=== PATIENT | female | born 1940 | race Caucasian/White ===

== ENCOUNTER 2017-06-26 19:25 | Emergency (ER) | payer OTHER ==
[~2017-06-26] VITALS: Ht 152.4 cm; Wt 44.6 kg
[2017-06-26] MEDS ORDERED: SODIUM CHLORIDE 0.9% 1000ML 1,000 ML IV STA (19:38)
[2017-06-26 20:05] VITALS: O2SAT 97
[2017-06-26 20:16] LABS: BASO % 0.6 %; BASO ABS # 0.04 K/uL (0-0.2); EOS % 1.1 %; EOS ABS # 0.07 K/uL (0-0.5); HEMATOCRIT 34.3 % (37-47); HEMOGLOBIN 11.5 g/dL (12.0-16.0); IG# 0.01 K/uL (0.00-0.02); LYMPH % 25.2 %; LYMPH ABS # 1.65 K/uL (1.2-3.4); MEAN CELL VOLUME 91.7 fL (80-100); MEAN CORPUSCULAR HEMOGLOBIN 30.7 pg (25-34); MEAN CORPUSCULAR HGB CONC 33.5 g/dl (32-36); MEAN PLATELET VOLUME 8.9 fL (7.4-10.4); MONO % 9.1 %; NEUT % 63.8 %; NEUT ABS # 4.19 K/uL (1.4-6.5); PLATELET COUNT 326 K/uL (130-400); RED CELL DISTRIBUTION WIDTH CV 13.4 % (11.5-14.5); WHITE BLOOD COUNT 6.56 K/uL (4.8-10.8)
[2017-06-26 20:26] LABS: PTT PATIENT 25.5 SECONDS (21.0-31.0)
[2017-06-26 20:34] LABS: ALBUMIN 3.2 gm/dl (3.4-5.0); ALT/SGPT 21 U/L (12-78); BLOOD UREA NITROGEN 19 mg/dl (7-18); CALCIUM 8.5 mg/dl (8.5-10.1); CARBON DIOXIDE 30 mmol/L (21-32); CREATININE 0.84 mg/dl (0.60-1.20); GLUCOSE 69 mg/dl (70-99); LIPASE 238 U/L (73-393); POTASSIUM 3.8 mmol/L (3.5-5.1); SODIUM 138 mmol/L (136-145)
[2017-06-26 20:43] LABS: ALKALINE PHOSPHATASE 61 U/L (45-117); AST/SGOT 30 U/L (15-37); CKMB 1.8 ng/ml (0.5-3.6); TOTAL PROTEIN 6.8 gm/dl (6.4-8.2)
--- NOTE | 2017-06-26 20:47 | DIAGNOSTIC IMAGING REPORT ---
CT HEAD WITHOUT CONTRAST (CT) CLINICAL HISTORY: Weakness FREQUENT FALLS, FORGETFULNESS. COMPARISON STUDY: No previous studies for comparison. TECHNIQUE: Axial CT of the brain is performed from the vertex to the skull base. IV contrast was not administered for this examination. A dose lowering technique was utilized adhering to the principles of ALARA. CT DOSE: 614.27 mGy.cm FINDINGS: No intra or extra-axial mass lesions are visualized. There is no CT evidence of acute cortical infarction. There is no evidence of midline shift. There is no acute hemorrhage. No calvarial fractures are visualized. There are patchy white matter hypodensities likely on a small vessel basis. There is mild ventricular prominence, likely secondary to volume loss. There are bilateral maxillary sinus air-fluid levels. IMPRESSION: 1. Bilateral maxillary sinus air-fluid levels 2. Otherwise no acute intracranial findings Electronically signed by: Chicho Avalos M.D. 06/26/2017 8:46 PM Dictated Date/Time: 06/26/2017 8:42 PM
--- NOTE | 2017-06-26 21:18 | EMERGENCY ROOM VISIT NOTE ---
History Report prepared by Marcy: Kb Vincent Under the Supervision of: Dr. Checo Nance M.D. First contact with patient: 19:38 Chief Complaint: URINARY SYMPTOMS Stated Complaint: FALLING,INCONTINENCE, UTI? FORGETFULL History of Present Illness The patient is a 77 year old female who presents to the Emergency Room with complaints of intermittent falls that began this week. The patient states that she has been losing balance recently, which caused her to fall 5 times in the last week. She reports she has bruises on her right ribs and she has been experiencing right posterolateral rib pain. The patient is accompanied by her son who states the patient has a history of dementia and has been more confused recently. He states that the patient has also been experiencing urinary symptoms , including urinary frequency and burning. The patient denies this. The patient reports a history of a urinary infection that occurred this summer. She denies any head trauma. Pt denies LOC, headache, fevers, chills, diaphoresis, visual changes, neck pain, chest pain, breathing difficulties, nausea, vomiting , abdominal pain, back pain, melena, hematochezia, numbness, weakness, lymphadenopathy, rash, or other complaints. Source of History: patient Onset: a week ago Position: other (global) Quality: other (global) Timing: intermittent Associated Symptoms: + chest pain, + urinary symptoms Review of Systems See HPI for pertinent positives and negatives. A total of ten systems were reviewed and were otherwise negative. Social History Smoking Status: Never Smoker Current/Historical Medications Scheduled Cholecalciferol (Vitamin D3), 50,000 INTER.UNIT PO WK Fluoxetine (Prozac), 10 MG PO DAILY Montelukast Sodium (Montelukast Sodium), 10 MG PO QPM Prednisone (Prednisone), 2.5 MG PO DAILY Raloxifene Hcl (Evista), 60 MG PO DAILY Allergies Coded Allergies: Erythromycin (Verified Allergy, Unknown, Unknown, 06/26/17) Physical Exam Vital Signs Date Time Temp Pulse Resp B/P (MAP) Pulse Ox O2 Delivery O2 Flow Rate FiO2 06/26/17 22:08 60 20 179/93 96 Room Air 06/26/17 22:00 36.6 54 20 165/86 96 Room Air 06/26/17 21:15 54 06/26/17 21:00 58 20 191/79 96 Room Air 06/26/17 20:21 36.6 75 20 165/86 96 Room Air 06/26/17 20:12 64 20 162/73 96 64 166/77 75 165/86 06/26/17 20:05 97 Room Air 06/26/17 19:31 36.6 68 18 161/80 96 Room Air Physical Exam GENERAL: Awake, alert, well-appearing, in no distress HENT: Normocephalic, atraumatic. Oropharynx unremarkable. EYES: Normal conjunctiva. Sclera non-icteric. NECK: Supple. No nuchal rigidity. FROM. No masses. RESPIRATORY: Clear to auscultation. No wheezes. CARDIAC: Normal rate. Normal rhythm. No murmurs. No rubs. Extremities warm and well perfused. Pulses equal. No JVD. GI: Soft, non-distended. No tenderness to palpation. No rebound or guarding. No masses. RECTAL: Deferred. MUSCULOSKELETAL: Atraumatic. Chest examination reveals right lateral rib tenderness. The back is symmetrical on inspection without obvious abnormality. There is no CVA tenderness to palpation. No joint edema. LOWER EXTREMITIES: Calves are equal size bilaterally and non-tender. No edema. No discoloration. NEURO: Normal sensorium. No sensory or motor deficits noted. SKIN: No rash or jaundice noted. Skin tear on right tricep. Medical Decision & Procedures ER Provider Diagnostic Interpretation: Radiology results as stated below per my review and radiologist interpretation: CT HEAD WITHOUT CONTRAST (CT) CLINICAL HISTORY: Weakness FREQUENT FALLS, FORGETFULNESS. COMPARISON STUDY: No previous studies for comparison. TECHNIQUE: Axial CT of the brain is performed from the vertex to the skull base. IV contrast was not administered for this examination. A dose lowering technique was utilized adhering to the principles of ALARA. CT DOSE: 614.27 mGy.cm FINDINGS: No intra or extra-axial mass lesions are visualized. There is no CT evidence of acute cortical infarction. There is no evidence of midline shift. There is no acute hemorrhage. No calvarial fractures are visualized. There are patchy white matter hypodensities likely on a small vessel basis. There is mild ventricular prominence, likely secondary to volume loss. There are bilateral maxillary sinus air-fluid levels. IMPRESSION: 1. Bilateral maxillary sinus air-fluid levels 2. Otherwise no acute intracranial findings Electronically signed by: Chicho Avalos M.D. 06/26/2017 8:46 PM Dictated Date/Time: 06/26/2017 8:42 PM R RIBS UNILATERAL WITH PA CHEST CLINICAL HISTORY: Right rib pain status post trauma COMPARISON STUDY: No previous studies for comparison. FINDINGS: Erect chest reveals no pneumothorax. There are acute fractures of the right sixth and seventh ribs. IMPRESSION: 1. Acute fractures of the right sixth and seventh ribs 2. No evidence of pneumothorax Electronically signed by: Chicho Avalos M.D. 06/26/2017 9:22 PM Dictated Date/Time: 06/26/2017 9:21 PM Laboratory Results 06/26/17 20:00 Red Blood Count 3.74, Mean Corpuscular Volume 91.7, Mean Corpuscular Hemoglobin 30.7, Mean Corpuscular Hemoglobin Concent 33.5, Mean Platelet Volume 8.9, Neutrophils (%) (Auto) 63.8, Lymphocytes (%) (Auto) 25.2, Monocytes (%) (Auto) 9.1, Eosinophils (%) (Auto) 1.1, Basophils (%) (Auto) 0.6, Neutrophils # (Auto) 4.19, Lymphocytes # (Auto) 1.65, Monocytes # (Auto) 0.60, Eosinophils # (Auto) 0.07, Basophils # (Auto) 0.04 06/26/17 20:00 Test 06/26/17 20:00 06/26/17 20:05 White Blood Count 6.56 K/uL (4.8-10.8) Red Blood Count 3.74 M/uL (4.2-5.4) Hemoglobin 11.5 g/dL (12.0-16.0) Hematocrit 34.3 % (37-47) Mean Corpuscular Volume 91.7 fL (80-100) Mean Corpuscular Hemoglobin 30.7 pg (25-34) Mean Corpuscular Hemoglobin Concent 33.5 g/dl (32-36) Platelet Count 326 K/uL (130-400) Mean Platelet Volume 8.9 fL (7.4-10.4) Neutrophils (%) (Auto) 63.8 % Lymphocytes (%) (Auto) 25.2 % Monocytes (%) (Auto) 9.1 % Eosinophils (%) (Auto) 1.1 % Basophils (%) (Auto) 0.6 % Neutrophils # (Auto) 4.19 K/uL (1.4-6.5) Lymphocytes # (Auto) 1.65 K/uL (1.2-3.4) Monocytes # (Auto) 0.60 K/uL (0.11-0.59) Eosinophils # (Auto) 0.07 K/uL (0-0.5) Basophils # (Auto) 0.04 K/uL (0-0.2) RDW Standard Deviation 45.0 fL (36.4-46.3) RDW Coefficient of Variation 13.4 % (11.5-14.5) Immature Granulocyte % (Auto) 0.2 % Immature Granulocyte # (Auto) 0.01 K/uL (0.00-0.02) Prothrombin Time 10.7 SECONDS (9.0-12.0) Prothromb Time International Ratio 1.0 (0.9-1.1) Activated Partial Thromboplast Time 25.5 SECONDS (21.0-31.0) Partial Thromboplastin Ratio 1.0 Anion Gap 6.0 mmol/L (3-11) Estimated GFR () 77.7 Estimated GFR (Non- 67.0 BUN/Creatinine Ratio 21.9 (10-20) Calcium Level 8.5 mg/dl (8.5-10.1) Magnesium Level 2.0 mg/dl (1.8-2.4) Total Bilirubin 0.3 mg/dl (0.2-1) Direct Bilirubin 0.1 mg/dl (0-0.2) Aspartate Amino Transf (AST/SGOT) 30 U/L (15-37) Alanine Aminotransferase (ALT/SGPT) 21 U/L (12-78) Alkaline Phosphatase 61 U/L (45-117) Total Creatine Kinase 303 U/L (26-192) Creatine Kinase MB 1.8 ng/ml (0.5-3.6) Creatine Kinase MB Ratio 0.6 (0-3.0) Troponin I < 0.015 ng/ml (0-0.045) Total Protein 6.8 gm/dl (6.4-8.2) Albumin 3.2 gm/dl (3.4-5.0) Lipase 238 U/L (73-393) Thyroid Stimulating Hormone (TSH) 0.807 uIu/ml (0.300-4.500) Urine Color DK YELLOW Urine Appearance CLEAR (CLEAR) Urine pH 5.0 (4.5-7.5) Urine Specific [place] 1.026 (1.000-1.030) Urine Protein NEG (NEG) Urine Glucose (UA) NEG (NEG) Urine Ketones 1+ (NEG) Urine Occult Blood NEG (NEG) Urine Nitrite NEG (NEG) Urine Bilirubin NEG (NEG) Urine Urobilinogen NEG (NEG) Urine Leukocyte Esterase NEG (NEG) Laboratory results reviewed by me Medications Administered Medications (Trade) Dose Ordered Sig/[place] Route Start Time Stop Time Status Last Admin Dose Admin Sodium Chloride 1,000 ml @ 125 mls/hr Q8H STAT IV 06/26/17 19:38 06/27/17 03:37 06/26/17 19:38 125 MLS/HR Acetaminophen (Tylenol Tab) 650 mg NOW STAT PO 06/26/17 21:40 06/26/17 21:41 DC 06/26/17 21:54 650 MG ECG Per My Interpretation Indication: weakness Rate (beats per minute): 61 Rhythm: normal sinus Findings: no acute ischemic change, no ectopy ED Course 1937: Ordered Sodium Chloride 1000 ml @ 125 mls/hr IV. 1941: The patient was evaluated in room A02. A complete history and physical exam was performed. 2139: Ordered Tylenol Tab 650 mg PO. 2144: I reevaluated the patient and she will do an ambulatory trial and nursing will check her blood sugar. If the family is comfortable, she will follow up with neurology. 2210: The patients blood sugar was normal. The patient successfully completed the ambulatory trial. The patient will be discharged. 6: I reevaluated the patient. Discussed results and discharge instructions: She verbalized understanding and agreement. The patient is ready for discharge. Medical Decision Triage Nursing notes reviewed. The patient's presentation and history were concerning for falling, possible urinary symptoms, and a history of dementia. Etiologies such as UTI, fracture, contusion, intracranial injury, metabolic, infection, hypo/hyperglycemia, electrolyte abnormalities, cardiac sources, intracerebral event, toxicologic, neurologic, as well as others were entertained. The patient was evaluated. She was smiling without any significant complaints. She did note some soreness in her right ribs. She was tender to palpation. Rest of her examination was rather benign. Blood work was obtained and was unremarkable. Urinalysis did not reveal any sign of infection. Head CT was unremarkable as well. The patient had a chest x-ray and rib series performed. She does have rib fractures on the right side. No pneumothorax or other intrathoracic issues noted. She is doing relatively well with this. I did discuss use of Tylenol and close follow-up with her primary physician. Family notes a progressive decline over the last year. This would fit with progressing dementia. Family did request a referral to neurology and they were given information for [facility] neurology. The patient was instructed not to drive until cleared in follow-up. She was instructed to use her cane when ambulating. She had no difficulty ambulating in the emergency department. She was given a incentive spirometer. She was also given Tylenol in the Emergency Room. I gave my usual and customary discussion regarding this issue. By the evaluation outlined above other emergent etiologies such as those listed in the differential, as well as others, were deemed relatively unlikely. The patient was educated about the findings as listed above. All questions were answered and the patient was pleased with the treatment. Return instructions were outlined and the patient was discharged in stable condition. The patient was referred to her PCP for follow-up for a recheck of the current condition. Medication Reconcilliation Current Medication List: was personally reviewed by me Blood Pressure Screening Patient's blood pressure: Elevated blood pressure Blood pressure disposition: Referred to PCP Impression Primary Impression: Multiple fractures of ribs, right side, initial encounter for closed fracture Additional Impression: Frequent falls Scribe Attestation The scribe's documentation has been prepared under my direction and personally reviewed by me in its entirety. I confirm that the note above accurately reflects all work, treatment, procedures, and medical decision making performed by me. Departure Information Dispostion Home / Self-Care Referrals Domo Huertas M.D., E. Pierre, M.D. Forms HOME CARE DOCUMENTATION FORM, IMPORTANT VISIT INFORMATION Patient Instructions [facility] Additional Instructions Tylenol 650 mg every 6 hours as needed for pain. Every two to 3 hours take slow deep breaths to exercise your lungs. Do this for about 10 minutes each time. Bruised or cracked ribs can lead to pneumonia and exercising your lungs may help prevent this. Use your cane. No driving until cleared by your primary physician. Follow-up with your primary care physician in 2 to 3 days for a recheck of your current condition. Follow-up with neurology as discussed. The office can be contacted on Wednesday. The number is listed below under Dr. Malhotra. Problem Qualifiers
--- NOTE | 2017-06-26 21:24 | DIAGNOSTIC IMAGING REPORT ---
R RIBS UNILATERAL WITH PA CHEST CLINICAL HISTORY: Right rib pain status post trauma COMPARISON STUDY: No previous studies for comparison. FINDINGS: Erect chest reveals no pneumothorax. There are acute fractures of the right sixth and seventh ribs. IMPRESSION: 1. Acute fractures of the right sixth and seventh ribs 2. No evidence of pneumothorax Electronically signed by: Chicho Avalos M.D. 06/26/2017 9:22 PM Dictated Date/Time: 06/26/2017 9:21 PM
[2017-06-26] MEDS ORDERED: ACETAMINOPHEN 500 MG TAB PO STA (21:37)
[2017-06-26] MEDS ORDERED: ACETAMINOPHEN 325 MG TAB PO STA (21:40)
[2017-06-26 22:00] VITALS: TEMP 36.6; Ht 152.4 cm; Wt 44.6 kg
[2017-06-26 22:08] VITALS: BP 179/93; PULSE 60; O2SAT 96
[2017-06-26] MEDS ORDERED: CHOL1CAP95 PO (22:20)
[2017-06-26] MEDS ORDERED: MONT1TAB5 PO (22:20)
[2017-06-26] MEDS ORDERED: RALO60TA30 PO (22:20)
[2017-06-26] MEDS ORDERED: FLUO10CA48 PO (22:20)
[2017-06-26] MEDS ORDERED: PRD/25 PO (22:20)
== END 2017-06-26 22:30 | disposition home or self-care (01) ==
LOC: C.EDB 19:27 → C.EDA 22:30
DX: S22.41XA Multiple fractures of ribs, right side, initial encounter for closed fracture (principal); R29.6 Repeated falls; W19.XXXA Unspecified fall, initial encounter; Z88.8 Allergy status to other drugs, medicaments and biological substances

== ENCOUNTER 2017-08-25 16:45 | Inpatient (IN) | payer OTHER ==
[~2017-08-25] VITALS: Ht 152.4 cm; Wt 46.3 kg
[2017-08-25] MEDS ORDERED: SODIUM CHLORIDE 0.9% 1000ML 1,000 ML IV SCH (17:15)
[2017-08-25 18:00] LABS: BASO % 0.2 %; BASO ABS # 0.03 K/uL (0-0.2); EOS % 0.1 %; EOS ABS # 0.01 K/uL (0-0.5); HEMATOCRIT 36.2 % (37-47); HEMOGLOBIN 12.2 g/dL (12.0-16.0); IG# 0.03 K/uL (0.00-0.02); LYMPH % 8.6 %; LYMPH ABS # 1.36 K/uL (1.2-3.4); MEAN CELL VOLUME 91.6 fL (80-100); MEAN CORPUSCULAR HEMOGLOBIN 30.9 pg (25-34); MEAN CORPUSCULAR HGB CONC 33.7 g/dl (32-36); MONO % 5.2 %; MONO ABS # 0.82 K/uL (0.11-0.59); NEUT % 85.7 %; NEUT ABS # 13.49 K/uL (1.4-6.5); PLATELET COUNT 301 K/uL (130-400); RED CELL DISTRIBUTION WIDTH CV 14.5 % (11.5-14.5); WHITE BLOOD COUNT 15.74 K/uL (4.8-10.8)
[2017-08-25 18:13] LABS: PTT PATIENT 27.7 SECONDS (21.0-31.0)
[2017-08-25 18:17] LABS: BLOOD UREA NITROGEN 13 mg/dl (7-18); CALCIUM 9.3 mg/dl (8.5-10.1); CARBON DIOXIDE 28 mmol/L (21-32); CREATININE 0.98 mg/dl (0.60-1.20); GLUCOSE 111 mg/dl (70-99); POTASSIUM 3.7 mmol/L (3.5-5.1); SODIUM 132 mmol/L (136-145)
[2017-08-25 18:37] LABS: CKMB 0.8 ng/ml (0.5-3.6)
--- NOTE | 2017-08-25 19:11 | DIAGNOSTIC IMAGING REPORT ---
CHEST ONE VIEW PORTABLE CLINICAL HISTORY: Weakness. COMPARISON STUDY: Chest radiograph June 26, 2017. FINDINGS: There is no pneumothorax. There is slight blunting of the left costophrenic angle. Minimal left basilar opacity favors atelectasis. There is no evidence for pulmonary edema. Cardiomediastinal silhouette is normal. Healing right-sided rib fractures are noted. IMPRESSION: 1. Mild left basilar opacity which favors atelectasis. Follow-up PA and lateral chest radiographs in one month are recommended. Possible trace left pleural effusion. 2. No evidence for pulmonary edema. Electronically signed by: Alejandro Coyle M.D. 08/25/2017 7:09 PM Dictated Date/Time: 08/25/2017 7:07 PM
--- NOTE | 2017-08-25 19:16 | EMERGENCY ROOM VISIT NOTE ---
History Report prepared by Marcy: Adalgisa Zhu Under the Supervision of: Dr. Checo Nance M.D. First contact with patient: 17:06 Chief Complaint: WEAKNESS Stated Complaint: DIFFICULTY WALKING, SLIGHT SPEECH ISSUES History of Present Illness The patient is a 77 year old female who presents to the Emergency Room with complaints of persistent general weakness since last night. She vomited last night. She denies any new vomiting today. Per friend, the patient has stayed in bed all day and was incontinent during the night. She was so weak she could not dress herself. Per friend, the patient has balance issues, which is unusual for her. The patient attends physical therapy and was just there yesterday and was doing well at that time. The patient reports coughing, though states it is chronic. The patient reports loss of sleep. Pt denies LOC, headache, fevers, chills, diaphoresis, visual changes, hearing issues, neck pain, chest pain, breathing difficulties, abdominal pain, back pain, melena, hematochezia, numbness, tingling, lymphadenopathy, rash, or other complaints. Source of History: patient, friend Onset: since last night Position: other (general) Quality: other (weakness) Timing: other (persistent) Associated Symptoms: + cough, + vomiting Note: Notes balance issues, loss of sleep, and incontinence. Review of Systems See HPI for pertinent positives and negatives. A total of ten systems were reviewed and were otherwise negative. Past Medical & Surgical Medical Problems: (1) Asthma (2) Bronchitis Family History Cancer Diabetes mellitus Lung disease Social History Smoking Status: Never Smoker Smokeless Tobacco Use: No Alcohol Use: none Marital Status: Housing Status: lives with family Occupation Status: unemployed Current/Historical Medications Scheduled Cholecalciferol (Vitamin D3), 50,000 INTER.UNIT PO WK Fluoxetine (Prozac), 10 MG PO QAM Fluticasone Furoate-Vilanterol (Breo Ellipta), 1 PUFF INH DAILY Montelukast Sodium (Montelukast Sodium), 10 MG PO QAM Prednisone (Prednisone), 2.5 MG PO QAM Raloxifene Hcl (Evista), 60 MG PO QAM Allergies Coded Allergies: Erythromycin (Verified Allergy, Unknown, Unknown, 06/26/17) Physical Exam Vital Signs Date Time Temp Pulse Resp B/P (MAP) Pulse Ox O2 Delivery O2 Flow Rate FiO2 08/25/17 20:01 75 134/61 08/25/17 19:09 78 128/71 94 Nasal Cannula 2.0 08/25/17 19:06 93 Nasal Cannula 2.0 08/25/17 19:05 73 136/64 74 128/71 08/25/17 18:33 73 18 147/73 90 Room Air 08/25/17 18:32 90 Room Air 08/25/17 17:37 74 08/25/17 17:07 78 16 133/66 92 Room Air 08/25/17 16:51 36.6 83 18 138/79 93 Room Air Physical Exam GENERAL: Awake, alert, tired-appearing, in no distress HENT: Normocephalic, atraumatic. Oropharynx unremarkable. EYES: Normal conjunctiva. Sclera non-icteric. NECK: Supple. No nuchal rigidity. FROM. No masses. RESPIRATORY: Clear to auscultation. No wheezes. No rales. Normal respiratory effort. CARDIAC: Normal rate. Normal rhythm. No murmurs. No rubs. Extremities warm and well perfused. Pulses equal. No JVD. GI: Soft, non-distended. No tenderness to palpation. No rebound or guarding. No masses. RECTAL: Deferred. MUSCULOSKELETAL: Atraumatic. Chest examination reveals no tenderness. The back is symmetrical on inspection without obvious abnormality. There is no CVA tenderness to palpation. No joint edema. LOWER EXTREMITIES: Calves are equal size bilaterally and non-tender. No edema. No discoloration. NEURO: Normal sensorium. No sensory or motor deficits noted. Cranial nerves intact, no drip. Speech is slowed, but not slurred, no dysarthria. SKIN: No rash or jaundice noted. Medical Decision & Procedures ER Provider Diagnostic Interpretation: Radiology results as stated below per my review and radiologist interpretation: CHEST ONE VIEW PORTABLE CLINICAL HISTORY: Weakness. COMPARISON STUDY: Chest radiograph June 26, 2017. FINDINGS: There is no pneumothorax. There is slight blunting of the left costophrenic angle. Minimal left basilar opacity favors atelectasis. There is no evidence for pulmonary edema. Cardiomediastinal silhouette is normal. Healing right-sided rib fractures are noted. IMPRESSION: 1. Mild left basilar opacity which favors atelectasis. Follow-up PA and lateral chest radiographs in one month are recommended. Possible trace left pleural effusion. 2. No evidence for pulmonary edema. Electronically signed by: Alejandro Coyle M.D. 08/25/2017 7:09 PM Dictated Date/Time: 08/25/2017 7:[address] OF THE HEAD WITHOUT CONTRAST CLINICAL HISTORY: Stroke. Difficulty walking. Slight speech issues. COMPARISON STUDY: Head CT June 26, 2017. CT DOSE: 638.56 mGycm TECHNIQUE: Helical axial images of the head were obtained without IV contrast. Automated exposure control was utilized for the study. A dose lowering technique was utilized adhering to the principles of ALARA. FINDINGS: No acute intracranial hemorrhage, midline shift or mass effect is present. Ventricular system is normal for age. Basilar cisterns are patent. There are no extra-axial collections. White matter hypodensities are unchanged and suggest small vessel disease. There are no findings to suggest acute dural sinus thrombosis or acute territorial infarct. There are no significant calvarial abnormalities. Visualized portions of the sinuses and mastoid air cells are clear. IMPRESSION: No acute intracranial findings. Electronically signed by: Alejandro Coyle M.D. 08/25/2017 7:14 PM Dictated Date/Time: 08/25/2017 7:11 PM Laboratory Results 08/25/17 17:42 Red Blood Count 3.95, Mean Corpuscular Volume 91.6, Mean Corpuscular Hemoglobin 30.9, Mean Corpuscular Hemoglobin Concent 33.7, Mean Platelet Volume 9.0, Neutrophils (%) (Auto) 85.7, Lymphocytes (%) (Auto) 8.6, Monocytes (%) (Auto) 5.2, Eosinophils (%) (Auto) 0.1, Basophils (%) (Auto) 0.2, Neutrophils # (Auto) 13.49, Lymphocytes # (Auto) 1.36, Monocytes # (Auto) 0.82, Eosinophils # (Auto) 0.01, Basophils # (Auto) 0.03 08/25/17 17:42 Test 08/25/17 17:42 08/25/17 18:30 White Blood Count 15.74 K/uL (4.8-10.8) Red Blood Count 3.95 M/uL (4.2-5.4) Hemoglobin 12.2 g/dL (12.0-16.0) Hematocrit 36.2 % (37-47) Mean Corpuscular Volume 91.6 fL (80-100) Mean Corpuscular Hemoglobin 30.9 pg (25-34) Mean Corpuscular Hemoglobin Concent 33.7 g/dl (32-36) Platelet Count 301 K/uL (130-400) Mean Platelet Volume 9.0 fL (7.4-10.4) Neutrophils (%) (Auto) 85.7 % Lymphocytes (%) (Auto) 8.6 % Monocytes (%) (Auto) 5.2 % Eosinophils (%) (Auto) 0.1 % Basophils (%) (Auto) 0.2 % Neutrophils # (Auto) 13.49 K/uL (1.4-6.5) Lymphocytes # (Auto) 1.36 K/uL (1.2-3.4) Monocytes # (Auto) 0.82 K/uL (0.11-0.59) Eosinophils # (Auto) 0.01 K/uL (0-0.5) Basophils # (Auto) 0.03 K/uL (0-0.2) RDW Standard Deviation 49.0 fL (36.4-46.3) RDW Coefficient of Variation 14.5 % (11.5-14.5) Immature Granulocyte % (Auto) 0.2 % Immature Granulocyte # (Auto) 0.03 K/uL (0.00-0.02) Prothrombin Time 10.7 SECONDS (9.0-12.0) Prothromb Time International Ratio 1.0 (0.9-1.1) Activated Partial Thromboplast Time 27.7 SECONDS (21.0-31.0) Partial Thromboplastin Ratio 1.1 Anion Gap 3.0 mmol/L (3-11) Est Creatinine Clear Calc Drug Dose 34.5 ml/min Estimated GFR () 64.5 Estimated GFR (Non- 55.6 BUN/Creatinine Ratio 13.8 (10-20) Calcium Level 9.3 mg/dl (8.5-10.1) Magnesium Level 2.1 mg/dl (1.8-2.4) Total Creatine Kinase 105 U/L (26-192) Creatine Kinase MB 0.8 ng/ml (0.5-3.6) Creatine Kinase MB Ratio 0.8 (0-3.0) Troponin I < 0.015 ng/ml (0-0.045) Urine Color YELLOW Urine Appearance CLEAR (CLEAR) Urine pH 7.0 (4.5-7.5) Urine Specific [place] 1.013 (1.000-1.030) Urine Protein TRACE (NEG) Urine Glucose (UA) NEG (NEG) Urine Ketones NEG (NEG) Urine Occult Blood TRACE (NEG) Urine Nitrite NEG (NEG) Urine Bilirubin NEG (NEG) Urine Urobilinogen NEG (NEG) Urine Leukocyte Esterase NEG (NEG) Urine WBC (Auto) 1-5 /hpf (0-5) Urine RBC (Auto) 0-4 /hpf (0-4) Urine Hyaline Casts (Auto) 1-5 /lpf (0-5) Urine Epithelial Cells (Auto) >30 /lpf (0-5) Urine Bacteria (Auto) NEG (NEG) Laboratory results reviewed by me Medications Administered Medications (Trade) Dose Ordered Sig/[place] Route Start Time Stop Time Status Last Admin Dose Admin Sodium Chloride 1,000 ml @ 50 mls/hr Q20H IV 08/25/17 17:15 09/24/17 17:14 08/25/17 19:02 50 MLS/HR Levofloxacin (Levaquin / D5W) 750 mg NOW STAT IV 08/25/17 19:45 08/25/17 19:46 DC 08/25/17 19:54 750 MG ECG Per My Interpretation Indication: weakness Rate (beats per minute): 73 Rhythm: normal sinus Findings: no acute ischemic change, no ectopy ED Course 1712: The patient was evaluated in room B4B. A complete history and physical exam was performed. 1714: Ordered Sodium Chloride 1,000 ml @ 50 mls/hr IV 1944: Ordered Levaquin 750 mg IV 1947: I reassessed the patient at this time. I discussed the results and treatment plan with the patient. I answered all pertaining questions that she had. She expressed understanding and verbalized agreement. The patient will be further evaluated. 1956: I spoke with Dr. Dunn, [facility]. We discussed the patient' s case. The patient will be evaluated by the [facility] for further management. Medical Decision Prior records/ancillary studies reviewed and summarized above. Nursing notes reviewed and agree them. Additional history obtained from family. The patient's history was concerning for weakness. Differential diagnosis: Etiologies such as metabolic, infection, hypo/hyperglycemia, electrolyte abnormalities, cardiac sources, intracerebral event, toxicologic, neurologic, as well as others were entertained. Physical examination: As above. ER treatment provided: IV Lock Normal saline hydration On reassessment the patient felt better. IV Levaquin Diagnostics interpretation by me: ECG: Normal The labs revealed a moderate leukocytosis on CBC. Chemistry panel unremarkable. Urinalysis no clear signs of infection. Imaging studies: CT scan and chest x-ray as above. This is concerning for a pneumonia as she has a white count, cough and abnormal lung sounds in the area of congestion. Consultation: A consultation was placed with the hospitalist. The case was discussed and diagnostics were reviewed. The patient was evaluated in the ER for further treatment. Medication Reconcilliation Current Medication List: was personally reviewed by me Blood Pressure Screening Patient's blood pressure: Elevated blood pressure monitored by hospitalist Consults Time Called: 1949 Consulting Physician: Dr. Dunn [facility] Returned Call: [address] Dunn [facility]. We discussed the patient's case. The patient will be evaluated by the [facility] for further management. Impression Primary Impression: Weakness Additional Impression: PNA (pneumonia) Scribe Attestation The scribe's documentation has been prepared under my direction and personally reviewed by me in its entirety. I confirm that the note above accurately reflects all work, treatment, procedures, and medical decision making performed by me. Departure Information Dispostion Being Evaluated By Hospitalist Referrals Domo Huertas M.D. (PCP) Patient Instructions My [facility] Problem Qualifiers
[2017-08-25] MEDS ORDERED: LEVAQUIN 750MG / 150ML D5W IV STA (19:45)
[2017-08-25] MEDS ORDERED: ACETAMINOPHEN 325 MG TAB PO PRN (21:00)
[2017-08-25] MEDS ORDERED: FLUT1INH INH (21:06)
[2017-08-25 21:38] VITALS: Ht 152.4 cm; Wt 46.3 kg
--- NOTE | 2017-08-25 21:47 | History and Physical ---
History & Physical Date & Time of Service: Aug 25, 2017 at 21:07 Chief Complaint: Difficulty Walking, Slight Speech Issues Primary Care Physician: Doom Huertas M.D. History of Present Illness Source: patient, family, hospital records 77 year old female with PMH of Asthma, bronchitis, ambulatory dysfunction follow with PCP Dr. Huertas present to the ER with complaints of persistent general weakness. History obtained from patient and family members at bedside. As per family pt had physical therapy and was doing fine yesterday. Family said that this morning pt had a dry hives/ nauseated, she did not have any vomit. family said that pt felt very weak today and spent the whole day in bed. Pt was so weak, her nursing aid had to hold her to prevent her from falling. Pt has a history of chronic cough, but she noted that her cough got worst and associated with productive greenish phlegm. daughter said that pt also was incontinence today, she said that has has not been incontinence for a while. denies any dysuria or strong odor urine. Family also notified memory declines and some confusion. Pt also has decrease appetite. No recent fall but she fell in the past. Denies any chest pain, palpitation, headache, fevers, chills, diaphoresis , visual changes, abdominal pain, numbness and diarrhea. Currently pt is eating [place]. She said that she feels much better. Past Medical/Surgical History Medical Problems: (1) Asthma (2) Bronchitis (3) Frequent falls (4) Multiple fractures of ribs, right side, initial encounter forclosed fracture Family History Cancer Diabetes mellitus Lung disease Social History Smoking Status: Never Smoker Smokeless Tobacco Use: No Marital Status: Occupational Status: unemployed Allergies Coded Allergies: Erythromycin (Verified Allergy, Unknown, Unknown, 06/26/17) Home Medications Scheduled Cholecalciferol (Vitamin D3), 50,000 INTER.UNIT PO WK Fluoxetine (Prozac), 10 MG PO QAM Fluticasone Furoate-Vilanterol (Breo Ellipta), 1 PUFF INH DAILY Montelukast Sodium (Montelukast Sodium), 10 MG PO HS Prednisone (Prednisone), 2.5 MG PO QAM Raloxifene Hcl (Evista), 60 MG PO QAM Review of Systems Constitutional: + weakness, + fatigue, No fever, No chills Eyes: No worsening of vision, No discharge ENT: No nasal symptoms, No sore throat, No trouble swallowing Respiratory: + cough, + sputum, No shortness of breath, No dyspnea on exertion Cardiovascular: No chest pain, No claudication, No palpitations Abdomen: + nausea, + problem reported (dry hives), No pain, No diarrhea Musculoskeletal: No calf pain Genitourinary - Female: + urinary incontinence, No dysuria Neurologic: + memory loss, + weakness, + balance problems Psychiatric: No substance abuse Endocrine: No excessive thirst Hematologic / Lymphatic: No abnormal bleeding/bruising, No night sweats Integumentary: No rash, No itch Physical Exam Vital Signs Date Time Temp Pulse Resp B/P (MAP) Pulse Ox O2 Delivery O2 Flow Rate FiO2 08/25/17 20:01 75 134/61 08/25/17 19:09 78 128/71 94 Room Air 08/25/17 19:06 93 Nasal Cannula 2.0 08/25/17 19:05 73 136/64 74 128/71 08/25/17 18:33 73 18 147/73 90 Room Air 08/25/17 18:32 90 Room Air 08/25/17 17:37 74 08/25/17 17:07 78 16 133/66 92 Room Air 08/25/17 16:51 36.6 83 18 138/79 93 Room Air General Appearance: WD/WN, no apparent distress Head: normocephalic, atraumatic Eyes: PERRL, EOMI, sclerae normal ENT: normal ENT inspection, hearing grossly normal Neck: supple, no JVD, trachea midline Respiratory/Chest: chest non-tender, no respiratory distress, no accessory muscle use, + pertinent finding (decrease BS in L side) Cardiovascular: no edema, no JVD, + systolic murmur Abdomen/GI: normal bowel sounds, non tender, soft Back: normal inspection Extremities/Musculoskelatal: no calf tenderness, no pedal edema 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: 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, no motor/sensory deficits, alert, normal mood/affect Skin: warm/dry, no rash Diagnostics Laboratory Results Results Past 24 Hours Test 08/25/17 17:42 08/25/17 18:30 Range/Units White Blood Count 15.74 4.8-10.8 K/uL Red Blood Count 3.95 4.2-5.4 M/uL Hemoglobin 12.2 12.0-16.0 g/dL Hematocrit 36.2 37-47 % Mean Corpuscular Volume 91.6 80-100 fL Mean Corpuscular Hemoglobin 30.9 25-34 pg Mean Corpuscular Hemoglobin Concent 33.7 32-36 g/dl Platelet Count 301 130-400 K/uL Mean Platelet Volume 9.0 7.4-10.4 fL Neutrophils (%) (Auto) 85.7 % Lymphocytes (%) (Auto) 8.6 % Monocytes (%) (Auto) 5.2 % Eosinophils (%) (Auto) 0.1 % Basophils (%) (Auto) 0.2 % Neutrophils # (Auto) 13.49 1.4-6.5 K/uL Lymphocytes # (Auto) 1.36 1.2-3.4 K/uL Monocytes # (Auto) 0.82 0.11-0.59 K/uL Eosinophils # (Auto) 0.01 0-0.5 K/uL Basophils # (Auto) 0.03 0-0.2 K/uL RDW Standard Deviation 49.0 36.4-46.3 fL RDW Coefficient of Variation 14.5 11.5-14.5 % Immature Granulocyte % (Auto) 0.2 % Immature Granulocyte # (Auto) 0.03 0.00-0.02 K/uL Prothrombin Time 10.7 9.0-12.0 SECONDS Prothromb Time International Ratio 1.0 0.9-1.1 Activated Partial Thromboplast Time 27.7 21.0-31.0 SECONDS Partial Thromboplastin Ratio 1.1 Sodium Level 132 136-145 mmol/L Potassium Level 3.7 3.5-5.1 mmol/L Chloride Level 101 98-107 mmol/L Carbon Dioxide Level 28 21-32 mmol/L Anion Gap 3.0 3-11 mmol/L Blood Urea Nitrogen 13 7-18 mg/dl Creatinine 0.98 0.60-1.20 mg/dl Est Creatinine Clear Calc Drug Dose 34.5 ml/min Estimated GFR () 64.5 Estimated GFR (Non- 55.6 BUN/Creatinine Ratio 13.8 10-20 Random Glucose 111 70-99 mg/dl Calcium Level 9.3 8.5-10.1 mg/dl Magnesium Level 2.1 1.8-2.4 mg/dl Total Creatine Kinase 105 26-192 U/L Creatine Kinase MB 0.8 0.5-3.6 ng/ml Creatine Kinase MB Ratio 0.8 0-3.0 Troponin I < 0.015 0-0.045 ng/ml Urine Color YELLOW Urine Appearance CLEAR CLEAR Urine pH 7.0 4.5-7.5 Urine Specific [place] 1.013 1.000-1.030 Urine Protein TRACE NEG Urine Glucose (UA) NEG NEG Urine Ketones NEG NEG Urine Occult Blood TRACE NEG Urine Nitrite NEG NEG Urine Bilirubin NEG NEG Urine Urobilinogen NEG NEG Urine Leukocyte Esterase NEG NEG Urine WBC (Auto) 1-5 0-5 /hpf Urine RBC (Auto) 0-4 0-4 /hpf Urine Hyaline Casts (Auto) 1-5 0-5 /lpf Urine Epithelial Cells (Auto) >30 0-5 /lpf Urine Bacteria (Auto) NEG NEG Microbiology Results 08/25/17 Blood Culture, Received Pending 08/25/17 Blood Culture, Received Pending Diagnostic Radiology CT OF THE HEAD WITHOUT CONTRAST CLINICAL HISTORY: Stroke. Difficulty walking. Slight speech issues. COMPARISON STUDY: Head CT June 26, 2017. CT DOSE: 638.56 mGycm TECHNIQUE: Helical axial images of the head were obtained without IV contrast. Automated exposure control was utilized for the study. A dose lowering technique was utilized adhering to the principles of ALARA. FINDINGS: No acute intracranial hemorrhage, midline shift or mass effect is present. Ventricular system is normal for age. Basilar cisterns are patent. There are no extra-axial collections. White matter hypodensities are unchanged and suggest small vessel disease. There are no findings to suggest acute dural sinus thrombosis or acute territorial infarct. There are no significant calvarial abnormalities. Visualized portions of the sinuses and mastoid air cells are clear. IMPRESSION: No acute intracranial findings. Electronically signed by: Alejandro Coyle M.D. CHEST ONE VIEW PORTABLE CLINICAL HISTORY: Weakness. COMPARISON STUDY: Chest radiograph June 26, 2017. FINDINGS: There is no pneumothorax. There is slight blunting of the left costophrenic angle. Minimal left basilar opacity favors atelectasis. There is no evidence for pulmonary edema. Cardiomediastinal silhouette is normal. Healing right-sided rib fractures are noted. IMPRESSION: 1. Mild left basilar opacity which favors atelectasis. Follow-up PA and lateral chest radiographs in one month are recommended. Possible trace left pleural effusion. 2. No evidence for pulmonary edema. Electronically signed by: Alejandro Coyle M.D. 08/25/2017 7:09 PM Dictated Date/Time: 08/25/2017 7:07 PM Impression Assessment and Plan Pneumonia Present with cough associated with productive greenish phlegm Mostly CAP WBC elevated on admission CXR showed mild left basilar opacity Received Levaquin on admission Continue levaquin IV Check blood cx, sputum cx Neb treatment Generalized Weakness Possible related to PNA Fall precaution PT/OT Asthma No wheezing on exam If develops any wheezing consider to start on low dose prednisone Continue Breo Memory loss/Confusion CT head was negative for any intracranial abnormality Family requested Neuro consult Check B12/Folate and TSH Will consult neuro Decrease appetite Continue prednisone 2.5 mg Encourage pt to increase protein intake Nutrition consult Hyponatremia Possible related to poor appetite Received IVF Monitor BMP Urinary incontinence Seems to be chronic UA negative Vit D def On Vit D supplement weekly DVT px heparin BID CODE STATUS DNR as per my discussion with daughter and patient. Resuscitation Status VTE Prophylaxis Will order VTE Prophylaxis: Yes
[2017-08-25] MEDS ORDERED: ONDANSETRON INJ 2 MG/ML 2 ML VIAL IV PRN (22:00)
[2017-08-25] MEDS ORDERED: MONT1TAB5 PO (22:20)
[2017-08-25] MEDS ORDERED: PRD/25 PO (22:20)
[2017-08-25] MEDS ORDERED: CHOL1CAP95 PO (22:20)
[2017-08-25] MEDS ORDERED: FLUO10CA48 PO (22:20)
[2017-08-25] MEDS ORDERED: RALO60TA30 PO (22:20)
[2017-08-25 22:30] VITALS: BP 122/55; PULSE 84; TEMP 37; O2SAT 96
[2017-08-25] MEDS ORDERED: ALBUT/IPRATROP 3MG/0.5MG NEB 3 ML VIAL INH PRN (22:45)
[2017-08-26] VITALS (8 sets, daily range): BP systolic 118–125; BP diastolic 62–70; PULSE 75–87; TEMP 36.6–37.7; O2SAT 90–94
[2017-08-26] MEDS: ALBUT/IPRATROP 3MG/0.5MG NEB 3 ML VIAL INH SCH ×4 (07:07→19:01)
[2017-08-26 08:43] LABS: HEMOGLOBIN 10.7 g/dL (12.0-16.0); MEAN CELL VOLUME 91.7 fL (80-100); MEAN CORPUSCULAR HEMOGLOBIN 30.7 pg (25-34); MEAN CORPUSCULAR HGB CONC 33.4 g/dl (32-36); MEAN PLATELET VOLUME 8.6 fL (7.4-10.4); PLATELET COUNT 239 K/uL (130-400); RED CELL DISTRIBUTION WIDTH CV 14.5 % (11.5-14.5); RED CELL DISTRIBUTION WIDTH SD 49.4 fL (36.4-46.3); WHITE BLOOD COUNT 12.86 K/uL (4.8-10.8)
[2017-08-26] MEDS: FLUOXETINE HCL 10 MG CAP PO SCH (08:56)
[2017-08-26] MEDS: HEPARIN SOD 5000 UNIT/0.5 ML CARP SQ SCH ×2 (09:00→21:00)
[2017-08-26 09:07] LABS: CALCIUM 8.1 mg/dl (8.5-10.1); CREATININE 0.9 mg/dl (0.60-1.20); POTASSIUM 3.6 mmol/L (3.5-5.1)
--- NOTE | 2017-08-26 09:19 | Clinical Documentation Query ---
BRIGID Myers : CLINICAL DOCUMENTATION QUERIES QUERY 1 OF 2 Patient is a 77 year old female admitted for evaluation and treatment of pneumonia. H&P documentation included: Decrease appetite Continue prednisone 2.5 mg Encourage pt to increase protein intake Nutrition consult. As appropriate, consider capture of patients BMI with explicit documentation thereof and/or documentation of a related/associated physical descriptor of appearance suggestive of being underweight. Thank you. In your clinical opinion is this patient being managed for: ( x ) Underweight/thin, BMI 19.9 kg/m*m ( ) Not Agree ( ) Other explanation of clinical findings (Please Explain. If no explanation given, this would be considered a no response.) ( ) Unable to determine ( ) Need to Discuss (Please call CDS via extension or qliq. If no interaction occurs this is considered a no response.) The medical record reflects the following clinical findings, treatment, and risk factors. Clinical Indicators: As above Treatment: Prednisone, encourage PO intake, nutrition consult Risk Factors: Age, infection, home/social environment, decline in mental status. QUERY 2 OF 2 Reported memory loss and confusion in the setting of pneumonia. With IVF and antibiotics, patient presented to floor oriented on all axes of assessment. As appropriate, consider documentation/capture of the alteration in mental status as a manifestation of the sequelae of an infectious process in an elderly woman. Thank you. In your clinical opinion is this patient being managed for: ( x ) (Possible) Encephalopathy secondary to pneumonia ( ) Other explanation of clinical findings (Please Explain. If no explanation given, this would be considered a no response.) ( ) Unable to determine ( ) Need to Discuss (Please call CDS via extension or qliq. If no interaction occurs this is considered a no response.) The medical record reflects the following clinical findings, treatment, and risk factors. Clinical Indicators: AMS in the setting of infection Treatment: IVF, antibiotics, cultures Risk Factors: Age, infection Please clarify and document your clinical opinion in the progress notes and discharge summary. Terms such as "probable", "suspected", "likely", "questionable", "possible", or "still to be ruled out" are acceptable. IF IN AGREEMENT, YOU MUST DOCUMENT ABOVE DIAGNOSTIC STATEMENT IN DAILY PROGRESS NOTES AND DISCHARGE SUMMARY. This document is not part of the patient's record. Thank You, Mahendra Araya, CRISPIN [id number]
--- NOTE | 2017-08-26 14:19 | Neurology Consultation ---
Neurology Consultation Date of Consultation: Aug 26, 2017. Attending Physician: Checo Hernandez M.D. Primary Care Physician: Domo Huertas M.D. Reason for Consultation: memory loss History of Present Illness Source: patient, family Fatmata is a 77 year old who has a PMH of Asthma, bronchitis, ambulatory dysfunction. She was brought in for persistent general weakness. She had physical therapy and was doing fine yesterday. She felt very weak today and spent the whole day in bed. She needed support when walking so she didn't fall which was a new finding. She has a chronic cough, but she noted that her cough got worst and associated with productive greenish phlegm and an episode of incontinence. She had been incontinent in the past but recently has done well. denies any dysuria or strong odor urine. Her granddaughter is in the room and her daughter is on speaker phone and states she has been having alot of memory issues also. She has been falling in the past but PT had helped that issue until this recent weakness and veering to one side with walking. Denies one sided weakness, numbness tingling, facial droop, slurred speech, N, V, sick contacts, headache, vision changes. Past Medical/Surgical History Medical Problems: (1) Frequent falls Status: Acute (2) Multiple fractures of ribs, right side, initial encounter forclosed fracture Status: Acute (3) PNA (pneumonia) Status: Acute (4) Weakness Status: Acute Social History Smokeless Tobacco Use: No Marital Status: Housing Status: lives with family Occupation Status: unemployed Allergies Coded Allergies: Erythromycin (Verified Allergy, Unknown, Unknown, 06/26/17) Current Inpatient Medications Current Inpatient Medications Medications (Trade) Dose Ordered Sig/[place] Route Start Time Stop Time Status Last Admin Dose Admin Acetaminophen (Tylenol Tab) 650 mg Q4H PRN PO 08/25/17 21:00 09/24/17 20:59 Fluoxetine HCl (Prozac Cap) 10 mg QAM PO 08/26/17 09:00 09/25/17 08:59 08/26/17 08:56 10 MG Prednisone (PredniSONE TAB) 2.5 mg QAM PO 08/26/17 09:00 09/25/17 08:59 08/26/17 08:56 2.5 MG Miscellaneous Information (Order Awaiting Action) 1 ea QS N/A 08/26/17 00:00 09/25/17 00:00 Levofloxacin 750 mg/Prmx 150 ml @ 100 mls/hr Q48H IV 08/27/17 20:00 09/03/17 19:59 Albuterol/ Ipratropium (Duoneb) 3 ml QIDR INH 08/26/17 08:00 09/25/17 07:59 08/26/17 11:08 3 ML Ondansetron HCl (Zofran Inj) 4 mg Q8H PRN IV 08/25/17 22:00 09/24/17 21:59 Heparin Sodium (Porcine) (Heparin Sq 5000 Unit/0.5ml) 5,000 unit Q12 SQ 08/26/17 09:00 09/25/17 08:59 08/26/17 09:00 5,000 UNIT Albuterol/ Ipratropium (Duoneb) 3 ml Q2H PRN INH 08/25/17 22:45 09/24/17 22:44 Montelukast Sodium (Singulair Tab) 10 mg HS PO 08/26/17 21:00 09/25/17 20:59 Raloxifene HCl (Evista Tab) 60 mg QAM PO 08/27/17 09:00 09/26/17 08:59 Physical Exam Vital Signs (Past 24 Hrs): Date Time Temp Pulse Resp B/P (MAP) Pulse Ox O2 Delivery O2 Flow Rate FiO2 08/26/17 13:36 82 93 08/26/17 11:09 84 18 91 Room Air 08/26/17 07:20 36.9 81 20 118/67 (84) 93 Nasal Cannula 2.0 08/26/17 07:20 Nasal Cannula 2.0 08/26/17 07:08 87 18 94 Nasal Cannula 2.0 08/26/17 00:20 Nasal Cannula 2.0 08/25/17 22:30 37.0 84 16 122/55 (77) 96 Nasal Cannula 2.0 08/25/17 22:19 75 112/55 96 08/25/17 21:38 Nasal Cannula 08/25/17 21:30 74 129/65 96 Nasal Cannula 2.0 08/25/17 20:01 75 134/61 08/25/17 19:09 78 128/71 94 Nasal Cannula 2.0 08/25/17 19:06 93 Nasal Cannula 2.0 08/25/17 19:05 73 136/64 74 128/71 08/25/17 18:33 73 18 147/73 90 Room Air 08/25/17 18:32 90 Room Air 08/25/17 17:37 74 08/25/17 17:07 78 16 133/66 92 Room Air 08/25/17 16:51 36.6 83 18 138/79 93 Room Air Physical Exam: Constitutional: appearance nourished, healthy and thin pale Ears, Nose, Mouth and Throat: mucous membranes moist, no injection and skin normal, eyes normal Cardiovascular: normal S-1 and S-2 and regular rate and rhythm Respiratory: clear to auscultation (CTA) and no rales, rhonchi or wheeze Musculoskeletal: no peripheral edema and good distal pulses Skin: no stigmata of neurocutaneous disease noted and normal and intact Eyes: extraocular muscles intact (EOMI) and pupils equal, round and reactive to light (PERRL) NEUROLOGIC EXAMINATION: Mental status: Alert and interactive Oriented to [facility], 2018, [facility] president, August Oriented to person Speech fluent with no evidence of aphasia Cranial Nerves smile eye brow raise symmetric Reflexes: Deep tendon reflexes were symmetrical and graded 2/5. Plantar responses were flexor. Sensory: light cool touch, vibration Coordination: finger to nose with no bi pass Gait/Stance: Posture stands with some assistance, not steady on feet, needs help for return to chair Motor: Negative for pronator drift of out stretched arms with eyes closed. Strength: biceps triceps hand provider relations specialist 5/5 bilaterally, hip flex plantar patellar flex ext 5/ 5 bilaterally Laboratory Results Past 24 Hours: 08/26/17 08:24 08/26/17 08:24 Test 08/25/17 17:42 08/25/17 18:30 08/26/17 08:24 Immature Granulocyte % (Auto) 0.2 % White Blood Count 15.74 K/uL (4.8-10.8) Red Blood Count 3.95 M/uL (4.2-5.4) 3.49 M/uL (4.2-5.4) Hemoglobin 12.2 g/dL (12.0-16.0) Hematocrit 36.2 % (37-47) Mean Corpuscular Volume 91.6 fL (80-100) 91.7 fL (80-100) Mean Corpuscular Hemoglobin 30.9 pg (25-34) 30.7 pg (25-34) Mean Corpuscular Hemoglobin Concent 33.7 g/dl (32-36) 33.4 g/dl (32-36) Platelet Count 301 K/uL (130-400) Mean Platelet Volume 9.0 fL (7.4-10.4) 8.6 fL (7.4-10.4) Neutrophils (%) (Auto) 85.7 % Lymphocytes (%) (Auto) 8.6 % Monocytes (%) (Auto) 5.2 % Eosinophils (%) (Auto) 0.1 % Basophils (%) (Auto) 0.2 % Neutrophils # (Auto) 13.49 K/uL (1.4-6.5) Lymphocytes # (Auto) 1.36 K/uL (1.2-3.4) Monocytes # (Auto) 0.82 K/uL (0.11-0.59) Eosinophils # (Auto) 0.01 K/uL (0-0.5) Basophils # (Auto) 0.03 K/uL (0-0.2) Immature Granulocyte # (Auto) 0.03 K/uL (0.00-0.02) Prothrombin Time 10.7 SECONDS (9.0-12.0) Prothromb Time International Ratio 1.0 (0.9-1.1) Activated Partial Thromboplast Time 27.7 SECONDS (21.0-31.0) Partial Thromboplastin Ratio 1.1 Total Creatine Kinase 105 U/L (26-192) Creatine Kinase MB 0.8 ng/ml (0.5-3.6) Creatine Kinase MB Ratio 0.8 (0-3.0) Troponin I < 0.015 ng/ml (0-0.045) Urine Color YELLOW Urine Appearance CLEAR (CLEAR) Urine pH 7.0 (4.5-7.5) Urine Specific [place] 1.013 (1.000-1.030) Urine Protein TRACE (NEG) Urine Glucose (UA) NEG (NEG) Urine Ketones NEG (NEG) Urine Occult Blood TRACE (NEG) Urine Nitrite NEG (NEG) Urine Bilirubin NEG (NEG) Urine Urobilinogen NEG (NEG) Urine Leukocyte Esterase NEG (NEG) Urine WBC (Auto) 1-5 /hpf (0-5) Urine RBC (Auto) 0-4 /hpf (0-4) Urine Hyaline Casts (Auto) 1-5 /lpf (0-5) Urine Epithelial Cells (Auto) >30 /lpf (0-5) Urine Bacteria (Auto) NEG (NEG) RDW Standard Deviation 49.4 fL (36.4-46.3) RDW Coefficient of Variation 14.5 % (11.5-14.5) Anion Gap 6.0 mmol/L (3-11) Est Creatinine Clear Calc Drug Dose 37.6 ml/min Estimated GFR () 71.5 Estimated GFR (Non- 61.7 BUN/Creatinine Ratio 13.1 (10-20) Calcium Level 8.1 mg/dl (8.5-10.1) Magnesium Level 1.9 mg/dl (1.8-2.4) Vitamin B12 Level 371 pg/mL (211-911) Folate 15.90 ng/mL (>5.38) Thyroid Stimulating Hormone (TSH) 1.680 uIu/ml (0.300-4.500) Imaging CT head- No acute intracranial findings. CXR- Mild left basilar opacity which favors atelectasis. Follow-up PA and lateral chest radiographs in one month are recommended. Possible trace left pleural effusion. No evidence for pulmonary edema. Impression 77 year old female generalized weakness, confusion at home Plan 1. B12, folate, TSH -normal 2. EEG done and pending read 3. MRI brain with and without contrast to r/o stroke 4. PT/OT/speech for discharge needs 5. further work up as outpatient for possible dementia will be helpful 6. fall precautions 7. TTE, carotid doppler for any vascular issues 8. orthostatic in process further recommendations to follow I have seen and discussed above patient with Dr Checo Garcia, neurology I have sen this patient examined her and interviewed her caregivers the sotory is that of a progresive decline in overall strength and cognition for likely at least a year with some imbalance and suspect this may be a dementia of vascular type but we need an extensive workup most of which should be done on utpatient basis after the initial barrage of imaging and lab studies and suspect some of the recent decline may reflect an infectious process with the elevated wbc Will await results of studies and Dr Eduar lewis reveiw and arrange outpatient follow up Checo Garcia MD
[2017-08-26] MEDS ORDERED: GADAVIST IV PRN (17:00)
--- NOTE | 2017-08-26 17:08 | DIAGNOSTIC IMAGING REPORT ---
BRAIN COMBO CLINICAL HISTORY: r/o stroke for weakness, ambulatory issues, memory issues stroke COMPARISON STUDY: No previous studies for comparison. TECHNIQUE: Utilizing a 1.5 [place] magnet and dedicated coil, multiplanar, multiecho imaging of the brain was performed pre and postcontrast administration. IV administration of 4.5 mL of Gadavist contrast was uneventful. FINDINGS: Diffusion-weighted images are negative for an acute ischemic event. There are findings of generalized cerebellar as well as cerebral atrophy. Mild chronic small vessel change of aging is present. Postcontrast images are considered negative for an enhancing lesion. There is trace amount of fluid within the maxillary sinuses bilaterally. Orbits are symmetric and there is no deviation of midline structures. IMPRESSION: 1. No evidence for an acute ischemic insult. 2. Atrophy. 3. Mild chronic small vessel change of aging. 4. No abnormal postcontrast enhancement. The above report was generated using voice recognition software. It may contain grammatical, syntax or spelling errors. Electronically signed by: Artemio Su M.D. 08/26/2017 5:07 PM Dictated Date/Time: 08/26/2017 5:04 PM
[2017-08-26] MEDS: CEFTRIAXONE SOD INJ 1 GM in DEXTROSE 5% ADD-VANTAGE 50ML 50 ML IV SCH (20:33)
[2017-08-26] MEDS: MONTELUKAST SOD 10 MG TAB PO SCH (20:33)
--- NOTE | 2017-08-26 20:57 | Progress Note ---
Medicine Progress Note Date & Time of Visit: Aug 26, 2017 at ~ 19:30 . Subjective CC: Follow-up visit for pneumonia and confusion. HPI: Admitted yesterday with productive cough, suspected pneumonia, confusion. Feels better today. No fever. Cough still productive of green sputum. No chest pain or dyspnea. No nausea, vomiting, diarrhea. Family visiting. ROS: General- as noted above in HPI Resp- as noted above in HPI Cardiac- no chest pain, no edema GI- as noted above in HPI - no dysuria, no difficulty voiding . Objective Last 8 Hrs Date Time Temp Pulse Resp B/P (MAP) Pulse Ox O2 Delivery O2 Flow Rate FiO2 08/26/17 19:01 77 18 94 Room Air 08/26/17 16:15 Room Air 08/26/17 15:14 36.6 77 16 125/70 (88) 90 Room Air 08/26/17 14:59 75 18 94 Room Air 08/26/17 13:36 82 93 Physical Exam: General- sitting in chair, no distress Lungs- few scattered rhonchi; no respiratory distress Cardiovascular- RRR; no murmur or gallop appreciated; no JVD; no pretibial edema Abdomen- + bowel sounds, soft, nontender Extremities- no cyanosis; no calf tenderness Neuro- alert, oriented to person, place, month (but not exact date), year; able to name present; mini-Cog performed (OK with immediate recall, clock abnormal, missed 1/3 with delayed recall) Skin- warm & dry . Laboratory Results: Last 24 Hours Test 08/26/17 08:24 08/26/17 20:43 White Blood Count 12.86 K/uL Red Blood Count 3.49 M/uL Hemoglobin 10.7 g/dL Hematocrit 32.0 % Mean Corpuscular Volume 91.7 fL Mean Corpuscular Hemoglobin 30.7 pg Mean Corpuscular Hemoglobin Concent 33.4 g/dl RDW Standard Deviation 49.4 fL RDW Coefficient of Variation 14.5 % Platelet Count 239 K/uL Mean Platelet Volume 8.6 fL Sodium Level 138 mmol/L Potassium Level 3.6 mmol/L Chloride Level 106 mmol/L Carbon Dioxide Level 26 mmol/L Anion Gap 6.0 mmol/L Blood Urea Nitrogen 12 mg/dl Creatinine 0.90 mg/dl Est Creatinine Clear Calc Drug Dose 37.6 ml/min Estimated GFR () 71.5 Estimated GFR (Non- 61.7 BUN/Creatinine Ratio 13.1 Random Glucose 113 mg/dl Calcium Level 8.1 mg/dl Magnesium Level 1.9 mg/dl Vitamin B12 Level 371 pg/mL Folate 15.90 ng/mL Thyroid Stimulating Hormone (TSH) 1.680 uIu/ml Date/Time Source Procedure Growth Status 08/26/17 18:12 Sputum Expectorated Sputum Gram Stain Pending Received 08/26/17 18:12 Sputum Expectorated Sputum Sputum Culture Pending Received Assessment & Plan PNEUMONIA Patient presented with productive cough, malaise, worsening confusion. Chest x-ray showed possible left lower lobe infiltrate. Blood and sputum cultures pending. Initially treated with levofloxacin. We will discontinue levofloxacin because of cognitive concerns and history of diarrhea on levofloxacin in the past. Allergy to erythromycin. Change therapy to doxycycline and ceftriaxone. Check nasopharyngeal swab for influenza AV PCR. ASTHMA Continue nebulizer treatments. CONFUSION Patient and her family have noticed some cognitive decline over the past year or so, worse with current illness. Neuroimaging by CT and MRI demonstrate atrophy, small vessel ischemic changes. TSH, B12 normal. Today, patient is essentially oriented except for exact date, but did not do well on mini-Cog. Suspect early dementia, probably Alzheimer's or vascular, with superimposed delirium/encephalopathy secondary to pneumonia. Follow cognitive status. LOW BODY WEIGHT Weight is 46 kg with BMI of 19.9. TSH normal. Consult nutrition. VTE PROPHYLAXIS SQ heparin. Ambulate. RESUSCITATION STATUS DNR per patient's wishes. DISPOSITION Expected discharge to home. Internal Medicine follow-up with Dr. Huertas. . Current Inpatient Medications: Current Inpatient Medications Medications (Trade) Dose Ordered Sig/Syd[place] Route Start Time Stop Time Status Last Admin Dose Admin Acetaminophen (Tylenol Tab) 650 mg Q4H PRN PO 08/25/17 21:00 09/24/17 20:59 Fluoxetine HCl (Prozac Cap) 10 mg QAM PO 08/26/17 09:00 09/25/17 08:59 08/26/17 08:56 10 MG Prednisone (PredniSONE TAB) 2.5 mg QAM PO 08/26/17 09:00 09/25/17 08:59 08/26/17 08:56 2.5 MG Miscellaneous Information (Order Awaiting Action) 1 ea QS N/A 08/26/17 00:00 09/25/17 00:00 Albuterol/ Ipratropium (Duoneb) 3 ml QIDR INH 08/26/17 08:00 09/25/17 07:59 08/26/17 19:01 3 ML Ondansetron HCl (Zofran Inj) 4 mg Q8H PRN IV 08/25/17 22:00 09/24/17 21:59 Heparin Sodium (Porcine) (Heparin Sq 5000 Unit/0.5ml) 5,000 unit Q12 SQ 08/26/17 09:00 09/25/17 08:59 08/26/17 09:00 5,000 UNIT Albuterol/ Ipratropium (Duoneb) 3 ml Q2H PRN INH 08/25/17 22:45 09/24/17 22:44 Montelukast Sodium (Singulair Tab) 10 mg HS PO 08/26/17 21:00 09/25/17 20:59 Raloxifene HCl (Evista Tab) 60 mg QAM PO 08/27/17 09:00 09/26/17 08:59 Gadobutrol (Gadavist) 4.5 mmol UD PRN IV 08/26/17 17:00 08/30/17 16:59 Doxycycline Hyclate (Vibramycin Cap) 100 mg BID PO 08/26/17 21:00 09/02/17 20:59 Ceftriaxone Sodium 1 gm/ Dextrose 50 ml @ 100 mls/hr Q24H IV 08/26/17 21:00 09/02/17 20:59
[2017-08-26] MEDS: DOXYCYCLINE HYCLATE 100 MG CAP PO SCH (21:01)
--- NOTE | 2017-08-26 21:20 | DIAGNOSTIC IMAGING REPORT ---
CAROTID DOPPLER NECK ART HISTORY: Mental status change dizziness, ambulatory issues COMPARISON: None. TECHNIQUE: Real-time, grayscale, and color Doppler sonography of the carotid arteries was performed. Imaging reviewed in the transverse and longitudinal planes. All measurements were calculated based on NASCET criteria. FINDINGS: Antegrade flow is seen in the bilateral vertebral arteries. The brachial pressures are hemodynamically similar. Mild plaque formation bilaterally The peak systolic velocity within the right ICA is 69. The right systolic ratio is 0.9. The peak systolic velocity within the left ICA is 91. The left systolic ratio is 1.1. IMPRESSION: No hemodynamically significant stenosis seen within the carotid arteries. Mild plaque formation bilaterally The above report was generated using voice recognition software. It may contain grammatical, syntax or spelling errors. Electronically signed by: Artemio Su M.D. 08/26/2017 9:19 PM Dictated Date/Time: 08/26/2017 9:17 PM
[2017-08-26 21:23] LABS: INFLUENZA A PCR Neg for Influ A (NEG); INFLUENZA B PCR Neg for Influ B (NEG)
[2017-08-27] VITALS (7 sets, daily range): BP systolic 130–146; BP diastolic 71–82; PULSE 68–76; TEMP 36.8–36.9; O2SAT 90–97
[2017-08-27] MEDS: ALBUT/IPRATROP 3MG/0.5MG NEB 3 ML VIAL INH SCH ×4 (07:02→18:43)
[2017-08-27 07:43] LABS: HEMATOCRIT 33.1 % (37-47); HEMOGLOBIN 11.2 g/dL (12.0-16.0); MEAN CELL VOLUME 91.7 fL (80-100); MEAN CORPUSCULAR HGB CONC 33.8 g/dl (32-36); MEAN PLATELET VOLUME 9.2 fL (7.4-10.4); PLATELET COUNT 279 K/uL (130-400); RED CELL DISTRIBUTION WIDTH CV 14.2 % (11.5-14.5); RED CELL DISTRIBUTION WIDTH SD 48.3 fL (36.4-46.3); WHITE BLOOD COUNT 10.65 K/uL (4.8-10.8)
[2017-08-27 08:20] LABS: CALCIUM 8.5 mg/dl (8.5-10.1); CREATININE 0.93 mg/dl (0.60-1.20)
--- NOTE | 2017-08-27 08:23 | ELECTROENCEPHALOGRAPH REPORT ---
CLINICAL DIAGNOSIS: Confusion and memory loss. ELECTROENCEPHALOGRAM DIAGNOSIS: Essentially normal during wakefulness. DESCRIPTION OF TRACING: This EEG was done as a bedside recording with simultaneous video analysis of patient movement and behavior. Photic stimulation was performed. Hyperventilation was not. Drowsiness and light sleep were not recorded. Under these conditions, there is evidence for abnormal-appearing background rhythm in the alpha range of about 9-10 Hz of maximum frequency and 30 microvolts of maximum amplitude. This is maximum in posterior head regions bilaterally symmetrical. Polymorphic mid frequency theta activity of modest voltage is seen over all head regions maximum in the central regions in a symmetrical fashion. Anterior head region maximum bilaterally symmetrical low voltage fast activity in the beta range is present. Photic stimulation provoked some modest driving response without a photomyogenic or photoparoxysmal component. At no time during the waking tracing is there evidence for potentially epileptogenic activity in the form of polyspike or spike wave bursts, focal sharp waves or focal spikes. INTERPRETATION: This EEG is essentially normal during wakefulness without evidence for focal or generalized abnormalities and without evidence for potentially epileptogenic activity.
[2017-08-27] MEDS: DOXYCYCLINE HYCLATE 100 MG CAP PO SCH ×2 (08:34→20:30)
[2017-08-27] MEDS: FLUOXETINE HCL 10 MG CAP PO SCH (08:34)
[2017-08-27] MEDS: RALOXIFENE 60 MG TAB PO SCH (08:35)
[2017-08-27] MEDS: HEPARIN SOD 5000 UNIT/0.5 ML CARP SQ SCH ×2 (08:39→20:36)
--- NOTE | 2017-08-27 12:25 | Neurology Progress Notes ---
Neurology Progress Note Date of Service Aug 27, 2017. Jamila Avilez is a 77 year old who has a PMH of Asthma, bronchitis, ambulatory dysfunction. She was brought in for persistent general weakness. She had physical therapy and was doing fine yesterday. She felt very weak today and spent the whole day in bed. She needed support when walking so she didn't fall which was a new finding. She has a chronic cough, but she noted that her cough got worst and associated with productive greenish phlegm and an episode of incontinence. She had been incontinent in the past but recently has done well. denies any dysuria or strong odor urine. Her granddaughter is in the room and her daughter is on speaker phone and states she has been having alot of memory issues also. She has been falling in the past but PT had helped that issue until this recent weakness and veering to one side with walking. She is sitting up this am and states she is feeling well. Her caregiver is bedside and states she is at her baseline. Denies one sided weakness, numbness tingling, facial droop, slurred speech, N, V, sick contacts, headache, vision changes. She had not further incontinence overnight. Objective Date Time Temp Pulse Resp B/P (MAP) Pulse Ox O2 Delivery O2 Flow Rate FiO2 08/27/17 11:07 74 15 90 Room Air 08/27/17 07:49 36.9 74 18 130/82 (98) 91 Room Air 08/27/17 07:15 Room Air 08/27/17 07:05 76 16 91 Room Air 08/27/17 00:05 Room Air 08/26/17 23:10 37.7 76 16 119/62 (81) 93 Room Air 08/26/17 19:01 77 18 94 Room Air 08/26/17 16:15 Room Air 08/26/17 15:14 36.6 77 16 125/70 (88) 90 Room Air 08/26/17 14:59 75 18 94 Room Air 08/26/17 13:36 82 93 Last 24 Hours Test 08/26/17 20:43 08/27/17 07:10 Influenza Type A (RT-PCR) Neg for Influ A Influenza Type B (RT-PCR) Neg for Influ B White Blood Count 10.65 K/uL Red Blood Count 3.61 M/uL Hemoglobin 11.2 g/dL Hematocrit 33.1 % Mean Corpuscular Volume 91.7 fL Mean Corpuscular Hemoglobin 31.0 pg Mean Corpuscular Hemoglobin Concent 33.8 g/dl RDW Standard Deviation 48.3 fL RDW Coefficient of Variation 14.2 % Platelet Count 279 K/uL Mean Platelet Volume 9.2 fL Sodium Level 136 mmol/L Potassium Level 4.0 mmol/L Chloride Level 103 mmol/L Carbon Dioxide Level 28 mmol/L Anion Gap 5.0 mmol/L Blood Urea Nitrogen 11 mg/dl Creatinine 0.93 mg/dl Est Creatinine Clear Calc Drug Dose 36.4 ml/min Estimated GFR () 68.7 Estimated GFR (Non- 59.3 BUN/Creatinine Ratio 11.3 Random Glucose 91 mg/dl Calcium Level 8.5 mg/dl Imaging: carotid doppler- No hemodynamically significant stenosis seen within the carotid arteries. Mild plaque formation bilaterally MRI with and without contrast- No evidence for an acute ischemic insult. Atrophy. Mild chronic small vessel change of aging. No abnormal postcontrast enhancement. EEG- This EEG is essentially normal during wakefulness without evidence for focal or generalized abnormalities and without evidence for potentially epileptogenic activity. Exam: Gen: alert NAD knows [facility], August lungs CTA CV RRR hand set o type operator biceps triceps bilaterally 5/5, hip flex plantar flex ext 5/5 bilaterally Current Inpatient Medications Medications (Trade) Dose Ordered Sig/[place] Route Start Time Stop Time Status Last Admin Dose Admin Acetaminophen (Tylenol Tab) 650 mg Q4H PRN PO 08/25/17 21:00 09/24/17 20:59 Fluoxetine HCl (Prozac Cap) 10 mg QAM PO 08/26/17 09:00 09/25/17 08:59 08/27/17 08:34 10 MG Prednisone (PredniSONE TAB) 2.5 mg QAM PO 08/26/17 09:00 09/25/17 08:59 08/27/17 08:35 2.5 MG Miscellaneous Information (Order Awaiting Action) 1 ea QS N/A 08/26/17 00:00 09/25/17 00:00 Albuterol/ Ipratropium (Duoneb) 3 ml QIDR INH 08/26/17 08:00 09/25/17 07:59 08/27/17 11:06 3 ML Ondansetron HCl (Zofran Inj) 4 mg Q8H PRN IV 08/25/17 22:00 09/24/17 21:59 Heparin Sodium (Porcine) (Heparin Sq 5000 Unit/0.5ml) 5,000 unit Q12 SQ 08/26/17 09:00 09/25/17 08:59 08/27/17 08:39 5,000 UNIT Albuterol/ Ipratropium (Duoneb) 3 ml Q2H PRN INH 08/25/17 22:45 09/24/17 22:44 Montelukast Sodium (Singulair Tab) 10 mg HS PO 08/26/17 21:00 09/25/17 20:59 08/26/17 20:33 10 MG Raloxifene HCl (Evista Tab) 60 mg QAM PO 08/27/17 09:00 09/26/17 08:59 08/27/17 08:35 60 MG Gadobutrol (Gadavist) 4.5 mmol UD PRN IV 08/26/17 17:00 08/30/17 16:59 Doxycycline Hyclate (Vibramycin Cap) 100 mg BID PO 08/26/17 21:00 09/02/17 20:59 08/27/17 08:34 100 MG Ceftriaxone Sodium 1 gm/ Dextrose 50 ml @ 100 mls/hr Q24H IV 08/26/17 21:00 09/02/17 20:59 08/26/17 20:33 100 MLS/HR Impression 77 year old female generalized weakness, confusion at home Plan 1. B12, folate, TSH -normal RPR pending 2. EEG no seizure focus 3. MRI brain with and without contrast to r/o stroke 4. PT/OT/speech for discharge needs 5. further work up as outpatient for possible dementia will be helpful 6. fall precautions 7. TTE pending read 8. carotid no significant stenosis 9. orthostatic in process- not documented to date 10. ok to discharge when medically stable neurology follow up after discharge or from rehab if needed 2-[address] Checo Garcia, or Zulma LOZANO I have seen and discussed above patient with Dr Zulma Witt, neurology Pt seen and examined. She is feeling stronger with tx for URI. Exam notable for brisk reflexes, although no clonus or upgoing toes. If pt continues to improve would assume the weakness is related to infection. If she does not improve would rec MRI c spine noncontrast given brisk reflexes. Agree with checking orthostatics. LEONARDO Witt MD
--- NOTE | 2017-08-27 17:05 | ECHOCARDIOGRAM REPORT ---
*NOTICE TO RECEIVING CONSTITUTION PARTY AGENCY This information is strictly Confidential and protected under [place] law. [place] law prohibits you from making any further disclosure of this information unless further disclosure is expressly permitted by the written consent of the person to whom it pertains or is authorized by law. A general authorization for the release of medical or other information is not sufficient for this purpose. Hospital accepts no responsibility if the information is made available to any other person, INCLUDING THE PATIENT. Interpretation Summary * Name: GAVIN SHAH Study Date: 08/27/2017 08:41 AM BP: 130/82 mmHg * Patient Location: [facility]\S\W355\S\2 HR: 74 * : 1940 (M/d/yyy) Gender: Female Height: 60 in * Age: 77 yrs Ethnicity: [place] Weight: 102 lb * Ordering Physician: Zulma Soni * Referring Physician: Self, Referred * Performed By: Elli Vasquez RDCS * * Reason For Study: Shortness of Breath, Dizziness, Ambulatory Dysfunction * BSA: 1.4 m2 * The study was technically adequate. * There is no comparison study available. * -- Conclusions -- * Ejection Fraction = 65-70%. * Aortic valve sclerosis mild, without significant aortic valvular stenosis. * There is trace tricuspid regurgitation. * Doppler findings do not suggest pulmonary hypertension. * Pulse wave TDI of the anterior and posterior mitral annulas demonstrates normal LV relaxation Procedure Details * A complete two-dimensional transthoracic echocardiogram was performed (2D, M-mode, Doppler and color flow Doppler). Left Ventricle * The left ventricle is normal in size. * There is borderline concentric left ventricular hypertrophy. * Ejection Fraction = 65-70%. * Left ventricular systolic function is normal. * The left ventricular wall motion is normal. Right Ventricle * The right ventricle is normal size. * The right ventricular systolic function is normal as assessed by tricuspid annular plane systolic excursion (TAPSE) (normal >1.5 cm). Atria * The left atrial size is normal. * Right atrial size is normal. * There is no evidence of atrial septal defect, but resolution does not allow assessment for a patent foramen ovale. Mitral Valve * The mitral valve is normal. * There is no mitral valve stenosis. * Significant mitral regurgitation is absent. Tricuspid Valve * The tricuspid valve is normal. * There is no tricuspid stenosis. * There is trace tricuspid regurgitation. * Doppler findings do not suggest pulmonary hypertension. Aortic Valve * The aortic valve is trileaflet. * Aortic valve sclerosis mild, without significant aortic valvular stenosis. * Aortic stenosis is absent. * There is no significant aortic regurgitation. Pulmonic Valve * The pulmonary valve is inadequately visualized, but the Doppler data is adequate for interpretation. * There is no pulmonic valvular stenosis. * Trace pulmonic valvular regurgitation. Great Vessels * The aortic root is normal size. Pericardium/Pleural * There is no pericardial effusion. Great Vessels * The IVC was not well visualized. Left Ventricular Diastolic Function * Pulse wave TDI of the anterior and posterior mitral annulas demonstrates normal LV relaxation MMode 2D Measurements and Calculations IVSd 1.2 cm IVSs 0.99 cm LVIDd 3.8 cm LVIDs 2.2 cm LVPWd 1.2 cm LVPWs 1.2 cm IVS/LVPW 0.97 FS 43.4 % EDV(Teich) 62.8 ml ESV(Teich) 15.5 ml EF(Teich) 75.3 % EDV(cubed) 55.8 ml ESV(cubed) 10.1 ml EF(cubed) 81.9 % % IVS thick -14.36 % % LVPW thick -2.78 % LV mass(C)d 150.0 grams LV mass(C)dI 107.0 grams/m\S\2 LV mass(C)s 59.0 grams LV mass(C)sI 42.1 grams/m\S\2 SV(Teich) 47.3 ml SI(Teich) 33.7 ml/m\S\2 SV(cubed) 45.7 ml SI(cubed) 32.6 ml/m\S\2 Ao root diam 2.5 cm Ao root area 4.9 cm\S\2 ACS 1.4 cm LA dimension 2.6 cm LA/Ao 1.0 LVAd ap4 18.0 cm\S\2 LVLd ap4 7.1 cm EDV(MOD-sp4) 40.3 ml EDV(sp4-el) 39.0 ml LVAs ap4 10.3 cm\S\2 LVLs ap4 5.8 cm ESV(MOD-sp4) 17.1 ml ESV(sp4-el) 15.5 ml EF(MOD-sp4) 57.6 % EF(sp4-el) 60.3 % LVAd ap2 13.5 cm\S\2 LVLd ap2 6.2 cm EDV(MOD-sp2) 25.4 ml EDV(sp2-el) 25.1 ml LVAs ap2 7.1 cm\S\2 LVLs ap2 4.9 cm ESV(MOD-sp2) 9.7 ml ESV(sp2-el) 8.8 ml EF(MOD-sp2) 62.0 % EF(sp2-el) 65.0 % LVLd %diff -13.75 % EDV(MOD-bp) 34.1 ml LVLs %diff -19.33 % ESV(MOD-bp) 14.1 ml EF(MOD-bp) 58.8 % SV(MOD-sp4) 23.2 ml SI(MOD-sp4) 16.6 ml/m\S\2 SV(MOD-sp2) 15.8 ml SI(MOD-sp2) 11.2 ml/m\S\2 SV(MOD-bp) 20.1 ml SI(MOD-bp) 14.3 ml/m\S\2 SV(sp4-el) 23.5 ml SI(sp4-el) 16.8 ml/m\S\2 SV(sp2-el) 16.3 ml SI(sp2-el) 11.6 ml/m\S\2 Doppler Measurements and Calculations MV E max jil 86.8 cm/sec MV A max jil 85.2 cm/sec MV E/A 1.0 MV dec time 0.24 sec Ao V2 max 212.9 cm/sec Ao max PG 18.1 mmHg Ao max PG (full) 12.1 mmHg LV V1 max PG 6.0 mmHg LV V1 max 122.4 cm/sec PA V2 max 98.4 cm/sec PA max PG 3.9 mmHg TR max jil 244.9 cm/sec
[2017-08-27] MEDS ORDERED: LEVOFLOXACIN / D5W 750 MG in PREMIXED IN D5W 150 ML IV SCH (20:00)
[2017-08-27] MEDS: MONTELUKAST SOD 10 MG TAB PO SCH (20:30)
[2017-08-27] MEDS: CEFTRIAXONE SOD INJ 1 GM in DEXTROSE 5% ADD-VANTAGE 50ML 50 ML IV SCH (20:30)
--- NOTE | 2017-08-27 21:21 | Progress Note ---
Medicine Progress Note Date & Time of Visit: Aug 27, 2017 at 14:00 . Subjective CC: Follow-up visit for pneumonia and confusion. HPI: Persistent cough. O2 sats running around 90% on RA at rest. No fever. Confusion improved. Caregiver visiting. ROS: General- as noted above in HPI Resp- as noted above in HPI Cardiac- no chest pain, no edema GI- no nausea, vomiting, diarrhea. - no dysuria . Objective Last 8 Hrs Date Time Temp Pulse Resp B/P (MAP) Pulse Ox O2 Delivery O2 Flow Rate FiO2 08/27/17 18:43 75 15 97 Room Air 08/27/17 15:48 36.8 75 18 134/75 (94) 97 Room Air 08/27/17 15:00 Room Air 08/27/17 14:57 76 15 95 Room Air Physical Exam: General- lying in bed, no acute distress Lungs- few scattered rhonchi; no respiratory distress Cardiovascular- RRR; no murmur or gallop appreciated; no JVD; no pretibial edema Abdomen- + bowel sounds, soft, nontender Extremities- no cyanosis; no calf tenderness Neuro- alert, oriented to person, place, month (but not exact date), year; able to name present Skin- warm & dry . Laboratory Results: Last 24 Hours Test 08/27/17 07:10 White Blood Count 10.65 K/uL Red Blood Count 3.61 M/uL Hemoglobin 11.2 g/dL Hematocrit 33.1 % Mean Corpuscular Volume 91.7 fL Mean Corpuscular Hemoglobin 31.0 pg Mean Corpuscular Hemoglobin Concent 33.8 g/dl RDW Standard Deviation 48.3 fL RDW Coefficient of Variation 14.2 % Platelet Count 279 K/uL Mean Platelet Volume 9.2 fL Sodium Level 136 mmol/L Potassium Level 4.0 mmol/L Chloride Level 103 mmol/L Carbon Dioxide Level 28 mmol/L Anion Gap 5.0 mmol/L Blood Urea Nitrogen 11 mg/dl Creatinine 0.93 mg/dl Est Creatinine Clear Calc Drug Dose 36.4 ml/min Estimated GFR () 68.7 Estimated GFR (Non- 59.3 BUN/Creatinine Ratio 11.3 Random Glucose 91 mg/dl Calcium Level 8.5 mg/dl Assessment & Plan PNEUMONIA Patient presented with productive cough, malaise, worsening confusion. Chest x-ray showed probable left lower lobe infiltrate. Blood and sputum cultures pending. Nasopharyngeal swab for negative influenza AB per PCR. Initially treated with levofloxacin. Discontinued levofloxacin because of cognitive concerns and history of diarrhea on levofloxacin in the past. Allergy to erythromycin. Changed therapy to doxycycline and ceftriaxone. ASTHMA Continue nebulizer treatments. CONFUSION Patient and her family have noticed some cognitive decline over the past year or so, worse with current illness. Neuroimaging by CT and MRI demonstrate atrophy, small vessel ischemic changes. TSH, B12 normal. Mini-Cog performed 08/26-abnormal clock, recalled 2 out of 3 items. Suspect early dementia, probably Alzheimer's or vascular, with superimposed delirium/encephalopathy secondary to pneumonia. Follow cognitive status. LOW BODY WEIGHT Weight is 46 kg with BMI of 19.9. TSH normal. Nutritional supplements. Follow. VTE PROPHYLAXIS SQ heparin. Ambulate. RESUSCITATION STATUS DNR per patient's wishes. DISPOSITION Expected discharge to home. Internal Medicine follow-up with Dr. Huertas. Daughter given update by phone. . Current Inpatient Medications: Current Inpatient Medications Medications (Trade) Dose Ordered Sig/Sydney Route Start Time Stop Time Status Last Admin Dose Admin Acetaminophen (Tylenol Tab) 650 mg Q4H PRN PO 08/25/17 21:00 09/24/17 20:59 Fluoxetine HCl (Prozac Cap) 10 mg QAM PO 08/26/17 09:00 09/25/17 08:59 08/27/17 08:34 10 MG Prednisone (PredniSONE TAB) 2.5 mg QAM PO 08/26/17 09:00 09/25/17 08:59 08/27/17 08:35 2.5 MG Miscellaneous Information (Order Awaiting Action) 1 ea QS N/A 08/26/17 00:00 09/25/17 00:00 Albuterol/ Ipratropium (Duoneb) 3 ml QIDR INH 08/26/17 08:00 09/25/17 07:59 08/27/17 18:43 3 ML Ondansetron HCl (Zofran Inj) 4 mg Q8H PRN IV 08/25/17 22:00 09/24/17 21:59 Heparin Sodium (Porcine) (Heparin Sq 5000 Unit/0.5ml) 5,000 unit Q12 SQ 08/26/17 09:00 09/25/17 08:59 08/27/17 20:36 5,000 UNIT Albuterol/ Ipratropium (Duoneb) 3 ml Q2H PRN INH 08/25/17 22:45 09/24/17 22:44 Montelukast Sodium (Singulair Tab) 10 mg HS PO 08/26/17 21:00 09/25/17 20:59 08/27/17 20:30 10 MG Raloxifene HCl (Evista Tab) 60 mg QAM PO 08/27/17 09:00 09/26/17 08:59 08/27/17 08:35 60 MG Gadobutrol (Gadavist) 4.5 mmol UD PRN IV 08/26/17 17:00 08/30/17 16:59 Doxycycline Hyclate (Vibramycin Cap) 100 mg BID PO 08/26/17 21:00 09/02/17 20:59 08/27/17 20:30 100 MG Ceftriaxone Sodium 1 gm/ Dextrose 50 ml @ 100 mls/hr Q24H IV 08/26/17 21:00 09/02/17 20:59 08/27/17 20:30 100 MLS/HR
[2017-08-28] MEDS: ALBUT/IPRATROP 3MG/0.5MG NEB 3 ML VIAL INH SCH ×3 (06:56→15:07)
[2017-08-28 06:57] VITALS: PULSE 70; O2SAT 92
[2017-08-28 07:57] VITALS: BP 146/69; PULSE 74; TEMP 36.7; O2SAT 92
[2017-08-28] MEDS: HEPARIN SOD 5000 UNIT/0.5 ML CARP SQ SCH (09:09)
[2017-08-28] MEDS: DOXYCYCLINE HYCLATE 100 MG CAP PO SCH (09:09)
[2017-08-28] MEDS: RALOXIFENE 60 MG TAB PO SCH (09:09)
[2017-08-28] MEDS: FLUOXETINE HCL 10 MG CAP PO SCH (09:09)
[2017-08-28 11:13] VITALS: PULSE 78; O2SAT 90
--- NOTE | 2017-08-28 11:24 | PROGRESS NOTE ---
DATE: 08/28/2017 SUBJECTIVE: I am seeing Mrs. Harmon in followup of an episode of generalized weakness. No clear neurologic etiology was found, although the patient was thought to have an upper respiratory tract infection. Her white count has returned to normal and gradually her strength has improved. She has been up and walking on the [place] with nursing. PHYSICAL EXAMINATION: GENERAL: She is awake and alert, cooperative. VITAL SIGNS: 36.7, 74, 18, 146/69, 92%. NEUROLOGIC: There is no facial asymmetry, no dysarthria. There is symmetric strength. Reflexes are brisk in the uppers and lowers, although there is no clonus and toes are downgoing. IMPRESSION: Generalized weakness related to infection. If the patient were not to return to baseline, we would recommend MRI of the cervical spine as she has brisk reflexes to rule out a compressive cervical myelopathy. The patient's daughter may want to bring the patient to our office either to see Zulma Soni or myself in followup to further address cognitive issues. EDUARDO
[2017-08-28] MEDS ORDERED: NEBMAC (12:07)
[2017-08-28] MEDS ORDERED: OXGN (12:07)
--- NOTE | 2017-08-28 14:51 | Progress Note ---
Medicine Progress Note Date & Time of Visit: Aug 28, 2017 at 14:51 . Subjective CC: Follow-up visit for pneumonia and confusion. HPI: Cough improved. No fever. No SOB. O2 sats running around 90% on RA at rest. O2 sat fell to 85% while ambulating on RA. Confusion improved. Would like to go home. ROS: General- as noted above in HPI Resp- as noted above in HPI Cardiac- no chest pain, no edema GI- no nausea, vomiting, diarrhea. - no dysuria . Objective Last 8 Hrs Date Time Temp Pulse Resp B/P (MAP) Pulse Ox O2 Delivery O2 Flow Rate FiO2 08/28/17 11:13 78 14 90 Room Air 08/28/17 07:57 36.7 74 18 146/69 (94) 92 Room Air 08/28/17 07:30 Room Air 08/28/17 06:57 70 14 92 Room Air Physical Exam: General- lying in bed, no acute distress Lungs- few scattered rhonchi; no respiratory distress Cardiovascular- RRR; no murmur or gallop appreciated; no JVD; no pretibial edema Abdomen- + bowel sounds, soft, nontender Extremities- no cyanosis; no calf tenderness Neuro- alert, oriented to person, place, month (but not exact date), year; able to name present Skin- warm & dry . Assessment & Plan PNEUMONIA Patient presented with productive cough, malaise, worsening confusion. Chest x-ray showed probable left lower lobe infiltrate. No apparent aspiration. Blood cultures negative. Sputum culture grew normal gene. Nasopharyngeal swab for negative influenza AB per PCR. Initially treated with levofloxacin. Discontinued levofloxacin because of cognitive concerns and history of diarrhea on levofloxacin in the past. Allergy to erythromycin. Changed therapy to doxycycline and ceftriaxone with improvement. Discharged on doxycycline to complete 7 day course of therapy. Check f/u chest x-ray in about 1 month to assure resolution of LLL infiltrate. ASTHMA Continue nebulizer treatments. CONFUSION Patient and her family have noticed some cognitive decline over the past year or so, worse with current illness. Neuroimaging by CT and MRI demonstrate atrophy, small vessel ischemic changes. TSH, B12 normal. Mini-Cog performed 08/26-abnormal clock, recalled 2 out of 3 items. Suspect early dementia, probably Alzheimer's or vascular, with superimposed delirium/encephalopathy secondary to pneumonia. Follow cognitive status. Further management per PCP. LOW BODY WEIGHT Weight is 46 kg with BMI of 19.9. TSH normal. Nutritional supplements. Follow. VTE PROPHYLAXIS SQ heparin. Ambulate. RESUSCITATION STATUS DNR per patient's wishes. DISPOSITION Discharge to home. Internal Medicine follow-up with Dr. Huertas. . Current Inpatient Medications: Current Inpatient Medications Medications (Trade) Dose Ordered Sig/Sydney Route Start Time Stop Time Status Last Admin Dose Admin Acetaminophen (Tylenol Tab) 650 mg Q4H PRN PO 08/25/17 21:00 09/24/17 20:59 Fluoxetine HCl (Prozac Cap) 10 mg QAM PO 08/26/17 09:00 09/25/17 08:59 08/28/17 09:09 10 MG Prednisone (PredniSONE TAB) 2.5 mg QAM PO 08/26/17 09:00 09/25/17 08:59 08/28/17 09:09 2.5 MG Miscellaneous Information (Order Awaiting Action) 1 ea QS N/A 08/26/17 00:00 09/25/17 00:00 Albuterol/ Ipratropium (Duoneb) 3 ml QIDR INH 08/26/17 08:00 09/25/17 07:59 08/28/17 11:10 3 ML Ondansetron HCl (Zofran Inj) 4 mg Q8H PRN IV 08/25/17 22:00 09/24/17 21:59 Heparin Sodium (Porcine) (Heparin Sq 5000 Unit/0.5ml) 5,000 unit Q12 SQ 08/26/17 09:00 09/25/17 08:59 08/28/17 09:09 5,000 UNIT Albuterol/ Ipratropium (Duoneb) 3 ml Q2H PRN INH 08/25/17 22:45 09/24/17 22:44 Montelukast Sodium (Singulair Tab) 10 mg HS PO 08/26/17 21:00 09/25/17 20:59 08/27/17 20:30 10 MG Raloxifene HCl (Evista Tab) 60 mg QAM PO 08/27/17 09:00 09/26/17 08:59 08/28/17 09:09 60 MG Gadobutrol (Gadavist) 4.5 mmol UD PRN IV 08/26/17 17:00 08/30/17 16:59 Doxycycline Hyclate (Vibramycin Cap) 100 mg BID PO 08/26/17 21:00 09/02/17 20:59 08/28/17 09:09 100 MG Ceftriaxone Sodium 1 gm/ Dextrose 50 ml @ 100 mls/hr Q24H IV 08/26/17 21:00 09/02/17 20:59 08/27/17 20:30 100 MLS/HR
[2017-08-28] MEDS ORDERED: ALBINS/ INH (14:57)
[2017-08-28] MEDS ORDERED: DXY100 PO (14:57)
[2017-08-28] MEDS ORDERED: RBTUDL5 PO (14:57)
--- NOTE | 2017-08-28 14:59 | Discharge Instructions ---
Discharge Instructions Date of Service Aug 28, 2017. Admission Reason for Admission: cough, weakness . Discharge Discharge Diagnosis / Problem: pneumonia Discharge Goals Goal(s): Decrease discomfort, Improve disease control Activity Recommendations Activity Limitations: as noted below Exercise/Sports Limitations: gradually increase as tolerated . Instructions / Follow-Up Instructions / Follow-Up APPOINTMENTS: INTERNAL MEDICINE Dr. Huertas Her office will contact you with next appointment. OTHER INSTRUCTIONS: Take doxycycline 100 mg twice a day for 5 days. Use albuterol (Ventolin) 1 vial by nebulizer every 6 hours as needed for wheezing. Use oxygen 2 liters / minute when walking. May use plain Robitussin 2 tsp every 6 hours as needed for cough or chest congestion. Seek medical attention if you have: * temperature above 101 * chest pain or trouble breathing * abdominal pain, nausea, vomiting * diarrhea, dark stools or bloody stools * any unanswered questions or concerns Call 911 if symptoms are severe. Call if you have any questions or problems. My cell # is [phone]. You can also reach a [facility] hospitalist on duty at [facility] 24 hours a day by calling [phone]. Please take good care of yourself. Checo Hernandez . Current Hospital Diet Patient's current hospital diet: Low Sodium Diet (2gm Na) Discharge Diet Recommended Diet: Regular Diet Pending Studies Studies pending at discharge: no Medical Emergencies . Who to Call and When: Medical Emergencies: If at any time you feel your situation is an emergency, please call 911 immediately. . Non-Emergent Contact Non-Emergency issues call your: Primary Care Provider, Hospital Doctor . . "Provider Documentation" section prepared by Checo Hernandez. .
[2017-08-28 15:07] VITALS: PULSE 92; O2SAT 94
[2017-08-28 15:13] VITALS: BP 146/69; PULSE 92; TEMP 36.7; O2SAT 94
--- NOTE | 2017-08-30 02:04 | Discharge Summary ---
Discharge Summary Date of Service Aug 30, 2017. Discharge Summary Admission Date: Aug 25, 2017 at 21:04 Discharge Date: Aug 28, 2017 Discharge Disposition: Home with services Principal Diagnosis: pneumonia, community acquired OTHER ACUTE / SECONDARY DIAGNOSES: hyponatremia delirium / encephalopathy probable dementia . Secondary Diagnoses/Problems: Chronic Medical Problems: (1) Asthma Status: Chronic . Procedures: CT head MRI brain carotid duplex echo IV meds . Consultations: Neurology . Medication Reconciliation New Medications: Albuterol Sulf (Proventil 0.083% 2.5MG/3ML) 2.5 Mg/3 Ml Nebu 2.5 MG INH QID, #25 VIAL 5 Refills 1 vial by nebulizer every 6 hours as needed for wheezing / trouble breathing Guaifenesin (Robitussin) 100 Mg/5 Ml Lexi 2 TSP PO Q6 PRN for cough, chest congestion, #1 BTL No prescription necessary. Use only plain Robitussin (not DM, CF, or other additives). Home O2 Therapy (Oxygen) Gas 2 LITERS NA UD, #1 UNIT Dx: asthma, hypoxia O2 sat 85% RA 08/28/17 2 LPM via NC will need concentrator and portable Nebulizer Machine (Home Use) (Nebulizer Machine (Home Use) ) Mis EA N/A UD, #1 Dx: asthma Doxycycline Hyclate (Doxycycline Hyclate) 100 Mg Cap 100 MG PO BID, #10 CAP Continued Medications: Cholecalciferol (Vitamin D3) 50,000 Unit Cap 28769 INTER.UNIT PO WK TAKE THIS MEDICATION EVERY WEDNESDAY Fluoxetine (Prozac) 10 Mg Cap 10 MG PO QAM, CAP Fluticasone Furoate-Vilanterol (Breo Ellipta) 1 Inh Inh 1 PUFF INH DAILY Montelukast Sodium (Montelukast Sodium) 10 Mg Tab 10 MG PO HS, TAB Prednisone (Prednisone) 2.5 Mg Tab 2.5 MG PO QAM, TAB Raloxifene Hcl (Evista) 60 Mg Tab 60 MG PO QAM, TAB Admission Information HPI (per Admitting provider): 77 year old female with PMH of Asthma, bronchitis, ambulatory dysfunction follow with PCP Dr. Huertas present to the ER with complaints of persistent general weakness. History obtained from patient and family members at bedside. As per family pt had physical therapy and was doing fine yesterday. Family said that this morning pt had a dry hives/ nauseated, she did not have any vomit. family said that pt felt very weak today and spent the whole day in bed. Pt was so weak, her nursing aid had to hold her to prevent her from falling. Pt has a history of chronic cough, but she noted that her cough got worst and associated with productive greenish phlegm. daughter said that pt also was incontinence today, she said that has has not been incontinence for a while. denies any dysuria or strong odor urine. Family also notified memory declines and some confusion. Pt also has decrease appetite. No recent fall but she fell in the past. Denies any chest pain, palpitation, headache, fevers, chills, diaphoresis , visual changes, abdominal pain, numbness and diarrhea. Currently pt is eating [place]. She said that she feels much better. . 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 Chest x-ray showed probable left lower lobe infiltrate. No apparent aspiration. Blood cultures negative. Sputum culture grew normal gene. Nasopharyngeal swab for negative influenza AB per PCR. Initially treated with levofloxacin. Discontinued levofloxacin because of cognitive concerns and history of diarrhea on levofloxacin in the past. Allergy to erythromycin. Changed therapy to doxycycline and ceftriaxone with improvement. Discharged on doxycycline to complete 7 day course of therapy. Check f/u chest x-ray in about 1 month to assure resolution of LLL infiltrate. ASTHMA Continue nebulizer treatments. CONFUSION Patient and her family have noticed some cognitive decline over the past year or so, worse with current illness. Neuroimaging by CT and MRI demonstrate atrophy, small vessel ischemic changes. TSH, B12 normal. Mini-Cog performed 08/26-abnormal clock, recalled 2 out of 3 items. Suspect early dementia, probably Alzheimer's or vascular, with superimposed delirium/encephalopathy secondary to pneumonia. Follow cognitive status. Further management per PCP. WEAKNESS / HISTORY FALLS Seen in consultation by Neurology. Neuroimaging of brain by CT and MRI demonstrated small vessel ischemic changes and atrophy, no acute events. Consideration of MRI C-spine recommended if ongoing concerns regarding lower extremity weakness / falls. LOW BODY WEIGHT Weight is 46 kg with BMI of 19.9. TSH normal. Nutritional supplements. Follow. VTE PROPHYLAXIS SQ heparin. Ambulate. RESUSCITATION STATUS DNR per patient's wishes. DISPOSITION Discharge to home. Internal Medicine follow-up with Dr. Huertas. . Total time spent on discharge = 40 min. This includes examination of the patient, discharge planning, medication reconciliation, and communication with other providers. . Discharge Instructions Date of Service Aug 28, 2017. Admission Reason for Admission: cough, weakness . Discharge Discharge Diagnosis / Problem: pneumonia Discharge Goals Goal(s): Decrease discomfort, Improve disease control Activity Recommendations Activity Limitations: as noted below Exercise/Sports Limitations: gradually increase as tolerated . Instructions / Follow-Up Instructions / Follow-Up APPOINTMENTS: INTERNAL MEDICINE Dr. Huertas Her office will contact you with next appointment. OTHER INSTRUCTIONS: Take doxycycline 100 mg twice a day for 5 days. Use albuterol (Ventolin) 1 vial by nebulizer every 6 hours as needed for wheezing. Use oxygen 2 liters / minute when walking. May use plain Robitussin 2 tsp every 6 hours as needed for cough or chest congestion. Seek medical attention if you have: * temperature above 101 * chest pain or trouble breathing * abdominal pain, nausea, vomiting * diarrhea, dark stools or bloody stools * any unanswered questions or concerns Call 911 if symptoms are severe. Call if you have any questions or problems. My cell # is [phone]. You can also reach a [facility] hospitalist on duty at [facility] 24 hours a day by calling [phone]. Please take good care of yourself. Checo Hernandez . Current Hospital Diet Patient's current hospital diet: Low Sodium Diet (2gm Na) Discharge Diet Recommended Diet: Regular Diet Pending Studies Studies pending at discharge: no Medical Emergencies . Who to Call and When: Medical Emergencies: If at any time you feel your situation is an emergency, please call 911 immediately. . Non-Emergent Contact Non-Emergency issues call your: Primary Care Provider, Hospital Doctor . . "Provider Documentation" section prepared by Checo Hernandez. . Additional Copies To Domo Huertas M.D.
== END 2017-08-28 15:31 | disposition home or self-care (01) | DRG 193 ==
LOC: C.EDB 16:46 → C.MSW 21:04 → ENRESERV 21:24
PROVIDERS: ADMIT Internal Medicine; ATTEND Hospitalist
DX: J18.9 Pneumonia, unspecified organism (principal); G93.40 Encephalopathy, unspecified; E87.1 Hypo-osmolality and hyponatremia; F02.81 Dementia in other diseases classified elsewhere, unspecified severity, with behavioral disturbance; F01.51 Vascular dementia, unspecified severity, with behavioral disturbance; Z68.1 Body mass index [BMI] 19.9 or less, adult; G30.9 Alzheimer's disease, unspecified; R53.1 Weakness; R26.89 Other abnormalities of gait and mobility; R63.6 Underweight; R63.0 Anorexia; R32 Unspecified urinary incontinence; J45.909 Unspecified asthma, uncomplicated; E55.9 Vitamin D deficiency, unspecified; Z66 Do not resuscitate; Z91.81 History of falling; Z79.51 Long term (current) use of inhaled steroids; Z79.52 Long term (current) use of systemic steroids; Z79.810 Long term (current) use of selective estrogen receptor modulators (SERMs); Z79.899 Other long term (current) drug therapy; Z88.1 Allergy status to other antibiotic agents; Z83.3 Family history of diabetes mellitus; Z83.6 Family history of other diseases of the respiratory system

== ENCOUNTER 2018-07-13 14:23 | Inpatient (IN) ==
[2018-07-13 15:24] LABS: Basophils # (auto) 0.02 K/uL (0-0.2); Basophils % (auto) 0.2 %; Eosinophils # (auto) 0.01 K/uL (0-0.5); Eosinophils % (auto) 0.1 %; Hematocrit (blood only) 38.3 % (37-47); Hemoglobin 13.3 g/dL (12.0-16.0); Immature Granulocytes # (auto) 0.04 K/uL (0.00-0.02); Immature Granulocytes % (auto) 0.3 %; Lymphocytes # (auto) 1.19 K/uL (1.2-3.4); Lymphocytes % (auto) 9.4 %; Mean Corpuscular Hgb Conc 34.7 g/dL (32-36); Mean Corpuscular Volume 93.6 fL (80-100); Mean Platelet Volume 9.6 fL (7.4-10.4); Monocytes # (auto) 1.34 K/uL (0.11-0.59); Monocytes % (auto) 10.6 %; Neutrophils # (auto) 10.02 K/uL (1.4-6.5); Neutrophils % (auto) 79.4 %; Platelet Count 379 K/uL (130-400); RDW Coefficient of Variation 13.1 % (11.5-14.5); RDW Standard Deviation 45.1 fL (36.4-46.3); Red Blood Count 4.09 M/uL (4.2-5.4); White Blood Count 12.62 K/uL (4.8-10.8)
[2018-07-13 15:32] LABS: BUN Creatinine Ratio 12.9 (10-20); Calcium 9.2 mg/dl (8.5-10.1); Creatinine Clr Calc Pharmacy 42.6 ml/min; Est GFR (Non-African American) 64.7; Potassium 4.1 mmol/L (3.5-5.1)
[2018-07-13 15:35] LABS: Albumin Globulin Ratio 0.6 (0.9-2); Bilirubin,Total 0.6 mg/dl (0.2-1); Globulin 4.7 gm/dl (2.5-4.0); Total Protein 7.7 gm/dl (6.4-8.2)
[2018-07-13] MEDS ORDERED: SODIUM CHLORIDE 0.9% 1000ML 250 ML IV ONE (15:54)
[2018-07-13] MEDS ORDERED: SODIUM CHLORIDE 0.9% 1000ML 1,000 ML IV SCH (16:00)
[2018-07-13 16:34] LABS: Appearance Urine Clear (Clear); Bilirubin Urine Negative (Negative); Blood Urine Negative (Negative); Color Urine Yellow; Glucose Urine UA Negative (Negative); Ketones Urine Negative (Negative); Leukocyte Esterase Urine Negative (Negative); Nitrite Urine Negative (Negative); Protein Urine Negative (Negative); Specific Gravity Urine 1.016 (1.000-1.030); Urobilinogen Urine Negative (Negative); pH Urine 5.5 (4.5-7.5)
--- NOTE | 2018-07-13 17:00 | CT Scan Report ---
HEAD CT NONCONTRAST CT DOSE: HISTORY: Altered mental status.] Injury. TECHNIQUE: Multiaxial CT images of the head were performed without the use of intravenous contrast. A utomated exposure control was utilized for this study. A dose lowering technique was utilized adheri ng to the principles of ALARA. Comparison: Head CT 07/11/2018. Findings: Fluid levels within the maxillary sinuses consistent with acute sinusitis. The mastoid air cells are clear. The calvarium and skull base are intact. There is no mass, hematoma, midline shift, acute infarct. White matter hypodensity is nonspecific but suggestive of microvascular ischemic davila e. The ventricles and sulci demonstrate mild age-related involutional changes. Impression: No acute intracranial abnormality. Atrophy and microvascular ischemic changes. Acute maxillary sinusi tis. Electronically signed by: Vish Olivares M.D. 07/13/2018 4:58 PM
--- NOTE | 2018-07-13 17:04 | CT Scan Report ---
CERVICAL SPINE CT CT DOSE: 879.22 mGy.cm HISTORY: recent fall, tenderness to neck TECHNIQUE: Multiaxial CT images of the cervical spine were performed and reformatted in the sagittal and coronal plane without the use of contrast. A dose lowering technique was utilized adhering to th e principles of ALARA. COMPARISON: None. FINDINGS: No fractures. No subluxation. Prevertebral soft tissues and the C1-C2 interval are intact. No pneumothorax. Mild to moderate disc space narrowing at C4-C6. Mild to moderate facet degenerative changes throughout the cervical spine. Straightening of the cervical spine. IMPRESSION: No fractures within the cervical spine. Electronically signed by: Vish Olivares M.D. 07/13/2018 5:03 PM
--- NOTE | 2018-07-13 17:20 | Ultrasound Report ---
ABDOMINAL ULTRASOUND, RIGHT UPPER QUADRANT HISTORY: elevated liver enzymes. COMPARISON: None. FINDINGS: Pancreas: The pancreatic tail is obscured by overlying bowel gas. The remaining portions of the pancr eas are within normal limits. Liver: Unremarkable. Gallbladder: No gallbladder wall thickening. No gallstones. CBD: 4 mm. Right kidney: No hydronephrosis. IMPRESSION: No significant abnormality identified within the right upper quadrant. Electronically signed by: Vish Olivares M.D. 07/13/2018 5:19 PM
[2018-07-13] MEDS ORDERED: AMPICILLIN/SULBACTAM SOD 3,000 MG in 0.9 % SODIUM CHLORIDE 100 ML IV STA (17:58)
--- NOTE | 2018-07-13 18:46 | XRay Report ---
XR chest 1V portable CLINICAL HISTORY: 78 years-old Female presenting with hypoxia, AMS. TECHNIQUE: Portable upright AP view of the chest was obtained. COMPARISON: 07/11/2018. FINDINGS: Atherosclerosis of the aortic arch. Cardiac silhouette normal in size. Mildly low lung volumes. Inter dayne development of hazy opacity at the right lung base. Mild pulmonary vascular prominence. No large effusion though a trace pleural effusions are suggested bilaterally. No large pneumothorax. Degenerat lucy changes of the thoracic spine. Upper abdomen normal. IMPRESSION: 1. Right lower lung pneumonia. 2. Mild volume overload with trace pleural effusion suspected. 3. Mildly low lung volumes. Electronically signed by: Derek Garcia M.D. 07/13/2018 6:44 PM
[2018-07-13] MEDS ORDERED: IOVERSOL 100ml IV PRN (19:35)
--- NOTE | 2018-07-13 19:53 | CT Scan Report ---
CT abd pelvis IV con only CLINICAL HISTORY: 78 years-old Female presenting with elevated liver enzymes, AMS. TECHNIQUE: Multidetector CT of the abdomen and pelvis was performed after the administration of intra venous contrast. IV contrast: 90 mL of Optiray 320. One or more dose lowering techniques were used co nsistent with the principles of ALARA (as low as reasonably achievable), including automatic exposure control, mA or kV adjustment to individual patient size, and/or use of iterative reconstruction. COMPARISON: None. CT DOSE (mGy.cm): The estimated cumulative dose is 350.65 mGy.cm. 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 Lung bases: Normal heart size. Coronary artery and aortic valve calcification. No pericardial or pleu ral effusion. Extensive dependent consolidation in the lower lobes, right greater than left. Extensiv e endobronchial debris in these regions. Liver: Normal morphology. No liver lesion. Patent hepatic vasculature. Biliary: Mild prominence of the intrahepatic or extrahepatic biliary ducts. Normal gallbladder. Pancreas: Mild parenchymal atrophy. Mild prominence of the pancreatic duct at the level of the pancre atic head. Spleen: Normal. Adrenal glands: Normal. Kidneys and ureters: Normal. No hydronephrosis. Bladder: Circumferential bladder wall thickening allowing for underdistention. Pelvic organs: Calcified degenerative fibroid noted. Otherwise normal appearance of the uterus and ov scott. Bowel: Mild stool burden throughout normal caliber colon. The appendix is normal. No bowel obstructio n. Peritoneal cavity: No free fluid or intraperitoneal gas. Lymph nodes: No enlarged lymph nodes in the abdomen or pelvis. Vasculature: Atherosclerosis of the normal caliber abdominal aorta. IVC patent. Abdominal wall: Mild diffuse body wall edema. Musculoskeletal: Osteopenia suggested. Degenerative changes of the hips and spine. Vertebral body hei ght loss of T11 and T12. IMPRESSION: 1. Circumferential bladder wall thickening may be present allowing for underdistention of the urinar y bladder. Correlate with urinalysis to exclude cystitis. 2. No CT abnormality of the liver apart from mild biliary and pancreatic ductal prominence, which is nonspecific. Ultrasound may better characterize the degree of ductal dilatation. 3. Vertebral body height loss of T11 and T12 suggest age-indeterminate compression deformities. Jaspreet elate with point tenderness. Electronically signed by: Derek Garcia M.D. 07/13/2018 7:52 PM
[2018-07-13 20:27] LABS: HCO3 ABG 23 mmol/L (19-24); Oxygen Saturation ABG 88.9 % (90-95); PCO2 ABG 35 mmHg (35-46); PO2 ABG 55 mm/Hg (80-95); pH ABG 7.44 (7.35-7.45)
--- NOTE | 2018-07-13 20:32 | History & Physical Report ---
Date of Service July 13, 2018 Assessment & Plan (1) Encephalopathy: History dementia ? Possible sepsis from possible aspiration pneumonia Possible concussion injury following head trauma from 2 days ago Hypoxemic respiratory failure secondary to possible aspiration pneumonia Mild rhabdomyolysis secondary to recurrent falls Abnormal LFTs secondary to rhabdomyolysis Ambulatory dysfunction Medical telemetry Neurochecks Neurology consult RE concussion; patient son additionally inquiring about long- term management recommendations for patient's dementia. Consider MRI of the brain in a.m. if patient mentation unimproved. Baseline ABG Supplemental O2 Cultures, IV Unasyn Swallow evaluation, aspiration precautions IVF for rhabdomyolysis, follow CPK, LFTs Fall precautions PT OT eval Social service RE discharge planning DVT prophylaxis. Lovenox subcu DNR as per patient son/POA, Mr. Adelso Harmon ([place] resident), contact #[phone]. (Secondary contact is patient's other son, Mr. Mike Harmon, contact #[phone].) History of Present Illness Chief Complaint: Lethargy as per records Primary Care Provider: Domo Huertas History obtained from patient, family, and records. Limited history from patient secondary to dementia. Medical history significant for dementia, asthma as per records. Recent confinement August 2017 for committee acquired pneumonia, hyponatremia. Patient seen at the ER 2 days ago for head trauma following a mechanical fall/dizziness. Patient subsequently discharged home. Patient noted to be increasingly lethargic the last few days. Increasingly weak and confused as per patient son. Patient brought to the emergency room. Given Unasyn for possible sinusitis. Allergies Allergy/AdvReac Type Severity Reaction Status Date / Time erythromycin base Allergy Unknown Unknown Verified 07/11/18 13:04 Home Medications Home Medications Medication Instructions Recorded Confirmed Type Unobtainable 07/13/18 07/13/18 History Past Med/Surg History Medical History Dementia UTI (urinary tract infection) (Resolved) Asthma (Chronic) Bronchitis Social History Communication Ability: Impaired Current Living Situation: Alone Current Living Situation Comment: Has nursing care 7am-9pm, is alone at night. Feels Safe at Home: Yes Smoking Status: Unknown if ever smoked Review of Systems Could not be reliably obtained Physical Exam Vital Signs (Past 24 Hours): Last Vital Signs Temp 36.7 C 07/13/18 14:37 Pulse 96 H 07/13/18 18:30 Resp 33 H 07/13/18 18:30 BP 141/66 H 07/13/18 18:30 Pulse Ox 92 07/13/18 18:30 Physical Exam: GENERAL: Obtunded, follows some commands sparingly, inaudible mumbling, no respiratory distress SKIN: Normal color, warm HEENT: [place] palpebral conjunctivae, no ptosis, dry buccal mucosa NECK : Supple, no tenderness CHEST : Decreased breath sounds, no tenderness HEART : RRR, no obvious murmurs ABDOMEN: Some distention, nontender EXTREMITIES : No LE swelling/tenderness, no other conspicuous deformities noted NEUROLOGIC : Obtunded, no facial asymmetry, gait and stance not assessed Results & Data Laboratory Results Laboratory Results WBC 12.62 K/uL (4.8-10.8) H 07/13/18 14:30 RBC 4.09 M/uL (4.2-5.4) L 07/13/18 14:30 Hgb 13.3 g/dL (12.0-16.0) 07/13/18 14:30 Hct 38.3 % (37-47) 07/13/18 14:30 MCV 93.6 fL (80-100) 07/13/18 14:30 MCH 32.5 pg (25-34) 07/13/18 14:30 MCHC 34.7 g/dL (32-36) 07/13/18 14:30 RDW Std Deviation 45.1 fL (36.4-46.3) 07/13/18 14:30 RDW Coeff of Frida 13.1 % (11.5-14.5) 07/13/18 14:30 Plt Count 379 K/uL (130-400) 07/13/18 14:30 MPV 9.6 fL (7.4-10.4) 07/13/18 14:30 Immature Gran % (Auto) 0.3 % 07/13/18 14:30 Neut % (Auto) 79.4 % 07/13/18 14:30 Lymph % (Auto) 9.4 % 07/13/18 14:30 [place] % (Auto) 10.6 % 07/13/18 14:30 Eos % (Auto) 0.1 % 07/13/18 14:30 Baso % (Auto) 0.2 % 07/13/18 14:30 Immature Gran # (Auto) 0.04 K/uL (0.00-0.02) H 07/13/18 14:30 Neut # (Auto) 10.02 K/uL (1.4-6.5) H 07/13/18 14:30 Lymph # (Auto) 1.19 K/uL (1.2-3.4) L 07/13/18 14:30 [place] # (Auto) 1.34 K/uL (0.11-0.59) H 07/13/18 14:30 Eos # (Auto) 0.01 K/uL (0-0.5) 07/13/18 14:30 Baso # (Auto) 0.02 K/uL (0-0.2) 07/13/18 14:30 Sodium 134 mmol/L (136-145) L 07/13/18 14:30 Potassium 4.1 mmol/L (3.5-5.1) 07/13/18 14:30 Chloride 98 mmol/L (98-107) 07/13/18 14:30 Carbon Dioxide 29 mmol/L (21-32) 07/13/18 14:30 Anion Gap 8.0 (3-11) 07/13/18 14:30 BUN 11 mg/dl (7-18) 07/13/18 14:30 Creatinine 0.86 mg/dl (0.6-1.2) 07/13/18 14:30 Est Cr Clr Drug Dosing 42.6 ml/min 07/13/18 14:30 Est GFR ( Amer) 75.0 07/13/18 14:30 Est GFR (Non-Af Amer) 64.7 07/13/18 14:30 BUN/Creatinine Ratio 12.9 (10-20) 07/13/18 14:30 Glucose 98 mg/dl (70-99) 07/13/18 14:30 Calcium 9.2 mg/dl (8.5-10.1) 07/13/18 14:30 Total Bilirubin 0.6 mg/dl (0.2-1) 07/13/18 14:30 AST 194 U/L (15-37) H 07/13/18 14:30 ALT 186 U/L (12-78) H 07/13/18 14:30 Alkaline Phosphatase 195 U/L (45-117) H 07/13/18 14:30 Ammonia < 10.0 umol/L (11-32) L 07/13/18 20:01 Total Protein 7.7 gm/dl (6.4-8.2) 07/13/18 14:30 Albumin 3.0 gm/dl (3.4-5.0) L 07/13/18 14:30 Globulin 4.7 gm/dl (2.5-4.0) H 07/13/18 14:30 Albumin/Globulin Ratio 0.6 (0.9-2) L 07/13/18 14:30 Urine Color Yellow 07/13/18 16:15 Urine Appearance Clear (Clear) 07/13/18 16:15 Urine pH 5.5 (4.5-7.5) 07/13/18 16:15 Ur Specific [place] 1.016 (1.000-1.030) 07/13/18 16:15 Urine Protein Negative (Negative) 07/13/18 16:15 Urine Glucose (UA) Negative (Negative) 07/13/18 16:15 Urine Ketones Negative (Negative) 07/13/18 16:15 Urine Blood Negative (Negative) 07/13/18 16:15 Urine Nitrite Negative (Negative) 07/13/18 16:15 Urine Bilirubin Negative (Negative) 07/13/18 16:15 Urine Urobilinogen Negative (Negative) 07/13/18 16:15 Ur Leukocyte Esterase Negative (Negative) 07/13/18 16:[address] head: No acute intracranial abnormality. Atrophy and microvascular ischemic changes. Acute maxillary sinusitis. CT cervical spine: No acute fracture CT abdomen pelvis: 1. Circumferential bladder wall thickening may be present allowing for underdistention of the urinary bladder. Correlate with urinalysis to exclude cystitis. 2. No CT abnormality of the liver apart from mild biliary and pancreatic ductal prominence, which is nonspecific. Ultrasound may better characterize the degree of ductal dilatation. 3. Vertebral body height loss of T11 and T12 suggest age-indeterminate compression deformities. Correlate with point tenderness. Ultrasound gallbladder: No significant RUQ abnormality Chest x-ray: Right lower lobe pneumonia EKG as per my interpretation rate 100, NSR, LAD, LAFB, T wave flattening inferior leads
[2018-07-13] MEDS ORDERED: ACETAMINOPHEN 325 MG TAB PO PRN (20:34)
[2018-07-13] MEDS ORDERED: NITROGLYCERIN SL 0.4 MG/TAB TAB SL PRN (20:34)
[2018-07-13 20:51] LABS: Allen Test Pos (Pos)
[2018-07-13 20:58] LABS: Creatine Kinase 442 U/L (26-192); NT Pro B Type Natriuretic Pept 401 pg/ml (0-1800)
[2018-07-13 21:16] LABS: Lyme Ab IgG w/WB Rflx Negative (Negative); Lyme Ab IgM w/WB Rflx Negative (Negative)
--- NOTE | 2018-07-13 21:16 | Emergency Department Note ---
Entered by Janiya Aiken acting as a scribe for Jessica Mukherjee MD History of Present Illness General Chief complaint: Illness Source: patient and EMS Mode of arrival: EMS Limitations: altered mental status History of Present Illness Provider complaint: weakness Onset (ago): unknown Location: head (generalized) Pain Consistency: + other (persistent) Quality: + other (weakness) Associated symptoms: + confusion, + loss of appetite and + other (tired); no nausea/vomiting and no shortness of breath The patient is a 78 year old female who presents to the Emergency Room via EMS for an evaluation of weakness. EMS notes show that the patient has been weak, lethargic and confused and that she was evaluated 2 days ago for a fall. The patient confirms this fall and notes she did hit her head. She reports that she has been tired and has had a loss of appetite, but denies any shortness of breath, chest pain, nausea, or vomiting. She states that she is on nasal cannula oxygen at baseline. Home Medications Home Medications Medication Instructions Recorded Confirmed Type Unobtainable 07/13/18 07/13/18 History Allergies Allergy/AdvReac Type Severity Reaction Status Date / Time alendronate sodium Allergy Unknown Verified 07/14/18 17:23 Cephalosporins Allergy Unknown Verified 07/14/18 17:23 erythromycin base Allergy Unknown Unknown Verified 07/11/18 13:04 ibandronate sodium Allergy Unknown Verified 07/14/18 17:23 [From [facility]] Past Med/Surg History Medical History Dementia UTI (urinary tract infection) (Resolved) Asthma (Chronic) Bronchitis Social History Communication Ability: Impaired Current Living Situation: Alone Current Living Situation Comment: Has nursing care 7am-9pm, is alone at night. Feels Safe at Home: Yes Smoking Status: Unknown if ever smoked Review of Systems Other (HPI and ROS are both limited secondary to altered mental status. ) Physical Exam Vital Signs Vital Signs - 24 hr 07/14/18 12:00 07/14/18 15:23 07/14/18 15:50 Temperature 36.5 C 37 C Temperature Source Oral Oral Pulse Rate Pulse Rate [Finger] 81 75 Respiratory Rate 16 18 Respiratory Effort / Characteristics Non-Labored Spontaneous Respiratory Depth Normal Respiratory Pattern Regular Blood Pressure [Right Arm] 146/75 H 152/73 H Blood Pressure Mean [Right Arm] 98 99 Blood Pressure Position [Right Arm] Lying Pulse Oximetry 93 90 Oxygen Delivery Method Room Air Room Air Room Air 07/14/18 19:42 07/14/18 23:13 07/14/18 23:24 Temperature 37.5 C 37.6 C H Temperature Source Oral Oral Pulse Rate Pulse Rate [Finger] 85 75 Respiratory Rate 18 16 Respiratory Effort / Characteristics Non-Labored Spontaneous Respiratory Depth Normal Respiratory Pattern Regular Blood Pressure [Right Arm] 149/78 H 154/69 H Blood Pressure Mean [Right Arm] 101 97 Blood Pressure Position [Right Arm] Lying Lying Pulse Oximetry 91 92 Oxygen Delivery Method Room Air Room Air Room Air 07/15/18 00:43 07/15/18 04:00 07/15/18 07:45 Temperature 37.2 C 36.8 C Temperature Source Oral Oral Pulse Rate 74 71 Pulse Rate [Finger] 77 69 Respiratory Rate 18 16 Respiratory Effort / Characteristics Respiratory Depth Respiratory Pattern Blood Pressure [Right Arm] 162/78 H 148/70 H Blood Pressure Mean [Right Arm] 106 96 Blood Pressure Position [Right Arm] Lying Lying Pulse Oximetry 91 91 Oxygen Delivery Method Room Air Vital signs reviewed. General: Chronically ill-appearing, elderly, in no significant distress. HEENT: No scleral icterus, PERRLA, neck supple. Atraumatic. Tender to palpation to the cervical spine. Cardiovascular: Regular rate and rhythm, no extra sounds. Pulmonary: Clear to auscultation bilaterally, normal work of breathing. Abdomen: Soft, nontender, nondistended, positive bowel sounds. Musculoskeletal: Atraumatic, no peripheral edema. Neurologic: Answers some questions appropriately, confused, full strength in all 4 extremities. Cranial nerves 2 through 12 grossly intact. Skin: Warm, dry, no rash Course 1549: Past medical records reviewed. The patient was evaluated in room C2A, and a complete history and physical examination were performed. 1836: I had a long discussion with the patient's son over the phone. He states that the patient had a sudden decline and is unable to ambulate on her own. He believes the patient needs a higher level of care. 1907: I reviewed the patient's case with Tamra Antoine PA-C - [facility]. She will evaluate the patient for further management. Administered Medications Enoxaparin Sodium (Lovenox) 30 mg SQ QAM EAMON Stop: 08/13/18 08:59 Last Admin: 07/15/18 08:02 Dose: 30 mg Documented by: [id number] Admin: 07/14/18 08:31 Dose: 30 mg Documented by: [id number] Ampicillin Sodium/Sulbactam Sodium 3,000 mg/ Sodium Chloride 108 mls @ 216 mls/hr IV Q6H EAMON Stop: 07/21/18 00:00 Last Infusion: 07/15/18 05:57 Dose: 0 mls/hr Documented by: [id number] Admin: 07/15/18 05:15 Dose: 216 mls/hr Documented by: [id number] Infusion: 07/15/18 00:19 Dose: 0 mls/hr Documented by: [id number] Admin: 07/14/18 23:21 Dose: 216 mls/hr Documented by: [id number] Infusion: 07/14/18 19:00 Dose: 0 mls/hr Documented by: [id number] Admin: 07/14/18 18:30 Dose: 216 mls/hr Documented by: [id number] Infusion: 07/14/18 11:42 Dose: 0 mls/hr Documented by: [id number] Admin: 07/14/18 11:09 Dose: 216 mls/hr Documented by: [id number] Infusion: 07/14/18 06:34 Dose: 0 mls/hr Documented by: [id number] Admin: 07/14/18 05:49 Dose: 216 mls/hr Documented by: [id number] Infusion: 07/14/18 01:41 Dose: 0 mls/hr Documented by: [id number] Admin: 07/14/18 00:19 Dose: 216 mls/hr Documented by: [id number] Potassium Chloride/Sodium Chloride (Normal Saline W/20 Meq Kcl) 20 meq in 1,000 mls @ 60 mls/hr IV .[id number] ONE Stop: 07/15/18 14:54 Last Admin: 07/14/18 22:39 Dose: 60 mls/hr Documented by: [id number] Discontinued Medications Sodium Chloride (Nss 1000ml) 1,000 mls @ 125 mls/hr IV .Q8H EAMON Stop: 08/12/18 15:59 Last Infusion: 07/13/18 21:43 Dose: 0 mls/hr Documented by: [id number] Admin: 07/13/18 16:20 Dose: 125 mls/hr Documented by: [id number] Sodium Chloride (Nss 1000ml) 250 mls @ 999 mls/hr IV .Q16M ONE Stop: 07/13/18 16:09 Last Infusion: 07/13/18 16:20 Dose: 0 mls/hr Documented by: [id number] Admin: 07/13/18 16:03 Dose: 999 mls/hr Documented by: [id number] Ampicillin Sodium/Sulbactam Sodium 3,000 mg/ Sodium Chloride 108 mls @ 200 mls/hr IV NOW STA Stop: 07/13/18 18:30 Last Infusion: 07/13/18 19:06 Dose: 0 mls/hr Documented by: [id number] Admin: 07/13/18 18:33 Dose: 200 mls/hr Documented by: [id number] Sodium Chloride (Nss 1000ml) 1,000 mls @ 100 mls/hr IV .Q10H ONE Stop: 07/14/18 07:59 Last Infusion: 07/14/18 08:45 Dose: 0 mls/hr Documented by: [id number] Admin: 07/13/18 22:45 Dose: 100 mls/hr Documented by: [id number] Ioversol (Optiray 320 100ml) 90 ml IV ONCE PRN PRN Reason: Interaction Checking Stop: 07/17/18 19:34 Last Admin: 07/13/18 19:35 Dose: 90 ml Documented by: [id number] Medical Decision Making Differential Diagnosis Differential Diagnosis includes but is not limited to dehydration, stroke, anemia, hypoglycemia, hyponatremia, hypernatremia, urinary tract infection, pneumonia, bronchitis, sepsis, gastroenteritis, additional abdominal pathology, metabolic abnormalities and infections. Medical Records Attestation: I reviewed the patient's medical records. Home Medications Current Medication List: was personally reviewed by me Laboratory Data Attestation: I reviewed the patient's lab results. Result diagrams: 07/14/18 07:03 07/14/18 07:03 Lab Results 07/13/18 07/13/18 07/13/18 Range/Units 14:30 14:30 14:30 WBC 12.62 H (4.8-10.8) K/uL RBC 4.09 L (4.2-5.4) M/uL Hgb 13.3 (12.0-16.0) g/dL Hct 38.3 (37-47) % MCV 93.6 (80-100) fL MCH 32.5 (25-34) pg MCHC 34.7 (32-36) g/dL RDW Std Deviation 45.1 (36.4-46.3) fL RDW Coeff of Frida 13.1 (11.5-14.5) % Plt Count 379 (130-400) K/uL MPV 9.6 (7.4-10.4) fL Immature Gran % (Auto) 0.3 % Neut % (Auto) 79.4 % Lymph % (Auto) 9.4 % Price % (Auto) 10.6 % Eos % (Auto) 0.1 % Baso % (Auto) 0.2 % Immature Gran # (Auto) 0.04 H (0.00-0.02) K/uL Neut # (Auto) 10.02 H (1.4-6.5) K/uL Lymph # (Auto) 1.19 L (1.2-3.4) K/uL Price # (Auto) 1.34 H (0.11-0.59) K/uL Eos # (Auto) 0.01 (0-0.5) K/uL Baso # (Auto) 0.02 (0-0.2) K/uL ABG pH (7.35-7.45) ABG pCO2 (35-46) mmHg ABG pO2 (80-95) mm/Hg ABG HCO3 (19-24) mmol/L ABG O2 Saturation (90-95) % ABG Base Excess (-9-1.8) mEq/L Arnav Test (Pos) Barometric Pressure mm/Hg Oxygen Given Sodium 134 L (136-145) mmol/L Potassium 4.1 (3.5-5.1) mmol/L Chloride 98 (98-107) mmol/L Carbon Dioxide 29 (21-32) mmol/L Anion Gap 8.0 (3-11) BUN 11 (7-18) mg/dl Creatinine 0.86 (0.6-1.2) mg/dl Est Cr Clr Drug Dosing 42.6 ml/min Est GFR ( Amer) 75.0 Est GFR (Non-Af Amer) 64.7 BUN/Creatinine Ratio 12.9 (10-20) Glucose 98 (70-99) mg/dl Lactate (0.4-2.0) mmol/L Calcium 9.2 (8.5-10.1) mg/dl Magnesium (1.8-2.4) mg/dl Total Bilirubin 0.6 (0.2-1) mg/dl AST 194 H (15-37) U/L ALT 186 H (12-78) U/L Alkaline Phosphatase 195 H (45-117) U/L Ammonia (11-32) umol/L Total Creatine Kinase (26-192) U/L Troponin I (0-0.045) ng/ml NT-Pro-B Natriuret Pep (0-1800) pg/ml Total Protein 7.7 (6.4-8.2) gm/dl Albumin 3.0 L (3.4-5.0) gm/dl Globulin 4.7 H (2.5-4.0) gm/dl Albumin/Globulin Ratio 0.6 L (0.9-2) Urine Color Urine Appearance (Clear) Urine pH (4.5-7.5) Ur Specific [place] (1.000-1.030) Urine Protein (Negative) Urine Glucose (UA) (Negative) Urine Ketones (Negative) Urine Blood (Negative) Urine Nitrite (Negative) Urine Bilirubin (Negative) Urine Urobilinogen (Negative) Ur Leukocyte Esterase (Negative) Urine Opiates Screen (Neg) Ur Methadone, Qual (Neg) Urine Barbiturates (Neg) Ur Phencyclidine (PCP) (Neg) U Amphetamin/Meth Scrn (Neg) MDMA (Ecstasy) Screen (Neg) U Benzodiazepines Scrn (Neg) Ur Cocaine Metabolite (Neg) U Marijuana (THC) Screen (Neg) Ethyl Alcohol mg/dL (0-3) mg/dl Lyme Disease IgG Ab Negative (Negative) Lyme Disease IgM Ab Negative (Negative) 07/13/18 07/13/18 07/13/18 Range/Units 16:15 16:15 20:01 WBC (4.8-10.8) K/uL RBC (4.2-5.4) M/uL Hgb (12.0-16.0) g/dL Hct (37-47) % MCV (80-100) fL MCH (25-34) pg MCHC (32-36) g/dL RDW Std Deviation (36.4-46.3) fL RDW Coeff of Frida (11.5-14.5) % Plt Count (130-400) K/uL MPV (7.4-10.4) fL Immature Gran % (Auto) % Neut % (Auto) % Lymph % (Auto) % Price % (Auto) % Eos % (Auto) % Baso % (Auto) % Immature Gran # (Auto) (0.00-0.02) K/uL Neut # (Auto) (1.4-6.5) K/uL Lymph # (Auto) (1.2-3.4) K/uL Price # (Auto) (0.11-0.59) K/uL Eos # (Auto) (0-0.5) K/uL Baso # (Auto) (0-0.2) K/uL ABG pH (7.35-7.45) ABG pCO2 (35-46) mmHg ABG pO2 (80-95) mm/Hg ABG HCO3 (19-24) mmol/L ABG O2 Saturation (90-95) % ABG Base Excess (-9-1.8) mEq/L Arnav Test (Pos) Barometric Pressure mm/Hg Oxygen Given Sodium (136-145) mmol/L Potassium (3.5-5.1) mmol/L Chloride (98-107) mmol/L Carbon Dioxide (21-32) mmol/L Anion Gap (3-11) BUN (7-18) mg/dl Creatinine (0.6-1.2) mg/dl Est Cr Clr Drug Dosing ml/min Est GFR ( Amer) Est GFR (Non-Af Amer) BUN/Creatinine Ratio (10-20) Glucose (70-99) mg/dl Lactate 1.0 (0.4-2.0) mmol/L Calcium (8.5-10.1) mg/dl Magnesium (1.8-2.4) mg/dl Total Bilirubin (0.2-1) mg/dl AST (15-37) U/L ALT (12-78) U/L Alkaline Phosphatase (45-117) U/L Ammonia (11-32) umol/L Total Creatine Kinase (26-192) U/L Troponin I (0-0.045) ng/ml NT-Pro-B Natriuret Pep (0-1800) pg/ml Total Protein (6.4-8.2) gm/dl Albumin (3.4-5.0) gm/dl Globulin (2.5-4.0) gm/dl Albumin/Globulin Ratio (0.9-2) Urine Color Yellow Urine Appearance Clear (Clear) Urine pH 5.5 (4.5-7.5) Ur Specific [place] 1.016 (1.000-1.030) Urine Protein Negative (Negative) Urine Glucose (UA) Negative (Negative) Urine Ketones Negative (Negative) Urine Blood Negative (Negative) Urine Nitrite Negative (Negative) Urine Bilirubin Negative (Negative) Urine Urobilinogen Negative (Negative) Ur Leukocyte Esterase Negative (Negative) Urine Opiates Screen Neg (Neg) Ur Methadone, Qual Neg (Neg) Urine Barbiturates Neg (Neg) Ur Phencyclidine (PCP) Neg (Neg) U Amphetamin/Meth Scrn Neg (Neg) MDMA (Ecstasy) Screen Neg (Neg) U Benzodiazepines Scrn Neg (Neg) Ur Cocaine Metabolite Neg (Neg) U Marijuana (THC) Screen Neg (Neg) Ethyl Alcohol mg/dL (0-3) mg/dl Lyme Disease IgG Ab (Negative) Lyme Disease IgM Ab (Negative) 07/13/18 07/13/18 07/13/18 Range/Units 20:01 20:01 20:01 WBC (4.8-10.8) K/uL RBC (4.2-5.4) M/uL Hgb (12.0-16.0) g/dL Hct (37-47) % MCV (80-100) fL MCH (25-34) pg MCHC (32-36) g/dL RDW Std Deviation (36.4-46.3) fL RDW Coeff of Frida (11.5-14.5) % Plt Count (130-400) K/uL MPV (7.4-10.4) fL Immature Gran % (Auto) % Neut % (Auto) % Lymph % (Auto) % Price % (Auto) % Eos % (Auto) % Baso % (Auto) % Immature Gran # (Auto) (0.00-0.02) K/uL Neut # (Auto) (1.4-6.5) K/uL Lymph # (Auto) (1.2-3.4) K/uL Price # (Auto) (0.11-0.59) K/uL Eos # (Auto) (0-0.5) K/uL Baso # (Auto) (0-0.2) K/uL ABG pH 7.44 (7.35-7.45) ABG pCO2 35 (35-46) mmHg ABG pO2 55 L (80-95) mm/Hg ABG HCO3 23 (19-24) mmol/L ABG O2 Saturation 88.9 L (90-95) % ABG Base Excess -0.6 (-9-1.8) mEq/L Arnav Test Pos (Pos) Barometric Pressure 735.7 mm/Hg Oxygen Given ROOM AIR Sodium (136-145) mmol/L Potassium (3.5-5.1) mmol/L Chloride (98-107) mmol/L Carbon Dioxide (21-32) mmol/L Anion Gap (3-11) BUN (7-18) mg/dl Creatinine (0.6-1.2) mg/dl Est Cr Clr Drug Dosing ml/min Est GFR ( Amer) Est GFR (Non-Af Amer) BUN/Creatinine Ratio (10-20) Glucose (70-99) mg/dl Lactate (0.4-2.0) mmol/L Calcium (8.5-10.1) mg/dl Magnesium 1.8 (1.8-2.4) mg/dl Total Bilirubin (0.2-1) mg/dl AST (15-37) U/L ALT (12-78) U/L Alkaline Phosphatase (45-117) U/L Ammonia < 10.0 L (11-32) umol/L Total Creatine Kinase (26-192) U/L Troponin I (0-0.045) ng/ml NT-Pro-B Natriuret Pep (0-1800) pg/ml Total Protein (6.4-8.2) gm/dl Albumin (3.4-5.0) gm/dl Globulin (2.5-4.0) gm/dl Albumin/Globulin Ratio (0.9-2) Urine Color Urine Appearance (Clear) Urine pH (4.5-7.5) Ur Specific [place] (1.000-1.030) Urine Protein (Negative) Urine Glucose (UA) (Negative) Urine Ketones (Negative) Urine Blood (Negative) Urine Nitrite (Negative) Urine Bilirubin (Negative) Urine Urobilinogen (Negative) Ur Leukocyte Esterase (Negative) Urine Opiates Screen (Neg) Ur Methadone, Qual (Neg) Urine Barbiturates (Neg) Ur Phencyclidine (PCP) (Neg) U Amphetamin/Meth Scrn (Neg) MDMA (Ecstasy) Screen (Neg) U Benzodiazepines Scrn (Neg) Ur Cocaine Metabolite (Neg) U Marijuana (THC) Screen (Neg) Ethyl Alcohol mg/dL (0-3) mg/dl Lyme Disease IgG Ab (Negative) Lyme Disease IgM Ab (Negative) 07/13/18 07/13/18 07/13/18 Range/Units 20:01 20:01 22:20 WBC (4.8-10.8) K/uL RBC (4.2-5.4) M/uL Hgb (12.0-16.0) g/dL Hct (37-47) % MCV (80-100) fL MCH (25-34) pg MCHC (32-36) g/dL RDW Std Deviation (36.4-46.3) fL RDW Coeff of Frida (11.5-14.5) % Plt Count (130-400) K/uL MPV (7.4-10.4) fL Immature Gran % (Auto) % Neut % (Auto) % Lymph % (Auto) % Price % (Auto) % Eos % (Auto) % Baso % (Auto) % Immature Gran # (Auto) (0.00-0.02) K/uL Neut # (Auto) (1.4-6.5) K/uL Lymph # (Auto) (1.2-3.4) K/uL Price # (Auto) (0.11-0.59) K/uL Eos # (Auto) (0-0.5) K/uL Baso # (Auto) (0-0.2) K/uL ABG pH (7.35-7.45) ABG pCO2 (35-46) mmHg ABG pO2 (80-95) mm/Hg ABG HCO3 (19-24) mmol/L ABG O2 Saturation (90-95) % ABG Base Excess (-9-1.8) mEq/L Arnav Test (Pos) Barometric Pressure mm/Hg Oxygen Given Sodium (136-145) mmol/L Potassium (3.5-5.1) mmol/L Chloride (98-107) mmol/L Carbon Dioxide (21-32) mmol/L Anion Gap (3-11) BUN (7-18) mg/dl Creatinine (0.6-1.2) mg/dl Est Cr Clr Drug Dosing ml/min Est GFR ( Amer) Est GFR (Non-Af Amer) BUN/Creatinine Ratio (10-20) Glucose (70-99) mg/dl Lactate (0.4-2.0) mmol/L Calcium (8.5-10.1) mg/dl Magnesium (1.8-2.4) mg/dl Total Bilirubin (0.2-1) mg/dl AST (15-37) U/L ALT (12-78) U/L Alkaline Phosphatase (45-117) U/L Ammonia (11-32) umol/L Total Creatine Kinase 442 H (26-192) U/L Troponin I < 0.015 (0-0.045) ng/ml NT-Pro-B Natriuret Pep 401 (0-1800) pg/ml Total Protein (6.4-8.2) gm/dl Albumin (3.4-5.0) gm/dl Globulin (2.5-4.0) gm/dl Albumin/Globulin Ratio (0.9-2) Urine Color Urine Appearance (Clear) Urine pH (4.5-7.5) Ur Specific [place] (1.000-1.030) Urine Protein (Negative) Urine Glucose (UA) (Negative) Urine Ketones (Negative) Urine Blood (Negative) Urine Nitrite (Negative) Urine Bilirubin (Negative) Urine Urobilinogen (Negative) Ur Leukocyte Esterase (Negative) Urine Opiates Screen (Neg) Ur Methadone, Qual (Neg) Urine Barbiturates (Neg) Ur Phencyclidine (PCP) (Neg) U Amphetamin/Meth Scrn (Neg) MDMA (Ecstasy) Screen (Neg) U Benzodiazepines Scrn (Neg) Ur Cocaine Metabolite (Neg) U Marijuana (THC) Screen (Neg) Ethyl Alcohol mg/dL < 3.0 (0-3) mg/dl Lyme Disease IgG Ab (Negative) Lyme Disease IgM Ab (Negative) 07/14/18 07/14/18 Range/Units 07:03 07:03 WBC 10.45 (4.8-10.8) K/uL RBC 3.26 L (4.2-5.4) M/uL Hgb 10.3 L D (12.0-16.0) g/dL Hct 30.4 L (37-47) % MCV 93.3 (80-100) fL MCH 31.6 (25-34) pg MCHC 33.9 (32-36) g/dL RDW Std Deviation 45.4 (36.4-46.3) fL RDW Coeff of Frida 13.3 (11.5-14.5) % Plt Count 288 (130-400) K/uL MPV 9.0 (7.4-10.4) fL Immature Gran % (Auto) 0.2 % Neut % (Auto) 78.9 % Lymph % (Auto) 12.0 % Price % (Auto) 8.4 % Eos % (Auto) 0.3 % Baso % (Auto) 0.2 % Immature Gran # (Auto) 0.02 (0.00-0.02) K/uL Neut # (Auto) 8.25 H (1.4-6.5) K/uL Lymph # (Auto) 1.25 (1.2-3.4) K/uL Price # (Auto) 0.88 H (0.11-0.59) K/uL Eos # (Auto) 0.03 (0-0.5) K/uL Baso # (Auto) 0.02 (0-0.2) K/uL ABG pH (7.35-7.45) ABG pCO2 (35-46) mmHg ABG pO2 (80-95) mm/Hg ABG HCO3 (19-24) mmol/L ABG O2 Saturation (90-95) % ABG Base Excess (-9-1.8) mEq/L Arnav Test (Pos) Barometric Pressure mm/Hg Oxygen Given Sodium 139 (136-145) mmol/L Potassium 3.9 (3.5-5.1) mmol/L Chloride 104 (98-107) mmol/L Carbon Dioxide 28 (21-32) mmol/L Anion Gap 7.0 (3-11) BUN 10 (7-18) mg/dl Creatinine 0.72 (0.6-1.2) mg/dl Est Cr Clr Drug Dosing 49.7 ml/min Est GFR ( Amer) 93.0 Est GFR (Non-Af Amer) 80.2 BUN/Creatinine Ratio 13.6 (10-20) Glucose 98 (70-99) mg/dl Lactate (0.4-2.0) mmol/L Calcium 7.8 L D (8.5-10.1) mg/dl Magnesium (1.8-2.4) mg/dl Total Bilirubin 0.6 (0.2-1) mg/dl AST 64 H (15-37) U/L ALT 98 H (12-78) U/L Alkaline Phosphatase 135 H (45-117) U/L Ammonia (11-32) umol/L Total Creatine Kinase 286 H (26-192) U/L Troponin I (0-0.045) ng/ml NT-Pro-B Natriuret Pep (0-1800) pg/ml Total Protein 5.7 L D (6.4-8.2) gm/dl Albumin 2.0 L (3.4-5.0) gm/dl Globulin 3.7 (2.5-4.0) gm/dl Albumin/Globulin Ratio 0.5 L (0.9-2) Urine Color Urine Appearance (Clear) Urine pH (4.5-7.5) Ur Specific [place] (1.000-1.030) Urine Protein (Negative) Urine Glucose (UA) (Negative) Urine Ketones (Negative) Urine Blood (Negative) Urine Nitrite (Negative) Urine Bilirubin (Negative) Urine Urobilinogen (Negative) Ur Leukocyte Esterase (Negative) Urine Opiates Screen (Neg) Ur Methadone, Qual (Neg) Urine Barbiturates (Neg) Ur Phencyclidine (PCP) (Neg) U Amphetamin/Meth Scrn (Neg) MDMA (Ecstasy) Screen (Neg) U Benzodiazepines Scrn (Neg) Ur Cocaine Metabolite (Neg) U Marijuana (THC) Screen (Neg) Ethyl Alcohol mg/dL (0-3) mg/dl Lyme Disease IgG Ab (Negative) Lyme Disease IgM Ab (Negative) Imaging Data Radiologist's Impression: Radiology results as stated below per my review and the radiologist's interpretation: HEAD CT NONCONTRAST CT DOSE: HISTORY: Altered mental status.] Injury. TECHNIQUE: Multiaxial CT images of the head were performed without the use of intravenous contrast. Automated exposure control was utilized for this study. A dose lowering technique was utilized adhering to the principles of ALARA. Comparison: Head CT 07/11/2018. Findings: Fluid levels within the maxillary sinuses consistent with acute sinusitis. The mastoid air cells are clear. The calvarium and skull base are intact. There is no mass, hematoma, midline shift, acute infarct. White matter hypodensity is nonspecific but suggestive of microvascular ischemic change. The ventricles and sulci demonstrate mild age-related involutional changes. Impression: No acute intracranial abnormality. Atrophy and microvascular ischemic changes. Acute maxillary sinusitis. Electronically signed by: Vish Olivares M.D. 07/13/2018 4:[address] DOSE: 879.22 mGy.cm HISTORY: recent fall, tenderness to neck TECHNIQUE: Multiaxial CT images of the cervical spine were performed and reformatted in the sagittal and coronal plane without the use of contrast. A dose lowering technique was utilized adhering to the principles of ALARA. COMPARISON: None. FINDINGS: No fractures. No subluxation. Prevertebral soft tissues and the C1-C2 interval are intact. No pneumothorax. Mild to moderate disc space narrowing at C4-C6. Mild to moderate facet degenerative changes throughout the cervical spine. Straightening of the cervical spine. IMPRESSION: No fractures within the cervical spine. Electronically signed by: Vish Olivares M.D. 07/13/2018 5:03 PM ABDOMINAL ULTRASOUND, RIGHT UPPER QUADRANT HISTORY: elevated liver enzymes. COMPARISON: None. FINDINGS: Pancreas: The pancreatic tail is obscured by overlying bowel gas. The remaining portions of the pancreas are within normal limits. Liver: Unremarkable. Gallbladder: No gallbladder wall thickening. No gallstones. CBD: 4 mm. Right kidney: No hydronephrosis. IMPRESSION: No significant abnormality identified within the right upper quadrant. Electronically signed by: Vish Olivares M.D. 07/13/2018 5:19 PM XR chest 1V portable CLINICAL HISTORY: 78 years-old Female presenting with hypoxia, AMS. TECHNIQUE: Portable upright AP view of the chest was obtained. COMPARISON: 07/11/2018. FINDINGS: Atherosclerosis of the aortic arch. Cardiac silhouette normal in size. Mildly low lung volumes. Interval development of hazy opacity at the right lung base. Mild pulmonary vascular prominence. No large effusion though a trace pleural effusions are suggested bilaterally. No large pneumothorax. Degenerative changes of the thoracic spine. Upper abdomen normal. IMPRESSION: 1. Right lower lung pneumonia. 2. Mild volume overload with trace pleural effusion suspected. 3. Mildly low lung volumes. Electronically signed by: Derek Garcia M.D. 07/13/2018 6:44 PM ECG Data Attestation: I personally reviewed and interpreted this ECG as follows: Indication: weakness Rate (beats per minute): 97 Rhythm: normal sinus Findings: + other (poor quality baseline, possible previous anterior septal infarct) and + left axis deviation; no acute ischemic change and no ectopy Blood Pressure Blood Pressure Findings: Elevated blood pressure Blood Pressure Disposition: further management by hospitalist MDM Narrative This patient was evaluated and appeared to be in no significant distress. IV access was obtained and laboratory work was drawn. The patient was placed on the monitor technician revealed normal sinus rhythm. EKG confirms this finding. The patient does seem to be somewhat confused. She is not able to answer questions appropriately. Patient had CT confirms no acute intracranial abnormality however an acute sinusitis is seen. IV Unasyn 3 g was administered. Patient's records were reviewed previously. Chest x-ray was found to be clear however she did have some difficulty with hypoxia. Laboratory work reveals elevated liver enzymes. Ultrasound the right upper quadrant is negative for acute cholecystitis. Chest x-ray reveals a right lower lobe pneumonia. CT scan of the abdomen pelvis is read as above without acute abnormality. I did speak with her son by phone and relayed the results of today's visit. Patient's son is in [place], he states she does have daytime and evening caregivers however he feels she will likely require higher level of care. He is interested in transitioning the patient to [facility] after discharge. Patient will be evaluated by the hospitalist service for further management. Impression & Plan Altered mental status, Acute maxillary sinusitis, Elevated liver enzymes, Pneumonia Discharge Plan Visit Data *Final* Discharge Date/Time: 07/13/18 21:07 Chief Complaint: Illness ED Provider: Jessica Mukherjee Discharge Problem: Altered mental status, Acute maxillary sinusitis, Elevated liver enzymes, Pneumonia Patient Disposition: Admitted As Inpatient Discharge Instructions Interventions: ED Discharge Assessment Last Done: 07/13/18 21:07 Discharge Problem: Altered mental status Qualifiers: Altered mental status type: unspecified Qualified Code(s): R41.82 - Altered mental status, unspecified Acute maxillary sinusitis Qualifiers: Recurrence: non-recurrent Qualified Code(s): J01.00 - Acute maxillary s inusitis, unspecified Pneumonia Qualifiers: Pneumonia type: due to unspecified organism Laterality: right Lung location: lower lobe of lung Qualified Code(s): J18.1 - Lobar pneumonia, unspecified organism The scribe's documentation has been prepared under my direction and personally reviewed by me in its entirety. I confirm that the note above accurately reflects all work, treatment, procedures, and medical decision making performed by me.
[2018-07-13] MEDS ORDERED: SODIUM CHLORIDE 0.9% 1000ML 1,000 ML IV ONE (22:00)
[2018-07-13 22:02] LABS: Amphetamines+Metham, Urine Neg (Neg); Barbiturates, Urine Neg (Neg); Benzodiazepine, Urine Neg (Neg); Cocaine, Urine Neg (Neg); MDMA (Ecstacy), Urine Neg (Neg); Methadone, Urine Neg (Neg); Opiate, Urine Neg (Neg); Phencyclidine, Urine Neg (Neg)
[2018-07-13] MEDS ORDERED: AMPICILLIN/SULBACTAM CONSULT ACTIVE PRN (22:07)
[2018-07-14] MEDS: AMPICILLIN/SULBACTAM SOD 3,000 MG in 0.9 % SODIUM CHLORIDE 100 ML IV SCH ×5 (00:19→23:21)
[2018-07-14 08:07] LABS: Albumin Globulin Ratio 0.5 (0.9-2); BUN Creatinine Ratio 13.6 (10-20); Bilirubin,Total 0.6 mg/dl (0.2-1); Calcium 7.8 mg/dl (8.5-10.1); Creatinine Clr Calc Pharmacy 49.7 ml/min; Est GFR (Non-African American) 80.2; Globulin 3.7 gm/dl (2.5-4.0); Potassium 3.9 mmol/L (3.5-5.1); Total Protein 5.7 gm/dl (6.4-8.2)
[2018-07-14] MEDS: ENOXAPARIN INJ 30 MG/0.3 ML SYR SQ SCH (08:31)
[2018-07-14] MEDS ORDERED: CONSULT PHARMACY SCH (09:00)
[2018-07-14 09:01] LABS: Basophils # (auto) 0.02 K/uL (0-0.2); Basophils % (auto) 0.2 %; Eosinophils # (auto) 0.03 K/uL (0-0.5); Eosinophils % (auto) 0.3 %; Hematocrit (blood only) 30.4 % (37-47); Hemoglobin 10.3 g/dL (12.0-16.0); Immature Granulocytes # (auto) 0.02 K/uL (0.00-0.02); Immature Granulocytes % (auto) 0.2 %; Lymphocytes # (auto) 1.25 K/uL (1.2-3.4); Mean Corpuscular Hgb Conc 33.9 g/dL (32-36); Mean Corpuscular Volume 93.3 fL (80-100); Monocytes # (auto) 0.88 K/uL (0.11-0.59); Monocytes % (auto) 8.4 %; Neutrophils # (auto) 8.25 K/uL (1.4-6.5); Neutrophils % (auto) 78.9 %; Platelet Count 288 K/uL (130-400); RDW Coefficient of Variation 13.3 % (11.5-14.5); RDW Standard Deviation 45.4 fL (36.4-46.3); Red Blood Count 3.26 M/uL (4.2-5.4); White Blood Count 10.45 K/uL (4.8-10.8)
--- NOTE | 2018-07-14 12:07 | Hospitalist Progress Note ---
Date of Service July 14, 2018 Assessment & Plan (1) Pneumonia: Continue Unasyn pending cultures and clinical improvement. Of note patient is not in respiratory distress, she is not septic, she is not requiring oxygen. (2) Encephalopathy: Metabolic encephalopathy likely secondary to underlying pneumonia versus other. She does have a history of dementia but is not exhibiting delirium. She does have some short-term memory loss possibly exacerbated from the underlying infection. Urine is clear, she does not appear septic. Continue Unasyn pending blood cultures and improvement clinically. It is noted that she had a fall with reported head trauma 2 days ago. Neurology to evaluate. History dementia (3) Dementia: Uncertain of baseline. Patient is alert and oriented to person and place. She does not remember what brought her in here and does not remember her fall with ER visit 3 days ago. Will discuss further with her son what her baseline is. We will continue to monitor for improvement on antibiotic therapy. (4) Elevated liver enzymes: Uncertain cause but CK is elevated in the setting of recent falls at home. It appears she lives with 24-hour caregivers currently and may need some more assistance. Home environment is not clear at this time. Will discuss further with the son and with case management. Transaminases are trending down today as his CK. She is not complaining of any muscle pain or weakness. Continue to trend in a.m. (5) Asthma: Controlled, uncertain of inhaler use as medications from home cannot be verified at this time. She is stable without wheezing and not requiring oxygen as above. (6) DVT prophylaxis: Lovenox Full code Dispo-continue hospitalization pending blood culture return and improvement clinically. son was updated by me via phone. Lyssa Haro DO [facility] Hospitalist Subjective 78-year-old female presented to the emergency room overnight with confusion loss of appetite and weakness. She was brought in by EMS noted to be weak, lethargic and confused. She is on oxygen via nasal cannula at baseline. She was recently seen in the ER for a fall 2 days prior to this with a report of feeling some weakness. Chest x-ray at that time revealed a subtle 7 mm opacity at the right lung base but no overt pulmonary consolidation consistent with pneumonia. Workup on arrival this admission revealed evidence of a right lower lobe pneumonia and she was given Unasyn empirically. Other workup including urinalysis, urine tox screen, Lyme screen, electrolytes, kidney function are all within normal limits. She did have an elevation in LFTs which have decreased by half this morning. She is notably more anemic since yesterday. On examination today she is unable to tell me the events that led to her hospitalization. She does not remember the fall prompting ER visit 3 days ago. She denies any kind of headache, cough, fevers, chills, belly pain. She is oriented to place and person. She is speaking very softly and not with any confidence. She is also answering questions inappropriately to some extent. For instance, when I asked her if she was eating today she answered "[employer]" she does not appear in any acute distress. Physical Exam Vital Signs (Past 24 Hours): Last Vital Signs Temp 36.5 C 07/14/18 12:00 Pulse 81 07/14/18 12:00 Resp 16 07/14/18 12:00 BP 146/75 H 07/14/18 12:00 Pulse Ox 93 07/14/18 12:00 CONSTITUTIONAL: WNWD, vitals as above, generally well-appearing, soft spoken, barely can hear her EYES: EOMI bilaterally, PERRL, normal conjuctivae, no scleral icterus ENT: MMM RESPIRATORY: clear to auscultation bilaterally, no crackles, rales or wheezes, normal respiratory effort CARDIOVASCULAR: regular rate and rhythm, S1 and 2 heard without murmurs, gallops or rubs, no JVD, no peripheral edema, no carotid bruits GASTROINTESTINAL: normal bowel sounds, soft, nontender, nondistended MUSCULOSKELETAL: strength 5/5 throughout, head is normocephalic and atraumatic, neck supple, normal palpation of chest wall without tenderness SKIN: warm and dry, no rashes NEUROLOGIC: patellar [id number] 2+ bilat. PERRL, EOMI, no facial palsy, no dysarthria. Touch, pain and proprioception normal. CN 2-12 grossly intact, no sensory deficit, normal cognition, normal speech, no tremor PSYCHIATRIC: alert cooperative and oriented to person, place and time. Euthymic mood, makes good eye contact, language grossly intact, recent and remote memory grossly intact. LYMPHATIC: no LAD Results & Data Laboratory Results Short CBC 07/13/18 07/14/18 Range/Units 14:30 07:03 WBC 12.62 H 10.45 (4.8-10.8) K/uL Hgb 13.3 10.3 L D (12.0-16.0) g/dL Hct 38.3 30.4 L (37-47) % Plt Count 379 288 (130-400) K/uL BMP 07/13/18 07/14/18 14:30 07:03 Sodium 134 L 139 Potassium 4.1 3.9 Chloride 98 104 Carbon Dioxide 29 28 BUN 11 10 Creatinine 0.86 0.72 Glucose 98 98 Calcium 9.2 7.8 L D Cardiac Enzymes 07/13/18 07/13/18 07/14/18 Range/Units 20:01 20:01 07:03 Total Creatine Kinase 442 H 286 H (26-192) U/L Troponin I < 0.015 (0-0.045) ng/ml Liver Function 07/13/18 07/14/18 Range/Units 14:30 07:03 Total Bilirubin 0.6 0.6 (0.2-1) mg/dl AST 194 H 64 H (15-37) U/L ALT 186 H 98 H (12-78) U/L Alkaline Phosphatase 195 H 135 H (45-117) U/L Albumin 3.0 L 2.0 L (3.4-5.0) gm/dl Urine 07/13/18 Range/Units 16:15 Urine Color Yellow Urine Appearance Clear (Clear) Urine pH 5.5 (4.5-7.5) Ur Specific Luck 1.016 (1.000-1.030) Urine Protein Negative (Negative) Urine Glucose (UA) Negative (Negative) Medications Administered Current Inpatient Medications Acetaminophen (Tylenol) 325 mg PO Q6H PRN PRN Reason: Pain or Fever Stop: 08/12/18 20:33 Enoxaparin Sodium (Lovenox) 30 mg SQ QAM EAMON Stop: 08/13/18 08:59 Last Admin: 07/14/18 08:31 Dose: 30 mg Documented by: Ampicillin Sodium/Sulbactam Sodium 3,000 mg/ Sodium Chloride 108 mls @ 216 mls/hr IV Q6H EAMON Stop: 07/21/18 00:00 Last Infusion: 07/14/18 11:42 Dose: Infused Documented by: Miscellaneous Information (Ampicillin/Sulbactam Consult) 1 ea N/A UD PRN PRN Reason: Consult Stop: 08/12/18 22:06 Nitroglycerin (Nitrostat) 0.4 mg SL UD PRN PRN Reason: Chest Pain Stop: 08/12/18 20:33
--- NOTE | 2018-07-14 13:52 | Neurology Consultation ---
Date of Consultation July 14, 2018 Assessment & Plan (1) Encephalopathy: 1. CT head- microvascular disease no acute findings 2. dementia is likely exasperated by the current infection 3. treat pneumonia to culture 4. TSH, folate, B12, MRI brain if able to tolerate for dementia work up lyme a lready done 5. further dementia work up as outpatient once infection has been treated follow up in neurology 4-6 weeks after discharge Zulma Soni PAC, schedule Supervising Physician Co-Signing Physician Notes I have seen and discussed above patient with Dr Checo Garcia, neurology I have seen Mrs. Harmon today reviewed her laboratory studies imaging studies and prior records from hospitalizations are very similar situation i.e. a delirium related to an underlying infection and occurring very likely on the substrate of a cognitively impaired woman. Unfortunately do not have a good baseline though how severe the cognitive impairment might be when the patient is free of infectious or toxic influences. Currently she is pleasantly confused is disoriented to person place time and cannot give any reasonable history yet has no cranial nerve deficits, no abnormal involuntary movements, no drift or pronation sign or indeed any focal neurologic abnormalities other than the global confusional state At this point neurology's recommendations are identical to those during the last hospitalization i.e. treat the underlying infection, did not offer any specific agents to counteract dementia and have her return to our office after the infection has cleared for an assessment and then perhaps initiation of anti cholinesterase agents is or even Namenda. To initiate these drugs now in the setting of an acute illness runs a risk of producing side effects, drug interactions and a host of other iatrogenic problems the need to be avoided Currently neurology does not need to follow the patient in the hospital but does need to see her 4-6 weeks after discharge acting on the assumption that her pneumonia will have then had adequate treatment and she will have adequate time to have recovered from its effects. Checo Garcia MD History of Present Illness Reason for Consultation: concussion, dementia Requesting Physician: Lyssa Haro DO Attending Physician: Lyssa Haro DO History of Present Illness Fatmata is a 78 year old female presented to the ED with confusion loss of appetite and weakness. 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 She is on oxygen via nasal cannula at baseline. She was recently seen in the ER for a fall 2 days prior to this with a report of feeling some weakness. Chest x-ray at that time revealed a subtle 7 mm opacity at the right lung base but no overt pulmonary consolidation consistent with pneumonia. Work up revealed evidence of a right lower lobe pneumonia and she was given Unasyn empirically. Her son requested recommendation for dementia. Previous admission labs were obtained for dementia work up and were negative for reversible causes. Recommendation at that time was a neurology office visit for further evaluation of dementia. denies CP, SOB, abdominal pain, N, V. decreased appetite. Allergies Allergy/AdvReac Type Severity Reaction Status Date / Time erythromycin base Allergy Unknown Unknown Verified 07/11/18 13:04 Home Medications Home Medications Medication Instructions Recorded Confirmed Type Unobtainable 07/13/18 07/13/18 History Patient History Medical History Dementia UTI (urinary tract infection) (Resolved) Asthma (Chronic) Bronchitis Social History Communication Ability: Impaired Current Living Situation: Alone Current Living Situation Comment: Has nursing care 7am-9pm, is alone at night. 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 addiction medicine physician biceps triceps 5/5 bilaterally, hip flex plantar flex ext 5/5 no pronator drift knows she is at the hospital, 2019, knows aids name and why she is here finger to nose with no bi pass Results & Data Laboratory Results Abnormal lab results 07/13/18 07/13/18 07/13/18 Range/Units 14:30 14:30 20:01 WBC 12.62 H (4.8-10.8) K/uL RBC 4.09 L (4.2-5.4) M/uL Hgb (12.0-16.0) g/dL Hct (37-47) % Immature Gran # (Auto) 0.04 H (0.00-0.02) K/uL Neut # (Auto) 10.02 H (1.4-6.5) K/uL Lymph # (Auto) 1.19 L (1.2-3.4) K/uL [place] # (Auto) 1.34 H (0.11-0.59) K/uL ABG pO2 (80-95) mm/Hg ABG O2 Saturation (90-95) % Sodium 134 L (136-145) mmol/L Calcium (8.5-10.1) mg/dl AST 194 H (15-37) U/L ALT 186 H (12-78) U/L Alkaline Phosphatase 195 H (45-117) U/L Ammonia < 10.0 L (11-32) umol/L Total Creatine Kinase (26-192) U/L Total Protein (6.4-8.2) gm/dl Albumin 3.0 L (3.4-5.0) gm/dl Globulin 4.7 H (2.5-4.0) gm/dl Albumin/Globulin Ratio 0.6 L (0.9-2) 07/13/18 07/13/18 07/14/18 Range/Units 20:01 20:01 07:03 WBC (4.8-10.8) K/uL RBC 3.26 L (4.2-5.4) M/uL Hgb 10.3 L D (12.0-16.0) g/dL Hct 30.4 L (37-47) % Immature Gran # (Auto) (0.00-0.02) K/uL Neut # (Auto) 8.25 H (1.4-6.5) K/uL Lymph # (Auto) (1.2-3.4) K/uL [place] # (Auto) 0.88 H (0.11-0.59) K/uL ABG pO2 55 L (80-95) mm/Hg ABG O2 Saturation 88.9 L (90-95) % Sodium (136-145) mmol/L Calcium (8.5-10.1) mg/dl AST (15-37) U/L ALT (12-78) U/L Alkaline Phosphatase (45-117) U/L Ammonia (11-32) umol/L Total Creatine Kinase 442 H (26-192) U/L Total Protein (6.4-8.2) gm/dl Albumin (3.4-5.0) gm/dl Globulin (2.5-4.0) gm/dl Albumin/Globulin Ratio (0.9-2) 07/14/18 Range/Units 07:03 WBC (4.8-10.8) K/uL RBC (4.2-5.4) M/uL Hgb (12.0-16.0) g/dL Hct (37-47) % Immature Gran # (Auto) (0.00-0.02) K/uL Neut # (Auto) (1.4-6.5) K/uL Lymph # (Auto) (1.2-3.4) K/uL [place] # (Auto) (0.11-0.59) K/uL ABG pO2 (80-95) mm/Hg ABG O2 Saturation (90-95) % Sodium (136-145) mmol/L Calcium 7.8 L D (8.5-10.1) mg/dl AST 64 H (15-37) U/L ALT 98 H (12-78) U/L Alkaline Phosphatase 135 H (45-117) U/L Ammonia (11-32) umol/L Total Creatine Kinase 286 H (26-192) U/L Total Protein 5.7 L D (6.4-8.2) gm/dl Albumin 2.0 L (3.4-5.0) gm/dl Globulin (2.5-4.0) gm/dl Albumin/Globulin Ratio 0.5 L (0.9-2) Diagnostic Findings CT head-No acute intracranial abnormality. Atrophy and microvascular ischemic changes. Acute maxillary sinusitis. CT c spine- No fractures within the cervical spine. US GB-No significant abnormality identified within the right upper quadrant. CT abd/pelvis- Circumferential bladder wall thickening may be present allowing for under distention of the urinary bladder. Correlate with urinalysis to exclude cystitis. No CT abnormality of the liver apart from mild biliary and pancreatic ductal prominence, which is nonspecific. Ultrasound may better characterize the degree of ductal dilatation. Vertebral body height loss of T11 and T12 suggest age-indeterminate compression deformities. Correlate with point tenderness. CXR- Right lower lung pneumonia. Mild volume overload with trace pleural effusion suspected. Mildly low lung volumes.
[2018-07-14] MEDS ORDERED: NSS + 20MEQ KCL 20 MEQ/1,000 ML BAG IV ONE (22:15)
[2018-07-15] MEDS: AMPICILLIN/SULBACTAM SOD 3,000 MG in 0.9 % SODIUM CHLORIDE 100 ML IV SCH ×4 (05:15→23:52)
[2018-07-15] MEDS: ENOXAPARIN INJ 30 MG/0.3 ML SYR SQ SCH (08:02)
[2018-07-15 08:41] LABS: Hematocrit (blood only) 30.1 % (37-47); Hemoglobin 10.4 g/dL (12.0-16.0); Mean Corpuscular Hgb Conc 34.6 g/dL (32-36); Mean Corpuscular Volume 91.5 fL (80-100); Mean Platelet Volume 8.8 fL (7.4-10.4); Platelet Count 321 K/uL (130-400); RDW Coefficient of Variation 13.1 % (11.5-14.5); RDW Standard Deviation 44.2 fL (36.4-46.3); Red Blood Count 3.29 M/uL (4.2-5.4); White Blood Count 8.83 K/uL (4.8-10.8)
[2018-07-15 09:18] LABS: Albumin Level 2.1 gm/dl (3.4-5.0); BUN Creatinine Ratio 19.3 (10-20); Calcium 8.3 mg/dl (8.5-10.1); Creatinine Clr Calc Pharmacy 55.2 ml/min; Est GFR (African American) 99.1; Est GFR (Non-African American) 85.5; Potassium 3.9 mmol/L (3.5-5.1)
[2018-07-15 09:21] LABS: Bilirubin Direct 0.2 mg/dl (0-0.2); Bilirubin,Total 0.5 mg/dl (0.2-1)
--- NOTE | 2018-07-15 14:33 | Hospitalist Progress Note ---
Date of Service July 15, 2018 Assessment & Plan (1) Pneumonia: Continue Unasyn pending cultures and clinical improvement. Of note patient is not in respiratory distress, she is not septic, she is not requiring oxygen. (2) Encephalopathy: Metabolic encephalopathy likely secondary to underlying pneumonia versus other. She does have a history of dementia but is not exhibiting delirium. She does have some short-term memory loss possibly exacerbated from the underlying infection. Urine is clear, she does not appear septic. Continue Unasyn pending blood cultures and improvement clinically. It is noted that she had a fall with reported head trauma 2 days ago. Neurology to evaluate. History dementia (3) Dementia: Uncertain of baseline. Patient is alert and oriented to person and place. She does not remember what brought her in here and does not remember her fall with ER visit 3 days ago. Will discuss further with her son what her baseline is. We will continue to monitor for improvement on antibiotic therapy. (4) Elevated liver enzymes: Uncertain cause but CK is elevated in the setting of recent falls at home. It appears she lives with 24-hour caregivers currently and may need some more assistance. Home environment is not clear at this time. Will discuss further with the son and with case management. Transaminases are trending down today as his CK. She is not complaining of any muscle pain or weakness. Continue to trend in a.m. (5) Asthma: Controlled, uncertain of inhaler use as medications from home cannot be verified at this time. She is stable without wheezing and not requiring oxygen as above. (6) DVT prophylaxis: Lovenox Full code Dispo-continue hospitalization pending blood culture return and improvement clinically. son was updated by me via phone. Lyssa Haro DO [facility] Hospitalist Subjective reports no symptoms, denies cough. History is unreliable in the setting of worsened dementia. Family at bedside and discussed the case with patients' daughter who is a nurse. Physical Exam Vital Signs (Past 24 Hours): Last Vital Signs Temp 36.7 C 07/15/18 12:09 Pulse 80 07/15/18 12:09 Resp 16 07/15/18 12:09 BP 144/77 H 07/15/18 12:09 Pulse Ox 96 07/15/18 12:09 CONSTITUTIONAL: WNWD, vitals as above, generally well-appearing, soft spoken, barely can hear her EYES: normal conjuctivae, no scleral icterus ENT: MMM RESPIRATORY: clear to auscultation bilaterally, no crackles, rales or wheezes, normal respiratory effort . Difficulty to hear lung sounds CARDIOVASCULAR: regular rate and rhythm, S1 and 2 heard without murmurs, gallops or rubs, no JVD, no peripheral edema, no carotid bruits GASTROINTESTINAL: normal bowel sounds, soft, nontender, nondistended MUSCULOSKELETAL: strength 5/5 throughout, head is normocephalic and atraumatic, neck supple, normal palpation of chest wall without tenderness SKIN: warm and dry, no rashes NEUROLOGIC: No facial palsy, no dysarthria. CN 2-12 grossly intact, demented- states it is 2001, Sen Cuadra is the president and that she is in [place] instead of the [facility] Results & Data Laboratory Results Short CBC 07/15/18 Range/Units 08:12 WBC 8.83 (4.8-10.8) K/uL Hgb 10.4 L (12.0-16.0) g/dL Hct 30.1 L (37-47) % Plt Count 321 (130-400) K/uL BMP 07/15/18 08:12 Sodium 137 Potassium 3.9 Chloride 103 Carbon Dioxide 25 BUN 12 Creatinine 0.64 Glucose 119 H Calcium 8.3 L Cardiac Enzymes 07/15/18 Range/Units 08:12 Total Creatine Kinase 173 (26-192) U/L Liver Function 07/15/18 Range/Units 08:12 Total Bilirubin 0.5 (0.2-1) mg/dl Direct Bilirubin 0.2 (0-0.2) mg/dl AST 35 (15-37) U/L ALT 66 (12-78) U/L Alkaline Phosphatase 130 H (45-117) U/L Albumin 2.1 L (3.4-5.0) gm/dl Medications Administered Current Inpatient Medications Acetaminophen (Tylenol) 325 mg PO Q6H PRN PRN Reason: Pain or Fever Stop: 08/12/18 20:33 Enoxaparin Sodium (Lovenox) 30 mg SQ QAM EAMON Stop: 08/13/18 08:59 Last Admin: 07/15/18 08:02 Dose: 30 mg Documented by: Ampicillin Sodium/Sulbactam Sodium 3,000 mg/ Sodium Chloride 108 mls @ 216 mls/hr IV Q6H EAMON Stop: 07/21/18 00:00 Last Infusion: 07/15/18 12:52 Dose: Infused Documented by: Potassium Chloride/Sodium Chloride (Normal Saline W/20 Meq Kcl) 20 meq in 1,000 mls @ 60 mls/hr IV .[id number] ONE Stop: 07/15/18 14:54 Last Admin: 07/14/18 22:39 Dose: 60 mls/hr Documented by: Miscellaneous Information (Ampicillin/Sulbactam Consult) 1 ea N/A UD PRN PRN Reason: Consult Stop: 08/12/18 22:06 Nitroglycerin (Nitrostat) 0.4 mg SL UD PRN PRN Reason: Chest Pain Stop: 08/12/18 20:33
[2018-07-15] MEDS: SACCHAROMYCES BOULARDII 250 MG CAP PO SCH (21:52)
[2018-07-16] MEDS: AMPICILLIN/SULBACTAM SOD 3,000 MG in 0.9 % SODIUM CHLORIDE 100 ML IV SCH ×2 (06:04→15:35)
[2018-07-16] MEDS: ENOXAPARIN INJ 30 MG/0.3 ML SYR SQ SCH (09:07)
--- NOTE | 2018-07-16 12:56 | Hospitalist Progress Note ---
Date of Service July 16, 2018 Assessment & Plan (1) Pneumonia: Blood cultures negative. Clinical improvement from a mental standpoint. Change to Augmentin. (2) Encephalopathy: Metabolic encephalopathy likely secondary to underlying pneumonia. This appears to have resolved and she is at baseline mental status per family. Cont pneumonia treatment. (3) Dementia: at baseline. (4) Elevated liver enzymes: Thought secondary to multiple recent falls at home. This has resolved. CK resolved. (5) Asthma: controlled, stable. No wheezing. (6) DVT prophylaxis: Lovenox Full code Dispo-pending PT/OT recs and clinical improvement. Will likely need SNF at discharge. Lyssa Haro DO [facility] Hospitalist Subjective Reports a cough, no pain. Denies fevers, chills, CP or SOB. Reports that she is eating and walking. She is stating she wants to go home. Granddaughter is at the bedside and thinks she looks better today. Physical Exam Vital Signs (Past 24 Hours): Last Vital Signs Temp 37.1 C 07/16/18 07:22 Pulse 64 07/16/18 07:22 Resp 18 07/16/18 07:22 BP 156/65 H 07/16/18 07:22 Pulse Ox 93 07/16/18 07:22 CONSTITUTIONAL: WNWD, vitals as above, generally well-appearing, soft spoken, barely can hear her EYES: normal conjuctivae, no scleral icterus ENT: MMM RESPIRATORY: mild rhonchi at bases bilaterally, is not taking very deep breaths when prompted. CARDIOVASCULAR: regular rate and rhythm, S1 and 2 heard without murmurs, gallops or rubs, no JVD, no peripheral edema, no carotid bruits GASTROINTESTINAL: normal bowel sounds, soft, nontender, nondistended MUSCULOSKELETAL: generalized weakness, moves all extremities equally. SKIN: warm and dry, no rashes NEUROLOGIC: No facial palsy, no dysarthria. CN 2-12 grossly intact, demented- states it is 2009, Sen Cuadra is the president and that she is in the hospital. So now oriented to person and place. She knows that her lung infection brought her into the hospital. Overall more improved from a mental standpoint. Results & Data Medications Administered Current Inpatient Medications Acetaminophen (Tylenol) 325 mg PO Q6H PRN PRN Reason: Pain or Fever Stop: 08/12/18 20:33 Amoxicillin/Clavulanate Potassium (Augmentin 875mg) 1 tab PO BIDM [facility] Stop: 07/23/18 16:59 Enoxaparin Sodium (Lovenox) 30 mg SQ QAM [facility] Stop: 08/13/18 08:59 Last Admin: 07/16/18 09:07 Dose: 30 mg Documented by: Nitroglycerin (Nitrostat) 0.4 mg SL UD PRN PRN Reason: Chest Pain Stop: 08/12/18 20:33 Saccharomyces Boulardii (Florastor) 250 mg PO Q24H [facility] Stop: 08/14/18 19:59 Last Admin: 07/15/18 21:52 Dose: 250 mg Documented by:
[2018-07-16] MEDS: AMOXICILLIN/CLAVULANATE 875 MG TAB PO SCH (15:59)
[2018-07-16] MEDS: SACCHAROMYCES BOULARDII 250 MG CAP PO SCH (19:39)
[2018-07-17 06:11] LABS: Hematocrit (blood only) 28.7 % (37-47); Hemoglobin 9.8 g/dL (12.0-16.0); Mean Corpuscular Hgb Conc 34.1 g/dL (32-36); Mean Corpuscular Volume 91.7 fL (80-100); Mean Platelet Volume 8.9 fL (7.4-10.4); Platelet Count 365 K/uL (130-400); RDW Coefficient of Variation 13.1 % (11.5-14.5); Red Blood Count 3.13 M/uL (4.2-5.4); White Blood Count 5.93 K/uL (4.8-10.8)
[2018-07-17 06:40] LABS: BUN Creatinine Ratio 22.8 (10-20); Calcium 8.2 mg/dl (8.5-10.1); Est GFR (African American) 99.6; Est GFR (Non-African American) 85.9; Magnesium 2.1 mg/dl (1.8-2.4); Potassium 3.6 mmol/L (3.5-5.1)
[2018-07-17] MEDS: AMOXICILLIN/CLAVULANATE 875 MG TAB PO SCH ×2 (08:21→17:54)
[2018-07-17] MEDS: ENOXAPARIN INJ 30 MG/0.3 ML SYR SQ SCH (08:22)
--- NOTE | 2018-07-17 10:50 | Hospitalist Progress Note ---
Date of Service July 17, 2018 Assessment & Plan (1) Pneumonia: Blood cultures negative. Clinical improvement again today. Continue Augmentin. Plan for video swallow study in a.m. to rule out silent aspiration. No overt aspiration with eating. (2) Encephalopathy: Metabolic encephalopathy likely secondary to underlying pneumonia. This appears to have resolved and she is at baseline mental status per family. Cont pneumonia treatment. (3) Dementia: at baseline. Today she is oriented only to self. She states that she knows where she is but cannot tell me where, she does not know why she is here and states she got scratched by cat. She states it is 1999 and the president is Marcin Alaniz. She reports wanting to go home. (4) Elevated liver enzymes: Thought secondary to multiple recent falls at home. This has resolved. CK resolved. (5) Asthma: controlled, stable. No wheezing. (6) DVT prophylaxis: Lovenox Full code Dispo-pending PT/OT recs and clinical improvement. Will likely need SNF at discharge. Lyssa Haro, [facility] Hospitalist Subjective She is clinically improved today from an energy standpoint. Her eyes are brighter and she is speaking with somewhat more confidence although still soft- spoken. She reports to me that she has been ablating around the hallways however the nurse at bedside reports this is not the case. She is only oriented to self today. She is okay with staying until tomorrow and we discussed that she may need temporary rehab. She is tolerating p.o. and afebrile. Physical Exam Vital Signs (Past 24 Hours): Last Vital Signs Temp 36.8 C 07/17/18 08:00 Pulse 67 07/17/18 08:00 Resp 18 07/17/18 08:00 BP 147/73 H 07/17/18 08:00 Pulse Ox 95 07/17/18 08:00 CONSTITUTIONAL: WNWD, vitals as above, generally well-appearing, soft spoken, appears more energetic and clinically improved today. EYES: normal conjuctivae, no scleral icterus ENT: MMM RESPIRATORY: mild rhonchi at left base, is not taking very deep breaths when prompted. CARDIOVASCULAR: regular rate and rhythm, S1 and 2 heard without murmurs, gallops or rubs, no JVD, no peripheral edema GASTROINTESTINAL: normal bowel sounds, soft, nontender, nondistended MUSCULOSKELETAL: generalized weakness, moves all extremities equally. SKIN: warm and dry, no rashes NEUROLOGIC: No facial palsy, no dysarthria. CN 2-12 grossly intact, demented Results & Data Laboratory Results Short CBC 07/17/18 Range/Units 05:24 WBC 5.93 (4.8-10.8) K/uL Hgb 9.8 L (12.0-16.0) g/dL Hct 28.7 L (37-47) % Plt Count 365 (130-400) K/uL BMP 07/17/18 05:24 Sodium 134 L Potassium 3.6 Chloride 101 Carbon Dioxide 28 BUN 14 Creatinine 0.63 Glucose 90 Calcium 8.2 L Medications Administered Current Inpatient Medications Acetaminophen (Tylenol) 325 mg PO Q6H PRN PRN Reason: Pain or Fever Stop: 08/12/18 20:33 Amoxicillin/Clavulanate Potassium (Augmentin 875mg) 1 tab PO BIDM [facility] Stop: 07/20/18 16:59 Last Admin: 07/17/18 08:21 Dose: 1 tab Documented by: Enoxaparin Sodium (Lovenox) 30 mg SQ QAM [facility] Stop: 08/13/18 08:59 Last Admin: 07/17/18 08:22 Dose: 30 mg Documented by: Nitroglycerin (Nitrostat) 0.4 mg SL UD PRN PRN Reason: Chest Pain Stop: 08/12/18 20:33 Saccharomyces Boulardii (Florastor) 250 mg PO Q24H [facility] Stop: 08/14/18 19:59 Last Admin: 07/16/18 19:39 Dose: 250 mg Documented by:
[2018-07-17] MEDS: SACCHAROMYCES BOULARDII 250 MG CAP PO SCH (20:15)
[2018-07-18] MEDS: AMOXICILLIN/CLAVULANATE 875 MG TAB PO SCH ×2 (09:12→16:39)
[2018-07-18] MEDS: ENOXAPARIN INJ 30 MG/0.3 ML SYR SQ SCH (09:12)
[2018-07-18 09:32] LABS: Hematocrit (blood only) 30.3 % (37-47); Hemoglobin 10.4 g/dL (12.0-16.0); Mean Corpuscular Hgb Conc 34.3 g/dL (32-36); Mean Corpuscular Volume 91.5 fL (80-100); Mean Platelet Volume 8.9 fL (7.4-10.4); Platelet Count 425 K/uL (130-400); RDW Coefficient of Variation 12.9 % (11.5-14.5); RDW Standard Deviation 43.5 fL (36.4-46.3); Red Blood Count 3.31 M/uL (4.2-5.4)
[2018-07-18 09:56] LABS: BUN Creatinine Ratio 17.9 (10-20); Calcium 8.6 mg/dl (8.5-10.1); Creatinine Clr Calc Pharmacy 51.9 ml/min; Est GFR (African American) 97.1; Est GFR (Non-African American) 83.8; Potassium 3.9 mmol/L (3.5-5.1)
--- NOTE | 2018-07-18 15:41 | Fluoroscopy Report ---
FL video swallow HISTORY: Aspiration TECHNIQUE: Video fluoroscopic evaluation of swallowing was performed in the AP and lateral projection s by the speech pathology staff. The patient is fed nectar-thick and thin liquid barium, a barium coa ramesh wafer, and barium pudding. FLUOROSCOPY TIME: 2.3 minutes. NUMBER OF FLUOROSCOPY IMAGES: 0 COMPARISON STUDY: None. FINDINGS: There was minimal premature leakage and vallecular pooling. No significant penetration or a spiration identified. IMPRESSION: 1. No aspiration identified. 2. Please see the speech pathologist report for detailed findings and recommendations. Electronically signed by: Chicho Avalos M.D. 07/18/2018 3:40 PM
--- NOTE | 2018-07-18 18:07 | Hospitalist Progress Note ---
Date of Service July 18, 2018 Assessment & Plan (1) Pneumonia: Blood cultures negative. Clinical improvement again today. Continue Augmentin. VSS negative. (2) Encephalopathy: Resolved after antibiotics (3) Dementia: Progressed, but she appears to be at baseline. No delirium present. (4) Elevated liver enzymes: Thought secondary to multiple recent falls at home. This has resolved. CK resolved. (5) Asthma: controlled, stable. No wheezing. (6) Anemia: Stable but decreased, likely related to dilution after IV fluids. Would recommend follow-up as outpatient with nonurgent CBC. (7) DVT prophylaxis: Lovenox Full code Dispo-pending PT/OT recs and clinical improvement. Will likely need SNF at discharge. Lyssa Haro DO [facility] Hospitalist Subjective Asymptomatic, afebrile, tolerating p.o. Physical Exam Vital Signs (Past 24 Hours): Last Vital Signs Temp 36.6 C 07/18/18 14:37 Pulse 89 07/18/18 14:37 Resp 15 07/18/18 14:37 BP 107/65 07/18/18 14:37 Pulse Ox 93 07/18/18 15:11 CONSTITUTIONAL: WNWD, vitals as above, generally well-appearing, soft spoken,NAD EYES: normal conjuctivae, no scleral icterus ENT: MMM RESPIRATORY: CTAB, not taking very deep breaths when prompted. CARDIOVASCULAR: regular rate and rhythm, S1 and 2 heard without murmurs, gallops or rubs, no JVD, no peripheral edema GASTROINTESTINAL: normal bowel sounds, soft, nontender, nondistended MUSCULOSKELETAL: generalized weakness, moves all extremities equally. SKIN: warm and dry, no rashes NEUROLOGIC: No facial palsy, no dysarthria. CN 2-12 grossly intact, demented Results & Data Laboratory Results Short CBC 07/18/18 Range/Units 09:07 WBC 6.60 (4.8-10.8) K/uL Hgb 10.4 L (12.0-16.0) g/dL Hct 30.3 L (37-47) % Plt Count 425 H (130-400) K/uL BMP 07/18/18 09:07 Sodium 137 Potassium 3.9 Chloride 103 Carbon Dioxide 27 BUN 12 Creatinine 0.68 Glucose 97 Calcium 8.6 Medications Administered Current Inpatient Medications Acetaminophen (Tylenol) 325 mg PO Q6H PRN PRN Reason: Pain or Fever Stop: 08/12/18 20:33 Amoxicillin/Clavulanate Potassium (Augmentin 875mg) 1 tab PO BIDM [facility] Stop: 07/20/18 16:59 Last Admin: 07/18/18 16:39 Dose: 1 tab Documented by: Enoxaparin Sodium (Lovenox) 30 mg SQ QAM [facility] Stop: 08/13/18 08:59 Last Admin: 07/18/18 09:12 Dose: 30 mg Documented by: Nitroglycerin (Nitrostat) 0.4 mg SL UD PRN PRN Reason: Chest Pain Stop: 08/12/18 20:33 Saccharomyces Boulardii (Florastor) 250 mg PO Q24H [facility] Stop: 08/14/18 19:59 Last Admin: 07/17/18 20:15 Dose: 250 mg Documented by:
[2018-07-18] MEDS: SACCHAROMYCES BOULARDII 250 MG CAP PO SCH (19:54)
[2018-07-19] MEDS: AMOXICILLIN/CLAVULANATE 875 MG TAB PO SCH (08:08)
[2018-07-19] MEDS: ENOXAPARIN INJ 30 MG/0.3 ML SYR SQ SCH (08:08)
--- NOTE | 2018-07-19 13:48 | Discharge Summary ---
Date of Service July 19, 2018 Admission HPI Per Admitting Provider History obtained from patient, family, and records. Limited history from patient secondary to dementia. Medical history significant for dementia, asthma as per records. Recent confinement August 2017 for committee acquired pneumonia, hyponatremia. Patient seen at the ER 2 days ago for head trauma following a mechanical fall/dizziness. Patient subsequently discharged home. Patient noted to be increasingly lethargic the last few days. Increasingly weak and confused as per patient son. Patient brought to the emergency room. Given Unasyn for possible sinusitis. Admission Exam Per Admitting Provider Temp 36.7 C 07/13/18 14:37 Pulse 96 H 07/13/18 18:30 Resp 33 H 07/13/18 18:30 BP 141/66 H 07/13/18 18:30 Pulse Ox 92 07/13/18 18:30 Physical Exam: GENERAL: Obtunded, follows some commands sparingly, inaudible mumbling, no respiratory distress SKIN: Normal color, warm HEENT: Excello palpebral conjunctivae, no ptosis, dry buccal mucosa NECK : Supple, no tenderness CHEST : Decreased breath sounds, no tenderness HEART : RRR, no obvious murmurs ABDOMEN: Some distention, nontender EXTREMITIES : No LE swelling/tenderness, no other conspicuous deformities noted NEUROLOGIC : Obtunded, no facial asymmetry, gait and stance not assessed Principal Diagnosis metabolic encephalopathy 2/2 pneumonia-resolved Dementia Discharge Data Allergies Allergy/AdvReac Type Severity Reaction Status Date / Time alendronate sodium Allergy Unknown Verified 07/14/18 17:23 Cephalosporins Allergy Unknown Verified 07/14/18 17:23 erythromycin base Allergy Unknown Unknown Verified 07/11/18 13:04 ibandronate sodium Allergy Unknown Verified 07/14/18 17:23 [From [facility]] Consultations 07/13/18 19:14 ED Decision to Admit Stat 07/13/18 20:34 Consult Neurology Routine 07/13/18 20:36 Consult Case Management - Discharge Planning Routine Ordered Studies 07/13/18 15:49 CT head/brain wo con Stat 07/13/18 15:53 CT cervical spine wo con Stat 07/13/18 16:23 US gallbladder Stat 07/13/18 18:28 CT abd pelvis IV con only Stat 07/18/18 14:45 FL video swallow Routine Hospital Course (1) Pneumonia: (2) Encephalopathy: (3) Dementia: (4) Rhabdomyolysis: (5) Asthma: 78-year-old female presented to the emergency room after a fall that morning. She was brought in by her caretakers which are their 14 hours a day. She otherwise lives alone, and her son Adelso is medical power of document review attorney and he lives in [place]. On arrival she was afebrile and hemodynamically stable, oxygenating well on room air she appeared chronically ill but in no significant distress and had a normal respiratory rate. She was started on Unasyn for presumed aspiration pneumonia after an x-ray revealed a right lower lobe pneumonia. Speech was consulted and observed no sridhar aspiration and so she underwent a video swallow study which also was negative for aspiration. Further workup included a head CT without contrast revealing no acute intracranial abnormality, atrophy and microvascular ischemic changes and evidence of acute maxillary sinusitis. She was unable to give a accurate review of systems secondary to some confusion but was noted to have a cough and some nasal congestion. A CT of the C-spine revealed no fractures. A right upper quadrant abdominal ultrasound was performed after liver enzymes were found to be elevated. This revealed no significant abnormality. An EKG revealed sinus rhythm with a rate of 97 and no evidence of acute ischemic change. She was admitted to the Hospitalist service. The next day liver enzymes were trended and were decreased by 50%. Of note her CK was elevated at 442, and the clinical picture status post fall was consistent with mild rhabdomyolysis from prolonged and was immobilization on the floor. His were trended until normal. CK was trended and continued to improve. A CT abdomen pelvis revealed circumferential bladder wall thickening possibly consistent with acute cystitis, however, urinalysis was clear. She had blood cultures that were negative x2. After approximately 24 hours of antibiotics she improved clinically from a mental standpoint. However, she continued to answer orientation correct questions in Ale questions incorrectly, consistent with progressive dementia. She is not s omeone who would be considered safe at home for any length of time. This was discussed with her son who verbalized understanding with intent to comply. She was evaluated by physical therapy and occupational therapy and was recommended for SNF at discharge. She continued to do well from a clinical standpoint and was transition to Augmentin. At time of discharge she was hemodynamically stable and afebrile for greater than 48 hours and was mentating at her baseline with no complaints. She was oriented to self only, accurately. Of note home med list was not able to be obtained during this hospitalization despite request to her son Adelso who lives in [place]. Her caretakers arrived on day of discharge and provided thus with this list which will be continued at [facility] per discharging physician's instructions. She was discharged in stable condition with close primary care follow-up recommended. It is recommended she have a chest x-ray in 4-6 weeks to ensure resolution of pneumonia. Total Time Total Time Spent Total Time Spent (In Minutes): 60 Total Time Includes: Examination of the Patient, Discharge Planning, Medication Reconciliation, Communication With Other Providers and Other (communicated plan with family members) Discharge Plan Discharge Items Patient Disposition: Transfer Group Home Fac Reason For Visit: ENCEPHALOPATHY Discharge Diagnosis: metabolic encephalopathy 2/2 pneumonia-resolved Dementia Discharge Goals: Improve disease control Activity: Resume your previous activity Non-emergency contact: Primary Care Provider Call non-emergency contact if: you have any medication questions, your symptoms worsen, your pain is not controlled, your pain is worsening and you have a fever Follow-up/Referrals: Domo Huertas [Primary Care Provider] - Diet: Heart Healthy Diet Texture: Dental soft (bite-sized) Addtl Provider Instructions: Please take all medications as instructed on discharge list below. You will need to complete all of the antibiotic ordered. Please take the probiotic with this. It is recommended that you have a repeat chest x-ray in 4-6 weeks to ensure complete resolution of the pneumonia. It is recommended that you follow-up with your primary care provider within 1 week of discharge from [facility]. It is my recommendation that you have 24-hour care in your home if you are to return home. Your son, Adelso is aware of this recommendation. It was a pleasure taking care of you! Please call if you have any questions or problems. You can reach a [facility] hospitalist on duty at [facility] 24 hours a day by calling [phone]. Take care of yourself. Lyssa Haro, DO [facility] Hospitalist Prescriptions: New amoxicillin-pot clavulanate 875-125 mg Tablet 1 tab PO BIDM 5 Days Qty: 10 RF: 0 Florastor 250 mg Capsule 250 mg PO Q24H 5 Days Qty: 5 RF: 0 No Action Unobtainable RF: 0 Stand-Alone Forms: My [facility] Admission Data Admit Date/Time: 07/13/18 20:33 Attending Provider: Lyssa Haro Admit Provider: Jerry Fam Primary Care Provider: Domo Huertas Other Providers: Jerry Fam ; Zulma Soni ; Checo Garcia ; Zulma Witt ; Yoselyn Man ; Benny Medina ; Mariana Saavedra Service: Telemetry Medical
--- NOTE | 2018-07-19 15:19 | Communication Note ---
Date of Service: July 19, 2018 DISCHARGE SUMMARY ADDENDUM: Normal H/H at baseline. Anemia likely 2/2 dilution after IVF on admission. Stable with no decline. Repeat nonurgently with PCP. Also home medications were updated after DC summary was completed. Updated list being sent to [facility] Cathryn. DO Tahir
[2018-07-19 15:48] VITALS: BP 109/68; PULSE 81; TEMP 98.4; O2SAT 96
== END 2018-07-19 18:18 | DRG 193 ==
LOC: ED 14:23 → 2N 20:33 → 4E 07-16 21:40

== ENCOUNTER 2018-09-09 15:26 | Inpatient (IN) ==
[2018-09-09] MEDS ORDERED: SODIUM CHLORIDE 0.9% 1000ML 1,000 ML IV ONE (15:31)
[2018-09-09 15:53] LABS: Basophils # (auto) 0.02 K/uL (0-0.2); Basophils % (auto) 0.4 %; Hematocrit (blood only) 34.5 % (37-47); Hemoglobin 12.2 g/dL (12.0-16.0); Immature Granulocytes # (auto) 0.02 K/uL (0.00-0.02); Immature Granulocytes % (auto) 0.4 %; Lymphocytes # (auto) 0.35 K/uL (1.2-3.4); Lymphocytes % (auto) 7.1 %; Mean Corpuscular Hgb Conc 35.4 g/dL (32-36); Mean Corpuscular Volume 89.1 fL (80-100); Mean Platelet Volume 9.6 fL (7.4-10.4); Monocytes % (auto) 6.1 %; Neutrophils # (auto) 4.21 K/uL (1.4-6.5); Platelet Count 256 K/uL (130-400); RDW Coefficient of Variation 14.3 % (11.5-14.5); RDW Standard Deviation 47.1 fL (36.4-46.3); Red Blood Count 3.87 M/uL (4.2-5.4)
--- NOTE | 2018-09-09 15:56 | XRay Report ---
XR chest 1V portable CLINICAL HISTORY: Sepsis dyspnea COMPARISON STUDY: 07/13/2018 FINDINGS: Thoracic scoliosis. Lungs are clear. Diaphragms are smooth. Minimal atelectasis left latera l costophrenic angle. IMPRESSION: Chronic change. No acute process. The above report was generated using voice recognition software. It may contain grammatical, syntax or spelling errors. Electronically signed by: Artemio Su M.D. 09/09/2018 3:55 PM
[2018-09-09 16:04] LABS: Partial Thromboplastin Ratio 0.9; Partial Thromboplastin Time 23.9 Seconds (21.0-31.0); Prothrombin Time 10.6 Seconds (9.0-12.0)
[2018-09-09 16:09] LABS: Base Excess VBG 1.6 mEq/L; HCO3 VBG 27 mmol/L; PCO2 VBG 46 mmHg (38-50); PO2 VBG 30 mmHg; pH VBG 7.38 (7.36-7.41)
[2018-09-09 16:10] LABS: Albumin Level 3.2 gm/dl (3.4-5.0); Creatinine Clr Calc Pharmacy 40.1 ml/min; Est GFR (African American) 78.3; Est GFR (Non-African American) 67.5; Potassium 3.9 mmol/L (3.5-5.1)
[2018-09-09 16:10] LABS: Oxygen Saturation VBG < 60.0 %
[2018-09-09 16:14] LABS: Albumin Globulin Ratio 0.9 (0.9-2); Bilirubin,Total 0.4 mg/dl (0.2-1); Globulin 3.5 gm/dl (2.5-4.0); Total Protein 6.7 gm/dl (6.4-8.2)
[2018-09-09 16:42] LABS: Magnesium 1.8 mg/dl (1.8-2.4); Troponin I < 0.015 ng/ml (0-0.045)
--- NOTE | 2018-09-09 17:02 | CT Scan Report ---
CT head/brain wo con CT DOSE: 855.99 mGy.cm HISTORY: Mental status change mental status change TECHNIQUE: Multiaxial CT images of the head were performed without the use of intravenous contrast. A dose lowering technique was utilized adhering to the principles of ALARA. Comparison: 07/13/2018 Findings: Unchanged acute maxillary sinusitis. Mild mucosal thickening ethmoid sinuses. This shows no major change in the prior study. The calvarium and skull base are intact. The ventricles and sulci a re within normal limits. There is no mass, hematoma, midline shift, or acute infarct. Age-related atr ophy and chronic small vessel change. Impression: 1. Unchanged acute maxillary sinusitis bilaterally. 2. Age-related intracranial changes with no acute intracranial abnormality. The above report was generated using voice recognition software. It may contain grammatical, syntax or spelling errors. Electronically signed by: Artemio Su M.D. 09/09/2018 5:01 PM
--- NOTE | 2018-09-09 17:06 | CT Scan Report ---
CT abd pelvis wo con CT DOSE: HISTORY: Pain distended TECHNIQUE: Multiaxial CT images of the abdomen and pelvis were performed without contrast. A dose lo wering technique was utilized adhering to the principles of ALARA. COMPARISON STUDY: 07/13/2018 FINDINGS: Improved aeration of both lung bases. Minimal residual atelectasis left and to a lesser ext ent right base. The basilar infiltrative changes procedure described has shown near complete resoluti on. Minimal residual patchy parenchymal infiltrative change left lower lobe. Small fixed hiatal hernia. Liver spleen and pancreas are unremarkable within the limitations of an unenhanced study. Kidneys are negative for nephrocalcinosis or hydronephrosis. Nonobstructive bowel pattern. Several calcified uterine fibroids. Bladder is midline. Bladder itself is relatively collapsed. No free fluid within the pelvic cul-de-sac. IMPRESSION: 1. Improved infiltrative change of both lung bases with minimal patchy parenchymal infiltrative davila es left lower lobe. 2. Nonobstructive bowel pattern. 3. No acute process identified within the abdomen or pelvis. 4. Fibroid-type uterus unchanged The above report was generated using voice recognition software. It may contain grammatical, syntax or spelling errors. Electronically signed by: Artemio Su M.D. 09/09/2018 5:05 PM
[2018-09-09 17:15] LABS: Appearance Urine Cloudy (Clear); Bacteria Urine Automated 4+ (Negative); Bilirubin Urine Negative (Negative); Blood Urine 2+ (Negative); Color Urine Yellow; Glucose Urine UA Negative (Negative); Ketones Urine Trace (Negative); Leukocyte Esterase Urine 2+ (Negative); Nitrite Urine Positive (Negative); Protein Urine Trace (Negative); Urobilinogen Urine Negative (Negative); WBC Urine Automated >30 /hpf (0-5)
[2018-09-09] MEDS ORDERED: PIPERACILL/TAZOBAC CONSULT ACTIVE PRN ×2 (17:26→19:35)
[2018-09-09] MEDS ORDERED: PIPERACILLIN/TAZOBACTAM 4.5 GM/120 ML BAG IV ONE (17:26)
--- NOTE | 2018-09-09 17:55 | Emergency Department Note ---
Entered by Hailey Soni acting as a scribe for Trino Schaeffer DO History of Present Illness General Chief complaint: Altered Mental Status Source: patient and EMS Mode of arrival: ambulatory Limitations: altered mental status History of Present Illness Onset (ago): unknown Location: head Quality: + other (altered mental status) Treatments prior to arrival: other (saline) The patient is a 79 year old female who presents to the ED complaining of altered mental status. EMS states that they were called, because the patient was unresponsive. Per EMS, the onset is unknown. EMS notes that she as been lethargic and has had a productive cough. EMS notes that she smells of urine. The patient denies any pain. EMS notes that she was treated with 600 mL of saline [employer]. EMS denies any knowledge of a recent fall or trauma. HPI limited secondary to mental status. Home Medications Home Medications Medication Instructions Recorded Confirmed Type Breo Ellipta 1 inh INHALATION DAILY 07/19/18 09/09/18 History albuterol sulfate [Ventolin HFA] 2 puff INHALATION QID PRN 07/19/18 09/09/18 History montelukast 10 mg PO PM 07/19/18 09/09/18 History raloxifene 60 mg PO DAILY 07/19/18 09/09/18 History sertraline 25 mg PO DAILY 07/19/18 09/09/18 History Allergies Allergy/AdvReac Type Severity Reaction Status Date / Time alendronate sodium Allergy Unknown Verified 07/14/18 17:23 Cephalosporins Allergy Unknown Verified 07/14/18 17:23 erythromycin base Allergy Unknown Unknown Verified 07/11/18 13:04 ibandronate sodium Allergy Unknown Verified 07/14/18 17:23 [From [facility]] Past Med/Surg History Medical History Osteoporosis (Chronic) Anemia (Chronic) Dementia (Chronic) UTI (urinary tract infection) (Resolved) Asthma (Chronic) Bronchitis Surgical History History of tonsillectomy and adenoidectomy (Chronic) Family History Other Unknown family medical history Social History (Reviewed 09/10/18 @ 11:20 by LISA Anderson Preferred Language: Cameroonian Communication Ability: Impaired Communication Ability Comment: dementia Nurse Examiner Required: No Current Living Situation: Alone Current Living Situation Comment: caretakers Feels Safe at Home: Yes Smoking Status: Unknown if ever smoked Review of Systems See HPI for pertinent positives & negatives. Other (ROS limited secondary to altered mental status. ) Physical Exam Vital Signs Vital Signs - 24 hr 09/09/18 15:42 09/09/18 16:38 09/09/18 17:25 Temperature Temperature Source Pulse Rate Pulse Rate [Left Finger] 77 75 Pulse Rhythm [Left Finger] Regular Pulse Strength [Left Finger] Respiratory Rate 29 H 18 Respiratory Effort / Characteristics Non-Labored Non-Labored Spontaneous Respiratory Depth Normal Normal Respiratory Pattern Regular Regular Blood Pressure Blood Pressure [Left Arm] 138/65 152/82 H Blood Pressure Mean [Left Arm] 89 105 Blood Pressure Position [Left Arm] Pulse Oximetry 94 96 97 Pulse Oximetry [Left Index Finger] Oxygen Delivery Method Room Air Room Air Room Air Oxygen Delivery Method [Left Index Finger] 09/09/18 18:30 09/09/18 19:08 09/09/18 19:35 Temperature 38.2 C H Temperature Source Oral Pulse Rate 81 Pulse Rate [Left Finger] 79 70 Pulse Rhythm [Left Finger] Regular Pulse Strength [Left Finger] Normal Respiratory Rate 25 H 20 18 Respiratory Effort / Characteristics Non-Labored Respiratory Depth Normal Normal Respiratory Pattern Regular Blood Pressure 135/72 Blood Pressure [Left Arm] 143/54 H 152/76 H Blood Pressure Mean [Left Arm] 83 101 Blood Pressure Position [Left Arm] Lying Pulse Oximetry 96 97 96 Pulse Oximetry [Left Index Finger] Oxygen Delivery Method Room Air Room Air Room Air Oxygen Delivery Method [Left Index Finger] 09/09/18 21:27 09/09/18 23:06 09/09/18 23:35 Temperature 36.5 C Temperature Source Oral Pulse Rate 81 Pulse Rate [Left Finger] 83 Pulse Rhythm [Left Finger] Regular Pulse Strength [Left Finger] Normal Respiratory Rate 18 Respiratory Effort / Characteristics Non-Labored Non-Labored Non-Labored Respiratory Depth Normal Normal Normal Respiratory Pattern Regular Regular Regular Blood Pressure Blood Pressure [Left Arm] 140/76 Blood Pressure Mean [Left Arm] 97 Blood Pressure Position [Left Arm] Lying Pulse Oximetry 95 Pulse Oximetry [Left Index Finger] 95 Oxygen Delivery Method Room Air Room Air Room Air Oxygen Delivery Method [Left Index Finger] Room Air 09/10/18 04:00 09/10/18 08:00 09/10/18 11:49 Temperature 38.4 C H 36.9 C 36.4 C L Temperature Source Oral Oral Oral Pulse Rate Pulse Rate [Left Finger] 84 83 61 Pulse Rhythm [Left Finger] Pulse Strength [Left Finger] Normal Respiratory Rate 18 16 16 Respiratory Effort / Characteristics Respiratory Depth Normal Respiratory Pattern Blood Pressure Blood Pressure [Left Arm] 136/68 115/64 127/70 Blood Pressure Mean [Left Arm] 90 81 89 Blood Pressure Position [Left Arm] Lying Lying Pulse Oximetry 91 93 96 Pulse Oximetry [Left Index Finger] Oxygen Delivery Method Room Air Room Air Room Air Oxygen Delivery Method [Left Index Finger] GENERAL: Patient is listless, and she responds to commands very slowly. Patient is resting comfortably and showing no signs of anxiety EYES: The conjunctivae are clear. The pupils are round and reactive. EARS, NOSE, MOUTH AND THROAT: The nose is without any evidence of any deformity. Mucous membranes are moist.Tongue is midline NECK: The neck is nontender and supple. RESPIRATORY: She has diminished sounds with scattered rhonchi throughout. There is not evidence of tachypnea or retraction. CARDIOVASCULAR: Regular rate and rhythm noted. There no murmurs rubs or gallops normal S1 normal S2 GASTROINTESTINAL: The abdomen is soft and distended. Bowel sounds are present in all quadrants. Abdomen is nontender. BACK: No midline tenderness or or step-off noted range of motion in flexion extension as well as rotation no signs of muscle spasm noted. PELVIS: The Pelvis is stable. No tenderness to palpation is noted. MUSCULOSKELETAL/EXTREMITIES: There is no evidence of gross deformity. Full range of motion is noted in the hips and shoulders. SKIN: There is no obvious evidence of any rash. There are no petechiae, pallor or cyanosis noted. NEUROLOGIC: The patient follows commands slowly. She answers questions intermittently. I am unable to assess orientation at this time. Course 1527: Past medical records reviewed. The patient was evaluated in room B03B. A complete history and physical exam was performed. 1739: I spoke with Sharon Buckner PA-C, about the patients case. Nubia will further evaluate the patient. Dr. Haro, [facility] hospitalist, will admit the patient. Consultations Consultation #1: I spoke with Sharon Buckner PA-C, about the patients case. Nubia will further evaluate the patient. Dr. Haro, Sharon hospitalist, will admit the patient. Time: 17:40 Administered Medications Enoxaparin Sodium (Lovenox) 30 mg SQ Q24H EAMON Stop: 10/09/18 20:59 Last Admin: 09/09/18 22:17 Dose: 30 mg Documented by: [id number] Fluticasone/Vilanterol (Breo Ellipta) 1 puffs INH DAILY EAMON Stop: 10/10/18 08:59 Last Admin: 09/10/18 08:10 Dose: 1 puffs Documented by: [id number] Piperacillin Sod/Tazobactam (Sod 3.375 gm/ Dextrose) 115 mls @ 28.75 mls/hr IV Q8H EAMON; Protocol Stop: 09/19/18 21:59 Last Infusion: 09/10/18 09:32 Dose: 0 mls/hr Documented by: [id number] Admin: 09/10/18 05:13 Dose: 28.8 mls/hr Documented by: [id number] Infusion: 09/10/18 01:25 Dose: 0 mls/hr Documented by: [id number] Admin: 09/09/18 21:22 Dose: 28.8 mls/hr Documented by: [id number] Miscellaneous (Order Awaiting Action) 1 ea N/A QS [facility] Stop: 10/09/18 19:59 Last Admin: 09/10/18 08:01 Dose: Not Given Documented by: [id number] Admin: 09/09/18 23:49 Dose: Not Given Documented by: [id number] Admin: 09/09/18 21:21 Dose: Not Given Documented by: [id number] Montelukast Sodium (Singulair) 10 mg PO PM EAMON Stop: 10/09/18 20:59 Last Admin: 09/09/18 22:18 Dose: 10 mg Documented by: [id number] Ondansetron HCl (Zofran) 4 mg IV Q6H PRN PRN Reason: Nausea Stop: 10/09/18 19:34 Last Admin: 09/09/18 19:53 Dose: 4 mg Documented by: [id number] Oseltamivir Phosphate (Tamiflu) 30 mg PO BID EAMON; Protocol Stop: 09/14/18 20:59 Last Admin: 09/10/18 08:10 Dose: 30 mg Documented by: [id number] Admin: 09/09/18 22:16 Dose: 30 mg Documented by: [id number] Raloxifene HCl (Evista) 60 mg PO HS EAMON Stop: 10/09/18 20:59 Last Admin: 09/09/18 22:17 Dose: 60 mg Documented by: [id number] Sertraline HCl (Zoloft) 25 mg PO DAILY [facility] Stop: 10/10/18 08:59 Last Admin: 09/10/18 08:10 Dose: 25 mg Documented by: [id number] Discontinued Medications Sodium Chloride (Nss 1000ml) 1,000 mls @ 999 mls/hr IV .[id number] ONE Stop: 09/09/18 16:31 Last Infusion: 09/09/18 18:35 Dose: 0 mls/hr Documented by: [id number] Admin: 09/09/18 16:46 Dose: 999 mls/hr Documented by: [id number] Piperacillin Sod/Tazobactam Sod (Zosyn) 4.5 gm in 120 mls @ 240 mls/hr IV NOW ONE Stop: 09/09/18 17:55 Last Infusion: 09/09/18 18:35 Dose: 0 mls/hr Documented by: [id number] Admin: 09/09/18 17:51 Dose: 240 mls/hr Documented by: [id number] Sodium Chloride (Nss 1000ml) 1,000 mls @ 60 mls/hr IV .[id number] [facility] Stop: 09/10/18 12:14 Last Infusion: 09/10/18 00:10 Dose: 60 mls/hr Documented by: [id number] Infusion: 09/09/18 23:05 Dose: 0 mls/hr Documented by: [id number] Admin: 09/09/18 19:53 Dose: 60 mls/hr Documented by: [id number] Vancomycin HCl 1,000 mg/ (Sodium Chloride) 270 mls @ 125 mls/hr IV TODAY@2200 [facility] Stop: 09/10/18 00:10 Last Infusion: 09/10/18 01:25 Dose: 0 mls/hr Documented by: [id number] Admin: 09/09/18 23:04 Dose: 125 mls/hr Documented by: [id number] Magnesium Sulfate/Dextrose (Magnesium Sulfate / D5w) 1 gm in 100 mls @ 100 mls/hr IV ONE ONE Stop: 09/09/18 23:24 Last Infusion: 09/10/18 00:10 Dose: 0 mls/hr Documented by: [id number] Admin: 09/09/18 23:05 Dose: 100 mls/hr Documented by: [id number] Potassium Chloride (Klor-Con M20) 20 meq PO NOW STA Stop: 09/09/18 22:26 Last Admin: 09/09/18 23:32 Dose: 20 meq Documented by: [id number] Medical Decision Making Differential Diagnosis Differential diagnoses includes but is not limited to toxic, metabolic, infectious, traumatic, cardiac, neurologic, hematologic, psychiatric and inflammatory etiologies. Medical Records Attestation: I reviewed the patient's medical records. Home Medications Current Medication List: was personally reviewed by me Laboratory Data Attestation: I reviewed the patient's lab results. Result diagrams: 09/10/18 05:32 09/10/18 05:32 Lab Results 09/09/18 09/09/18 09/09/18 Range/Units 14:55 14:55 14:55 WBC 4.90 (4.8-10.8) K/uL RBC 3.87 L (4.2-5.4) M/uL Hgb 12.2 (12.0-16.0) g/dL Hct 34.5 L (37-47) % MCV 89.1 (80-100) fL MCH 31.5 (25-34) pg MCHC 35.4 (32-36) g/dL RDW Std Deviation 47.1 H (36.4-46.3) fL RDW Coeff of Frida 14.3 (11.5-14.5) % Plt Count 256 (130-400) K/uL MPV 9.6 (7.4-10.4) fL Immature Gran % (Auto) 0.4 % Neut % (Auto) 86.0 % Lymph % (Auto) 7.1 % [place] % (Auto) 6.1 % Eos % (Auto) 0.0 % Baso % (Auto) 0.4 % Immature Gran # (Auto) 0.02 (0.00-0.02) K/uL Neut # (Auto) 4.21 (1.4-6.5) K/uL Lymph # (Auto) 0.35 L (1.2-3.4) K/uL [place] # (Auto) 0.30 (0.11-0.59) K/uL Eos # (Auto) 0.00 (0-0.5) K/uL Baso # (Auto) 0.02 (0-0.2) K/uL ESR (0-21) mm/hr PT 10.6 (9.0-12.0) Seconds INR 1.0 (0.9-1.1) APTT 23.9 (21.0-31.0) Seconds PTT Ratio 0.9 VBG pH (7.36-7.41) VBG pCO2 (38-50) mmHg VBG pO2 mmHg VBG HCO3 mmol/L VBG O2 Saturation % VBG Base Excess mEq/L Barometric Pressure mm/Hg Sodium 136 (136-145) mmol/L Potassium 3.9 (3.5-5.1) mmol/L Chloride 102 (98-107) mmol/L Carbon Dioxide 27 (21-32) mmol/L Anion Gap 8.0 (3-11) BUN 13 (7-18) mg/dl Creatinine 0.83 (0.6-1.2) mg/dl Est Cr Clr Drug Dosing 40.1 ml/min Est GFR ( Amer) 78.3 Est GFR (Non-Af Amer) 67.5 BUN/Creatinine Ratio 16.0 (10-20) Glucose 128 H (70-99) mg/dl POC Glucose (70-99) POC Lactic Acid Devante (0.90-1.70) mmol/L Calcium 9.0 (8.5-10.1) mg/dl Magnesium (1.8-2.4) mg/dl Total Bilirubin 0.4 (0.2-1) mg/dl AST 27 (15-37) U/L ALT 19 (12-78) U/L Alkaline Phosphatase 64 (45-117) U/L Ammonia (11-32) umol/L Total Creatine Kinase 84 (26-192) U/L CK-MB (CK-2) 1.0 (0.5-3.6) ng/ml CK/CKMB % Calc 1.2 (0-3.0) Troponin I (0-0.045) ng/ml C-Reactive Protein (0-0.29) mg/dl Total Protein 6.7 (6.4-8.2) gm/dl Albumin 3.2 L (3.4-5.0) gm/dl Globulin 3.5 (2.5-4.0) gm/dl Albumin/Globulin Ratio 0.9 (0.9-2) Procalcitonin (0-0.5) ng/ml Urine Color Urine Appearance (Clear) Urine pH (4.5-7.5) Ur Specific [place] (1.000-1.030) Urine Protein (Negative) Urine Glucose (UA) (Negative) Urine Ketones (Negative) Urine Blood (Negative) Urine Nitrite (Negative) Urine Bilirubin (Negative) Urine Urobilinogen (Negative) Ur Leukocyte Esterase (Negative) Urine WBC (Auto) (0-5) /hpf Urine RBC (Auto) (0-4) /hpf U Hyaline Cast (Auto) (0-5) /lpf U Epithel Cells (Auto) (0-5) /lpf Urine Bacteria (Auto) (Negative) Nasal Screen MRSA (PCR) (Negative) Influenza Type A (PCR) (Neg) Influenza Type B (PCR) (Neg) 09/09/18 09/09/18 09/09/18 Range/Units 14:55 14:55 14:55 WBC (4.8-10.8) K/uL RBC (4.2-5.4) M/uL Hgb (12.0-16.0) g/dL Hct (37-47) % MCV (80-100) fL MCH (25-34) pg MCHC (32-36) g/dL RDW Std Deviation (36.4-46.3) fL RDW Coeff of Frida (11.5-14.5) % Plt Count (130-400) K/uL MPV (7.4-10.4) fL Immature Gran % (Auto) % Neut % (Auto) % Lymph % (Auto) % [place] % (Auto) % Eos % (Auto) % Baso % (Auto) % Immature Gran # (Auto) (0.00-0.02) K/uL Neut # (Auto) (1.4-6.5) K/uL Lymph # (Auto) (1.2-3.4) K/uL [place] # (Auto) (0.11-0.59) K/uL Eos # (Auto) (0-0.5) K/uL Baso # (Auto) (0-0.2) K/uL ESR 33 H (0-21) mm/hr PT (9.0-12.0) Seconds INR (0.9-1.1) APTT (21.0-31.0) Seconds PTT Ratio VBG pH (7.36-7.41) VBG pCO2 (38-50) mmHg VBG pO2 mmHg VBG HCO3 mmol/L VBG O2 Saturation % VBG Base Excess mEq/L Barometric Pressure mm/Hg Sodium (136-145) mmol/L Potassium (3.5-5.1) mmol/L Chloride (98-107) mmol/L Carbon Dioxide (21-32) mmol/L Anion Gap (3-11) BUN (7-18) mg/dl Creatinine (0.6-1.2) mg/dl Est Cr Clr Drug Dosing ml/min Est GFR ( Amer) Est GFR (Non-Af Amer) BUN/Creatinine Ratio (10-20) Glucose (70-99) mg/dl POC Glucose (70-99) POC Lactic Acid [place]ante (0.90-1.70) mmol/L Calcium (8.5-10.1) mg/dl Magnesium 1.8 (1.8-2.4) mg/dl Total Bilirubin (0.2-1) mg/dl AST (15-37) U/L ALT (12-78) U/L Alkaline Phosphatase (45-117) U/L Ammonia (11-32) umol/L Total Creatine Kinase (26-192) U/L CK-MB (CK-2) (0.5-3.6) ng/ml CK/CKMB % Calc (0-3.0) Troponin I < 0.015 (0-0.045) ng/ml C-Reactive Protein 2.70 H (0-0.29) mg/dl Total Protein (6.4-8.2) gm/dl Albumin (3.4-5.0) gm/dl Globulin (2.5-4.0) gm/dl Albumin/Globulin Ratio (0.9-2) Procalcitonin 0.09 (0-0.5) ng/ml Urine Color Urine Appearance (Clear) Urine pH (4.5-7.5) Ur Specific [place] (1.000-1.030) Urine Protein (Negative) Urine Glucose (UA) (Negative) Urine Ketones (Negative) Urine Blood (Negative) Urine Nitrite (Negative) Urine Bilirubin (Negative) Urine Urobilinogen (Negative) Ur Leukocyte Esterase (Negative) Urine WBC (Auto) (0-5) /hpf Urine RBC (Auto) (0-4) /hpf U Hyaline Cast (Auto) (0-5) /lpf U Epithel Cells (Auto) (0-5) /lpf Urine Bacteria (Auto) (Negative) Nasal Screen MRSA (PCR) (Negative) Influenza Type A (PCR) (Neg) Influenza Type B (PCR) (Neg) 09/09/18 09/09/18 09/09/18 Range/Units 15:52 15:57 15:57 WBC (4.8-10.8) K/uL RBC (4.2-5.4) M/uL Hgb (12.0-16.0) g/dL Hct (37-47) % MCV (80-100) fL MCH (25-34) pg MCHC (32-36) g/dL RDW Std Deviation (36.4-46.3) fL RDW Coeff of Frida (11.5-14.5) % Plt Count (130-400) K/uL MPV (7.4-10.4) fL Immature Gran % (Auto) % Neut % (Auto) % Lymph % (Auto) % [place] % (Auto) % Eos % (Auto) % Baso % (Auto) % Immature Gran # (Auto) (0.00-0.02) K/uL Neut # (Auto) (1.4-6.5) K/uL Lymph # (Auto) (1.2-3.4) K/uL [place] # (Auto) (0.11-0.59) K/uL Eos # (Auto) (0-0.5) K/uL Baso # (Auto) (0-0.2) K/uL ESR (0-21) mm/hr PT (9.0-12.0) Seconds INR (0.9-1.1) APTT (21.0-31.0) Seconds PTT Ratio VBG pH 7.38 (7.36-7.41) VBG pCO2 46 (38-50) mmHg VBG pO2 30 mmHg VBG HCO3 27 mmol/L VBG O2 Saturation < 60.0 % VBG Base Excess 1.6 mEq/L Barometric Pressure 729.8 mm/Hg Sodium (136-145) mmol/L Potassium (3.5-5.1) mmol/L Chloride (98-107) mmol/L Carbon Dioxide (21-32) mmol/L Anion Gap (3-11) BUN (7-18) mg/dl Creatinine (0.6-1.2) mg/dl Est Cr Clr Drug Dosing ml/min Est GFR ( Amer) Est GFR (Non-Af Amer) BUN/Creatinine Ratio (10-20) Glucose (70-99) mg/dl POC Glucose 128 H (70-99) POC Lactic Acid Devante (0.90-1.70) mmol/L Calcium (8.5-10.1) mg/dl Magnesium (1.8-2.4) mg/dl Total Bilirubin (0.2-1) mg/dl AST (15-37) U/L ALT (12-78) U/L Alkaline Phosphatase (45-117) U/L Ammonia < 10.0 L (11-32) umol/L Total Creatine Kinase (26-192) U/L CK-MB (CK-2) (0.5-3.6) ng/ml CK/CKMB % Calc (0-3.0) Troponin I (0-0.045) ng/ml C-Reactive Protein (0-0.29) mg/dl Total Protein (6.4-8.2) gm/dl Albumin (3.4-5.0) gm/dl Globulin (2.5-4.0) gm/dl Albumin/Globulin Ratio (0.9-2) Procalcitonin (0-0.5) ng/ml Urine Color Urine Appearance (Clear) Urine pH (4.5-7.5) Ur Specific [place] (1.000-1.030) Urine Protein (Negative) Urine Glucose (UA) (Negative) Urine Ketones (Negative) Urine Blood (Negative) Urine Nitrite (Negative) Urine Bilirubin (Negative) Urine Urobilinogen (Negative) Ur Leukocyte Esterase (Negative) Urine WBC (Auto) (0-5) /hpf Urine RBC (Auto) (0-4) /hpf U Hyaline Cast (Auto) (0-5) /lpf U Epithel Cells (Auto) (0-5) /lpf Urine Bacteria (Auto) (Negative) Nasal Screen MRSA (PCR) (Negative) Influenza Type A (PCR) (Neg) Influenza Type B (PCR) (Neg) 09/09/18 09/09/18 09/09/18 Range/Units 16:17 16:38 18:38 WBC (4.8-10.8) K/uL RBC (4.2-5.4) M/uL Hgb (12.0-16.0) g/dL Hct (37-47) % MCV (80-100) fL MCH (25-34) pg MCHC (32-36) g/dL RDW Std Deviation (36.4-46.3) fL RDW Coeff of Frida (11.5-14.5) % Plt Count (130-400) K/uL MPV (7.4-10.4) fL Immature Gran % (Auto) % Neut % (Auto) % Lymph % (Auto) % [place] % (Auto) % Eos % (Auto) % Baso % (Auto) % Immature Gran # (Auto) (0.00-0.02) K/uL Neut # (Auto) (1.4-6.5) K/uL Lymph # (Auto) (1.2-3.4) K/uL [place] # (Auto) (0.11-0.59) K/uL Eos # (Auto) (0-0.5) K/uL Baso # (Auto) (0-0.2) K/uL ESR (0-21) mm/hr PT (9.0-12.0) Seconds INR (0.9-1.1) APTT (21.0-31.0) Seconds PTT Ratio VBG pH (7.36-7.41) VBG pCO2 (38-50) mmHg VBG pO2 mmHg VBG HCO3 mmol/L VBG O2 Saturation % VBG Base Excess mEq/L Barometric Pressure mm/Hg Sodium (136-145) mmol/L Potassium (3.5-5.1) mmol/L Chloride (98-107) mmol/L Carbon Dioxide (21-32) mmol/L Anion Gap (3-11) BUN (7-18) mg/dl Creatinine (0.6-1.2) mg/dl Est Cr Clr Drug Dosing ml/min Est GFR ( Amer) Est GFR (Non-Af Amer) BUN/Creatinine Ratio (10-20) Glucose (70-99) mg/dl POC Glucose (70-99) POC Lactic Acid [place] 1.37 (0.90-1.70) mmol/L Calcium (8.5-10.1) mg/dl Magnesium (1.8-2.4) mg/dl Total Bilirubin (0.2-1) mg/dl AST (15-37) U/L ALT (12-78) U/L Alkaline Phosphatase (45-117) U/L Ammonia (11-32) umol/L Total Creatine Kinase (26-192) U/L CK-MB (CK-2) (0.5-3.6) ng/ml CK/CKMB % Calc (0-3.0) Troponin I (0-0.045) ng/ml C-Reactive Protein (0-0.29) mg/dl Total Protein (6.4-8.2) gm/dl Albumin (3.4-5.0) gm/dl Globulin (2.5-4.0) gm/dl Albumin/Globulin Ratio (0.9-2) Procalcitonin (0-0.5) ng/ml Urine Color Yellow Urine Appearance Cloudy A (Clear) Urine pH 6.0 (4.5-7.5) Ur Specific [place] 1.020 (1.000-1.030) Urine Protein Trace H (Negative) Urine Glucose (UA) Negative (Negative) Urine Ketones Trace H (Negative) Urine Blood 2+ H (Negative) Urine Nitrite Positive A (Negative) Urine Bilirubin Negative (Negative) Urine Urobilinogen Negative (Negative) Ur Leukocyte Esterase 2+ H (Negative) Urine WBC (Auto) >30 H (0-5) /hpf Urine RBC (Auto) 5-10 H (0-4) /hpf U Hyaline Cast (Auto) 5-10 H (0-5) /lpf U Epithel Cells (Auto) 10-20 H (0-5) /lpf Urine Bacteria (Auto) 4+ H (Negative) Nasal Screen MRSA (PCR) (Negative) Influenza Type A (PCR) Pos for Influ A A* (Neg) Influenza Type B (PCR) Neg for Influ B (Neg) 09/09/18 09/10/18 09/10/18 Range/Units 21:55 05:32 05:32 WBC 6.10 (4.8-10.8) K/uL RBC 3.34 L (4.2-5.4) M/uL Hgb 10.4 L (12.0-16.0) g/dL Hct 29.6 L (37-47) % MCV 88.6 (80-100) fL MCH 31.1 (25-34) pg MCHC 35.1 (32-36) g/dL RDW Std Deviation 46.3 (36.4-46.3) fL RDW Coeff of Frida 14.1 (11.5-14.5) % Plt Count 203 (130-400) K/uL MPV 9.0 (7.4-10.4) fL Immature Gran % (Auto) % Neut % (Auto) % Lymph % (Auto) % [place] % (Auto) % Eos % (Auto) % Baso % (Auto) % Immature Gran # (Auto) (0.00-0.02) K/uL Neut # (Auto) (1.4-6.5) K/uL Lymph # (Auto) (1.2-3.4) K/uL [place] # (Auto) (0.11-0.59) K/uL Eos # (Auto) (0-0.5) K/uL Baso # (Auto) (0-0.2) K/uL ESR (0-21) mm/hr PT (9.0-12.0) Seconds INR (0.9-1.1) APTT (21.0-31.0) Seconds PTT Ratio VBG pH (7.36-7.41) VBG pCO2 (38-50) mmHg VBG pO2 mmHg VBG HCO3 mmol/L VBG O2 Saturation % VBG Base Excess mEq/L Barometric Pressure mm/Hg Sodium 135 L (136-145) mmol/L Potassium 4.0 (3.5-5.1) mmol/L Chloride 105 (98-107) mmol/L Carbon Dioxide 25 (21-32) mmol/L Anion Gap 6.0 (3-11) BUN 10 (7-18) mg/dl Creatinine 0.74 (0.6-1.2) mg/dl Est Cr Clr Drug Dosing 44.9 ml/min Est GFR ( Amer) 89.9 Est GFR (Non-Af Amer) 77.6 BUN/Creatinine Ratio 12.9 (10-20) Glucose 103 H (70-99) mg/dl POC Glucose (70-99) POC Lactic Acid [place] (0.90-1.70) mmol/L Calcium 7.9 L (8.5-10.1) mg/dl Magnesium (1.8-2.4) mg/dl Total Bilirubin (0.2-1) mg/dl AST (15-37) U/L ALT (12-78) U/L Alkaline Phosphatase (45-117) U/L Ammonia (11-32) umol/L Total Creatine Kinase (26-192) U/L CK-MB (CK-2) (0.5-3.6) ng/ml CK/CKMB % Calc (0-3.0) Troponin I (0-0.045) ng/ml C-Reactive Protein (0-0.29) mg/dl Total Protein (6.4-8.2) gm/dl Albumin (3.4-5.0) gm/dl Globulin (2.5-4.0) gm/dl Albumin/Globulin Ratio (0.9-2) Procalcitonin (0-0.5) ng/ml Urine Color Urine Appearance (Clear) Urine pH (4.5-7.5) Ur Specific [place] (1.000-1.030) Urine Protein (Negative) Urine Glucose (UA) (Negative) Urine Ketones (Negative) Urine Blood (Negative) Urine Nitrite (Negative) Urine Bilirubin (Negative) Urine Urobilinogen (Negative) Ur Leukocyte Esterase (Negative) Urine WBC (Auto) (0-5) /hpf Urine RBC (Auto) (0-4) /hpf U Hyaline Cast (Auto) (0-5) /lpf U Epithel Cells (Auto) (0-5) /lpf Urine Bacteria (Auto) (Negative) Nasal Screen MRSA (PCR) Negative (Negative) Influenza Type A (PCR) (Neg) Influenza Type B (PCR) (Neg) Imaging Data Radiologist's Impression: Radiology results as stated below per my review and the radiologist's interpretation: CT abd pelvis wo con CT DOSE: HISTORY: Pain distended TECHNIQUE: Multiaxial CT images of the abdomen and pelvis were performed without contrast. A dose lowering technique was utilized adhering to the principles of ALARA. COMPARISON STUDY: 07/13/2018 FINDINGS: Improved aeration of both lung bases. Minimal residual atelectasis left and to a lesser extent right base. The basilar infiltrative changes procedure described has shown near complete resolution. Minimal residual patchy parenchymal infiltrative change left lower lobe. Small fixed hiatal hernia. Liver spleen and pancreas are unremarkable within the limitations of an unenhanced study. Kidneys are negative for nephrocalcinosis or hydronephrosis. Nonobstructive bowel pattern. Several calcified uterine fibroids. Bladder is mi dline. Bladder itself is relatively collapsed. No free fluid within the pelvic cul-de-sac. IMPRESSION: 1. Improved infiltrative change of both lung bases with minimal patchy parenchymal infiltrative changes left lower lobe. 2. Nonobstructive bowel pattern. 3. No acute process identified within the abdomen or pelvis. 4. Fibroid-type uterus unchanged The above report was generated using voice recognition software. It may contain grammatical, syntax or spelling errors. Electronically signed by: Artemio Su M.D. 09/09/2018 5:[address] head/brain wo con CT DOSE: 855.99 mGy.cm HISTORY: Mental status change mental status change TECHNIQUE: Multiaxial CT images of the head were performed without the use of intravenous contrast. A dose lowering technique was utilized adhering to the principles of ALARA. Comparison: 07/13/2018 Findings: Unchanged acute maxillary sinusitis. Mild mucosal thickening ethmoid sinuses. This shows no major change in the prior study. The calvarium and skull base are intact. The ventricles and sulci are within normal limits. There is no mass, hematoma, midline shift, or acute infarct. Age-related atrophy and chronic small vessel change. Impression: 1. Unchanged acute maxillary sinusitis bilaterally. 2. Age-related intracranial changes with no acute intracranial abnormality. The above report was generated using voice recognition software. It may contain grammatical, syntax or spelling errors. Electronically signed by: Artemio Su M.D. 09/09/2018 5:01 PM XR chest 1V portable CLINICAL HISTORY: Sepsis dyspnea COMPARISON STUDY: 07/13/2018 FINDINGS: Thoracic scoliosis. Lungs are clear. Diaphragms are smooth. Minimal atelectasis left lateral costophrenic angle. IMPRESSION: Chronic change. No acute process. The above report was generated using voice recognition software. It may contain grammatical, syntax or spelling errors. Electronically signed by: Artemio Su M.D. 09/09/2018 3:55 PM ECG Data Attestation: I personally reviewed and interpreted this ECG as follows: Indication: altered mental status Rate (beats per minute): 76 Rhythm: normal sinus Findings: + other (no acute ST segment); no ectopy Comparison ECG Date: from (07/13/18) Change: no significant change Blood Pressure Blood Pressure Findings: Elevated blood pressure Blood Pressure Disposition: further management by hospitalist [facility] Narrative Patient's previous electronic medical history was reviewed. Additional history was obtained from the prehospital personnel. The patient is a 78-year-old female who presented to the emergency department for an evaluation of altered mental status. Apparently the patient has home health who called the ambulance today because of altered mental status and the patient. The patient offers no complaints but she is very slow to answer questions. She appears to be somewhat obtunded. The patient had laboratory and radiographic studies obtained. I reviewed the patient's findings that do appear to be consistent with a urinary tract infection. The patient was started on IV fluids as well as IV Zosyn. Her CT the abdomen and pelvis did reveal some signs of lower lobe infiltrate. The antibiotic should cover pneumonia as well. The patient does have a cough. I discussed the patient's condition with the on-call [facility] hospitalist group. They have agreed to evaluate the patient in the emergency department for further management and disposition. Impression & Plan Acute pyelonephritis, Altered mental status, Pneumonia Discharge Plan Visit Data *Final* Discharge Date/Time: 09/09/18 19:08 Chief Complaint: Altered Mental Status Other Complaint: Lethargic ED Provider: Trino Schaeffer Discharge Problem: Acute pyelonephritis, Altered mental status, Pneumonia Patient Disposition: Admitted As Inpatient Discharge Instructions Interventions: ED Discharge Assessment Last Done: 09/09/18 19:08 Discharge Problem: Altered mental status Qualifiers: Altered mental status type: unspecified Qualified Code(s): R41.82 - Altered mental status, unspecified The scribe's documentation has been prepared under my direction and personally reviewed by me in its entirety. I confirm that the note above accurately reflects all work, treatment, procedures, and medical decision making performed by me.
--- NOTE | 2018-09-09 18:24 | History & Physical Report ---
Date of Service September 09, 2018 Assessment & Plan (1) Altered mental status: (2) UTI (urinary tract infection): (3) Pneumonia: This is a 78-year-old female who has a significant past medical history of dementia, asthma, osteoporosis who presents to [facility] ED secondary to increased lethargy and altered mental status x1 day. History limited given pt advanced dementia. Spoke with son who lives in [place], was made aware by caretakers pt developed sneezing and cough yesterday afternoon along with lethargy and increased confusion today. In ED pt vital signs were stable, she remained afebrile CBC relatively unremarkable, no leukcocytosis VBG WNL CMP unremarkable along with procalcitonin and lactate ESR/CRP elevated - ?? significance Urinalysis +infection CT abd/pelvis revealed bibasilar minimal infiltrates actually improved from prior exam (pt hospitalized in 07/2018 for PNA) admit to med/surg telemetry obtain flu swab/MRSA swab continue IV Zosyn for coverage of UTI/? PNA component Pt had prior swallow study 07/2018 negative for aspiration - therefore aspiration less likely await blood and urine cultures IVF 60cc/hr x 1 L repeat labs in a.m. (4) Acute maxillary sinusitis: prior head ct 07/2018 revealed similar sinusitis ?chronic in nature pt is on IV zosyn (5) Dementia: mood stable supportive care (6) Asthma: no acute exac continue breo and singulair (7) Osteoporosis: continue raloxifene (8) DVT prophylaxis: Heparin 5,000units SQ BID Disposition: to be determined, case management consult, patient with advanced dementia lives at home alone with caretakers Follow up: PCP Dr. Huertas upon discharge Pt was seen and examined in collaboration with Dr. Haro, please see addendum Starting 09/10/18 patient will be under the care of Dr. Josue History of Present Illness Chief Complaint: Altered mental status Primary Care Provider: Domo Huertas This is a 78-year-old female who has a significant past medical history of dementia, asthma, anemia, osteoporosis who presents to [facility] ED secondary to increased lethargy and altered mental status x1 day. No family is at bedside. ROS unable to obtain secondary to patient's dementia. History obtained from other providers, staff and son. She lives alone at home but has 24/7 caretakers per son. He was notified yesterday that patient has been having a very good week until early yesterday afternoon when she developed sneezing and a cough. Symptoms continued and today she was overall lethargic and had increased confusion from baseline. She was then sent to ED for further evaluation. Per EMS staff she did have a, "junky cough with purulent sputum in room." Patient answers questions yes/no unsure if reliable. She states she overall feels good. Unable to obtain accurate FH, SH, SurgHX given advanced dementia. Allergies Allergy/AdvReac Type Severity Reaction Status Date / Time alendronate sodium Allergy Unknown Verified 07/14/18 17:23 Cephalosporins Allergy Unknown Verified 07/14/18 17:23 erythromycin base Allergy Unknown Unknown Verified 07/11/18 13:04 ibandronate sodium Allergy Unknown Verified 07/14/18 17:23 [From [facility]] Home Medications Home Medications Medication Instructions Recorded Confirmed Type Breo Ellipta 1 inh INHALATION DAILY 07/19/18 09/09/18 History albuterol sulfate [Ventolin HFA] 2 puff INHALATION QID PRN 07/19/18 09/09/18 History montelukast 10 mg PO PM 07/19/18 09/09/18 History raloxifene 60 mg PO DAILY 07/19/18 09/09/18 History sertraline 25 mg PO DAILY 07/19/18 09/09/18 History Past Med/Surg History Medical History Osteoporosis (Chronic) Anemia (Chronic) Dementia (Chronic) UTI (urinary tract infection) (Resolved) Asthma (Chronic) Bronchitis Surgical History History of tonsillectomy and adenoidectomy (Chronic) Social History Preferred Language: Tuvaluan Communication Ability: Impaired Communication Ability Comment: 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 Current Living Situation: Alone Current Living Situation Comment: caretakers Feels Safe at Home: Yes Smoking Status: Unknown if ever smoked Review of Systems Review of Systems: Unobtainable due to cognitive status Physical Exam Physical Exam: Gen: Thin, petite, elderly, female, lying in bed, alert and arousable, answers questions yes no, pleasantly confused Head: Normocephalic, Atraumatic Eyes: Sclera normal, no conjunctival injection, PERRLA, EOMI ENT: Gross hearing intact, normal pharynx, mucous membranes moist Neck: supple, no adenopathy, No JVD, no bruit, Resp: Clear to auscultation b/l but decreased at bases given poor respiratory effort, no wheeze, rales, rhonchi. Normal insp/exp effort, no accessory muscle use CV: Regular rate, regular rhythm, 2/6 SOUMYA, no rub, gallop, or ectopy Abd: +BS x 4, soft, nontender, nondistended Musculoskeletal: moves extremities active rom x 4, strength 4/5 throughout, decent carbon cutter strength Extremities: No edema bilaterally Skin: warm, moist, no rash, mild turgor, cap refill < 2sec Neuro: Alert and oriented to self, speech soft/slow, occassional echolalia, fair mood/affect, cran nerve 2-12 intact grossly, follows commands fairly well given dementia : deferred Results & Data Vital Signs (Past 12 Hours) Vital Signs Temp Pulse Pulse Resp BP BP Pulse Ox 09/09/18 17:25 75 18 152/82 H 97 09/09/18 16:38 77 29 H 138/65 96 09/09/18 15:42 94 09/09/18 15:27 36.7 C 89 20 146/64 H 96 Laboratory Results Short CBC 09/09/18 Range/Units 14:55 WBC 4.90 (4.8-10.8) K/uL Hgb 12.2 (12.0-16.0) g/dL Hct 34.5 L (37-47) % Plt Count 256 (130-400) K/uL BMP 09/09/18 14:55 Sodium 136 Potassium 3.9 Chloride 102 Carbon Dioxide 27 BUN 13 Creatinine 0.83 Glucose 128 H Calcium 9.0 Cardiac Enzymes 09/09/18 09/09/18 Range/Units 14:55 14:55 Total Creatine Kinase 84 (26-192) U/L CK-MB (CK-2) 1.0 (0.5-3.6) ng/ml Troponin I < 0.015 (0-0.045) ng/ml Liver Function 09/09/18 Range/Units 14:55 Total Bilirubin 0.4 (0.2-1) mg/dl AST 27 (15-37) U/L ALT 19 (12-78) U/L Alkaline Phosphatase 64 (45-117) U/L Albumin 3.2 L (3.4-5.0) gm/dl Urine 09/09/18 Range/Units 16:38 Urine Color Yellow Urine Appearance Cloudy A (Clear) Urine pH 6.0 (4.5-7.5) Ur Specific [place] 1.020 (1.000-1.030) Urine Protein Trace H (Negative) Urine Glucose (UA) Negative (Negative) Diagnostic Findings Head CT: Impression: 1. Unchanged acute maxillary sinusitis bilaterally. 2. Age-related intracranial changes with no acute intracranial abnormality. CXR: IMPRESSION: Chronic change. No acute process. CT ABD/Pelvis: IMPRESSION: 1. Improved infiltrative change of both lung bases with minimal patchy parenchymal infiltrative changes left lower lobe. 2. Nonobstructive bowel pattern. 3. No acute process identified within the abdomen or pelvis. 4. Fibroid-type uterus unchanged Medications Administered Discontinued Medications Sodium Chloride (Nss 1000ml) 1,000 mls @ 999 mls/hr IV .Q1H1M ONE Stop: 09/09/18 16:31 Last Infusion: 09/09/18 18:35 Dose: 0 mls/hr Documented by: [id number] Admin: 09/09/18 16:46 Dose: 999 mls/hr Documented by: [id number] Piperacillin Sod/Tazobactam Sod (Zosyn) 4.5 gm in 120 mls @ 240 mls/hr IV NOW ONE Stop: 09/09/18 17:55 Last Infusion: 09/09/18 18:35 Dose: 0 mls/hr Documented by: [id number] Admin: 09/09/18 17:51 Dose: 240 mls/hr Documented by: [id number] ECG Rate (beats per minute): 76 Rhythm: sinus rhythm Code Status & VTE Plan Code Status DNR Confirmed with POA Son VTE Prophylaxis Plan VTE Prophylaxis will be ordered: Yes Supervising Physician Co-Signing Physician Notes I have seen and examined the patient and have discussed the case with the provider above. I agree with the assessment and plan as stated with the following exceptions. The patient has dementia at baseline and was found to be increasingly lethargic and more confused than normal by her typical caregivers at home this morning. Work-up has revealed an pneumonia, UTI and now influenza. She is on vancomycin and Zosyn with vancomycin added in the setting of flu for coverage of MRSA. She is also on Tamiflu. Physical exam reveals an elderly, thin, frail woman in no acute distress who was not hypoxic. She is unable to give a history or answer questions secondary to dementia and is close to her baseline mental status. She does open her eyes and look at you when prompted but cannot follow instructions. Therefore, pulmonary exam is very limited and good air movement could not be auscultated. Heart sounds are normal including S1 and S2 heard with no extra heart sounds, no murmurs, no gallops, no rubs. She has a regular rate and rhythm, but was noted on telemetry to have a 6-second pause followed by some bradycardia for 12 seconds. This was followed by persistent sinus rhythm. Cardiology was notified and will be consulted. The patient is a DO NOT RESUSCITATE and has progressed dementia. Continue with current treatment plan as above and will give once daily Lovenox for DVT prophylaxis instead of heparin. DO Tahir (1) Acute maxillary sinusitis Recurrence: non-recurrent Qualified Code(s): J01.00 - Acute maxillary sinusitis, unspecified (2) Altered mental status Altered mental status type: unspecified Qualified Code(s): R41.82 - Altered mental status, unspecified (3) Pneumonia Laterality: right Lung location: lower lobe of lung Pneumonia type: due to unspecified organism Qualified Code(s): J18.1 - Lobar pneumonia, unspecified organism
[2018-09-09 19:07] LABS: Influenza B virus by PCR Neg for Influ B (Neg)
[2018-09-09] MEDS ORDERED: SODIUM CHLORIDE 0.9% 1000ML 1,000 ML IV SCH (19:35)
[2018-09-09] MEDS ORDERED: ALBUTEROL 0.083% NEBU SOLN 3 ML VIAL NEB PRN (19:35)
[2018-09-09] MEDS ORDERED: MAGNESIUM HYDROXIDE SUSP 30 ML UDC PO PRN (19:35)
[2018-09-09] MEDS ORDERED: ALBUTEROL HFA 8 GM INHALER INH PRN (19:35)
[2018-09-09] MEDS ORDERED: ACETAMINOPHEN 325 MG TAB PO PRN (19:35)
[2018-09-09] MEDS ORDERED: ALUMINUM/MAGNESIUM SUSP 30 ML UDC PO PRN (19:35)
[2018-09-09] MEDS ORDERED: POLYETHYLENE (MIRALAX) 17 GM PACK PO PRN (19:35)
[2018-09-09] MEDS ORDERED: ONDANSETRON INJ 2 MG/ML 2 ML VIAL IV PRN (19:35)
[2018-09-09] MEDS ORDERED: HEPARIN SOD 5,000 UNIT/0.5 ML VIAL SQ SCH (21:00)
[2018-09-09] MEDS: PIPERACILLIN/TAZOBACTAM 3.375 GM in DEXTROSE 5% 100 ML IV SCH (21:22)
[2018-09-09] MEDS ORDERED: VANCOMYCIN CONSULT ACTIVE PRN (21:43)
[2018-09-09] MEDS ORDERED: VANCOMYCIN HCL 1,000 MG in SODIUM CHLORIDE 0.9% 250 ML IV SCH (22:00)
[2018-09-09] MEDS: OSELTAMIVIR PHOSPHATE SUSP 30 MG/5 ML UDP PO SCH (22:16)
[2018-09-09] MEDS: ENOXAPARIN INJ 30 MG/0.3 ML SYR SQ SCH (22:17)
[2018-09-09] MEDS: RALOXIFENE HCL 60 MG TAB PO SCH (22:17)
[2018-09-09] MEDS: MONTELUKAST SODIUM 10 MG TABLET PO SCH (22:18)
[2018-09-09] MEDS ORDERED: POTASSIUM CHLORIDE 20 MEQ TABCR PO STA (22:25)
[2018-09-09] MEDS ORDERED: MAGNESIUM SULFATE / D5W 1 GM/100 ML BAG IV ONE (22:25)
[2018-09-10] MEDS: PIPERACILLIN/TAZOBACTAM 3.375 GM in DEXTROSE 5% 100 ML IV SCH ×3 (05:13→22:14)
[2018-09-10 05:50] LABS: Hematocrit (blood only) 29.6 % (37-47); Hemoglobin 10.4 g/dL (12.0-16.0); Mean Corpuscular Hgb Conc 35.1 g/dL (32-36); Mean Corpuscular Volume 88.6 fL (80-100); Platelet Count 203 K/uL (130-400); RDW Coefficient of Variation 14.1 % (11.5-14.5); RDW Standard Deviation 46.3 fL (36.4-46.3); Red Blood Count 3.34 M/uL (4.2-5.4)
[2018-09-10 06:20] LABS: BUN Creatinine Ratio 12.9 (10-20); Calcium 7.9 mg/dl (8.5-10.1); Creatinine Clr Calc Pharmacy 44.9 ml/min; Est GFR (African American) 89.9; Est GFR (Non-African American) 77.6
[2018-09-10] MEDS: FLUTICASONE INH SCH (08:10)
[2018-09-10] MEDS: SERTRALINE HCL 50 MG TABLET PO SCH (08:10)
[2018-09-10] MEDS: OSELTAMIVIR PHOSPHATE SUSP 30 MG/5 ML UDP PO SCH ×2 (08:10→21:07)
[2018-09-10] MEDS: VILANTEROL INH SCH (08:10)
--- NOTE | 2018-09-10 09:53 | Hospitalist Progress Note ---
Date of Service September 10, 2018 Assessment & Plan (1) Altered mental status: (2) UTI (urinary tract infection): (3) Influenza A: This is a 78-year-old female who has a significant past medical history of dementia, asthma, osteoporosis who presents to [facility] ED secondary to increased lethargy and altered mental status x1 day. History limited given pt advanced dementia. Spoke with son who lives in [place], was made aware by caretakers pt developed sneezing and cough yesterday afternoon along with lethargy and increased confusion today. In ED pt vital signs were stable, she remained afebrile CBC relatively unremarkable, no leukcocytosis VBG WNL CMP unremarkable along with procalcitonin and lactate ESR/CRP elevated - ?? significance Urinalysis +infection CT abd/pelvis revealed bibasilar minimal infiltrates actually improved from prior exam (pt hospitalized in 07/2018 for PNA) Urine culture: gram negative bacilli Blood cultures: pending continue Zosyn continue Tamiflu monitor (4) Acute maxillary sinusitis: prior head ct 07/2018 revealed similar sinusitis ?chronic in nature pt is on IV zosyn (5) Dementia: mood stable supportive care (6) Asthma: no acute exacerbation continue breo and singulair (7) Osteoporosis: continue raloxifene (8) DVT prophylaxis: Heparin 5,000units SQ BID Disposition: to be determined, case management consult, patient with advanced dementia lives at home alone with caretakers Follow up: PCP Dr. Huertas upon discharge updated patient's son Adelso on the phone, in detail, all questions answered, he is comfortable and agreeable with plan of care (9) Sinus pause: Subjective ff up for lethargy, increased confusion seen resting in bed, sleeping not in distress, easily rousable confused but tried to answer questions with words, phrases denies shortness of breath, pain (+) dry cough noted during exam no other symptoms, signs noted Review of Systems Review of Systems: All systems reviewed & are unremarkable except as noted in HPI & below Physical Exam Physical Exam: General- not oriented, not in distress, speaks with no effort or accessory muscle use Eyes- anicteric Neck- no JVD Lungs- clear breath sounds bilaterally, no rales/wheezes Heart- normal rate, regular rhythm; no murmurs Abdomen- normal bowel sounds, nondistended, soft, nontender Extremities- no pretibial edema, no calf tenderness Neuro- alert, not oriented; no gross focal neurologic deficits Skin- warm & dry Results & Data Vital Signs (Past 12 Hours) Vital Signs Temp Pulse Pulse Resp BP Pulse Ox Pulse Ox 09/10/18 08:00 36.9 C 83 16 115/64 93 09/10/18 04:00 38.4 C H 84 18 136/68 91 09/09/18 23:35 81 95 09/09/18 23:06 36.5 C 83 18 140/76 95 Laboratory Results Laboratory Results - last 24 hr 09/09/18 09/09/18 09/09/18 14:55 14:55 14:55 WBC 4.90 RBC 3.87 L Hgb 12.2 Hct 34.5 L MCV 89.1 MCH 31.5 MCHC 35.4 RDW Std Deviation 47.1 H RDW Coeff of Frida 14.3 Plt Count 256 MPV 9.6 Immature Gran % (Auto) 0.4 Neut % (Auto) 86.0 Lymph % (Auto) 7.1 Harper % (Auto) 6.1 Eos % (Auto) 0.0 Baso % (Auto) 0.4 Immature Gran # (Auto) 0.02 Neut # (Auto) 4.21 Lymph # (Auto) 0.35 L Harper # (Auto) 0.30 Eos # (Auto) 0.00 Baso # (Auto) 0.02 ESR PT 10.6 INR 1.0 APTT 23.9 PTT Ratio 0.9 VBG pH VBG pCO2 VBG pO2 VBG HCO3 VBG O2 Saturation VBG Base Excess Barometric Pressure Sodium 136 Potassium 3.9 Chloride 102 Carbon Dioxide 27 Anion Gap 8.0 BUN 13 Creatinine 0.83 Est Cr Clr Drug Dosing 40.1 Est GFR ( Amer) 78.3 Est GFR (Non-Af Amer) 67.5 BUN/Creatinine Ratio 16.0 Glucose 128 H POC Glucose POC Lactic Acid Devante Calcium 9.0 Magnesium Total Bilirubin 0.4 AST 27 ALT 19 Alkaline Phosphatase 64 Ammonia Total Creatine Kinase 84 CK-MB (CK-2) 1.0 CK/CKMB % Calc 1.2 Troponin I C-Reactive Protein Total Protein 6.7 Albumin 3.2 L Globulin 3.5 Albumin/Globulin Ratio 0.9 Procalcitonin Urine Color Urine Appearance Urine pH Ur Specific [place] Urine Protein Urine Glucose (UA) Urine Ketones Urine Blood Urine Nitrite Urine Bilirubin Urine Urobilinogen Ur Leukocyte Esterase Urine WBC (Auto) Urine RBC (Auto) U Hyaline Cast (Auto) U Epithel Cells (Auto) Urine Bacteria (Auto) Nasal Screen MRSA (PCR) Influenza Type A (PCR) Influenza Type B (PCR) 09/09/18 09/09/18 09/09/18 14:55 14:55 14:55 WBC RBC Hgb Hct MCV MCH MCHC RDW Std Deviation RDW Coeff of Frida Plt Count MPV Immature Gran % (Auto) Neut % (Auto) Lymph % (Auto) Harper % (Auto) Eos % (Auto) Baso % (Auto) Immature Gran # (Auto) Neut # (Auto) Lymph # (Auto) Harper # (Auto) Eos # (Auto) Baso # (Auto) ESR 33 H PT INR APTT PTT Ratio VBG pH VBG pCO2 VBG pO2 VBG HCO3 VBG O2 Saturation VBG Base Excess Barometric Pressure Sodium Potassium Chloride Carbon Dioxide Anion Gap BUN Creatinine Est Cr Clr Drug Dosing Est GFR ( Amer) Est GFR (Non-Af Amer) BUN/Creatinine Ratio Glucose POC Glucose POC Lactic Acid Devante Calcium Magnesium 1.8 Total Bilirubin AST ALT Alkaline Phosphatase Ammonia Total Creatine Kinase CK-MB (CK-2) CK/CKMB % Calc Troponin I < 0.015 C-Reactive Protein 2.70 H Total Protein Albumin Globulin Albumin/Globulin Ratio Procalcitonin 0.09 Urine Color Urine Appearance Urine pH Ur Specific [place] Urine Protein Urine Glucose (UA) Urine Ketones Urine Blood Urine Nitrite Urine Bilirubin Urine Urobilinogen Ur Leukocyte Esterase Urine WBC (Auto) Urine RBC (Auto) U Hyaline Cast (Auto) U Epithel Cells (Auto) Urine Bacteria (Auto) Nasal Screen MRSA (PCR) Influenza Type A (PCR) Influenza Type B (PCR) 09/09/18 09/09/18 09/09/18 15:52 15:57 15:57 WBC RBC Hgb Hct MCV MCH MCHC RDW Std Deviation RDW Coeff of Frida Plt Count MPV Immature Gran % (Auto) Neut % (Auto) Lymph % (Auto) Harper % (Auto) Eos % (Auto) Baso % (Auto) Immature Gran # (Auto) Neut # (Auto) Lymph # (Auto) Harper # (Auto) Eos # (Auto) Baso # (Auto) ESR PT INR APTT PTT Ratio VBG pH 7.38 VBG pCO2 46 VBG pO2 30 VBG HCO3 27 VBG O2 Saturation < 60.0 VBG Base Excess 1.6 Barometric Pressure 729.8 Sodium Potassium Chloride Carbon Dioxide Anion Gap BUN Creatinine Est Cr Clr Drug Dosing Est GFR ( Amer) Est GFR (Non-Af Amer) BUN/Creatinine Ratio Glucose POC Glucose 128 H POC Lactic Acid Devante Calcium Magnesium Total Bilirubin AST ALT Alkaline Phosphatase Ammonia < 10.0 L Total Creatine Kinase CK-MB (CK-2) CK/CKMB % Calc Troponin I C-Reactive Protein Total Protein Albumin Globulin Albumin/Globulin Ratio Procalcitonin Urine Color Urine Appearance Urine pH Ur Specific [place] Urine Protein Urine Glucose (UA) Urine Ketones Urine Blood Urine Nitrite Urine Bilirubin Urine Urobilinogen Ur Leukocyte Esterase Urine WBC (Auto) Urine RBC (Auto) U Hyaline Cast (Auto) U Epithel Cells (Auto) Urine Bacteria (Auto) Nasal Screen MRSA (PCR) Influenza Type A (PCR) Influenza Type B (PCR) 09/09/18 09/09/18 09/09/18 16:17 16:38 18:38 WBC RBC Hgb Hct MCV MCH MCHC RDW Std Deviation RDW Coeff of Frida Plt Count MPV Immature Gran % (Auto) Neut % (Auto) Lymph % (Auto) Harper % (Auto) Eos % (Auto) Baso % (Auto) Immature Gran # (Auto) Neut # (Auto) Lymph # (Auto) Harper # (Auto) Eos # (Auto) Baso # (Auto) ESR PT INR APTT PTT Ratio VBG pH VBG pCO2 VBG pO2 VBG HCO3 VBG O2 Saturation VBG Base Excess Barometric Pressure Sodium Potassium Chloride Carbon Dioxide Anion Gap BUN Creatinine Est Cr Clr Drug Dosing Est GFR ( Amer) Est GFR (Non-Af Amer) BUN/Creatinine Ratio Glucose POC Glucose POC Lactic Acid Devante 1.37 Calcium Magnesium Total Bilirubin AST ALT Alkaline Phosphatase Ammonia Total Creatine Kinase CK-MB (CK-2) CK/CKMB % Calc Troponin I C-Reactive Protein Total Protein Albumin Globulin Albumin/Globulin Ratio Procalcitonin Urine Color Yellow Urine Appearance Cloudy A Urine pH 6.0 Ur Specific [place] 1.020 Urine Protein Trace H Urine Glucose (UA) Negative Urine Ketones Trace H Urine Blood 2+ H Urine Nitrite Positive A Urine Bilirubin Negative Urine Urobilinogen Negative Ur Leukocyte Esterase 2+ H Urine WBC (Auto) >30 H Urine RBC (Auto) 5-10 H U Hyaline Cast (Auto) 5-10 H U Epithel Cells (Auto) 10-20 H Urine Bacteria (Auto) 4+ H Nasal Screen MRSA (PCR) Influenza Type A (PCR) Pos for Influ A A* Influenza Type B (PCR) Neg for Influ B 09/09/18 09/10/18 09/10/18 21:55 05:32 05:32 WBC 6.10 RBC 3.34 L Hgb 10.4 L Hct 29.6 L MCV 88.6 MCH 31.1 MCHC 35.1 RDW Std Deviation 46.3 RDW Coeff of Frida 14.1 Plt Count 203 MPV 9.0 Immature Gran % (Auto) Neut % (Auto) Lymph % (Auto) Harper % (Auto) Eos % (Auto) Baso % (Auto) Immature Gran # (Auto) Neut # (Auto) Lymph # (Auto) Harper # (Auto) Eos # (Auto) Baso # (Auto) ESR PT INR APTT PTT Ratio VBG pH VBG pCO2 VBG pO2 VBG HCO3 VBG O2 Saturation VBG Base Excess Barometric Pressure Sodium 135 L Potassium 4.0 Chloride 105 Carbon Dioxide 25 Anion Gap 6.0 BUN 10 Creatinine 0.74 Est Cr Clr Drug Dosing 44.9 Est GFR ( Amer) 89.9 Est GFR (Non-Af Amer) 77.6 BUN/Creatinine Ratio 12.9 Glucose 103 H POC Glucose POC Lactic Acid Devante Calcium 7.9 L Magnesium Total Bilirubin AST ALT Alkaline Phosphatase Ammonia Total Creatine Kinase CK-MB (CK-2) CK/CKMB % Calc Troponin I C-Reactive Protein Total Protein Albumin Globulin Albumin/Globulin Ratio Procalcitonin Urine Color Urine Appearance Urine pH Ur Specific [place] Urine Protein Urine Glucose (UA) Urine Ketones Urine Blood Urine Nitrite Urine Bilirubin Urine Urobilinogen Ur Leukocyte Esterase Urine WBC (Auto) Urine RBC (Auto) U Hyaline Cast (Auto) U Epithel Cells (Auto) Urine Bacteria (Auto) Nasal Screen MRSA (PCR) Negative Influenza Type A (PCR) Influenza Type B (PCR) (1) Acute maxillary sinusitis Recurrence: non-recurrent Qualified Code(s): J01.00 - Acute maxillary sinusitis, unspecified (2) Altered mental status Altered mental status type: unspecified Qualified Code(s): R41.82 - Altered mental status, unspecified
--- NOTE | 2018-09-10 11:20 | Cardiology Consultation ---
Date of Consultation September 10, 2018 Assessment & Plan (1) Sinus pause: Isolated 6-second sinus pause recorded 09/09/2018 at 1950 without associated symptoms although patient unable to offer meaningful history. No recent history of syncope, near syncope, or falls. Repeat ECG demonstrates normal sinus rhythm without evidence of AV block, or conduction abnormality. Recommend avoidance of AV sintia blocking agents at this time. Continue telemetry monitoring. Resting 2D transthoracic echocardiogram ordered. (2) UTI (urinary tract infection): Management as per internal medicine. (3) Influenza A: (4) Delirium: Secondary to urinary tract infection and influenza A. (5) Dementia: History of Present Illness Reason for Consultation: Sinus pause Requesting Physician: Dr. Lyssa Haro Attending Physician: Mitchel Josue MD History of Present Illness 78-year-old female with a history of dementia was sent to the emergency department by caretakers due to change in mental status. Caretakers reported cough and possible fevers 09/09/2018. Patient was referred to the ER with change in mental status. Patient currently nonverbal. She is awake. Family present at bedside. They voiced concern regarding her change in mental status. Cardiology consult requested due to sinus pause recorded last evening 09/09/2018 at 1950 p.m. Telemetry otherwise unremarkable demonstrating sinus rhythm with an average heart rate of 75 bpm. Repeat ECG was not performed this a.m. Cardiac enzymes are negative. Patient unable to offer meaningful history. Urinalysis suggests infectious process and she is positive for influenza A on this admission. CT of the head without acute intracranial process. Chest x-ray is clear. Allergies Allergy/AdvReac Type Severity Reaction Status Date / Time alendronate sodium Allergy Unknown Verified 07/14/18 17:23 Cephalosporins Allergy Unknown Verified 07/14/18 17:23 erythromycin base Allergy Unknown Unknown Verified 07/11/18 13:04 ibandronate sodium Allergy Unknown Verified 07/14/18 17:23 [From [facility]] Home Medications Home Medications Medication Instructions Recorded Confirmed Type Breo Ellipta 1 inh INHALATION DAILY 07/19/18 09/09/18 History albuterol sulfate [Ventolin HFA] 2 puff INHALATION QID PRN 07/19/18 09/09/18 History montelukast 10 mg PO PM 07/19/18 09/09/18 History raloxifene 60 mg PO DAILY 07/19/18 09/09/18 History sertraline 25 mg PO DAILY 07/19/18 09/09/18 History Patient History Medical History Osteoporosis (Chronic) Anemia (Chronic) Dementia (Chronic) UTI (urinary tract infection) (Resolved) Asthma (Chronic) Bronchitis Surgical History History of tonsillectomy and adenoidectomy (Chronic) Family History Other Unknown family medical history Social History Preferred Language: Monegasque Communication Ability: Impaired Communication Ability Comment: dementia Network Professional Required: No Current Living Situation: Alone Current Living Situation Comment: caretakers Feels Safe at Home: Yes Smoking Status: Unknown if ever smoked Review of Systems Review of Systems: All systems reviewed & are unremarkable except as noted in HPI & below Physical Exam Physical Exam: General: NAD, chronically ill, nonverbal. HEENT: No rmocephalic. Atraumatic. Conjunctiva pink, no scleral icterus. Neck: No carotid bruits, the carotid upstrokes are brisk. No JVD. No HJR Heart: Regular normal S- 1 and S-2 no S-3 or S-4 gallop. No murmurs or rub appreciated. PMI is not displaced. No RV heave. Lungs: Clear bilateral without rales , rhonchi, or wheeze. Abdomen: Normal bowel sounds. Soft. Nontender. No masses or organomegaly. No abdominal bruits. Extremities: No clubbing, cyanosis, or edema. Pulses: radial=2/4, posterior tibial=2/4. Neuro: Patient does not follow commands, nonverbal. Results & Data Vital Signs (Past 12 Hours) Vital Signs Temp Pulse Pulse Resp BP Pulse Ox Pulse Ox 09/10/18 08:00 36.9 C 83 16 115/64 93 09/10/18 04:00 38.4 C H 84 18 136/68 91 09/09/18 23:35 81 95 Laboratory Results Laboratory Results - last 24 hr 09/09/18 09/09/18 09/09/18 14:55 14:55 14:55 WBC 4.90 RBC 3.87 L Hgb 12.2 Hct 34.5 L MCV 89.1 MCH 31.5 MCHC 35.4 RDW Std Deviation 47.1 H RDW Coeff of Frida 14.3 Plt Count 256 MPV 9.6 Immature Gran % (Auto) 0.4 Neut % (Auto) 86.0 Lymph % (Auto) 7.1 [place] % (Auto) 6.1 Eos % (Auto) 0.0 Baso % (Auto) 0.4 Immature Gran # (Auto) 0.02 Neut # (Auto) 4.21 Lymph # (Auto) 0.35 L [place] # (Auto) 0.30 Eos # (Auto) 0.00 Baso # (Auto) 0.02 ESR PT 10.6 INR 1.0 APTT 23.9 PTT Ratio 0.9 VBG pH VBG pCO2 VBG pO2 VBG HCO3 VBG O2 Saturation VBG Base Excess Barometric Pressure Sodium 136 Potassium 3.9 Chloride 102 Carbon Dioxide 27 Anion Gap 8.0 BUN 13 Creatinine 0.83 Est Cr Clr Drug Dosing 40.1 Est GFR ( Amer) 78.3 Est GFR (Non-Af Amer) 67.5 BUN/Creatinine Ratio 16.0 Glucose 128 H POC Glucose POC Lactic Acid Devante Calcium 9.0 Magnesium Total Bilirubin 0.4 AST 27 ALT 19 Alkaline Phosphatase 64 Ammonia Total Creatine Kinase 84 CK-MB (CK-2) 1.0 CK/CKMB % Calc 1.2 Troponin I C-Reactive Protein Total Protein 6.7 Albumin 3.2 L Globulin 3.5 Albumin/Globulin Ratio 0.9 Procalcitonin Urine Color Urine Appearance Urine pH Ur Specific [place] Urine Protein Urine Glucose (UA) Urine Ketones Urine Blood Urine Nitrite Urine Bilirubin Urine Urobilinogen Ur Leukocyte Esterase Urine WBC (Auto) Urine RBC (Auto) U Hyaline Cast (Auto) U Epithel Cells (Auto) Urine Bacteria (Auto) Nasal Screen MRSA (PCR) Influenza Type A (PCR) Influenza Type B (PCR) 09/09/18 09/09/18 09/09/18 14:55 14:55 14:55 WBC RBC Hgb Hct MCV MCH MCHC RDW Std Deviation RDW Coeff of Frida Plt Count MPV Immature Gran % (Auto) Neut % (Auto) Lymph % (Auto) [place] % (Auto) Eos % (Auto) Baso % (Auto) Immature Gran # (Auto) Neut # (Auto) Lymph # (Auto) [place] # (Auto) Eos # (Auto) Baso # (Auto) ESR 33 H PT INR APTT PTT Ratio VBG pH VBG pCO2 VBG pO2 VBG HCO3 VBG O2 Saturation VBG Base Excess Barometric Pressure Sodium Potassium Chloride Carbon Dioxide Anion Gap BUN Creatinine Est Cr Clr Drug Dosing Est GFR ( Amer) Est GFR (Non-Af Amer) BUN/Creatinine Ratio Glucose POC Glucose POC Lactic Acid Devante Calcium Magnesium 1.8 Total Bilirubin AST ALT Alkaline Phosphatase Ammonia Total Creatine Kinase CK-MB (CK-2) CK/CKMB % Calc Troponin I < 0.015 C-Reactive Protein 2.70 H Total Protein Albumin Globulin Albumin/Globulin Ratio Procalcitonin 0.09 Urine Color Urine Appearance Urine pH Ur Specific [place] Urine Protein Urine Glucose (UA) Urine Ketones Urine Blood Urine Nitrite Urine Bilirubin Urine Urobilinogen Ur Leukocyte Esterase Urine WBC (Auto) Urine RBC (Auto) U Hyaline Cast (Auto) U Epithel Cells (Auto) Urine Bacteria (Auto) Nasal Screen MRSA (PCR) Influenza Type A (PCR) Influenza Type B (PCR) 09/09/18 09/09/18 09/09/18 15:52 15:57 15:57 WBC RBC Hgb Hct MCV MCH MCHC RDW Std Deviation RDW Coeff of Frida Plt Count MPV Immature Gran % (Auto) Neut % (Auto) Lymph % (Auto) [place] % (Auto) Eos % (Auto) Baso % (Auto) Immature Gran # (Auto) Neut # (Auto) Lymph # (Auto) [place] # (Auto) Eos # (Auto) Baso # (Auto) ESR PT INR APTT PTT Ratio VBG pH 7.38 VBG pCO2 46 VBG pO2 30 VBG HCO3 27 VBG O2 Saturation < 60.0 VBG Base Excess 1.6 Barometric Pressure 729.8 Sodium Potassium Chloride Carbon Dioxide Anion Gap BUN Creatinine Est Cr Clr Drug Dosing Est GFR ( Amer) Est GFR (Non-Af Amer) BUN/Creatinine Ratio Glucose POC Glucose 128 H POC Lactic Acid Devante Calcium Magnesium Total Bilirubin AST ALT Alkaline Phosphatase Ammonia < 10.0 L Total Creatine Kinase CK-MB (CK-2) CK/CKMB % Calc Troponin I C-Reactive Protein Total Protein Albumin Globulin Albumin/Globulin Ratio Procalcitonin Urine Color Urine Appearance Urine pH Ur Specific [place] Urine Protein Urine Glucose (UA) Urine Ketones Urine Blood Urine Nitrite Urine Bilirubin Urine Urobilinogen Ur Leukocyte Esterase Urine WBC (Auto) Urine RBC (Auto) U Hyaline Cast (Auto) U Epithel Cells (Auto) Urine Bacteria (Auto) Nasal Screen MRSA (PCR) Influenza Type A (PCR) Influenza Type B (PCR) 09/09/18 09/09/18 09/09/18 16:17 16:38 18:38 WBC RBC Hgb Hct MCV MCH MCHC RDW Std Deviation RDW Coeff of Frida Plt Count MPV Immature Gran % (Auto) Neut % (Auto) Lymph % (Auto) [place] % (Auto) Eos % (Auto) Baso % (Auto) Immature Gran # (Auto) Neut # (Auto) Lymph # (Auto) [place] # (Auto) Eos # (Auto) Baso # (Auto) ESR PT INR APTT PTT Ratio VBG pH VBG pCO2 VBG pO2 VBG HCO3 VBG O2 Saturation VBG Base Excess Barometric Pressure Sodium Potassium Chloride Carbon Dioxide Anion Gap BUN Creatinine Est Cr Clr Drug Dosing Est GFR ( Amer) Est GFR (Non-Af Amer) BUN/Creatinine Ratio Glucose POC Glucose POC Lactic Acid Devante 1.37 Calcium Magnesium Total Bilirubin AST ALT Alkaline Phosphatase Ammonia Total Creatine Kinase CK-MB (CK-2) CK/CKMB % Calc Troponin I C-Reactive Protein Total Protein Albumin Globulin Albumin/Globulin Ratio Procalcitonin Urine Color Yellow Urine Appearance Cloudy A Urine pH 6.0 Ur Specific [place] 1.020 Urine Protein Trace H Urine Glucose (UA) Negative Urine Ketones Trace H Urine Blood 2+ H Urine Nitrite Positive A Urine Bilirubin Negative Urine Urobilinogen Negative Ur Leukocyte Esterase 2+ H Urine WBC (Auto) >30 H Urine RBC (Auto) 5-10 H U Hyaline Cast (Auto) 5-10 H U Epithel Cells (Auto) 10-20 H Urine Bacteria (Auto) 4+ H Nasal Screen MRSA (PCR) Influenza Type A (PCR) Pos for Influ A A* Influenza Type B (PCR) Neg for Influ B 09/09/18 09/10/18 09/10/18 21:55 05:32 05:32 WBC 6.10 RBC 3.34 L Hgb 10.4 L Hct 29.6 L MCV 88.6 MCH 31.1 MCHC 35.1 RDW Std Deviation 46.3 RDW Coeff of Frida 14.1 Plt Count 203 MPV 9.0 Immature Gran % (Auto) Neut % (Auto) Lymph % (Auto) [place] % (Auto) Eos % (Auto) Baso % (Auto) Immature Gran # (Auto) Neut # (Auto) Lymph # (Auto) [place] # (Auto) Eos # (Auto) Baso # (Auto) ESR PT INR APTT PTT Ratio VBG pH VBG pCO2 VBG pO2 VBG HCO3 VBG O2 Saturation VBG Base Excess Barometric Pressure Sodium 135 L Potassium 4.0 Chloride 105 Carbon Dioxide 25 Anion Gap 6.0 BUN 10 Creatinine 0.74 Est Cr Clr Drug Dosing 44.9 Est GFR ( Amer) 89.9 Est GFR (Non-Af Amer) 77.6 BUN/Creatinine Ratio 12.9 Glucose 103 H POC Glucose POC Lactic Acid Devante Calcium 7.9 L Magnesium Total Bilirubin AST ALT Alkaline Phosphatase Ammonia Total Creatine Kinase CK-MB (CK-2) CK/CKMB % Calc Troponin I C-Reactive Protein Total Protein Albumin Globulin Albumin/Globulin Ratio Procalcitonin Urine Color Urine Appearance Urine pH Ur Specific [place] Urine Protein Urine Glucose (UA) Urine Ketones Urine Blood Urine Nitrite Urine Bilirubin Urine Urobilinogen Ur Leukocyte Esterase Urine WBC (Auto) Urine RBC (Auto) U Hyaline Cast (Auto) U Epithel Cells (Auto) Urine Bacteria (Auto) Nasal Screen MRSA (PCR) Negative Influenza Type A (PCR) Influenza Type B (PCR) Medications Administered Medications Breo Ellipta 1 inh INHALATION DAILY 07/19/18 [History Confirmed 09/09/18] albuterol sulfate [Ventolin HFA] 2 puff INHALATION QID PRN 07/19/18 [History Confirmed 09/09/18] montelukast 10 mg PO PM 07/19/18 [History Confirmed 09/09/18] raloxifene 60 mg PO DAILY 07/19/18 [History Confirmed 09/09/18] sertraline 25 mg PO DAILY 07/19/18 [History Confirmed 09/09/18] Home Medications Acetaminophen (Tylenol) 650 mg PO Q4H PRN PRN Reason: Pain or Fever Stop: 10/09/18 19:34 Al Hydrox/Mg Hydrox/Simethicone (Maalox) 15 ml PO Q4H PRN PRN Reason: Dyspepsia Stop: 10/09/18 19:34 Albuterol (Ventolin Hfa) 2 puffs INH QID PRN PRN Reason: breathing Stop: 10/09/18 19:34 Albuterol (Ventolin 0.083% 2.5mg/3ml) 2.5 mg NEB Q6R PRN PRN Reason: sob Stop: 10/09/18 19:34 Enoxaparin Sodium (Lovenox) 30 mg SQ Q24H [facility] Stop: 10/09/18 20:59 Last Admin: 09/09/18 22:17 Dose: 30 mg Documented by: Fluticasone/Vilanterol (Breo Ellipta) 1 puffs INH DAILY [facility] Stop: 10/10/18 08:59 Last Admin: 09/10/18 08:10 Dose: 1 puffs Documented by: Sodium Chloride (Nss 1000ml) 1,000 mls @ 60 mls/hr IV .[id number] [facility] Stop: 09/10/18 12:14 Last Infusion: 09/10/18 00:10 Dose: 60 mls/hr Documented by: Piperacillin Sod/Tazobactam (Sod 3.375 gm/ Dextrose) 115 mls @ 28.75 mls/hr IV Q8H [facility]; Protocol Stop: 09/19/18 21:59 Last Infusion: 09/10/18 09:32 Dose: Infused Documented by: Magnesium Hydroxide (Milk Of Magnesia) 30 ml PO Q12H PRN PRN Reason: Constipation Stop: 10/09/18 19:34 Miscellaneous (Order Awaiting Action) 1 ea N/A QS [facility] Stop: 10/09/18 19:59 Last Admin: 09/10/18 08:01 Dose: Not Given Documented by: Miscellaneous Information (Consult) 1 ea N/A UD PRN PRN Reason: Consult Stop: 10/09/18 19:34 Miscellaneous Information (Consult) 1 ea N/A DAILY PRN PRN Reason: Consult Stop: 10/09/18 21:42 Montelukast Sodium (Singulair) 10 mg PO PM [facility] Stop: 10/09/18 20:59 Last Admin: 09/09/18 22:18 Dose: 10 mg Documented by: Ondansetron HCl (Zofran) 4 mg IV Q6H PRN PRN Reason: Nausea Stop: 10/09/18 19:34 Last Admin: 09/09/18 19:53 Dose: 4 mg Documented by: Oseltamivir Phosphate (Tamiflu) 30 mg PO BID [facility]; Protocol Stop: 09/14/18 20:59 Last Admin: 09/10/18 08:10 Dose: 30 mg Documented by: Polyethylene Glycol (Miralax Powder Packet) 17 gm PO DAILY PRN PRN Reason: Constipation Stop: 10/09/18 19:34 Raloxifene HCl (Evista) 60 mg PO HS [facility] Stop: 10/09/18 20:59 Last Admin: 09/09/18 22:17 Dose: 60 mg Documented by: Sertraline HCl (Zoloft) 25 mg PO DAILY [facility] Stop: 10/10/18 08:59 Last Admin: 09/10/18 08:10 Dose: 25 mg Documented by:
[2018-09-10] MEDS: ENOXAPARIN INJ 30 MG/0.3 ML SYR SQ SCH (21:02)
[2018-09-10] MEDS: MONTELUKAST SODIUM 10 MG TABLET PO SCH (21:02)
[2018-09-10] MEDS: RALOXIFENE HCL 60 MG TAB PO SCH (21:02)
[2018-09-11] MEDS: PIPERACILLIN/TAZOBACTAM 3.375 GM in DEXTROSE 5% 100 ML IV SCH ×3 (05:27→21:29)
[2018-09-11] MEDS ORDERED: MAGNESIUM SULFATE / D5W 1 GM/100 ML BAG IV ONE (06:01)
[2018-09-11 06:38] LABS: Basophils # (auto) 0.01 K/uL (0-0.2); Basophils % (auto) 0.2 %; Eosinophils # (auto) 0.02 K/uL (0-0.5); Eosinophils % (auto) 0.4 %; Hematocrit (blood only) 30.8 % (37-47); Hemoglobin 10.4 g/dL (12.0-16.0); Immature Granulocytes # (auto) 0.01 K/uL (0.00-0.02); Immature Granulocytes % (auto) 0.2 %; Lymphocytes # (auto) 0.92 K/uL (1.2-3.4); Lymphocytes % (auto) 19.2 %; Mean Corpuscular Hgb Conc 33.8 g/dL (32-36); Mean Corpuscular Volume 90.1 fL (80-100); Mean Platelet Volume 9.4 fL (7.4-10.4); Monocytes # (auto) 0.43 K/uL (0.11-0.59); Platelet Count 188 K/uL (130-400); RDW Coefficient of Variation 13.9 % (11.5-14.5); RDW Standard Deviation 45.9 fL (36.4-46.3); Red Blood Count 3.42 M/uL (4.2-5.4); White Blood Count 4.79 K/uL (4.8-10.8)
[2018-09-11 07:13] LABS: BUN Creatinine Ratio 12.9 (10-20); Calcium 8.2 mg/dl (8.5-10.1); Creatinine Clr Calc Pharmacy 46.3 ml/min; Est GFR (African American) 94.6; Est GFR (Non-African American) 81.6; Magnesium 1.9 mg/dl (1.8-2.4); Potassium 3.6 mmol/L (3.5-5.1)
[2018-09-11] MEDS ORDERED: POTASSIUM CHLORIDE 20 MEQ TABCR PO STA (07:43)
[2018-09-11] MEDS: OSELTAMIVIR PHOSPHATE SUSP 30 MG/5 ML UDP PO SCH ×2 (09:38→21:26)
[2018-09-11] MEDS: SERTRALINE HCL 50 MG TABLET PO SCH (09:38)
[2018-09-11] MEDS: FLUTICASONE INH SCH (09:38)
[2018-09-11] MEDS: VILANTEROL INH SCH (09:38)
--- NOTE | 2018-09-11 09:45 | Hospitalist Progress Note ---
Date of Service de;aynaun entry date of service 09/11/18 September 11, 2018 Assessment & Plan (1) Altered mental status: (2) UTI (urinary tract infection): (3) Influenza A: This is a 78-year-old female who has a significant past medical history of dementia, asthma, osteoporosis who presents to [facility] ED secondary to increased lethargy and altered mental status x1 day. History limited given pt advanced dementia. Spoke with son who lives in [place], was made aware by caretakers pt developed sneezing and cough yesterday afternoon along with lethargy and increased confusion today. In ED pt vital signs were stable, she remained afebrile CBC relatively unremarkable, no leukcocytosis VBG WNL CMP unremarkable along with procalcitonin and lactate ESR/CRP elevated - ?? significance Urinalysis +infection CT abd/pelvis revealed bibasilar minimal infiltrates actually improved from prior exam (pt hospitalized in 07/2018 for PNA) Urine culture: E coli Blood cultures: negative so far continue Zosyn continue Tamiflu monitor (4) Acute maxillary sinusitis: prior head ct 07/2018 revealed similar sinusitis ?chronic in nature pt is on IV zosyn (5) Dementia: mood stable supportive care (6) Asthma: no acute exacerbation continue breo and singulair (7) Osteoporosis: continue raloxifene (8) DVT prophylaxis: Heparin 5,000units SQ BID Disposition: to be determined, case management consult, patient with advanced dementia lives at home alone with caretakers Follow up: PCP Dr. Huertas upon discharge updated patient's daughter , in detail, all questions answered, she is comfortable and agreeable with plan of care (9) Sinus pause: Subjective ff up for uti, flu, encephalopathy seen with daughter at bedside sitting up, comfortable, smiling oriented x 2 states she feels better overall less dry cough no abdominal pain, nausea/vomiting no chills denies other symptoms daughter reports she looks much better Review of Systems Review of Systems: All systems reviewed & are unremarkable except as noted in HPI & below Physical Exam Physical Exam: General- oriented x 2, not in distress, speaks in sentences with no effort or accessory muscle use Eyes- anicteric Neck- no JVD Lungs- clear BS BL no rales no wheezing Heart- normal rate, regular rhythm; no murmurs Abdomen- normal bowel sounds, nondistended, soft, nontender Extremities- no pretibial edema, no calf tenderness Neuro- alert, oriented x 2; no gross focal neurologic deficits Skin- warm & dry Results & Data Vital Signs (Past 12 Hours) Vital Signs Temp Pulse Pulse Resp BP BP Pulse Ox 09/11/18 07:42 36.3 C L 55 L 18 135/73 91 09/11/18 03:50 36.6 C 59 L 18 120/57 L 93 09/11/18 00:42 37.3 C 60 16 134/66 94 09/10/18 23:17 60 Laboratory Results all noted and reviewed (1) Acute maxillary sinusitis Recurrence: non-recurrent Qualified Code(s): J01.00 - Acute maxillary sinusitis, unspecified (2) Altered mental status Altered mental status type: unspecified Qualified Code(s): R41.82 - Altered mental status, unspecified
--- NOTE | 2018-09-11 14:26 | Cardiology Progress Note ---
Date of Service September 11, 2018 Assessment & Plan (1) Sinus pause: Isolated 6-second sinus pause recorded 09/09/2018 at 1950 without associated symptoms. No recurrence. No history of falls, syncope or near syncope. Echocardiogram demonstrates preserved LV systolic function, mild aortic sclerosis without stenosis, and diastolic dysfunction. Patient appears compensated and without complaints at this time. Continue telemetry monitoring. Avoid AV sintia blocking agents. Outpatient 14-day ZIO monitor if no further events during hospitalization. (2) UTI (urinary tract infection): E. coli per urine culture. Antibiotics as per internal medicine. (3) Influenza A: (4) Delirium: Secondary to urinary tract infection and influenza A. (5) Dementia: Subjective Patient seen and examined at the bedside. More alert and conversant today. Denies chest pain, shortness of breath, palpitations, lightheadedness, dizziness, syncope, or near syncope. Poor historian due to poor short-term memory. Denies orthopnea or paroxysmal nocturnal dyspnea. No lower extremity edema. Telemetry demonstrates sinus rhythm. No recurrent pauses. Review of Systems Review of Systems: All systems reviewed & are unremarkable except as noted in HPI & below Physical Exam Physical Exam: General: NAD, awake and alert, well nourished. HEENT: Normocephalic. Atraumatic. Conjunctiva pink, no scleral icterus. Neck: No carotid bruits, the carotid upstrokes are brisk. No JVD. No HJR Heart: Regular normal S-1 and S-2 no S-3 or S-4 gallop. No murmurs or rub appreciated. PMI is not displaced. No RV heave. Lungs: Clear bilateral without rales , rhonchi, or wheeze. Abdomen: Normal bowel sounds. Soft. Nontender. No masses or organomegaly. No abdominal bruits. Extremities: No clubbing, cyanosis, or edema. Pulses: radial=2/4, posterior tibial=2/4. Neuro: Cranial nerves grossly intact. No focal motor deficit. Results & Data Vital Signs (Past 12 Hours) Vital Signs Temp Pulse Resp BP Pulse Ox 09/11/18 07:42 36.3 C L 55 L 18 135/73 91 09/11/18 03:50 36.6 C 59 L 18 120/57 L 93 Laboratory Results Laboratory Results - last 24 hr 09/11/18 09/11/18 09/11/18 06:25 06:25 06:25 WBC 4.79 L RBC 3.42 L Hgb 10.4 L Hct 30.8 L MCV 90.1 MCH 30.4 MCHC 33.8 RDW Std Deviation 45.9 RDW Coeff of Frida 13.9 Plt Count 188 MPV 9.4 Immature Gran % (Auto) 0.2 Neut % (Auto) 71.0 Lymph % (Auto) 19.2 [place] % (Auto) 9.0 Eos % (Auto) 0.4 Baso % (Auto) 0.2 Immature Gran # (Auto) 0.01 Neut # (Auto) 3.40 Lymph # (Auto) 0.92 L [place] # (Auto) 0.43 Eos # (Auto) 0.02 Baso # (Auto) 0.01 Sodium 137 Potassium 3.6 Chloride 104 Carbon Dioxide 27 Anion Gap 6.0 BUN 9 Creatinine 0.71 Est Cr Clr Drug Dosing 46.3 Est GFR ( Amer) 94.6 Est GFR (Non-Af Amer) 81.6 BUN/Creatinine Ratio 12.9 Glucose 90 Calcium 8.2 L Magnesium 1.9 TSH 2.430
[2018-09-11] MEDS: RALOXIFENE HCL 60 MG TAB PO SCH (21:14)
[2018-09-11] MEDS: MONTELUKAST SODIUM 10 MG TABLET PO SCH (21:14)
[2018-09-11] MEDS: ENOXAPARIN INJ 30 MG/0.3 ML SYR SQ SCH (21:27)
[2018-09-12] MEDS: PIPERACILLIN/TAZOBACTAM 3.375 GM in DEXTROSE 5% 100 ML IV SCH ×3 (05:44→22:15)
[2018-09-12] MEDS: FLUTICASONE/VILANTEROL INHALER INH SCH (08:06)
[2018-09-12] MEDS: SERTRALINE HCL 50 MG TABLET PO SCH (08:06)
[2018-09-12] MEDS: FLUTICASONE INH SCH (08:07)
[2018-09-12] MEDS: VILANTEROL INH SCH (08:07)
[2018-09-12] MEDS: OSELTAMIVIR PHOSPHATE SUSP 30 MG/5 ML UDP PO SCH ×2 (08:53→20:52)
--- NOTE | 2018-09-12 12:28 | Cardiology Progress Note ---
Date of Service September 12, 2018 Assessment & Plan (1) Sinus pause: Isolated 6-second sinus pause recorded 09/09/2018 at 1950 without associated symptoms. No recurrence. No history of falls, syncope or near syncope. Echocardiogram demonstrates preserved LV systolic function, mild aortic sclerosis without stenosis, and diastolic dysfunction. Patient appears compensated and without complaints at this time. Continue telemetry monitoring. Avoid AV sintia blocking agents. Outpatient 14-day ZIO monitor if no further events during hospitalization. Cardiology will sign off. Please contact with further questions. (2) UTI (urinary tract infection): E. coli per urine culture. Antibiotics as per internal medicine. (3) Influenza A: (4) Delirium: Secondary to urinary tract infection and influenza A. (5) Dementia: Subjective Patient seen and examined at the bedside. More alert and conversant today. Son is present at bedside. Patient denies chest pain, shortness of breath, palpitations, lightheadedness, dizziness, syncope, or near syncope. Poor historian due to poor short-term memory. Denies orthopnea or paroxysmal nocturnal dyspnea. No lower extremity edema. Telemetry demonstrates sinus rhythm. No recurrent pauses. Review of Systems Review of Systems: All systems reviewed & are unremarkable except as noted in HPI & below Physical Exam Physical Exam: General: NAD, AAO x3, well nourished. HEENT: Normocephalic. Atraumatic. Conjunctiva pink, no scleral icterus. Neck: No carotid bruits, the carotid upstrokes are brisk. No JVD. No HJR Heart: Regular normal S-1 and S-2 no S-3 or S-4 gallop. No murmurs or rub appreciated. PMI is not displaced. No RV heave. Lungs: Clear bilateral without rales , rhonchi, or wheeze. Abdomen: Normal bowel sounds. Soft. Nontender. No masses or organomegaly. No abdominal bruits. Extremities: No clubbing, cyanosis, or edema. Pulses: radial=2/4, Dorsalis pedis =2/4. Neuro: Cranial nerves grossly intact. No focal motor deficit. Results & Data Vital Signs (Past 12 Hours) Vital Signs Temp Pulse Resp BP Pulse Ox 09/12/18 11:38 36.7 C 62 18 127/67 92 09/12/18 07:17 36.8 C 55 L 16 153/74 H 90 09/12/18 05:24 36.6 C 52 L 17 149/66 H 90
--- NOTE | 2018-09-12 16:45 | Hospitalist Progress Note ---
Date of Service September 12, 2018 Assessment & Plan (1) Altered mental status: (2) UTI (urinary tract infection): (3) Influenza A: This is a 78-year-old female who has a significant past medical history of dementia, asthma, osteoporosis who presents to [facility] ED secondary to increased lethargy and altered mental status x1 day. History limited given pt advanced dementia. Spoke with son who lives in [place], was made aware by caretakers pt developed sneezing and cough yesterday afternoon along with lethargy and increased confusion today. In ED pt vital signs were stable, she remained afebrile CBC relatively unremarkable, no leukcocytosis VBG WNL CMP unremarkable along with procalcitonin and lactate ESR/CRP elevated - ?? significance Urinalysis +infection CT abd/pelvis revealed bibasilar minimal infiltrates actually improved from prior exam (pt hospitalized in 07/2018 for PNA) Urine culture: E coli Blood cultures: negative so far continue Zosyn for now (patient has documented allergy to ceftri) continue Tamiflu add Probiotics (4) Acute maxillary sinusitis: prior head ct 07/2018 revealed similar sinusitis ?chronic in nature pt is on IV zosyn plan to d/c on Doxycycline to complete 7 days total abx (5) Dementia: mood stable supportive care PT/OT ordered may need SNF (6) Asthma: no acute exacerbation continue breo and singulair (7) Osteoporosis: continue raloxifene (8) DVT prophylaxis: Heparin 5,000units SQ BID Disposition: to be determined, case management consult, patient with advanced dementia lives at home alone with caretakers Follow up: PCP Dr. Huertas upon discharge (9) Sinus pause: Subjective ff up for UTI, Flu seen resting in bed, comfortable in good spirits states she feels better overall answers most questions appropriately, although rather slowly denies cough no abdmominal pain, dysuria no other symptoms Review of Systems Review of Systems: All systems reviewed & are unremarkable except as noted in HPI & below Physical Exam Physical Exam: General- oriented x 2, not in distress, speaks in sentences with no effort or accessory muscle use Eyes- anicteric Neck- no JVD Lungs- clear BS BL no crackles Heart- normal rate, regular rhythm; no murmurs Abdomen- normal bowel sounds, nondistended, soft, nontender Extremities- no pretibial edema, no calf tenderness Neuro- alert, oriented x 2; no gross focal neurologic deficits Skin- warm & dry Results & Data Vital Signs (Past 12 Hours) Vital Signs Temp Pulse Pulse Resp BP BP Pulse Ox 09/12/18 15:54 36.7 C 73 16 148/70 H 92 09/12/18 15:29 75 09/12/18 11:38 36.7 C 62 18 127/67 92 09/12/18 07:17 36.8 C 55 L 16 153/74 H 90 09/12/18 05:24 36.6 C 52 L 17 149/66 H 90 (1) Altered mental status Altered mental status type: unspecified Qualified Code(s): R41.82 - Altered mental status, unspecified (2) Acute maxillary sinusitis Recurrence: non-recurrent Qualified Code(s): J01.00 - Acute maxillary sinusitis, unspecified
[2018-09-12] MEDS: LACTOBACILLUS ACIDOPHILUS (FLORANEX) TAB PO SCH (17:51)
[2018-09-12] MEDS: MONTELUKAST SODIUM 10 MG TABLET PO SCH (20:47)
[2018-09-12] MEDS: ENOXAPARIN INJ 30 MG/0.3 ML SYR SQ SCH (20:47)
[2018-09-12] MEDS: RALOXIFENE HCL 60 MG TAB PO SCH (20:48)
[2018-09-13] MEDS: PIPERACILLIN/TAZOBACTAM 3.375 GM in DEXTROSE 5% 100 ML IV SCH ×3 (05:33→21:41)
[2018-09-13 06:35] LABS: Creatinine Clr Calc Pharmacy 41.8 ml/min; Est GFR (African American) 88.5; Est GFR (Non-African American) 76.3
[2018-09-13] MEDS: LACTOBACILLUS ACIDOPHILUS (FLORANEX) TAB PO SCH ×3 (09:04→17:11)
[2018-09-13] MEDS: SERTRALINE HCL 50 MG TABLET PO SCH (09:04)
[2018-09-13] MEDS: FLUTICASONE/VILANTEROL INHALER INH SCH (09:05)
[2018-09-13] MEDS: VILANTEROL INH SCH (09:06)
[2018-09-13] MEDS: FLUTICASONE INH SCH (09:06)
[2018-09-13] MEDS: OSELTAMIVIR PHOSPHATE SUSP 30 MG/5 ML UDP PO SCH ×2 (09:23→20:23)
--- NOTE | 2018-09-13 18:54 | Hospitalist Progress Note ---
Date of Service delayed entry date of service noted below September 13, 2018 Assessment & Plan (1) Altered mental status: (2) UTI (urinary tract infection): (3) Influenza A: This is a 78-year-old female who has a significant past medical history of dementia, asthma, osteoporosis who presents to [facility] ED secondary to increased lethargy and altered mental status x1 day. History limited given pt advanced dementia. Spoke with son who lives in [place], was made aware by caretakers pt developed sneezing and cough yesterday afternoon along with lethargy and increased confusion today. In ED pt vital signs were stable, she remained afebrile CBC relatively unremarkable, no leukcocytosis VBG WNL CMP unremarkable along with procalcitonin and lactate ESR/CRP elevated - ?? significance Urinalysis +infection CT abd/pelvis revealed bibasilar minimal infiltrates actually improved from prior exam (pt hospitalized in 07/2018 for PNA) Urine culture: E coli Blood cultures: negative so far finished 5 days of Zosyn (patient has documented allergy to cephalosporin) continue Tamiflu Day 5 added Probiotics (4) Acute maxillary sinusitis: prior head ct 07/2018 revealed similar sinusitis ?chronic in nature received ZOsyn x 5 days start Doxycycline x 2 days (5) Dementia: mood stable supportive care PT/OT ordered: recommend 24 hr care or SNF case management consulted (6) Asthma: no acute exacerbation continue breo and singulair (7) Osteoporosis: continue raloxifene (8) DVT prophylaxis: Heparin 5,000units SQ BID Disposition:PT/OT ordered: recommend 24 hr care or SNF case management consulted Follow up: PCP Dr. Huertas upon discharge (9) Sinus pause: Subjective ff up for metabolic encephalopathy seen sitting up in bed comfortable son Mike at bedside in good spirits states she continues to feel improved no cough, dyspnea no other symptoms Review of Systems Review of Systems: All systems reviewed & are unremarkable except as noted in HPI & below Physical Exam Physical Exam: General- oriented x 2, not in distress, speaks in sentences with no effort or accessory muscle use Eyes- anicteric Neck- no JVD Lungs- clear BS, no crackles BL Heart- normal rate, regular rhythm; no murmurs Abdomen- normal bowel sounds, nondistended, soft, nontender Extremities- no pretibial edema, no calf tenderness Neuro- alert, oriented x 2; no gross focal neurologic deficits Skin- warm & dry Results & Data Vital Signs (Past 12 Hours) Vital Signs Temp Pulse Pulse Resp BP BP Pulse Ox 09/13/18 16:54 36.7 C 80 16 124/74 93 09/13/18 16:00 88 09/13/18 11:52 36.5 C 60 16 131/71 93 09/13/18 07:34 36.6 C 47 L 16 133/74 90 09/13/18 07:30 48 L Laboratory Results noted, reviewed (1) Acute maxillary sinusitis Recurrence: non-recurrent Qualified Code(s): J01.00 - Acute maxillary sinusitis, unspecified (2) Altered mental status Altered mental status type: unspecified Qualified Code(s): R41.82 - Altered mental status, unspecified
[2018-09-13] MEDS: ENOXAPARIN INJ 30 MG/0.3 ML SYR SQ SCH (20:23)
[2018-09-13] MEDS: MONTELUKAST SODIUM 10 MG TABLET PO SCH (20:23)
[2018-09-13] MEDS: RALOXIFENE HCL 60 MG TAB PO SCH (20:23)
[2018-09-14] MEDS: PIPERACILLIN/TAZOBACTAM 3.375 GM in DEXTROSE 5% 100 ML IV SCH (05:33)
[2018-09-14 07:11] LABS: Est GFR (Non-African American) 60.4
[2018-09-14] MEDS: LACTOBACILLUS ACIDOPHILUS (FLORANEX) TAB PO SCH ×3 (07:46→17:58)
[2018-09-14] MEDS: VILANTEROL INH SCH (07:47)
[2018-09-14] MEDS: FLUTICASONE/VILANTEROL INHALER INH SCH (07:47)
[2018-09-14] MEDS: FLUTICASONE INH SCH (07:47)
[2018-09-14] MEDS: SERTRALINE HCL 50 MG TABLET PO SCH (07:48)
[2018-09-14] MEDS: OSELTAMIVIR PHOSPHATE SUSP 30 MG/5 ML UDP PO SCH (07:51)
[2018-09-14] MEDS ORDERED: DOXYCYCLINE HYCLATE 100 MG CAP PO SCH (09:00)
--- NOTE | 2018-09-14 19:12 | Hospitalist Progress Note ---
Date of Service September 14, 2018 Assessment & Plan (1) Altered mental status: This is a 78-year-old female who has a significant past medical history of dementia, asthma, osteoporosis who presents to [facility] ED secondary to increased lethargy and altered mental status -history of dementia -altered mental status secondary to metabolic encephalopathy from Influenza A and Urinary tract infection -appears to be at baseline mental status currently (2) UTI (urinary tract infection): Urine culture: E coli -was treated with Zosyn on this admission for 5 days as part of empiric antibiotic treatment during the workup -urine was sensitive to Zosyn -no further urinary tract antibiotics needed at this time (3) Influenza A: 5 days of Tamiflu and to be completed on 09/14/18 as last dose (4) Acute maxillary sinusitis: prior head ct 07/2018 revealed similar sinusitis chronic in nature has received Zosyn x 5 days. Has also been on Doxycycline. will stop Doxycycline as further antibiotics on 09/14/18 as further antibiotics does not appear to be necessary at this time (5) Dementia: mood stable supportive care (6) Asthma: no acute exacerbation continue breo and singulair (7) Osteoporosis: continue raloxifene (8) DVT prophylaxis: Heparin 5,000units SQ BID Follow up: PCP Dr. Huertas upon discharge Disposition: PT/OT notes recommend senior living facility or 24 hour home care, patient's son expects patient to be ready for the 24 hours home care starting on 09/15/18 and would like patient to be discharged on 09/15/18 if no further acute medical issues (9) Sinus pause: SINUS PAUSE Isolated 6-second sinus pause recorded 09/09/2018 at 1950 without associated symptoms. asymptomatic Echocardiogram demonstrates preserved LV systolic function, mild aortic sclerosis without stenosis, and diastolic dysfunction. Per Hog Raiser Dr. Coello: Avoid AV sintia blocking agents; Outpatient 14-day ZIO monitor if no further events during hospitalization Subjective Patient not in distress. able to eat for herself. denies chest pain. denies abdomen pain. no vomiting. Patient's son updated and was at bedside later during the day Physical Exam Constitutional: WD/WN, vitals as above Eyes: PERRL, conjunctivae normal, anicteric sclerae EOM intact bilaterally ENMT: external ear and nose normal, oropharynx normal Neck: trachea midline, no thyromegaly normal visual inspection Respiratory: normal respiratory effort, lungs clear to auscultation Cardiovascular: RRR, no murmur, no edema Gastrointestinal (Abdomen): normal bowel sounds, soft, nontender, no hepatosplenomegaly Musculoskeletal: Head/Neck/Chest: normocephalic and head atraumatic Neurologic: PERRL, EOMI, accommodation nl, no face palsy, no dysarthria Psychiatric: Orientation: alert and cooperative Results & Data Vital Signs (Past 12 Hours) Vital Signs Temp Pulse Pulse Resp BP BP Pulse Ox 09/14/18 16:26 36.8 C 75 20 119/76 94 09/14/18 15:26 80 09/14/18 12:06 36.5 C 71 16 120/73 09/14/18 11:33 94 09/14/18 07:30 61 (1) Acute maxillary sinusitis Recurrence: non-recurrent Qualified Code(s): J01.00 - Acute maxillary sinusitis, unspecified (2) Altered mental status Altered mental status type: unspecified Qualified Code(s): R41.82 - Altered mental status, unspecified
[2018-09-14] MEDS: ENOXAPARIN INJ 30 MG/0.3 ML SYR SQ SCH (21:38)
[2018-09-14] MEDS: MONTELUKAST SODIUM 10 MG TABLET PO SCH (21:39)
[2018-09-14] MEDS: RALOXIFENE HCL 60 MG TAB PO SCH (21:39)
[2018-09-15] MEDS: LACTOBACILLUS ACIDOPHILUS (FLORANEX) TAB PO SCH ×2 (09:02→11:44)
[2018-09-15] MEDS: VILANTEROL INH SCH (09:03)
[2018-09-15] MEDS: FLUTICASONE/VILANTEROL INHALER INH SCH (09:03)
[2018-09-15] MEDS: SERTRALINE HCL 50 MG TABLET PO SCH (09:03)
[2018-09-15] MEDS: FLUTICASONE INH SCH (09:03)
--- NOTE | 2018-09-15 11:04 | Hospitalist Progress Note ---
Date of Service September 15, 2018 Assessment & Plan (1) Altered mental status: This is a 78-year-old female who has a significant past medical history of dementia, asthma, osteoporosis who presents to [facility] ED secondary to increased lethargy and altered mental status -history of dementia -altered mental status secondary to metabolic encephalopathy from Influenza A and Urinary tract infection -appears to be at baseline mental status currently (2) UTI (urinary tract infection): Urine culture: E coli -was treated with Zosyn on this admission for 5 days as part of empiric antibiotic treatment during the workup -urine was sensitive to Zosyn -no further urinary tract antibiotics needed at this time (3) Influenza A: 5 days of Tamiflu and completed on 09/14/18 as last dose (4) Acute maxillary sinusitis: prior head ct 07/2018 revealed similar sinusitis chronic in nature has received Zosyn x 5 days. Has also been on Doxycycline. stopped Doxycycline as further antibiotics on 09/14/18 as further antibiotics does not appear to be necessary at this time (5) Dementia: Dementia without behavioral disturbances mood stable supportive care (6) Asthma: no acute exacerbation continue breo and singulair (7) Osteoporosis: continue raloxifene (8) DVT prophylaxis: Heparin 5,000units SQ BID while inpatient (9) Sinus pause: episode of sinus pause -Isolated 6-second sinus pause recorded 09/09/2018 at 1950 without associated symptoms. -asymptomatic -Echocardiogram demonstrates preserved LV systolic function, mild aortic sclero sis without stenosis, and diastolic dysfunction. -Per Printing Engineer Dr. Coello: Avoid AV sintia blocking agents; Outpatient 14- day ZIO monitor if no further events during hospitalization -no further telemetry events, patient may obtain ZIO patch through primary care doctor Follow up: PCP Dr. Huertas upon discharge Disposition: PT/OT notes recommend [facility] facility or 24 hour home care, patient's son expects patient to be ready for the 24 hours home care starting on 09/15/18 and would like patient to be discharged on 09/15/18 if no further acute medical issues Discharge Diagnosis altered mental status secondary to metabolic encephalopathy from Influenza A and Urinary tract infection (acute cystitis without gross hematuria); dementia without behavioral disturbance; episode of sinus pause Subjective Patient at baseline mental status. cooperative on exam. denies acute pain. no acute behavioral disturbances. denies problems with breathing. discussed with patient about discharge plans today. awaiting for patient's family to pick her up from discharge from hospital . no acute telemetry events today Physical Exam Constitutional: WD/WN, vitals as above Eyes: PERRL, conjunctivae normal, anicteric sclerae EOM intact bilaterally ENMT: external ear and nose normal, oropharynx normal Neck: trachea midline, no thyromegaly normal visual inspection Respiratory: normal respiratory effort, lungs clear to auscultation Cardiovascular: RRR, no murmur, no edema Gastrointestinal (Abdomen): normal bowel sounds, soft, nontender, no hepatosplenomegaly Musculoskeletal: Head/Neck/Chest: normocephalic and head atraumatic Neurologic: PERRL, EOMI, accommodation nl, no face palsy, no dysarthria Psychiatric: Orientation: alert and cooperative Results & Data Vital Signs (Past 12 Hours) Vital Signs Temp Pulse Pulse Resp BP BP Pulse Ox 09/15/18 08:15 50 L 09/15/18 07:28 36.7 C 57 L 18 147/73 H 92 09/15/18 04:35 36.9 C 56 L 18 150/68 H 93 09/15/18 00:00 60 09/14/18 23:48 37.1 C 61 20 148/73 H 93 (1) Acute maxillary sinusitis Recurrence: non-recurrent Qualified Code(s): J01.00 - Acute maxillary sin usitis, unspecified (2) Altered mental status Altered mental status type: unspecified Qualified Code(s): R41.82 - Altered mental status, unspecified
--- NOTE | 2018-09-15 11:07 | Discharge Summary ---
Date of Service September 15, 2018 Admission HPI Per Admitting Provider This is a 78-year-old female who has a significant past medical history of dementia, asthma, anemia, osteoporosis who presents to [facility] ED secondary to increased lethargy and altered mental status x1 day. No family is at bedside. ROS unable to obtain secondary to patient's dementia. History obtained from other providers, staff and son. She lives alone at home but has 24/7 caretakers per son. He was notified yesterday that patient has been having a very good week until early yesterday afternoon when she developed sneezing and a cough. Symptoms continued and today she was overall lethargic and had increased confusion from baseline. She was then sent to ED for further evaluation. Per EMS staff she did have a, "junky cough with purulent sputum in room." Patient answers questions yes/no unsure if reliable. She states she overall feels good. Unable to obtain accurate FH, SH, SurgHX given advanced dementia. Admission Exam Per Admitting Provider Gen: Thin, petite, elderly, female, lying in bed, alert and arousable, answers questions yes no, pleasantly confused Head: Normocephalic, Atraumatic Eyes: Sclera normal, no conjunctival injection, PERRLA, EOMI ENT: Gross hearing intact, normal pharynx, mucous membranes moist Neck: supple, no adenopathy, No JVD, no bruit, Resp: Clear to auscultation b/l but decreased at bases given poor respiratory effort, no wheeze, rales, rhonchi. Normal insp/exp effort, no accessory muscle use CV: Regular rate, regular rhythm, 2/6 SOUMYA, no rub, gallop, or ectopy Abd: +BS x 4, soft, nontender, nondistended Musculoskeletal: moves extremities active rom x 4, strength 4/5 throughout, decent quill machine operator strength Extremities: No edema bilaterally Skin: warm, moist, no rash, mild turgor, cap refill < 2sec Neuro: Alert and oriented to self, speech soft/slow, occassional echolalia, fair mood/affect, cran nerve 2-12 intact grossly, follows commands fairly well given dementia : deferred Principal Diagnosis altered mental status secondary to metabolic encephalopathy from Influenza A and Urinary tract infection (acute cystitis without gross hematuria); dementia without behavioral disturbance; episode of sinus pause Discharge Exam Constitutional WD/WN, vitals as above Eyes PERRL, conjunctivae normal, anicteric sclerae EOM intact bilaterally ENMT external ear and nose normal, oropharynx normal Neck trachea midline, no thyromegaly normal visual inspection Respiratory normal respiratory effort, lungs clear to auscultation Cardiovascular RRR, no murmur, no edema Gastrointestinal (Abdomen) normal bowel sounds, soft, nontender, no hepatosplenomegaly Musculoskeletal Head/Neck/Chest: normocephalic and head atraumatic Neurologic PERRL, EOMI, accommodation nl, no face palsy, no dysarthria Psychiatric Orientation: alert and cooperative Discharge Data Allergies Allergy/AdvReac Type Severity Reaction Status Date / Time alendronate sodium Allergy Unknown Verified 07/14/18 17:23 Cephalosporins Allergy Unknown Verified 07/14/18 17:23 erythromycin base Allergy Unknown Unknown Verified 07/11/18 13:04 ibandronate sodium Allergy Unknown Verified 07/14/18 17:23 [From Push[facility]] Consultations 09/09/18 17:40 ED Decision to Admit Stat 09/09/18 19:35 Consult Case Management - Discharge Planning Routine 09/09/18 22:08 Consult Cardiology Routine Ordered Studies 09/09/18 15:31 CT abd pelvis wo con Stat CT head/brain wo con Stat Hospital Course (1) Altered mental status: This is a 78-year-old female who has a significant past medical history of dementia, asthma, osteoporosis who presents to [facility] ED secondary to increased lethargy and altered mental status -history of dementia -altered mental status secondary to metabolic encephalopathy from Influenza A and Urinary tract infection -appears to be at baseline mental status currently (2) UTI (urinary tract infection): Urine culture: E coli -was treated with Zosyn on this admission for 5 days as part of empiric antibiotic treatment during the workup -urine was sensitive to Zosyn -no further urinary tract antibiotics needed at this time (3) Influenza A: 5 days of Tamiflu and completed on 09/14/18 as last dose (4) Acute maxillary sinusitis: prior head ct 07/2018 revealed similar sinusitis chronic in nature has received Zosyn x 5 days. Has also been on Doxycycline. stopped Doxycycline as further antibiotics on 09/14/18 as further antibiotics does not appear to be necessary at this time (5) Dementia: Dementia without behavioral disturbances mood stable supportive care (6) Asthma: no acute exacerbation continue breo and singulair (7) Osteoporosis: continue raloxifene (8) DVT prophylaxis: Heparin 5,000units SQ BID while inpatient (9) Sinus pause: episode of sinus pause -Isolated 6-second sinus pause recorded 09/09/2018 at 1950 without associated symptoms. -asymptomatic -Echocardiogram demonstrates preserved LV systolic function, mild aortic sclerosis without stenosis, and diastolic dysfunction. -Per Collection Systems Modeler Dr. Coello: Avoid AV sintia blocking agents; Outpatient 14- day ZIO monitor if no further events during hospitalization -no further telemetry events, patient may obtain ZIO patch through primary care doctor Follow up: PCP Dr. Huertas upon discharge Disposition: PT/OT notes recommend [facility] facility or 24 hour home care, patient's son expects patient to be ready for the 24 hours home care starting on 09/15/18 and would like patient to be discharged on 09/15/18 if no further acute medical issues Discharge Diagnosis altered mental status secondary to metabolic encephalopathy from Influenza A and Urinary tract infection (acute cystitis without gross hematuria); dementia without behavioral disturbance; episode of sinus pause Total Time Total Time Spent Total Time Spent (In Minutes): 40 minutes Total Time Includes: Examination of the Patient, Discharge Planning, Medication Reconciliation and Communication With Other Providers Discharge Plan Discharge Items Patient Disposition: Home - Home Health Services Reason For Visit: UTI Discharge Diagnosis: altered mental status secondary to metabolic encephalopathy from Influenza A and Urinary tract infection (acute cystitis without gross hematuria); dementia without behavioral disturbance; episode of sinus pause Condition: Good Discharge Goals: Improve function Activity: Resume your previous activity Non-emergency contact: Primary Care Provider Call non-emergency contact if: you have any medication questions Follow-up/Referrals: Domo Huertas [Primary Care Provider] - Diet: Regular Addtl Provider Instructions: Follow up: PCP Dr. Huertas upon discharge Isolated 6-second sinus pause recorded 09/09/2018 at without associated symptoms. asymptomatic Echocardiogram demonstrates preserved LV systolic function, mild aortic sclerosis without stenosis, and diastolic dysfunction. Per Collection Systems Modeler Dr. Coello: Avoid AV sintia blocking agents; Outpatient 14-day ZIO monitor as no further events during hospitalization; patient may obtain ZIO patch through primary care doctor Prescriptions: Continued sertraline 25 mg Tablet 25 mg PO DAILY RF: 0 raloxifene 60 mg Tablet 60 mg PO DAILY RF: 0 montelukast 10 mg Tablet 10 mg PO PM RF: 0 albuterol sulfate [Ventolin HFA] 90 mcg/actuation Hfa Aerosol Inhaler 2 puff INHALATION QID PRN (Reason: breathing) RF: 0 Breo Ellipta 100-25 mcg/dose Blister With Device 1 inh INHALATION DAILY RF: 0 Stand-Alone Forms: [facility] Discharge Orders: Discharge Order (Routine); Ordered 09/15/18 Ordered By: Kenrick Ventura Admission Data Admit Date/Time: 09/09/18 18:29 Attending Provider: Kenrick Ventura Admit Provider: Lyssa Haro Primary Care Provider: Domo Huertas Other Providers: Lyssa Haro ; Hubert Coello Service: Telemetry Medical
== END 2018-09-15 14:49 | disposition home health service (06) | DRG 193 ==
LOC: ED 15:26 → SUATTDRO 18:29 → 2N 18:29

== ENCOUNTER 2018-09-22 11:24 | Inpatient (IN) ==
[2018-09-22] MEDS ORDERED: SODIUM CHLORIDE 0.9% 1000ML 1,000 ML IV SCH (11:45)
[2018-09-22 12:05] LABS: Basophils # (auto) 0.01 K/uL (0-0.2); Basophils % (auto) 0.1 %; Eosinophils # (auto) 0.01 K/uL (0-0.5); Eosinophils % (auto) 0.1 %; Hematocrit (blood only) 30.9 % (37-47); Hemoglobin 10.6 g/dL (12.0-16.0); Immature Granulocytes # (auto) 0.03 K/uL (0.00-0.02); Immature Granulocytes % (auto) 0.2 %; Lymphocytes # (auto) 0.73 K/uL (1.2-3.4); Lymphocytes % (auto) 5.6 %; Mean Corpuscular Hgb Conc 34.3 g/dL (32-36); Mean Platelet Volume 8.8 fL (7.4-10.4); Monocytes # (auto) 0.55 K/uL (0.11-0.59); Monocytes % (auto) 4.2 %; Neutrophils # (auto) 11.69 K/uL (1.4-6.5); Neutrophils % (auto) 89.8 %; Platelet Count 425 K/uL (130-400); RDW Coefficient of Variation 14.2 % (11.5-14.5); RDW Standard Deviation 45.4 fL (36.4-46.3); Red Blood Count 3.51 M/uL (4.2-5.4); White Blood Count 13.02 K/uL (4.8-10.8)
--- NOTE | 2018-09-22 12:18 | CT Scan Report ---
HEAD CT NONCONTRAST CT DOSE: 614.27 mGy.cm HISTORY: Altered mental status. TECHNIQUE: Multiaxial CT images of the head were performed without the use of intravenous contrast. A utomated exposure control was utilized for this study. A dose lowering technique was utilized adheri ng to the principles of ALARA. Comparison: Head CT 09/09/2018. Findings: Interval improvement in the small fluid levels within the maxillary sinuses and sphenoid si nuses. The mastoid air cells are clear. The calvarium and skull base are intact. There is no mass, he matoma, midline shift, acute infarct. White matter hypodensity is nonspecific but suggestive of micro vascular ischemic change. The ventricles and sulci demonstrate mild age-related involutional changes. Impression: No acute intracranial abnormality. Atrophy and microvascular ischemic changes. Interval improvement i n the maxillary sinusitis. Electronically signed by: Vish Olivares M.D. 09/22/2018 12:17 PM
[2018-09-22 12:25] LABS: Alanine Aminotransferase 18 U/L (12-78); Albumin Level 2.2 gm/dl (3.4-5.0); Aspartate Aminotransferase 23 U/L (15-37); BUN Creatinine Ratio 25.5 (10-20); Blood Urea Nitrogen 17 mg/dl (7-18); Calcium 8.7 mg/dl (8.5-10.1); Carbon Dioxide 25 mmol/L (21-32); Chloride 101 mmol/L (98-107); Creatinine Clr Calc Pharmacy 47.6 ml/min; Est GFR (African American) 97.1; Est GFR (Non-African American) 83.8; Glucose 97 mg/dl (70-99); Potassium 3.7 mmol/L (3.5-5.1); Sodium 134 mmol/L (136-145)
[2018-09-22 12:36] LABS: Albumin Globulin Ratio 0.5 (0.9-2); Alkaline Phosphatase 115 U/L (45-117); Bilirubin,Total 0.9 mg/dl (0.2-1); Globulin 4.3 gm/dl (2.5-4.0); Total Protein 6.5 gm/dl (6.4-8.2); Troponin I < 0.015 ng/ml (0-0.045)
--- NOTE | 2018-09-22 12:48 | XRay Report ---
XR chest 1V portable CLINICAL HISTORY: weakness COMPARISON STUDY: 09/18/2018 FINDINGS: The study is rotated. The patient is listing to the right. The heart is normal in size. The re are mild right basilar airspace opacities, atelectatic versus infectious/inflammatory. There is no overt failure. There are no large pleural effusions.[ IMPRESSION: Right basilar airspace opacities, atelectatic versus infectious/inflammatory. Clinical an d radiographic follow-up is recommended. Electronically signed by: Chicho Avalos M.D. 09/22/2018 12:47 PM
[2018-09-22 13:15] LABS: Appearance Urine Cloudy (Clear); Bacteria Urine Automated 4+ (Negative); Blood Urine 1+ (Negative); Color Urine Dark Yellow; Epithelial Cell Urine Auto 20-30 /lpf (0-5); Glucose Urine UA Negative (Negative); Ketones Urine 1+ (Negative); Leukocyte Esterase Urine 1+ (Negative); Nitrite Urine Positive (Negative); Protein Urine 1+ (Negative); RBC Urine Automated 0-4 /hpf (0-4); Specific Gravity Urine 1.032 (1.000-1.030); Urobilinogen Urine Negative (Negative); WBC Urine Automated >30 /hpf (0-5)
[2018-09-22 13:22] LABS: Bilirubin Urine Negative (Negative); Ictotest Urine Negative (Negative)
[2018-09-22 13:31] LABS: Cast Urine Automated 0 /lpf (0-5)
[2018-09-22] MEDS ORDERED: CIPROFLOXACIN 500 MG TAB PO STA (14:02)
[2018-09-22] MEDS ORDERED: SODIUM CHLORIDE 0.9% 500 ML IV SCH (15:00)
[2018-09-22] MEDS ORDERED: ONDANSETRON INJ 2 MG/ML 2 ML VIAL IV PRN (16:45)
[2018-09-22] MEDS ORDERED: NITROGLYCERIN SL 0.4 MG/TAB TAB SL PRN (16:45)
[2018-09-22] MEDS ORDERED: POLYETHYLENE (MIRALAX) 17 GM PACK PO PRN (16:45)
[2018-09-22] MEDS ORDERED: ALBUTEROL HFA 8 GM INHALER INH PRN (16:45)
[2018-09-22] MEDS ORDERED: PIPERACILL/TAZOBAC CONSULT ACTIVE PRN (16:45)
[2018-09-22] MEDS ORDERED: LEVALBUTEROL 1.25MG/0.5ML NEB INH PRN (16:45)
[2018-09-22] MEDS ORDERED: PIPERACILLIN/TAZOBACTAM 3.375 GM in DEXTROSE 5% 100 ML IV STA (17:05)
--- NOTE | 2018-09-22 17:33 | CT Scan Report ---
CT abd pelvis wo con CT DOSE: 249.88 mGy.cm HISTORY: Pain no bowel movement since one week TECHNIQUE: Multiaxial CT images of the abdomen and pelvis were performed without contrast. A dose lo wering technique was utilized adhering to the principles of ALARA. COMPARISON STUDY: 09/09/2018 FINDINGS: Progressive bibasilar parenchymal infiltrates.. Liver spleen and pancreas are grossly unrem arkable. Bladder is midline. Increased colonic fecal load consistent with a component of fecal stasis . The kidneys are considered negative for hydronephrosis. Uterine fibroids are unchanged. No free flu id within the pelvic cul-de-sac. IMPRESSION: 1. Progressive bibasilar parenchymal infiltrates. 2. No acute process of the abdomen or pelvis. 3. No significant change within the abdomen and pelvis compared to the prior study with the exception of the lung bases. 4. Fecal stasis with a moderate increase in colonic fecal load. The above report was generated using voice recognition software. It may contain grammatical, syntax or spelling errors. Electronically signed by: Artemio Su M.D. 09/22/2018 5:32 PM
[2018-09-22] MEDS ORDERED: LACTULOSE SYRUP 30 GM/45 ML UDP PO STA (18:05)
[2018-09-22] MEDS ORDERED: BISACODYL 10 MG SUPP PR STA (18:05)
[2018-09-22] MEDS: SODIUM CHLORIDE 0.9% 1000ML 1,000 ML IV SCH (18:12)
[2018-09-22 18:13] LABS: INR 1.1 (0.9-1.1); Prothrombin Time 11.2 Seconds (9.0-12.0)
[2018-09-22] MEDS: DOXYCYCLINE HYCLATE 100 MG in DEXTROSE 5% 100 ML IV SCH (18:49)
[2018-09-22] MEDS: HEPARIN SOD 5,000 UNIT/0.5 ML VIAL SQ SCH (20:33)
[2018-09-22] MEDS: MONTELUKAST SODIUM 10 MG TABLET PO SCH (20:34)
[2018-09-22] MEDS: SERTRALINE HCL 50 MG TABLET PO SCH (20:34)
--- NOTE | 2018-09-22 20:42 | History and Physical Report ---
DATE OF ADMISSION: 09/22/2018 CHIEF COMPLAINT: Altered mental status, generalized weakness. HISTORY OF PRESENT ILLNESS: This is a 78-year-old female with past medical history significant for dementia, asthma, anemia, osteoporosis, who was recently in the hospital on 09/09 and was discharged on 09/15. At that time, she was treated for influenza and UTI and maxillary sinusitis and was discharged home. She lives at home with a 24-hour caregiver and she was brought into the ER again on 09/18 with complaint of lethargy, but all the workup was negative and patient was given fluids and she seemed to have improved and she was sent back home, but again was brought in today because patient has generalized weakness, her voice has become low, did not have any bowel movement since 09/16, has some dry cough. The patient speaks in low voices. machine bander and cellophaner helper at bedside.. The patient generally walks with a walker, but is really not getting up much. Appetite has come down. She is on regular diet and today when her home health nurse came and tried to check her, her pulse was 100,systolic blood pressure was d at 101 when they decided to come to the hospital where again she was found to have UTI and chest x-ray shows bibasilar atelectasis versus pneumonitis. The patient can tell her name, knows that she is in the hospital, knows that it is August and the year is 2018 but could not tell her date of . Denies any headaches, nauseous, but denies any abdominal pain. Denies chest pain or shortness of breath, has some cough. Afebrile. Denies any pain with micturition. No rash, no swelling in the legs. Hemodynamics are stable. ALLERGIES: ALENDRONATE, BONIVA, CEPHALOSPORINS. PAST MEDICAL HISTORY: As mentioned above. PAST SURGICAL HISTORY: Tonsillectomy, adenoidectomy. FAMILY HISTORY: No family history in the file. SOCIAL HISTORY: Currently lives alone at home with 24-hour caregiver. Son lives in [place]. No smoking history. Alcohol rare as per records. REVIEW OF SYSTEMS: As per HPI. Rest of the systems could not be obtained at this time. PHYSICAL EXAMINATION: GENERAL: The patient is alert, awake, oriented to name and place and somewhat to time, although slow to answer. VITAL SIGNS: Temperature 36.7, pulse 66, respiratory rate 22, blood pressure 125/61, oxygen 93% on room air. HEENT: No pallor, no icterus. Pupils equal, round, reactive to light. NECK: No JVD, no neck masses, no carotid bruit. CARDIOVASCULAR: S1, S2 heard, regular rate and rhythm, no murmur, no gallop. RESPIRATORY SYSTEM: Normal AP diameter. No accessory muscle use. Bibasilar crackles present. No wheezing. ABDOMEN: Soft, bowel sounds present. Nontender. No distention. CENTRAL NERVOUS SYSTEM: Cranial nerves II through XII grossly intact, nonfocal. EXTREMITIES: No edema, no erythema. LABORATORIES: WBC 13, hemoglobin 10.6, hematocrit 30.9, platelets 425. Sodium 134, potassium 3.7, chloride 101, bicarbonate 17, creatinine 0.6, serum glucose 97, calcium 8.7, total bilirubin 0.9, AST 23, ALT 18, alkaline phosphatase 115. Troponin I less than 0.015. TSH 1.03. Urinalysis; positive for blood, positive nitrite and leukocyte esterase. CT of the head, no acute intracranial abnormality, improvement in the maxillary sinusitis. Chest x-ray right basilar air space opacity, atelectasis versus infectious/inflammatory. EKG: Normal sinus rhythm at a rate of 79, no significant change from previous EKG. ASSESSMENT AND PLAN: This is a 78-year-old female who presents with some generalized weakness, possible altered mental status. 1. Generalized weakness, questionable altered mental status, the patient has somewhat very low voice and not eating much, but when I asked questions, answers appropriately and alert and oriented to name, place and time, could not tell her date of . Has white count of 13,000, UA is again positive. Chest x-ray shows possible basilar atelectasis versus pneumonitis. Recently had flu. THE PATIENT IS ALLERGIC TO CEPHALOSPORINS, but tolerated Zosyn on last admission. We will place her on IV Zosyn and also IV doxycycline to cover for pneumonitis. Flu can get complicated with staphylococcus pneumonia. We will check methicillin-resistant Staphylococcus aureus swab. Follow blood cultures, urine cultures and gentle fluids and follow the response. 2. Urinary tract infection. Recently had urinary tract infection with Escherichia coli pansensitive. ALLERGIC TO CEPHALOSPORINS, Zosyn as above. Follow the cultures and taper the antibiotics, may need a longer course of antibiotic as it is recurrent soon after stopping the antibiotics. 3. Possible pneumonia, recently had flu, so covering with doxycycline and Zosyn. Follow the cultures. Follow the response. 4. Constipation. Did not have a bowel movement since 09/16 as per the caregiver. We will follow the CAT scan of the abdomen and pelvis. Stool softener. 5. History of dementia. We will monitor any delirium. 6. History of osteoporosis, control with raloxifene. 7. History of asthma. Continue Breo and Singulair. Currently stable. 8. Recent acute maxillary sinusitis. CAT scan showing improving and antibiotics as above. 9. History of sinus pause during last admission about a 6-second sinus pause. Echocardiogram was okay. There is a plan for 14 days of Zio monitor as an outpatient. As per caregiver, family doctor is supposed to send the monitor, but has not received yet. 10. History of anemia. Hemoglobin is 10.6. We will follow the laboratories. 11. Deep venous thrombosis prophylaxis, heparin subcutaneously. 12. Code status was do not resuscitate on last admission, but could not get in touch with her son to confirm it. We will keep full code for now until able to contact the son. DISPOSITION: Admit to med/surg, tele. PT and OT prior to discharge. Social service to help with discharge planning. EDUARDO
[2018-09-22] MEDS: PIPERACILLIN/TAZOBACTAM 3.375 GM in DEXTROSE 5% 100 ML IV SCH (23:59)
[2018-09-23] MEDS: DOXYCYCLINE HYCLATE 100 MG in DEXTROSE 5% 100 ML IV SCH ×2 (05:55→20:11)
[2018-09-23 05:58] LABS: Basophils # (auto) 0.02 K/uL (0-0.2); Basophils % (auto) 0.2 %; Eosinophils # (auto) 0.06 K/uL (0-0.5); Eosinophils % (auto) 0.6 %; Hematocrit (blood only) 27.7 % (37-47); Hemoglobin 9.4 g/dL (12.0-16.0); Immature Granulocytes # (auto) 0.01 K/uL (0.00-0.02); Immature Granulocytes % (auto) 0.1 %; Lymphocytes # (auto) 0.94 K/uL (1.2-3.4); Lymphocytes % (auto) 8.7 %; Mean Corpuscular Hgb Conc 33.9 g/dL (32-36); Mean Corpuscular Volume 88.8 fL (80-100); Mean Platelet Volume 8.7 fL (7.4-10.4); Monocytes # (auto) 0.54 K/uL (0.11-0.59); Neutrophils # (auto) 9.27 K/uL (1.4-6.5); Neutrophils % (auto) 85.4 %; Platelet Count 393 K/uL (130-400); RDW Coefficient of Variation 14.3 % (11.5-14.5); RDW Standard Deviation 46.4 fL (36.4-46.3); Red Blood Count 3.12 M/uL (4.2-5.4); White Blood Count 10.84 K/uL (4.8-10.8)
[2018-09-23 06:28] LABS: BUN Creatinine Ratio 15.6 (10-20); Calcium 8.3 mg/dl (8.5-10.1); Creatinine Clr Calc Pharmacy 54.6 ml/min; Est GFR (African American) 100.6; Est GFR (Non-African American) 86.8; Magnesium 1.7 mg/dl (1.8-2.4); Potassium 3.3 mmol/L (3.5-5.1)
--- NOTE | 2018-09-23 08:46 | Hospitalist Progress Note ---
Date of Service September 23, 2018 Assessment & Plan (1) Weakness: 1. Generalized weakness, 2. secondary to UTI, Recurrent -- ff up cultures on empiric Zosyn and Doxy 3. Pneumonia, BL bases in the setting of recent Flu infection -- ff up sputum cultures continue empiric Zosyn and Doxy monitor -- videoswallow 07/18: mild dysphagia continue soft diet 4. Constipation. - (+) BM after suppository - Senokot S ordered 5. History of dementia. We will monitor any delirium. 6. History of osteoporosis, control with raloxifene. 7. History of asthma. Continue Breo and Singulair. Currently stable. 8. Recent acute maxillary sinusitis. CAT scan showing improving and antibiotics as above. 9. History of sinus pause during last admission about a 6-second sinus pause. Echocardiogram was okay. There is a plan for 14 days of Zio monitor as an outpatient. As per caregiver, family doctor is supposed to send the monitor, but has not received yet. 10. History of anemia. Hemoglobin is 10.6. We will follow the laboratories. 11. Deep venous thrombosis prophylaxis, heparin subcutaneously. 12. Code status was do not resuscitate on last admission, but could not get in touch with her son to confirm it. We will keep full code for now until able to contact the son. DISPOSITION: Admit to med/surg, tele. PT and OT prior to discharge. Social service to help with discharge planning. Subjective ff up for UTI, weakness seen resting in bed, sleeping but easily rousable oriented x 2, answers questions appropriately but appears weak, flat affect states she feels improved compared to yesterday denies shortness of breath, cough, problems swallowing, abdominal pain, problems with urination no other symptoms Review of Systems Review of Systems: All systems reviewed & are unremarkable except as noted in HPI & below Physical Exam Physical Exam: General- oriented x 2, not in distress, speaks in sentences with no effort or accessory muscle use Head- atraumatic Eyes- PERRL, EOMI, anicteric ENT- oropharynx clear Neck- supple, no JVD, no adenopathy, no thyromegaly; carotids +2/2, no bruits appreciated Lungs- mild rhonchi BL bases no wheezing Heart- normal rate, regular rhythm; no murmur, no gallop, no rub appreciated Abdomen- normal bowel sounds, nondistended, soft, nontender, no masses or hepatosplenomegaly Extremities- no pretibial edema, no calf tenderness; peripheral pulses intact Neuro- alert, oriented x 2; CN 2-12 grossly intact; motor 5/5 bilatera lly;sensation 100% on all extremities; no other gross focal neurologic deficits Skin- warm & dry Results & Data Vital Signs (Past 12 Hours) Vital Signs Temp Pulse Resp BP Pulse Ox 09/23/18 07:24 37.2 C 101 H 18 132/65 100 09/23/18 06:15 36.8 C 66 19 135/55 L 93 09/22/18 23:28 37.4 C 70 20 150/73 H 95 Laboratory Results Laboratory Results - last 24 hr 09/22/18 09/22/18 09/22/18 11:58 11:58 13:05 WBC 13.02 H RBC 3.51 L Hgb 10.6 L Hct 30.9 L MCV 88.0 MCH 30.2 MCHC 34.3 RDW Std Deviation 45.4 RDW Coeff of Frida 14.2 Plt Count 425 H MPV 8.8 Immature Gran % (Auto) 0.2 Neut % (Auto) 89.8 Lymph % (Auto) 5.6 [place] % (Auto) 4.2 Eos % (Auto) 0.1 Baso % (Auto) 0.1 Immature Gran # (Auto) 0.03 H Neut # (Auto) 11.69 H Lymph # (Auto) 0.[address] [place] # (Auto) 0.55 Eos # (Auto) 0.01 Baso # (Auto) 0.01 PT INR Sodium 134 L Potassium 3.7 Chloride 101 Carbon Dioxide 25 Anion Gap 8.0 BUN 17 Creatinine 0.68 Est Cr Clr Drug Dosing 47.6 Est GFR ( Amer) 97.1 Est GFR (Non-Af Amer) 83.8 BUN/Creatinine Ratio 25.5 H Glucose 97 Calcium 8.7 Magnesium Total Bilirubin 0.9 AST 23 ALT 18 Alkaline Phosphatase 115 Troponin I < 0.015 Total Protein 6.5 Albumin 2.2 L Globulin 4.3 H Albumin/Globulin Ratio 0.5 L TSH 1.030 Urine Color Dark Yellow Urine Appearance Cloudy A Urine pH 5.0 Ur Specific [place] 1.032 H Urine Protein 1+ H Urine Glucose (UA) Negative Urine Ketones 1+ H Urine Blood 1+ H Urine Nitrite Positive A Urine Bilirubin Negative Urine Urobilinogen Negative Ur Leukocyte Esterase 1+ H Urine WBC (Auto) >30 H Urine RBC (Auto) 0-4 U Hyaline Cast (Auto) 0 U Epithel Cells (Auto) 20-30 H Urine Bacteria (Auto) 4+ H Urine Yeast Not Reportable Nasal Screen MRSA (PCR) 09/22/18 09/22/18 09/23/18 17:51 Unknown 05:34 WBC 10.84 H RBC 3.12 L Hgb 9.4 L Hct 27.7 L MCV 88.8 MCH 30.1 MCHC 33.9 RDW Std Deviation 46.4 H RDW Coeff of Frida 14.3 Plt Count 393 MPV 8.7 Immature Gran % (Auto) 0.1 Neut % (Auto) 85.4 Lymph % (Auto) 8.7 [place] % (Auto) 5.0 Eos % (Auto) 0.6 Baso % (Auto) 0.2 Immature Gran # (Auto) 0.01 Neut # (Auto) 9.27 H Lymph # (Auto) 0.[address] [place] # (Auto) 0.54 Eos # (Auto) 0.06 Baso # (Auto) 0.02 PT 11.2 INR 1.1 Sodium Potassium Chloride Carbon Dioxide Anion Gap BUN Creatinine Est Cr Clr Drug Dosing Est GFR ( Amer) Est GFR (Non-Af Amer) BUN/Creatinine Ratio Glucose Calcium Magnesium Total Bilirubin AST ALT Alkaline Phosphatase Troponin I Total Protein Albumin Globulin Albumin/Globulin Ratio TSH Urine Color Urine Appearance Urine pH Ur Specific [place] Urine Protein Urine Glucose (UA) Urine Ketones Urine Blood Urine Nitrite Urine Bilirubin Urine Urobilinogen Ur Leukocyte Esterase Urine WBC (Auto) Urine RBC (Auto) U Hyaline Cast (Auto) U Epithel Cells (Auto) Urine Bacteria (Auto) Urine Yeast Nasal Screen MRSA (PCR) Negative 09/23/18 05:34 WBC RBC Hgb Hct MCV MCH MCHC RDW Std Deviation RDW Coeff of Frida Plt Count MPV Immature Gran % (Auto) Neut % (Auto) Lymph % (Auto) [place] % (Auto) Eos % (Auto) Baso % (Auto) Immature Gran # (Auto) Neut # (Auto) Lymph # (Auto) [place] # (Auto) Eos # (Auto) Baso # (Auto) PT INR Sodium 134 L Potassium 3.3 L Chloride 102 Carbon Dioxide 26 Anion Gap 6.0 BUN 10 D Creatinine 0.61 Est Cr Clr Drug Dosing 54.6 Est GFR ( Amer) 100.6 Est GFR (Non-Af Amer) 86.8 BUN/Creatinine Ratio 15.6 Glucose 97 Calcium 8.3 L Magnesium 1.7 L Total Bilirubin AST ALT Alkaline Phosphatase Troponin I Total Protein Albumin Globulin Albumin/Globulin Ratio TSH Urine Color Urine Appearance Urine pH Ur Specific [place] Urine Protein Urine Glucose (UA) Urine Ketones Urine Blood Urine Nitrite Urine Bilirubin Urine Urobilinogen Ur Leukocyte Esterase Urine WBC (Auto) Urine RBC (Auto) U Hyaline Cast (Auto) U Epithel Cells (Auto) Urine Bacteria (Auto) Urine Yeast Nasal Screen MRSA (PCR)
[2018-09-23] MEDS: RALOXIFENE HCL 60 MG TAB PO SCH (08:52)
[2018-09-23] MEDS: HEPARIN SOD 5,000 UNIT/0.5 ML VIAL SQ SCH ×2 (08:55→20:44)
[2018-09-23] MEDS ORDERED: POTASSIUM CHLORIDE 20 MEQ/15 ML UDC PO ONE (09:00)
[2018-09-23] MEDS: SODIUM CHLORIDE 0.9% 1000ML 1,000 ML IV SCH ×2 (09:15→20:56)
[2018-09-23] MEDS: MAGNESIUM OXIDE 400 MG TAB PO SCH ×2 (09:18→19:48)
[2018-09-23] MEDS: DOCUSATE SODIUM/SENNA 50/8.6MG TAB PO SCH (10:19)
[2018-09-23] MEDS: PIPERACILLIN/TAZOBACTAM 3.375 GM in DEXTROSE 5% 100 ML IV SCH ×3 (10:19→23:53)
--- NOTE | 2018-09-23 10:53 | Emergency Department Note ---
Entered by Janiya Aiken acting as a scribe for Juaquin Beltran MD History of Present Illness General Chief complaint: Altered Mental Status Time Seen by Provider: 09/22/18 11:36 Source: patient and other (caregiver) Mode of arrival: EMS Limitations: no limitations History of Present Illness Provider complaint: weakness Location: head (generalized) Pain Consistency: + other (episode) Maximum Pain Intensity: 10 Current Pain Intensity: 0 Quality: + other (weakness) Associated symptoms: + denies other symptoms (abd pain), + loss of appetite, + weakness (chronic) and + other (neck pain); no chest pain, no cough and no headaches The patient is a 78 year old white female with a past medical history of dementia, asthma and osteoporosis who presents to the ER via EMS with complaints of weakness. The patients caregiver at bedside reports that Home Health evaluated the patient earlier today and that the patient was tachycardic and had a blood pressure of 106/58. She states that they then contacted the patients PCP who referred her to the ER. The patient denies any abdominal pain, coughs headache or chest pain. Per caregiver, the patient did complain of neck pain earlier today. The caregiver also notes that the patient was recently admitted at this hospital for a UTI. She also reports that the patient has had a loss of appetite but is still eating. She states that the patient does have chronic right-sided weakness. Home Medications Home Medications Medication Instructions Recorded Confirmed Type Breo Ellipta 1 inh INHALATION QAM 07/19/18 09/22/18 History albuterol sulfate [Ventolin HFA] 2 puff INHALATION QID PRN 07/19/18 09/22/18 History montelukast 10 mg PO HS 07/19/18 09/22/18 History raloxifene 60 mg PO QAM 07/19/18 09/22/18 History sertraline 25 mg PO HS 07/19/18 09/22/18 History acetaminophen [Tylenol] 325 mg PO Q6H PRN 09/22/18 09/22/18 History cholecalciferol (vitamin D3) 50,000 unit PO UD 09/22/18 09/22/18 History levalbuterol HCl 1.25 mg INHALATION Q4H PRN 09/22/18 09/22/18 History Allergies Allergy/AdvReac Type Severity Reaction Status Date / Time alendronate sodium Allergy Unknown Verified 09/22/18 12:12 Cephalosporins Allergy Unknown Verified 09/22/18 12:12 erythromycin base Allergy Unknown Unknown Verified 09/22/18 12:12 ibandronate sodium Allergy Unknown Verified 09/22/18 12:12 [From [facility]] Past Med/Surg History Medical History Osteoporosis (Chronic) Anemia (Chronic) Dementia (Chronic) UTI (urinary tract infection) (Resolved) Asthma (Chronic) Bronchitis Surgical History History of tonsillectomy and adenoidectomy (Chronic) Family History Other Unknown family medical history Social History Preferred Language: Maltese Communication Ability: Impaired Matcher Operator Required: No Beliefs That Will Affect Care: None marital status: / Current Living Situation: Other Current Living Situation Comment: caretakers Feels Safe at Home: Yes Smoking Status: Former smoker Review of Systems See HPI for pertinent positives & negatives. and A total of 10 systems reviewed and were otherwise negative Physical Exam Vital Signs Vital Signs - 24 hr 09/22/18 11:29 09/22/18 11:30 09/22/18 11:32 Temperature 36.7 C Temperature Source Oral Sepsis Recent Fever Within 48 Hours No Sepsis Action Taken by Nursing No Action Required Pulse Rate 75 80 79 Pulse Rate from SpO2 Sensor 76 79 Pulse Rhythm Regular Pulse Strength Normal Respiratory Rate 23 16 24 Respiratory Effort / Characteristics Non-Labored Respiratory Depth Normal Respiratory Pattern Regular Blood Pressure 122/61 122/61 Blood Pressure Mean 81 81 Blood Pressure Position Sitting Pulse Oximetry 92 92 92 Oxygen Delivery Method Room Air 09/22/18 11:40 09/22/18 11:50 09/22/18 12:00 Temperature Temperature Source Sepsis Recent Fever Within 48 Hours Sepsis Action Taken by Nursing Pulse Rate 74 79 77 Pulse Rate from SpO2 Sensor 75 79 77 Pulse Rhythm Pulse Strength Respiratory Rate 24 25 H 24 Respiratory Effort / Characteristics Respiratory Depth Respiratory Pattern Blood Pressure Blood Pressure Mean Blood Pressure Position Pulse Oximetry 92 91 92 Oxygen Delivery Method 09/22/18 12:15 09/22/18 12:16 09/22/18 12:20 Temperature Temperature Source Sepsis Recent Fever Within 48 Hours Sepsis Action Taken by Nursing Pulse Rate 76 75 72 Pulse Rate from SpO2 Sensor 75 Pulse Rhythm Pulse Strength Respiratory Rate 25 H 24 17 Respiratory Effort / Characteristics Respiratory Depth Respiratory Pattern Blood Pressure 118/59 L Blood Pressure Mean 78 Blood Pressure Position Pulse Oximetry 93 Oxygen Delivery Method 09/22/18 12:30 09/22/18 12:40 09/22/18 12:50 Temperature Temperature Source Sepsis Recent Fever Within 48 Hours Sepsis Action Taken by Nursing Pulse Rate 68 70 62 Pulse Rate from SpO2 Sensor Pulse Rhythm Pulse Strength Respiratory Rate 9 L 26 H 21 Respiratory Effort / Characteristics Respiratory Depth Respiratory Pattern Blood Pressure Blood Pressure Mean Blood Pressure Position Pulse Oximetry Oxygen Delivery Method 09/22/18 12:53 09/22/18 13:00 09/22/18 13:06 Temperature Temperature Source Sepsis Recent Fever Within 48 Hours Sepsis Action Taken by Nursing Pulse Rate 65 66 71 Pulse Rate from SpO2 Sensor 70 Pulse Rhythm Pulse Strength Respiratory Rate 14 21 17 Respiratory Effort / Characteristics Respiratory Depth Respiratory Pattern Blood Pressure 118/59 L 125/61 Blood Pressure Mean 78 82 Blood Pressure Position Pulse Oximetry 93 Oxygen Delivery Method 09/22/18 13:10 Temperature Temperature Source Sepsis Recent Fever Within 48 Hours Sepsis Action Taken by Nursing Pulse Rate 66 Pulse Rate from SpO2 Sensor 66 Pulse Rhythm Pulse Strength Respiratory Rate 22 Respiratory Effort / Characteristics Respiratory Depth Respiratory Pattern Blood Pressure Blood Pressure Mean Blood Pressure Position Pulse Oximetry 93 Oxygen Delivery Method GENERAL: Awake, alert, follows commands. EYE EXAM: Normal conjunctiva. PERRL, no anisocoria and EOM's grossly intact w/o pain. OROPHARYNX: Moist mucus membranes. Grossly normal dentition. NECK: Supple, no nuchal rigidity, no adenopathy, non-tender. no signs of meningismus. LUNGS: Clear to auscultation. Normal chest wall mechanics. HEART: NSR, no MRG. ABDOMEN: Abdomen soft, non-tender, normo-active bowel sounds, no masses, no rebound or guarding. BACK: No CVA TTP. SKIN: No rashes and no bruising. UPPER EXTREMITIES: Upper extremities are grossly normal. LOWER EXTREMITIES: No pitting edema. No calf pain. NEURO EXAM: Awake, alert, follows commands. Generalized weakness. No focal weakness. Course 1144: Past medical records reviewed. The patient was evaluated in room C10. A complete history and physical examination was performed. 1411: Case management will speak with the patient. 1500: I discussed today's findings with the patient and her caregiver. They verbalized agreement of the treatment plan. She was discharged home. Administered Medications Heparin Sodium (Porcine) (Heparin Sodium (Porcine)) 5,000 units SQ Q12 [facility] Stop: 10/22/18 20:59 Last Admin: 09/23/18 08:55 Dose: 5,000 units Documented by: [id number] Cosigned by: [id number] Admin: 09/22/18 20:33 Dose: 5,000 units Documented by: [id number] Cosigned by: [id number] Doxycycline Hyclate 100 mg/ (Dextrose) 110 mls @ 50 mls/hr IV Q12@0600,1800 [facility] Stop: 09/29/18 17:59 Last Infusion: 09/23/18 07:00 Dose: 0 mls/hr Documented by: [id number] Admin: 09/23/18 05:55 Dose: 50 mls/hr Documented by: [id number] Infusion: 09/22/18 21:07 Dose: 0 mls/hr Documented by: [id number] Admin: 09/22/18 18:49 Dose: 50 mls/hr Documented by: [id number] Piperacillin Sod/Tazobactam (Sod 3.375 gm/ Dextrose) 115 mls @ 28.75 mls/hr IV Q8H [facility]; Protocol Stop: 10/02/18 00:00 Last Admin: 09/23/18 10:19 Dose: 28.8 mls/hr Documented by: [id number] Infusion: 09/23/18 04:01 Dose: 0 mls/hr Documented by: [id number] Admin: 09/22/18 23:59 Dose: 28.8 mls/hr Documented by: [id number] Sodium Chloride (Nss 1000ml) 1,000 mls @ 75 mls/hr IV .[id number] [facility] Stop: 10/22/18 17:14 Last Admin: 09/23/18 09:15 Dose: 75 mls/hr Documented by: [id number] Infusion: 09/23/18 09:15 Dose: 75 mls/hr Documented by: [id number] Infusion: 09/23/18 05:55 Dose: 75 mls/hr Documented by: [id number] Admin: 09/22/18 18:12 Dose: 75 mls/hr Documented by: [id number] Magnesium Oxide (Mag-Ox) 400 mg PO BID [facility] Stop: 10/23/18 08:59 Last Admin: 09/23/18 09:18 Dose: 400 mg Documented by: [id number] Miscellaneous (Order Awaiting Action) 1 ea N/A QS [facility] Stop: 10/23/18 00:00 Last Admin: 09/23/18 08:52 Dose: Not Given Documented by: [id number] Admin: 09/22/18 23:59 Dose: Not Given Documented by: [id number] Montelukast Sodium (Singulair) 10 mg PO [facility] Stop: 10/22/18 20:59 Last Admin: 09/22/18 20:34 Dose: 10 mg Documented by: [id number] Raloxifene HCl (Evista) 60 mg PO [facility] Stop: 10/23/18 08:59 Last Admin: 09/23/18 08:52 Dose: 60 mg Documented by: [id number] Senna/Docusate Sodium (Senokot S) 1 tab PO [facility] Stop: 10/23/18 08:59 Last Admin: 09/23/18 10:19 Dose: 1 tab Documented by: [id number] Sertraline HCl (Zoloft) 25 mg PO [facility] Stop: 10/22/18 20:59 Last Admin: 09/22/18 20:34 Dose: 25 mg Documented by: [id number] Discontinued Medications Bisacodyl (Dulcolax) 10 mg OK [facility] Stop: 09/22/18 18:06 Last Admin: 09/22/18 18:49 Dose: 10 mg Documented by: [id number] Ciprofloxacin (Cipro) 500 mg PO [facility] Stop: 09/22/18 14:03 Last Admin: 09/22/18 14:37 Dose: 500 mg Documented by: [id number] Sodium Chloride (Nss 1000ml) 1,000 mls @ 999 mls/hr IV .Q1H1M [facility] Stop: 09/22/18 12:45 Last Infusion: 09/22/18 13:00 Dose: 0 mls/hr Documented by: [id number] Admin: 09/22/18 12:03 Dose: 999 mls/hr Documented by: [id number] Sodium Chloride (Nss) 500 mls @ 80 mls/hr IV .Q6H15M [facility] Stop: 10/22/18 14:59 Last Admin: 09/22/18 16:52 Dose: Not Given Documented by: [id number] Piperacillin Sod/Tazobactam (Sod 3.375 gm/ Dextrose) 115 mls @ 230 mls/hr IV [facility]; Protocol Stop: 09/22/18 17:34 Last Infusion: 09/22/18 18:48 Dose: 0 mls/hr Documented by: [id number] Admin: 09/22/18 18:12 Dose: 230 mls/hr Documented by: [id number] Lactulose (Chronulac) 30 gm PO [facility] Stop: 09/22/18 18:06 Last Admin: 09/22/18 18:49 Dose: 30 gm Documented by: [id number] Potassium Chloride (Shari Ciel Elix) 40 meq PO 0900 [facility] Stop: 09/23/18 09:01 Last Admin: 09/23/18 09:15 Dose: 40 meq Documented by: [id number] Medical Decision Making Medical Records Attestation: I reviewed the patient's medical records. Home Medications Current Medication List: was personally reviewed by me Laboratory Data Attestation: I reviewed the patient's lab results. Result diagrams: 09/23/18 05:34 09/23/18 05:34 Lab Results 09/22/18 09/22/18 09/22/18 Range/Units 11:58 11:58 13:05 WBC 13.02 H (4.8-10.8) K/uL RBC 3.51 L (4.2-5.4) M/uL Hgb 10.6 L (12.0-16.0) g/dL Hct 30.9 L (37-47) % MCV 88.0 (80-100) fL MCH 30.2 (25-34) pg MCHC 34.3 (32-36) g/dL RDW Std Deviation 45.4 (36.4-46.3) fL RDW Coeff of Frida 14.2 (11.5-14.5) % Plt Count 425 H (130-400) K/uL MPV 8.8 (7.4-10.4) fL Immature Gran % (Auto) 0.2 % Neut % (Auto) 89.8 % Lymph % (Auto) 5.6 % Rabun % (Auto) 4.2 % Eos % (Auto) 0.1 % Baso % (Auto) 0.1 % Immature Gran # (Auto) 0.03 H (0.00-0.02) K/uL Neut # (Auto) 11.69 H (1.4-6.5) K/uL Lymph # (Auto) 0.73 L (1.2-3.4) K/uL Rabun # (Auto) 0.55 (0.11-0.59) K/uL Eos # (Auto) 0.01 (0-0.5) K/uL Baso # (Auto) 0.01 (0-0.2) K/uL Sodium 134 L (136-145) mmol/L Potassium 3.7 (3.5-5.1) mmol/L Chloride 101 (98-107) mmol/L Carbon Dioxide 25 (21-32) mmol/L Anion Gap 8.0 (3-11) BUN 17 (7-18) mg/dl Creatinine 0.68 (0.6-1.2) mg/dl Est Cr Clr Drug Dosing 47.6 ml/min Est GFR ( Amer) 97.1 Est GFR (Non-Af Amer) 83.8 BUN/Creatinine Ratio 25.5 H (10-20) Glucose 97 (70-99) mg/dl Calcium 8.7 (8.5-10.1) mg/dl Total Bilirubin 0.9 (0.2-1) mg/dl AST 23 (15-37) U/L ALT 18 (12-78) U/L Alkaline Phosphatase 115 (45-117) U/L Troponin I < 0.015 (0-0.045) ng/ml Total Protein 6.5 (6.4-8.2) gm/dl Albumin 2.2 L (3.4-5.0) gm/dl Globulin 4.3 H (2.5-4.0) gm/dl Albumin/Globulin Ratio 0.5 L (0.9-2) TSH 1.030 (0.300-4.500) uIu/ml Urine Color Dark Yellow Urine Appearance Cloudy A (Clear) Urine pH 5.0 (4.5-7.5) Ur Specific Cut Off 1.032 H (1.000-1.030) Urine Protein 1+ H (Negative) Urine Glucose (UA) Negative (Negative) Urine Ketones 1+ H (Negative) Urine Blood 1+ H (Negative) Urine Nitrite Positive A (Negative) Urine Bilirubin Negative (Negative) Urine Urobilinogen Negative (Negative) Ur Leukocyte Esterase 1+ H (Negative) Urine WBC (Auto) >30 H (0-5) /hpf Urine RBC (Auto) 0-4 (0-4) /hpf U Hyaline Cast (Auto) 0 (0-5) /lpf U Epithel Cells (Auto) 20-30 H (0-5) /lpf Urine Bacteria (Auto) 4+ H (Negative) Urine Yeast Not Reportable Imaging Data Radiologist's Impression: Radiology results as stated below per my review and the radiologist's interpretation: XR chest 1V portable CLINICAL HISTORY: weakness COMPARISON STUDY: 09/18/2018 FINDINGS: The study is rotated. The patient is listing to the right. The heart is normal in size. There are mild right basilar airspace opacities, atelectatic versus infectious/inflammatory. There is no overt failure. There are no large pleural effusions.[ IMPRESSION: Right basilar airspace opacities, atelectatic versus infectious/inflammatory. Clinical and radiographic follow-up is recommended. Electronically signed by: Chicho Avalos M.D. 09/22/2018 12:[address] NONCONTRAST CT DOSE: 614.27 mGy.cm HISTORY: Altered mental status. TECHNIQUE: Multiaxial CT images of the head were performed without the use of intravenous contrast. Automated exposure control was utilized for this study. A dose lowering technique was utilized adhering to the principles of ALARA. Comparison: Head CT 09/09/2018. Findings: Interval improvement in the small fluid levels within the maxillary sinuses and sphenoid sinuses. The mastoid air cells are clear. The calvarium and skull base are intact. There is no mass, hematoma, midline shift, acute infarct. White matter hypodensity is nonspecific but suggestive of microvascular ischemic change. The ventricles and sulci demonstrate mild age-related involutional changes. Impression: No acute intracranial abnormality. Atrophy and microvascular ischemic changes. Interval improvement in the maxillary sinusitis. Electronically signed by: Vish Olivares M.D. 09/22/2018 12:17 PM Blood Pressure Blood Pressure Findings: Normal blood pressure Blood Pressure Disposition: did not require urgent referral MDM Narrative The patient is a 78 year old white female with a past medical history of d ementia, asthma and osteoporosis who presents to the ER via EMS with complaints of weakness. Differential Diagnosis includes but is not limited to dehydration, stroke, anemia, hypoglycemia, hyponatremia, hypernatremia, urinary tract infection, pneumonia, bronchitis, sepsis, gastroenteritis, additional abdominal pathology, metabolic abnormalities and infections. Patient was seen and evaluated the bedside. The patient reportedly was having some worsening of generalized weakness. The patient was recently seen and admitted has not discharged after a UTI. The patient was seen here several days ago and had a negative urinalysis. The patient did have repeat blood work and urinalysis. CT the brain was negative. The patient's urinalysis did appear to be infected. The patient does have a cephalosporin allergy so Cipro was given at 500. After further discussion with case sealer the patient has had a decline in ambulatory status and generalized weakness they did recommend observation admission. I did speak with the on-call hospitalist agreed to further evaluate treat the patient. Patient was admitted to the medicine service. Impression & Plan Acute UTI, Dementia, Weakness, Acute dehydration Discharge Plan Visit Data *Final* Discharge Date/Time: 09/22/18 15:57 Chief Complaint: Altered Mental Status ED Provider: Juaquin Beltran Discharge Problem: Acute UTI, Dementia, Weakness, Acute dehydration Patient Disposition: Admitted As Inpatient Discharge Instructions Interventions: ED Discharge Assessment Last Done: 09/22/18 15:57 Discharge Problem: Dementia Qualifiers: Dementia type: unspecified type Dementia behavioral disturbance: without behavioral disturbance Qualified Code(s): F03.90 - Unspecified dementia without behavioral disturbance The scribe's documentation has been prepared under my direction and personally reviewed by me in its entirety. I confirm that the note above accurately reflects all work, treatment, procedures, and medical decision making performed by me.
[2018-09-23] MEDS: SERTRALINE HCL 50 MG TABLET PO SCH (19:47)
[2018-09-23] MEDS: ACETAMINOPHEN 325 MG TAB PO PRN (19:47)
[2018-09-23] MEDS: MONTELUKAST SODIUM 10 MG TABLET PO SCH (19:48)
[2018-09-24] MEDS: DOXYCYCLINE HYCLATE 100 MG in DEXTROSE 5% 100 ML IV SCH (05:58)
[2018-09-24] MEDS: HEPARIN SOD 5,000 UNIT/0.5 ML VIAL SQ SCH ×2 (08:12→21:41)
[2018-09-24] MEDS: DOCUSATE SODIUM/SENNA 50/8.6MG TAB PO SCH (08:12)
[2018-09-24] MEDS: RALOXIFENE HCL 60 MG TAB PO SCH (08:12)
[2018-09-24] MEDS: MAGNESIUM OXIDE 400 MG TAB PO SCH ×2 (08:12→21:18)
[2018-09-24] MEDS: PIPERACILLIN/TAZOBACTAM 3.375 GM in DEXTROSE 5% 100 ML IV SCH (09:01)
[2018-09-24] MEDS: SODIUM CHLORIDE 0.9% 1000ML 1,000 ML IV SCH (10:16)
[2018-09-24 10:51] LABS: Basophils # (auto) 0.02 K/uL (0-0.2); Basophils % (auto) 0.2 %; Eosinophils # (auto) 0.05 K/uL (0-0.5); Eosinophils % (auto) 0.5 %; Hematocrit (blood only) 28.5 % (37-47); Hemoglobin 9.5 g/dL (12.0-16.0); Immature Granulocytes # (auto) 0.02 K/uL (0.00-0.02); Immature Granulocytes % (auto) 0.2 %; Lymphocytes # (auto) 0.81 K/uL (1.2-3.4); Lymphocytes % (auto) 8.4 %; Mean Corpuscular Hgb Conc 33.3 g/dL (32-36); Mean Corpuscular Volume 89.1 fL (80-100); Mean Platelet Volume 8.5 fL (7.4-10.4); Monocytes # (auto) 0.57 K/uL (0.11-0.59); Monocytes % (auto) 5.9 %; Neutrophils # (auto) 8.23 K/uL (1.4-6.5); Neutrophils % (auto) 84.8 %; Platelet Count 440 K/uL (130-400); RDW Coefficient of Variation 14.3 % (11.5-14.5); RDW Standard Deviation 47.1 fL (36.4-46.3)
[2018-09-24 11:19] LABS: BUN Creatinine Ratio 13.4 (10-20); Calcium 9.1 mg/dl (8.5-10.1); Creatinine Clr Calc Pharmacy 53.7 ml/min; Est GFR (African American) 100.1; Est GFR (Non-African American) 86.4; Magnesium 1.6 mg/dl (1.8-2.4); Potassium 3.7 mmol/L (3.5-5.1)
--- NOTE | 2018-09-24 15:46 | Hospitalist Progress Note ---
Date of Service September 24, 2018 Assessment & Plan (1) Weakness: 1. Generalized weakness, 2. secondary to UTI, Recurrent -- urine culture: E coli -- blood culture: negative change Zosyn to Levaquin 3. Pneumonia, BL bases in the setting of recent Flu infection -- improving clinically change Doxy to Levaquin -- videoswallow 07/18: mild dysphagia continue soft diet 4. Constipation. - (+) BM after suppository - Senokot S ordered 5. History of dementia. -- mental status almost back to baseline 6. History of osteoporosis, control with raloxifene. 7. History of asthma. Continue Breo and Singulair. Currently stable. 8. Recent acute maxillary sinusitis. CAT scan showing improving and antibiotics as above. 9. History of sinus pause during last admission about a 6-second sinus pause. Echocardiogram was okay. There is a plan for 14 days of Zio monitor as an outpatient. As per caregiver, family doctor is supposed to send the monitor, but has not received yet. 10. History of anemia. Hemoglobin is 10.6. We will follow the laboratories. 11. Deep venous thrombosis prophylaxis, heparin subcutaneously. 12. Code status was do not resuscitate on last admission, but could not get in touch with her son to confirm it. We will keep full code for now until able to contact the son. DISPOSITION: PT/OT eval may need SNF Subjective ff up for pneumonia, UTI seen resting in bed, comfortable in good spirits oriented x 2 more alert, answering questions denies dyspnea, has some dry cough denies abdominal pain, problems with urination no other symptoms Review of Systems Review of Systems: All systems reviewed & are unremarkable except as noted in HPI & below Physical Exam Physical Exam: General- oriented x 2, not in distress, speaks in sentences with no effort or accessory muscle use Eyes- anicteric Neck- no JVD Lungs- mild rhonchi at the bases, no wheezing Heart- normal rate, regular rhythm; no murmurs Abdomen- normal bowel sounds, nondistended, soft, nontender Extremities- no pretibial edema, no calf tenderness Neuro- alert, oriented x 2; no gross focal neurologic deficits Skin- warm & dry Results & Data Vital Signs (Past 12 Hours) Vital Signs Temp Pulse Pulse Resp BP Pulse Ox 09/24/18 11:00 36.7 C 80 16 145/75 H 93 09/24/18 07:46 36.8 C 63 16 162/72 H 94 09/24/18 07:13 70 09/24/18 03:47 36.7 C 09/24/18 03:46 37.2 C 71 18 144/68 H 93 Laboratory Results Laboratory Results - last 24 hr 09/24/18 09/24/18 10:37 10:37 WBC 9.70 RBC 3.20 L Hgb 9.5 L Hct 28.5 L MCV 89.1 MCH 29.7 MCHC 33.3 RDW Std Deviation 47.1 H RDW Coeff of Frida 14.3 Plt Count 440 H MPV 8.5 Immature Gran % (Auto) 0.2 Neut % (Auto) 84.8 Lymph % (Auto) 8.4 Canadian % (Auto) 5.9 Eos % (Auto) 0.5 Baso % (Auto) 0.2 Immature Gran # (Auto) 0.02 Neut # (Auto) 8.23 H Lymph # (Auto) 0.81 L Canadian # (Auto) 0.57 Eos # (Auto) 0.05 Baso # (Auto) 0.02 Sodium 138 Potassium 3.7 Chloride 106 Carbon Dioxide 26 Anion Gap 6.0 BUN 8 Creatinine 0.62 Est Cr Clr Drug Dosing 53.7 Est GFR ( Amer) 100.1 Est GFR (Non-Af Amer) 86.4 BUN/Creatinine Ratio 13.4 Glucose 108 H Calcium 9.1 Magnesium 1.6 L
[2018-09-24] MEDS: levoFLOXacin 750 MG TAB PO SCH ×2 (16:36→21:17)
[2018-09-24] MEDS: SERTRALINE HCL 50 MG TABLET PO SCH (21:18)
[2018-09-24] MEDS: MONTELUKAST SODIUM 10 MG TABLET PO SCH (21:18)
[2018-09-25] MEDS: SODIUM CHLORIDE 0.9% 1000ML 1,000 ML IV SCH ×2 (00:19→17:43)
[2018-09-25 06:33] LABS: Hemoglobin 9.3 g/dL (12.0-16.0); Mean Corpuscular Hgb Conc 34.4 g/dL (32-36); Mean Corpuscular Volume 87.9 fL (80-100); Mean Platelet Volume 8.8 fL (7.4-10.4); Platelet Count 439 K/uL (130-400); RDW Coefficient of Variation 14.3 % (11.5-14.5); RDW Standard Deviation 46.2 fL (36.4-46.3); Red Blood Count 3.07 M/uL (4.2-5.4); White Blood Count 6.71 K/uL (4.8-10.8)
[2018-09-25 07:00] LABS: Est GFR (African American) 106.1; Est GFR (Non-African American) 91.5
[2018-09-25] MEDS: DOCUSATE SODIUM/SENNA 50/8.6MG TAB PO SCH (08:03)
[2018-09-25] MEDS: HEPARIN SOD 5,000 UNIT/0.5 ML VIAL SQ SCH ×2 (08:03→20:13)
[2018-09-25] MEDS: RALOXIFENE HCL 60 MG TAB PO SCH (08:03)
[2018-09-25] MEDS: MAGNESIUM OXIDE 400 MG TAB PO SCH ×2 (08:03→19:59)
--- NOTE | 2018-09-25 11:05 | Hospitalist Progress Note ---
Date of Service September 25, 2018 Assessment & Plan (1) Weakness: 1. Generalized weakness, 2. secondary to UTI, Recurrent -- urine culture: E coli -- blood culture: negative change Zosyn to Levaquin -- clinically improving 3. Pneumonia, BL bases in the setting of recent Flu infection -- continues to improve changed Doxy to Levaquin -- videoswallow 07/18: mild dysphagia continue soft diet 4. Constipation. - (+) BM after suppository - Senokot S ordered 5. History of dementia. -- mental status almost back to baseline 6. History of osteoporosis, control with raloxifene. 7. History of asthma. Continue Breo and Singulair. Currently stable. 8. Recent acute maxillary sinusitis. CAT scan showing improving and antibiotics as above. 9. History of sinus pause during last admission about a 6-second sinus pause. Echocardiogram was okay. There is a plan for 14 days of Zio monitor as an outpatient. As per caregiver, family doctor is supposed to send the monitor, but has not received yet. 10. History of anemia. Hemoglobin is 10.6. We will follow the laboratories. 11. Deep venous thrombosis prophylaxis, heparin subcutaneously. 12. Code status was do not resuscitate on last admission, but could not get in touch with her son to confirm it. We will keep full code for now until able to contact the son. DISPOSITION: PT/OT eval may need SNF Subjective ff up for pna, uti seen resting in bed, comfortable oriented x 2 answers most questions appropriately states she feels improved today no cough, dyspnea, abdominal pain, urinary symptoms no other symptoms Review of Systems Review of Systems: All systems reviewed & are unremarkable except as noted in HPI & below Physical Exam Physical Exam: General- oriented x2, not in distress, speaks in sentences with no effort or accessory muscle use Eyes- anicteric Neck- no JVD Lungs- clear breath sounds BL Heart- normal rate, regular rhythm; no murmurs Abdomen- normal bowel sounds, nondistended, soft, nontender Extremities- no pretibial edema, no calf tenderness Neuro- alert, oriented x 2; no gross focal neurologic deficits Skin- warm & dry Results & Data Vital Signs (Past 12 Hours) Vital Signs Temp Pulse Pulse Resp BP BP Pulse Ox 09/25/18 08:10 36.7 C 79 17 106/55 L 92 09/24/18 23:52 37.0 C 74 18 142/72 H 92 09/24/18 23:29 78
[2018-09-25] MEDS: levoFLOXacin 750 MG TAB PO SCH (17:40)
[2018-09-25] MEDS: SERTRALINE HCL 50 MG TABLET PO SCH (19:59)
[2018-09-25] MEDS: MONTELUKAST SODIUM 10 MG TABLET PO SCH (20:00)
[2018-09-26 06:21] LABS: Est GFR (African American) 106.1; Est GFR (Non-African American) 91.5
[2018-09-26] MEDS: DOCUSATE SODIUM/SENNA 50/8.6MG TAB PO SCH (07:43)
[2018-09-26] MEDS: HEPARIN SOD 5,000 UNIT/0.5 ML VIAL SQ SCH ×2 (07:43→21:04)
[2018-09-26] MEDS: RALOXIFENE HCL 60 MG TAB PO SCH (07:44)
[2018-09-26] MEDS: MAGNESIUM OXIDE 400 MG TAB PO SCH ×2 (07:44→21:03)
[2018-09-26] MEDS: ACETAMINOPHEN 325 MG TAB PO PRN (11:03)
--- NOTE | 2018-09-26 17:24 | Hospitalist Progress Note ---
Date of Service September 26, 2018 Assessment & Plan (1) Weakness: 1. Generalized weakness, 2. secondary to UTI, Recurrent -- urine culture: E coli -- blood culture: negative change Zosyn to Levaquin day 3/7 -- clinically improving daily 3. Pneumonia, BL bases in the setting of recent Flu infection -- continues to improve changed Doxy to Levaquin day 3/7 -- videoswallow 07/18: mild dysphagia continue soft diet 4. Constipation. - (+) BM after suppository - Senokot S ordered 5. History of dementia. -- mental status almost back to baseline 6. History of osteoporosis -- control with raloxifene. 7. History of asthma. Continue Breo and Singulair. Currently stable. 8. Recent acute maxillary sinusitis. CAT scan showing improving and antibiotics as above. 9. History of sinus pause during last admission about a 6-second sinus pause. Echocardiogram was okay. There is a plan for 14 days of Zio monitor as an outpatient. As per caregiver, family doctor is supposed to send the monitor, but has not received yet. 10. History of anemia. Hemoglobin is 10.6. 11. Deep venous thrombosis prophylaxis, heparin subcutaneously. 12. Code status was do not resuscitate on last admission, but could not get in touch with her son to confirm it. We will keep full code for now until able to contact the son. DISPOSITION: PT/OT staral may need SNF Subjective Follow-up for pneumonia, UTI Seen resting in bed, sleeping but easily awakened Oriented x2, at this most questions appropriately next Denies abdominal pain, urinary symptoms Denies coughing or shortness of breath next States she feels feels okay overall Denies other symptoms Review of Systems Review of Systems: All systems reviewed & are unremarkable except as noted in HPI & below Physical Exam Physical Exam: General- oriented x 2, not in distress, speaks in sentences with no effort or accessory muscle use Eyes- anicteric Neck- no JVD Lungs-mild rhonchi at the bases, no wheezing, good air entry bilaterally Heart- normal rate, regular rhythm; no murmurs Abdomen- normal bowel sounds, nondistended, soft, nontender Extremities- no pretibial edema, no calf tenderness Neuro- alert, oriented x 2; no gross focal neurologic deficits Skin- warm & dry Results & Data Vital Signs (Past 12 Hours) Vital Signs Temp Pulse Pulse Resp BP BP Pulse Ox 09/26/18 15:24 36.6 C 77 20 137/62 91 09/26/18 15:16 75 09/26/18 12:20 36.8 C 83 16 182/82 H 92 09/26/18 07:27 37.0 C 83 19 179/75 H 90 09/26/18 07:26 80
[2018-09-26] MEDS: levoFLOXacin 750 MG TAB PO SCH (17:40)
[2018-09-26] MEDS ORDERED: LEVALBUTEROL HCL 0.63 MG/3 ML NEB NEB PRN (18:35)
[2018-09-26] MEDS ORDERED: LEVALBUTEROL HCL 0.63 MG/3 ML NEB NEB STA (18:35)
[2018-09-26] MEDS: AMLODIPINE BESYLATE 5 MG TAB PO SCH (18:40)
[2018-09-26] MEDS: SERTRALINE HCL 50 MG TABLET PO SCH (21:03)
[2018-09-26] MEDS: MONTELUKAST SODIUM 10 MG TABLET PO SCH (21:03)
[2018-09-27 06:28] LABS: Creatinine Clr Calc Pharmacy 60.6 ml/min; Est GFR (African American) 104.1; Est GFR (Non-African American) 89.8
[2018-09-27] MEDS: DOCUSATE SODIUM/SENNA 50/8.6MG TAB PO SCH (08:38)
[2018-09-27] MEDS: MAGNESIUM OXIDE 400 MG TAB PO SCH ×2 (08:38→21:18)
[2018-09-27] MEDS: RALOXIFENE HCL 60 MG TAB PO SCH (08:39)
[2018-09-27] MEDS: HEPARIN SOD 5,000 UNIT/0.5 ML VIAL SQ SCH ×2 (08:39→21:18)
[2018-09-27] MEDS: AMLODIPINE BESYLATE 5 MG TAB PO SCH (08:39)
--- NOTE | 2018-09-27 10:46 | Hospitalist Progress Note ---
Date of Service September 27, 2018 Assessment & Plan (1) Weakness: 1. Generalized weakness, 2. secondary to UTI, Recurrent -- urine culture: E coli -- blood culture: negative change Zosyn to Levaquin day 4/7 -- clinically improving daily but still deconditioned continue PT/OT may need SNF 3. Pneumonia, BL bases in the setting of recent Flu infection -- continues to improve changed Doxy to Levaquin day 4/7 -- videoswallow 07/18: mild dysphagia continue soft diet 4. Constipation. - (+) BM after suppository - Senokot S ordered 5. History of dementia. -- mental status back to baseline 6. History of osteoporosis -- control with raloxifene. 7. History of asthma. Continue Breo and Singulair. Currently stable. 8. Recent acute maxillary sinusitis. CAT scan showing improving and antibiotics as above. 9. History of sinus pause during last admission about a 6-second sinus pause. Echocardiogram was okay. There is a plan for 14 days of Zio monitor as an outpatient. As per caregiver, family doctor is supposed to send the monitor, but has not received yet. 10. History of anemia. Hemoglobin is 10.6. 11. Deep venous thrombosis prophylaxis, heparin subcutaneously. 12. Code status was do not resuscitate on last admissionWe will keep full code for now until able to contact the son. DISPOSITION: PT/OT [place]i[facility] may need SNF Subjective ff up for pneumonia, UTI seen resting in bed, comfortable states she feels fine overall breathing is about the same, denies cough no abdominal pain, problems with urination denies chills ate 25% of breakfast, curled up in position-- per OT who visited patient at home, she was doing the same at home Review of Systems Review of Systems: All systems reviewed & are unremarkable except as noted in HPI & below Physical Exam Physical Exam: General- oriented x 3, not in distress, speaks in sentences with no effort or accessory muscle use -- soft voice, somewhat weak Eyes- anicteric Neck- no JVD Lungs- mold rhonchi at the bases Heart- normal rate, regular rhythm; no murmurs Abdomen- normal bowel sounds, nondistended, soft, nontender Extremities- no pretibial edema, no calf tenderness Neuro- alert, oriented x 3; no gross focal neurologic deficits Skin- warm & dry Results & Data Vital Signs (Past 12 Hours) Vital Signs Temp Pulse Pulse Resp BP BP Pulse Ox 09/27/18 07:39 36.7 C 77 17 157/71 H 91 09/27/18 07:12 85 09/27/18 04:00 36.7 C 81 18 147/71 H 93 09/27/18 02:46 82 09/26/18 23:50 36.8 C 85 16 151/72 H 90
[2018-09-27] MEDS: levoFLOXacin 750 MG TAB PO SCH (13:26)
--- NOTE | 2018-09-27 16:57 | Magnetic Resonance Report ---
MR brain wo con HISTORY: Mental status change altered mental status r/o cva TECHNIQUE: Multiplanar multisequence MRI of the brain was performed without the use of contrast. COMPARISON STUDY: 08/26/2017 FINDINGS: There are no areas of restricted diffusion to suggest acute infarction. The midline structu res are intact. The paranasal sinuses are clear. The mastoid air cells are clear. The ventricles and sulci are within normal limits for age. There is no mass, hematoma, midline shift. The major vascular flow-voids at the skull base are well maintained. Findings of age-related atrophy and chronic small vessel change. No evidence for an acute ischemic insult. IMPRESSION: No acute intracranial abnormality. Atrophy and findings of chronic small vessel change. No change fro m the prior study. The above report was generated using voice recognition software. It may contain grammatical, syntax or spelling errors. Electronically signed by: Artemio Su M.D. 09/27/2018 4:56 PM
[2018-09-27] MEDS: SERTRALINE HCL 50 MG TABLET PO SCH (21:17)
[2018-09-27] MEDS: MONTELUKAST SODIUM 10 MG TABLET PO SCH (21:17)
[2018-09-28 06:08] LABS: Hematocrit (blood only) 28.6 % (37-47); Mean Corpuscular Volume 87.2 fL (80-100); Platelet Count 545 K/uL (130-400); RDW Standard Deviation 47.4 fL (36.4-46.3); Red Blood Count 3.28 M/uL (4.2-5.4); White Blood Count 8.61 K/uL (4.8-10.8)
[2018-09-28 06:40] LABS: Creatinine Clr Calc Pharmacy 52.9 ml/min; Est GFR (African American) 99.6; Est GFR (Non-African American) 85.9
[2018-09-28] MEDS ORDERED: AMLODIPINE BESYLATE 5 MG TAB PO ONE ×2 (07:48→08:15)
[2018-09-28] MEDS: DOCUSATE SODIUM/SENNA 50/8.6MG TAB PO SCH (09:05)
[2018-09-28] MEDS: MAGNESIUM OXIDE 400 MG TAB PO SCH ×2 (09:06→21:23)
[2018-09-28] MEDS: RALOXIFENE HCL 60 MG TAB PO SCH (09:06)
[2018-09-28] MEDS: HEPARIN SOD 5,000 UNIT/0.5 ML VIAL SQ SCH ×2 (09:06→21:23)
[2018-09-28] MEDS: levoFLOXacin 750 MG TAB PO SCH (11:36)
[2018-09-28] MEDS: ACETAMINOPHEN 325 MG TAB PO PRN (11:36)
--- NOTE | 2018-09-28 15:37 | Hospitalist Progress Note ---
Date of Service September 28, 2018 Assessment & Plan (1) Weakness: Patient presents with generalized weakness secondary to recurrent urinary tract infection and Pneumonia Generalized weakness Recurrent Urinary Tract Infection Pneumonia, bilateral -was initially on Zosyn and Doxycycline from 09/22/18, currently on Levaquin, will continue Levaquin - video swallow 07/18/18: mild dysphagia; continue soft diet -PT/OT as tolerated Recent acute maxillary sinusitis. -CAT scan showing improving and antibiotics as above. History of asthma -Continue Breo and Singulair History of dementia. Constipation. -continue Senokot History of osteoporosis -continue with raloxifene. History of sinus pause during last admission about a 6-second sinus pause -continue cardiac monitoring Anemia -Hgb stable around 10 Deep venous thrombosis prophylaxis, heparin subcutaneously. Code Status as per Living Will is Do Not Resuscitate and Do Not Intubate and patient's adult children in agreement son [phone] Subjective Patient speaks softly. lays in a position on the bed. patient mouthing words softly. When asked if she was in pain, she said no. Patient does not carry extended conversation. Patient's son at bedside. Patient's daughter brought in Living Will is interpreted as Do Not Resuscitate and Do Not Intubate Physical Exam Physical Exam: General: appears weak, lays in position, no acute distress Lungs: no crackles, no wheezing Heart: regular rate Abdomen: soft, nontender, bowel sounds positive Extremities: no gross edema Results & Data Vital Signs (Past 12 Hours) Vital Signs Temp Pulse Pulse Resp BP Pulse Ox 09/28/18 11:56 36.4 C L 92 H 18 131/71 90 09/28/18 07:12 86 09/28/18 07:07 37.1 C 86 18 183/71 H 90 09/28/18 04:41 37 C 85 18 151/71 H 92
[2018-09-28] MEDS ORDERED: LEVALBUTEROL 1.25MG/0.5ML NEB NEB STA (19:10)
--- NOTE | 2018-09-28 19:40 | XRay Report ---
XR chest 1V portable CLINICAL HISTORY: shortness of breath COMPARISON STUDY: Chest radiograph September 22, 2018. FINDINGS: There is no pneumothorax. Note is made of interval development of extensive opacification o f the left hemithorax since exam of September 22, 2018. There is minimal aeration of the left upper lobe. L eft hemithorax volume loss is noted with leftward shift of mediastinal structures. There is no eviden ce for pulmonary edema. There is mild right basilar opacity. IMPRESSION: Interval development of near complete opacification of the left lung with volume loss. T his suggests subtotal atelectasis of the left lung, possibly due to mucous plugging. Discussed with Saleem Dunn at time of dictation. Electronically signed by: Alejandro Coyle M.D. 09/28/2018 7:38 PM
[2018-09-28 20:19] LABS: HCO3 ABG 23 mmol/L (19-24); Oxygen Saturation ABG 92.9 % (90-95); PCO2 ABG 30 mmHg (35-46); PO2 ABG 68 mm/Hg (80-95)
[2018-09-28 20:30] LABS: Albumin Level 1.8 gm/dl (3.4-5.0); BUN Creatinine Ratio 27.2 (10-20); Calcium 8.6 mg/dl (8.5-10.1); Est GFR (African American) 99.1; Est GFR (Non-African American) 85.5; Potassium 3.9 mmol/L (3.5-5.1)
[2018-09-28 20:32] LABS: Allen Test Pos (Pos); pH ABG 7.51 (7.35-7.45)
[2018-09-28 20:33] LABS: Albumin Globulin Ratio 0.4 (0.9-2); Bilirubin,Total 0.3 mg/dl (0.2-1); Globulin 4.1 gm/dl (2.5-4.0); Total Protein 5.9 gm/dl (6.4-8.2)
--- NOTE | 2018-09-28 20:52 | CT Scan Report ---
CT chest wo con CT DOSE: 196.02 mGy.cm HISTORY: lung collapse TECHNIQUE: Multiaxial CT images of the chest were performed without contrast. A dose lowering techni que was utilized adhering to the principles of ALARA. COMPARISON: Chest 09/28/2018. FINDINGS: Rotated study. Large amount of mucoid material within the distal left mainstem bronchus and occupying the majority of the left lung bronchi. This results in near-complete collapse of the left lung with left mediastinal shift. Small portion of aerated lung within the left lung apex. There is a small left pleural effusion. A few scattered patchy groundglass densities within the right lung are noted. There are patchy areas of consolidation within the aerated portion of the left lung apex. The visualized liver and spleen are unremarkable. Normal caliber thoracic aorta. The heart is normal in s ize. A single enlarged AP window lymph node measuring 1.7 x 0.9 cm. Mild body wall edema. Old marilu navarro deformity within the mid thoracic spine. IMPRESSION: 1. Near complete collapse of the left lung due to a large mucous plug occupying the left mainstem bro nchus and majority of the left lung bronchi. Bronchoscopy recommended for further evaluation. 2. Small left pleural effusion. 3. Patchy areas consolidation within the aerated portion of the left lung apex as well as a few small patchy groundglass densities within the right lung. This favors a multifocal pneumonia. Electronically signed by: Vish Olivares M.D. 09/28/2018 8:51 PM
[2018-09-28] MEDS ORDERED: PIPERACILL/TAZOBAC CONSULT ACTIVE PRN (21:01)
[2018-09-28] MEDS: SERTRALINE HCL 50 MG TABLET PO SCH (21:23)
[2018-09-28] MEDS: MONTELUKAST SODIUM 10 MG TABLET PO SCH (21:23)
[2018-09-28] MEDS ORDERED: fentaNYL citrate 100 MCG/2 ML VIAL ONE (21:59)
[2018-09-28] MEDS ORDERED: MIDAZOLAM HCL 1 MG/ML 2ML VIAL ONE (21:59)
[2018-09-28] MEDS ORDERED: PIPERACILLIN/TAZOBACTAM 3.375 GM in DEXTROSE 5% 100 ML IV ONE (22:00)
[2018-09-28] MEDS ORDERED: fentaNYL citrate 100 MCG/2 ML VIAL IV STA (22:01)
[2018-09-28] MEDS ORDERED: MIDAZOLAM HCL 5 MG/ML 1 ML VIAL IV STA (22:02)
[2018-09-29] MEDS: LEVALBUTEROL 1.25MG/0.5ML NEB NEB SCH ×4 (01:50→19:24)
[2018-09-29] MEDS: PIPERACILLIN/TAZOBACTAM 3.375 GM in DEXTROSE 5% 100 ML IV SCH ×3 (04:28→21:31)
[2018-09-29 05:05] LABS: Albumin Level 1.8 gm/dl (3.4-5.0); BUN Creatinine Ratio 24.5 (10-20); Calcium 8.5 mg/dl (8.5-10.1); Creatinine Clr Calc Pharmacy 51.2 ml/min; Est GFR (African American) 98.6; Magnesium 2.2 mg/dl (1.8-2.4); Potassium 3.9 mmol/L (3.5-5.1)
[2018-09-29 05:07] LABS: Albumin Globulin Ratio 0.4 (0.9-2); Bilirubin,Total 0.4 mg/dl (0.2-1); Globulin 4.3 gm/dl (2.5-4.0); Phosphorus 3.7 mg/dl (2.5-4.9); Total Protein 6.1 gm/dl (6.4-8.2)
--- NOTE | 2018-09-29 06:50 | XRay Report ---
XR chest 1V portable CLINICAL HISTORY: post bronch LLL was collapsed COMPARISON STUDY: 09/28/2018 7:19 PM FINDINGS: Persistent complete opacification left hemithorax. Slight compensatory hyperaeration right lung. Mild cardiomediastinal silhouette shift to the left. IMPRESSION: Complete opacification left hemithorax. The above report was generated using voice recognition software. It may contain grammatical, syntax or spelling errors. Electronically signed by: Artemio Su M.D. 09/29/2018 6:49 AM
[2018-09-29] MEDS ORDERED: AMLODIPINE BESYLATE 5 MG TAB PO SCH ×2 (09:00)
--- NOTE | 2018-09-29 12:00 | Critical Care Consultation ---
Date of Consultation September 29, 2018 Assessment & Plan (1) Acute UTI: Present on Admission?: Yes (2) Dementia: Present on Admission?: Yes (3) Weakness: Present on Admission?: Yes (4) Admitted to intensive care unit: 78 yo female patient apparently with terminal dementia causing motor weakness now developing respiratory failure due to muscle weakness and is in failure to thrive Would continue zosyn for now and FU sputum culture from the bronch Would continue Levalbuterol heparin SC pantoprazole IV and keep her NPO WOuld be generous with fentanyl for pain control consulted palliative care History of Present Illness Reason for Consultation: Collapsed left lung Requesting Physician: Frankie Ventura MD Attending Physician: Kenrick Ventura MD History of Present Illness Mrs Harmon is a 78-year-old female repoerted to have dementia, asthma, anemia, osteoporosis, who nahid at home with a 24-hour caregiver and has been admitted to the hospital on 09/09 for influenza and maxillary sinusitis and was DCed home 09/15 but came back on 09/18 to ED with she with complaint of lethargy. All w/u was negative and patient was given fluids and she seemed to have improved and she was sent back home only to come back on 09/22/18 because of generalized weakness and was treated for possible pneumonia and UTI. It was reported that she has been extremely weak and only able to whisper. She was found to be tachycardiac last night and CXR then CT showed collapsed left lung with a LMS possible plugs I was called acutely on her last evening and performed bronchoscopy. She underwent bronchoscopy after her son Mike gave consent. The patient had excessive mucuous in the left mainstem TIA and LLL and all that was toiletted and sent to culture However, post procedure CXR showed persistent collapsed LL. Bedside US this am shows a very small pocket of fluid non tapable without risk. He daughter Marlene was at bedside this am. She is also an RN and she conveyed to me that the patient has a living will and woul want to go home on comfort care without feeding tubes but with pain control. I called palliative care and informed them. Will stop all interventions and blood draws. She is at high risk of aspiration. Spech and swallow had been called to evaluate her. The patient herself answerd only yes or no with gestures. She has no audible sounds. TSH had been normal and MRI head showed no acute pathology. Her PT therapist at home says she has been contracted in the same posture for a while. Allergies Allergy/AdvReac Type Severity Reaction Status Date / Time alendronate sodium Allergy Unknown Verified 09/22/18 12:12 Cephalosporins Allergy Unknown Verified 09/22/18 12:12 erythromycin base Allergy Unknown Unknown Verified 09/22/18 12:12 ibandronate sodium Allergy Unknown Verified 09/22/18 12:12 [From [facility]] Home Medications Home Medications Medication Instructions Recorded Confirmed Type Breo Ellipta 1 inh INHALATION QAM 07/19/18 09/22/18 History albuterol sulfate [Ventolin HFA] 2 puff INHALATION QID PRN 07/19/18 09/22/18 History montelukast 10 mg PO HS 07/19/18 09/22/18 History raloxifene 60 mg PO QAM 07/19/18 09/22/18 History sertraline 25 mg PO HS 07/19/18 09/22/18 History acetaminophen [Tylenol] 325 mg PO Q6H PRN 09/22/18 09/22/18 History cholecalciferol (vitamin D3) 50,000 unit PO UD 09/22/18 09/22/18 History levalbuterol HCl 1.25 mg INHALATION Q4H PRN 09/22/18 09/22/18 History Patient History Medical History Osteoporosis (Chronic) Anemia (Chronic) Dementia (Chronic) UTI (urinary tract infection) (Resolved) Asthma (Chronic) Bronchitis Surgical History History of tonsillectomy and adenoidectomy (Chronic) Family History Other Unknown family medical history Social History Preferred Language: Cymro Communication Ability: Unable Home Hospice Aide Required: No Beliefs That Will Affect Care: None marital status: / Current Living Situation: Other Current Living Situation Comment: caretakers Feels Safe at Home: Yes Smoking Status: Former smoker Review of Systems Review of Systems: Unobtainable due to mental health condition Physical Exam Physical Exam: not in distress contracted and ill appearing Eyes: PERRL, conjunctivae normal, anicteric sclerae ENMT: external ear and nose normal, oropharynx normal Neck: trachea midline, no thyromegaly Respiratory: No air entry LL field clear breath sounds on the right Cardiovascular: RRR, no murmur, no edema Gastrointestinal (Abdomen): normal bowel sounds, soft, nontender, no hepatosplenomegaly scaphoid Musculoskeletal: No decubiti contracted with kyphosis and scoliotic to the left. Hip flexed all the way and contracted Skin: no rashes, warm and dry Neurologic: responds yes and no but does not hold conversation. Does not move her extremities at all. Results & Data Vital Signs (Past 12 Hours) Vital Signs Temp Pulse Pulse Pulse Resp BP BP 09/29/18 11:00 37.1 C 78 28 H 124/59 L 09/29/18 10:00 83 28 H 120/52 L 09/29/18 09:00 88 26 H 99/50 L 09/29/18 08:00 37.4 C 91 H 27 H 112/58 L 09/29/18 07:00 100 H 101 H 30 H 137/64 09/29/18 06:00 85 26 H 124/61 09/29/18 05:00 87 27 H 125/60 09/29/18 04:00 36.7 C 93 H 28 H 124/64 09/29/18 03:00 102 H 31 H 122/66 09/29/18 02:00 98 H 29 H 130/64 09/29/18 01:50 84 16 09/29/18 01:39 85 09/29/18 01:00 89 29 H 129/63 09/29/18 00:00 89 27 H 127/62 Pulse Ox 09/29/18 11:00 93 09/29/18 10:00 95 09/29/18 09:00 94 09/29/18 08:00 94 09/29/18 07:00 94 09/29/18 06:00 94 09/29/18 05:00 93 09/29/18 04:00 94 09/29/18 03:00 92 09/29/18 02:00 96 09/29/18 01:50 95 09/29/18 01:39 09/29/18 01:00 96 09/29/18 00:00 96 (1) Dementia Dementia behavioral disturbance: without behavioral disturbance Dementia type: unspecified type Qualified Code(s): F03.90 - Unspecified dementia without behavioral disturbance
[2018-09-29] MEDS: FAMOTIDINE 20 MG in SYRINGE 3 ML IV SCH (13:24)
--- NOTE | 2018-09-29 15:08 | Palliative Care Progress Note ---
Date of Service September 29, 2018 Subjective Consult received. Saw patient and her son, Mike. Patient sleeping during my visit. Mike stated that their ultimate goal is to get patient home, likely with hospice. However, his brother who is [employer] is currently in [place]. He's coming to town tomorrow and they will give me a call to set up time to meet about goals of care. Patient's daughter is an RN and has good understanding of medical condition. Apparently patient does have a living will which states she wants no heroic or life-prolonging measures (including feeding tube) when end-stage. Further discussion to follow. Results & Data Vital Signs (Past 12 Hours) Vital Signs Temp Pulse Pulse Pulse Resp BP BP 09/29/18 14:31 102 H 22 09/29/18 11:00 37.1 C 78 28 H 124/59 L 09/29/18 10:00 83 28 H 120/52 L 09/29/18 09:00 88 26 H 99/50 L 09/29/18 08:00 37.4 C 91 H 27 H 112/58 L 09/29/18 07:00 100 H 101 H 30 H 137/64 09/29/18 06:00 85 26 H 124/61 09/29/18 05:00 87 27 H 125/60 09/29/18 04:00 36.7 C 93 H 28 H 124/64 Pulse Ox 09/29/18 14:31 93 09/29/18 11:00 93 09/29/18 10:00 95 09/29/18 09:00 94 09/29/18 08:00 94 09/29/18 07:00 94 09/29/18 06:00 94 09/29/18 05:00 93 09/29/18 04:00 94
--- NOTE | 2018-09-29 18:14 | Hospitalist Progress Note ---
Date of Service September 29, 2018 Assessment & Plan (1) Weakness: Patient presents with generalized weakness secondary to recurrent urinary tract infection and Pneumonia Generalized weakness Recurrent Urinary Tract Infection of E.coli Pneumonia, bilateral Aspiration -was initially on Zosyn and Doxycycline from 09/22/18, and then was on Levaquin -09/28/18 was found to be tachycardiac last night and CXR and CT showed collapsed left lung with a mucous plugs patient underwent bronchoscopy and patient had excessive mucuous in the left mainstem TIA and LLL and all that was toiletted and sent to culture -post procedure CXR showed persistent collapsed LL. Bedside US shows a very small pocket of fluid non tapable without risk. -since 09/28/18, patient on Zosyn and will continue Zosyn for now -other concern is that patient is aspiration risk and it is unclear whether or not the patient's family members are in agreement on feeding measures -neurology consult was requested whether patient has neuromuscular disorder History of dementia History of asthma -Continue Breo and Singulair -nebulizer treatments Recent acute maxillary sinusitis in the past Constipation. -hold senokot History of osteoporosis -hold raloxifene. History of sinus pause during last admission about a 6-second sinus pause -continue cardiac monitoring Anemia -Hgb stable around 10 Deep venous thrombosis prophylaxis: SCDs Code Status as per Living Will is Do Not Resuscitate and Do Not Intubate multiple family members involved son Mike [phone] states that another son Adelso is main medical decision maker and he will be coming to town to see the patient by weekend daughter Marlene had previously advocated for comfort care but there is disagreement with family and current goals appears to continue IV antibiotics Subjective Patient status post bronch overnight for mucous plugging. Patient appears to be respiratory stable. does not give good inhalation when asked but she is not having labored breathing. minimally verbal. lays generally in position no acute pain. ICU physician and hospitalist had long discussion with patient and family members but there appears to be some dissent in the family in regards to goals of care especially as patient is high aspiration risk Results & Data Vital Signs (Past 12 Hours) Vital Signs Temp Pulse Pulse Resp BP Pulse Ox 09/29/18 17:00 79 28 H 127/56 L 93 09/29/18 16:00 90 29 H 127/60 90 09/29/18 15:01 37.0 C 99 H 32 H 93 09/29/18 15:00 95 H 32 H 133/60 89 L 09/29/18 14:31 102 H 22 93 09/29/18 14:00 89 26 H 135/60 94 09/29/18 13:00 76 26 H 105/44 L 94 09/29/18 12:00 79 25 H 108/49 L 95 09/29/18 11:00 37.1 C 78 28 H 124/59 L 93 09/29/18 10:00 83 28 H 120/52 L 95 09/29/18 09:00 88 26 H 99/50 L 94 09/29/18 08:00 37.4 C 91 H 27 H 112/58 L 94 09/29/18 07:00 100 H 101 H 30 H 137/64 94
[2018-09-29] MEDS: LEVALBUTEROL HCL 1.25 MG/3 ML NEB NEB SCH (19:35)
[2018-09-29] MEDS: HEPARIN SOD 5,000 UNIT/0.5 ML VIAL SQ SCH (21:31)
--- NOTE | 2018-09-29 21:53 | Progress Note ---
DATE: 09/22/2018 REASON FOR CONSULTATION: Weakness. HISTORY OF PRESENT ILLNESS: This is a followup consultation. The patient has been seen by Zulma Soni and Dr. Garcia prior to admission for encephalopathy. The patient has a history of dementia, asthma, anemia, osteoporosis, who had been recently hospitalized 09/09 to 09/15, treated for influenza, UTI, maxillary sinusitis and discharged home. She lives with 24-hour day caregivers. She was brought into the ER on 09/18/2018 with lethargy. Workup was negative. The patient given fluids and seemed to improve, was sent back home, but returned on 09/22/2018 because of generalized weakness, low volume voice, no bowel movement, dry cough. The patient was found to have a white count of 13. Chest x-ray, right basilar airspace opacity and the patient was admitted with a positive UA. Chest x-ray, atelectasis versus pneumonitis and she was placed on IV Zosyn. Determining what her baseline function is somewhat difficult. I spoke to her son today and I believe she [place] out of [place]. She is contracted in the right side in the hospital and it is unclear how long that has been going on. Son does admit that on prior admission, she tended to have that posture. She was living at home, spending time in a chair perhaps not transferring in a short period of time that she had been home. She is awake enough to volunteer any complaints. Her workup for evaluation for weakness have included a normal CK and normal TSH. An MRI of the brain which shows no acute infarctions, chronic vascular changes. She on the last admission 2-1/2 months ago, had a CT of the cervical spine after a fall, which showed no fractures, moderate degenerative changes and normal prevertebral soft tissues C1-C2. Her son indicates, at home, she has not had any difficulty with chewing or swallowing, although aspiration has been a question on this admission. She did not tend to have double vision, nasal speech. They do indicate that when she would become ill, she would tend to speak in a hoarse voice. She was occasionally incontinent in the past, had no complaints of back pain. She had no history of cancer. PAST MEDICAL HISTORY: As above. Sinus pause, anemia, urinary tract infection. PAST SURGICAL HISTORY: Tonsillectomy, adenoidectomy. FAMILY HISTORY: Noncontributory. Lives alone with 24-hour caregiving, nonsmoker and rare alcohol. ALLERGIES: ALENDRONATE, BONIVA, CEPHALOSPORINS. HOME MEDICATIONS: Tylenol, albuterol, Breo Ellipta, vitamin D3, levalbuterol, montelukast, raloxifene, and sertraline. CURRENT HOSPITAL MEDS: Include Zosyn, famotidine, subQ heparin, levalbuterol. PHYSICAL EXAMINATION: GENERAL: The patient is sleepy but arousable, lying on her left side in bed with the right leg contracted. She is oriented to person, does not know the year, think she is in [facility]. VITAL SIGNS: 127/56, 85, 18, 37 on 1 liter of oxygen. Her head is normocephalic, atraumatic. There are no carotid bruits. I did not appreciate any heart murmurs. Her pupils were equal. There is normal extraocular motility without fatigue. No fatigable eye closure. Her speech was hoarse, but not nasal. Her smile was symmetric. Tongue was midline. Gag was present, but mildly reduced. There is no tongue atrophy noted. No jaw opening fatigue. No neck flexor weakness. Gross inspection in the musculature reveals her to be diffusely thin. No focal atrophy. There is some contracture in the right lower extremity. The patient was very hesitant to lay on her back and extend fully and probably we were not able to extend her knee greater than 110 degrees. Her upper extremity strength was symmetric. She is probably mildly diffusely weak, but did not appear to be any fatigability. Left lower appeared full. Right lower within marked limits of testing. No proximal versus distal weakness. Her lower extremities were thin. Her reflexes were brisk at the left. Nonsustained clonus was noted in both feet. Toes query up on the left, down on the right. [id number] was not tested, but did not appear to be any sensory abnormalities to light touch. There was no trunk level and no trunk tenderness. IMPRESSION: The patient with a baseline dementia who has had encephalopathy, is mildly generally weak. I do not see any convincing evidence of neuromuscular disease such as fatigability associated with myasthenia gravis. There is no distribution to her weakness suggestive of a myopathic process. I am reassured that her CK and thyroid function were normal. There are some minor upper motor neuron signs in the lower extremities, although no sensory level. The increased tone may represent contracture related to posture or could represent an increase in tone. PLAN: This patient who has multiple chronic comorbidities and dementia is about to be placed on palliative care. I do not see any convincing or easily treatable underlying neuromuscular or neurologic diseases. I would check an acetylcholine receptor antibody for completeness. If the patient were to markedly improve to the point that if something significant was found could be corrected, then I would potentially recommend some imaging of the kathleen spine to assess some subtle upper motor neuron findings in the lower extremities. Even at that point, it is unlikely something treatable would be found. We will sign off at this point. Please reconsult if the acetylcholine receptor antibody titer comes back or if there is any significant change in her cognitive and neurologic status. YEMID
--- NOTE | 2018-09-29 23:06 | Operative Report ---
DATE OF OPERATION: 09/28/2018 PROCEDURE: Flexible fiberoptic bronchoscopy. INDICATIONS: Mucus plugging and collapse of the left lung. CONSENT: Informed consent was obtained from her son, Mr. Mckeon, as she herself was unable to make any healthcare decision. CONSCIOUS SEDATION: Achieved using 0.5 mg of Versed and 25 mcg of fentanyl. MONITORING: The patient was monitored throughout the procedure using continuous ECG tracing and pulse oximetry as well as blood pressure monitoring. DESCRIPTION OF THE PROCEDURE: The right naris was prepared using viscous lidocaine as is customary. Conscious sedation was delivered. The flexible fiberoptic bronchoscope was then inserted through the right naris and passed without difficulty through the nasopharyngeal and the oropharyngeal passages. The vocal cords were visualized and the left vocal cord appeared to be moving sluggishly compared to the right vocal cord. The liquid lidocaine 1% was applied to achieve local anesthesia and then the flexible bronchoscope was inserted in between the vocal cords. Excessive mucous plugging of yellowish greenish thick phlegm was noted in the trachea and in the left mainstem bronchus, left upper lobe, and left lower lobe. Samples from the excessive mucus and mucous plugs were sent for culture. The right bronchial tree appeared to be curtain cleaner than the left bronchial tree. All segments, lobes, and subsegments were visualized and at the end of the toileting, they were all patent and free of plugs. At the conclusion of the procedure, hemostasis was confirmed and the scope was retracted. COMPLICATIONS: None apparent. ESTIMATED BLOOD LOSS: Less than 5 mL. The patient tolerated the procedure very well and she was in stable condition after bronchoscopy. I attest to the content of the Intraoperative Record and any orders documented therein. Any exceptions are noted below. EDUARDO
[2018-09-30] MEDS: LEVALBUTEROL HCL 1.25 MG/3 ML NEB NEB SCH ×4 (02:04→19:09)
[2018-09-30 04:17] LABS: Basophils # (auto) 0.01 K/uL (0-0.2); Basophils % (auto) 0.1 %; Eosinophils # (auto) 0.06 K/uL (0-0.5); Eosinophils % (auto) 0.5 %; Hematocrit (blood only) 28.5 % (37-47); Hemoglobin 9.6 g/dL (12.0-16.0); Immature Granulocytes # (auto) 0.02 K/uL (0.00-0.02); Immature Granulocytes % (auto) 0.2 %; Lymphocytes # (auto) 1.02 K/uL (1.2-3.4); Lymphocytes % (auto) 8.5 %; Mean Corpuscular Hgb Conc 33.7 g/dL (32-36); Mean Corpuscular Volume 87.7 fL (80-100); Mean Platelet Volume 8.7 fL (7.4-10.4); Monocytes % (auto) 5.8 %; Neutrophils % (auto) 84.9 %; Platelet Count 477 K/uL (130-400); RDW Coefficient of Variation 15.3 % (11.5-14.5); RDW Standard Deviation 49.7 fL (36.4-46.3); Red Blood Count 3.25 M/uL (4.2-5.4); White Blood Count 12.01 K/uL (4.8-10.8)
[2018-09-30 04:34] LABS: BUN Creatinine Ratio 23.7 (10-20); Calcium 8.2 mg/dl (8.5-10.1); Creatinine Clr Calc Pharmacy 52.3 ml/min; Est GFR (African American) 99.6; Est GFR (Non-African American) 85.9; Magnesium 2.2 mg/dl (1.8-2.4); Potassium 3.8 mmol/L (3.5-5.1)
[2018-09-30] MEDS: PIPERACILLIN/TAZOBACTAM 3.375 GM in DEXTROSE 5% 100 ML IV SCH ×3 (04:34→20:26)
[2018-09-30 04:35] LABS: Phosphorus 3.5 mg/dl (2.5-4.9)
[2018-09-30] MEDS: HEPARIN SOD 5,000 UNIT/0.5 ML VIAL SQ SCH ×2 (07:55→21:09)
--- NOTE | 2018-09-30 08:20 | Hospitalist Progress Note ---
Date of Service September 30, 2018 Assessment & Plan (1) Weakness: Patient presents with generalized weakness secondary to recurrent urinary tract infection and Pneumonia Generalized weakness Recurrent Urinary Tract Infection of E.coli Pneumonia, bilateral Aspiration -was initially on Zosyn and Doxycycline from 09/22/18, and then was on Levaquin -09/28/18 was found to be tachycardiac last night and CXR and CT showed collapsed left lung with a mucous plugs patient underwent bronchoscopy and patient had excessive mucuous in the left mainstem TIA and LLL and all that was toiletted and sent to culture -post procedure CXR showed persistent collapsed LL. Bedside US shows a very small pocket of fluid non tap able without risk. -since 09/28/18, patient on Zosyn and will continue Zosyn for now -other concern is that patient is aspiration risk and it is unclear whether or not the patient's family members are in agreement on feeding measures -neurology consult does not suspect identifiable neuromuscular disorder and patient does have history of dementia, and recommends acetylcholine receptor antibody for completeness of workup -as of 09/30/18, will start patient on D5 1/2 normal saline at 50 cc/hr to prevent hypoglycemia, keep NPO for now, follow with further speech and swallow assessments, and await patient's power of trust and estates attorney to arrive hospital to discuss future feeding measures -encourage incentive spirometry use History of dementia History of asthma -hold oral Singulair -nebulizer treatments -home medication of Breo Ellipta as fluticasone equivalent in the hospital Recent acute maxillary sinusitis in the past Constipation. -hold senokot History of osteoporosis -hold raloxifene. History of sinus pause during last admission about a 6-second sinus pause -continue cardiac monitoring Anemia -Hgb stable around 10 Deep venous thrombosis prophylaxis: heparin subcut q12 hours Code Status as per Living Will is Do Not Resuscitate and Do Not Intubate multiple family members involved son Mike [phone] states that another son Adelso is main medical decision maker and he will be coming to town to see the patient by weekend daughter Marlene had previously advocated for comfort measures Subjective Patient is more wake and alert in the past 3 days. She speaks a little more audibly but softly. She is cooperative on exam. She maintains legs in the position. breathing on room air. when she was explained the hospital course and medical doctor's concerns of aspiration, patient does not make comments Physical Exam Constitutional: + thin Eyes: PERRL, conjunctivae normal, anicteric sclerae EOM intact bilaterally ENMT: external ear and nose normal, oropharynx normal Neck: trachea midline, no thyromegaly normal visual inspection Respiratory: normal respiratory effort and + abnormal respiratory pattern Cardiovascular: Rate/Rhythm: regular rate and regular rhythm Gastrointestinal (Abdomen): normal bowel sounds, soft, nontender, no hepatosplenomegaly Musculoskeletal: maintains legs in position Neurologic: PERRL, EOMI, accommodation nl, no face palsy, no dysarthria Psychiatric: Orientation: alert and cooperative Results & Data Vital Signs (Past 12 Hours) Vital Signs Temp Pulse Pulse Pulse Resp BP BP 09/30/18 07:17 83 18 09/30/18 05:00 92 H 92 H 22 123/56 L 09/30/18 04:00 37.2 C 77 26 H 122/54 L 09/30/18 03:00 37.2 C 83 83 27 H 137/64 09/30/18 02:06 86 16 09/30/18 02:00 37.2 C 82 82 30 H 126/57 L 09/30/18 01:00 37.0 C 79 79 29 H 125/57 L 09/30/18 00:00 84 27 H 133/56 L 09/29/18 23:00 81 81 26 H 119/54 L 09/29/18 22:00 37.1 C 85 26 H 123/57 L 09/29/18 21:00 91 H 30 H 125/59 L Pulse Ox 09/30/18 07:17 91 09/30/18 05:00 90 09/30/18 04:00 97 09/30/18 03:00 92 09/30/18 02:06 96 09/30/18 02:00 92 09/30/18 01:00 92 09/30/18 00:00 92 09/29/18 23:00 92 09/29/18 22:00 96 09/29/18 21:00 95
[2018-09-30] MEDS: FLUTICASONE PROP HFA INH 44 MCG INHALER INH SCH (10:26)
[2018-09-30] MEDS: D5W AND 1/2NSS 1,000 ML IV SCH (10:26)
--- NOTE | 2018-09-30 11:33 | Palliative Care Consultation ---
Date of Consultation September 30, 2018 Assessment & Plan (1) Goals of care, counseling/discussion: -78 year old female with PMH dementia, asthma, anemia, osteoporosis, who lives at home with a 24-hour caregivers, was admitted on 09/22 with weakness and possible pneumonia and UTI. She was previously admitted to the hospital on 09/09 for influenza and maxillary sinusitis and was DC'ed home 09/15, but came back on 09/18 with complaint of lethargy. Workup was reportedly negative and patient was given fluids and she seemed to have improved and she was sent back home. It was reported that she has been extremely weak and only able to whisper at home. Initially, she was admitted to the [facility], she was found to be tachycardiac on 09/[address] showed collapsed left lung with a LMS possible plugs. She was sent to the ICU and underwent bronchoscopy which showed thick tenacious mucous throughout the left lung. It was suctioned and sent for culture. Questionable silent aspiration given severe weakness and advanced dementia. Patient's daughter is or was a registered nurse and was at the bedside stating that if patient is aspirating, she would never want a feeding tube and it would be daughter's preference to take her home with hospice. Palliative care is consulted to discuss goals of care. -Yesterday, I initially met the patient and her son, Mike, in room 106. patient was lethargic and sleeping during visit. Mike stated that yes, patient does have a living will, but he and his brother Adelso (Adelso is the POA) were not certain of when that would come into play. -It sounds like at baseline, patient is in the moderately severe stage of dementia. Mike is not certain of patient's baseline functional status, as her 23/11 caregivers provide all of her personal care. It seems as though she is mostly bed-bound, which would actually put her in the severe stage, but she is able to converse with full sentences. -Today, patient is much more awake and alert. She knew her full name, that she was in hospital, her children's names, etc. She is still whispering, so it is hard to have a full-on conversation. -Ruben's son, Adelso, is coming in from [place] this evening and will be in hospital tomorrow. -If patient passes bedside swallow evaluation, it sounds like the plan would be for patient to continue to eat by mouth. Patient and family need to be understanding of the risk of silent aspiration and recurrent pneumonia. If patient does not wish to have alternative feeding, which is perfectly reasonable, will need to focus on maximizing patient's comfort and be accepting of risks associated with comfort feeding. -Further discussion to be had with patient and her children. -We will continue to follow as needed. (2) Weakness: (3) Dementia: Dementia behavioral disturbance: without behavioral disturbance Dementia type: unspecified type Qualified Code(s): F03.90 - Unspecified dementia without behavioral disturbance (4) Acute UTI: (5) Pneumonia: Laterality: right Lung location: lower lobe of lung Pneumonia type: due to unspecified organism Qualified Code(s): J18.1 - Lobar pneumonia, unspecified organism Supervising Physician Co-Signing Physician Notes Chart reviewed, patient seen and examined-patient's daughter and granddaughter at bedside. Collaborated with MYRA Guy Patient was just evaluated by speech with a bedside swallow eval-suspect silent aspiration. Patient stated to therapist as well as family at bedside that she would not want a feeding tube. Daughter reports patient has a very extensive detailed living will-stating she would not want artificial feeds. Patient's son who is the power of compliance attorney was not at bedside-has arrived from [place]. PE: Patient awake and alert, generalized weakness HEENT: EOMI, hearing within normal limits Respiratory: Unlabored, diminished breath sounds bilateral bases right greater than left CV: Regular rate Abdomen: Soft, nontender Neuro: Alert, able to make her needs known Agree with above note, assessment and plan as per MYRA Guy-we will continue to follow and assist family with medical decision making. Patient lives in her own home with 24-hour caregivers-family would like patient to return to her own home with continued care. Did discuss addition of hospice care with patient's daughter History of Present Illness Attending Physician: Kenrick Ventura MD History of Present Illness This 78 year old female with PMH dementia, asthma, anemia, osteoporosis, who lives at home with a 24-hour caregivers, was admitted on 09/22 with weakness and possible pneumonia and UTI. She was previously admitted to the hospital on 09/09 for influenza and maxillary sinusitis and was DC'ed home 09/15, but came back on 09/18 with complaint of lethargy. Workup was reportedly negative and patient was given fluids and she seemed to have improved and she was sent back home. It was reported that she has been extremely weak and only able to whisper at home. Initially, she was admitted to the [facility], she was found to be tachycardiac on 09/[address] showed collapsed left lung with a LMS possible plugs. She was sent to the ICU and underwent bronchoscopy which showed thick tenacious mucous throughout the left lung. It was suctioned and sent for culture. Questionable silent aspiration given severe weakness and advanced dementia. Patient's daughter is or was a registered nurse and was at the bedside stating that if patient is aspirating, she would never want a feeding tube and it would be daughter's preference to take her home with hospice. Palliative care is consulted to discuss goals of care. Thank you kindly for this consult. I will follow as needed. Allergies Allergy/AdvReac Type Severity Reaction Status Date / Time alendronate sodium Allergy Unknown Verified 09/22/18 12:12 Cephalosporins Allergy Unknown Verified 09/22/18 12:12 erythromycin base Allergy Unknown Unknown Verified 09/22/18 12:12 ibandronate sodium Allergy Unknown Verified 09/22/18 12:12 [From [facility]] Home Medications Home Medications Medication Instructions Recorded Confirmed Type Breo Ellipta 1 inh INHALATION QAM 07/19/18 09/22/18 History albuterol sulfate [Ventolin HFA] 2 puff INHALATION QID PRN 07/19/18 09/22/18 History montelukast 10 mg PO HS 07/19/18 09/22/18 History raloxifene 60 mg PO QAM 07/19/18 09/22/18 History sertraline 25 mg PO HS 07/19/18 09/22/18 History acetaminophen [Tylenol] 325 mg PO Q6H PRN 09/22/18 09/22/18 History cholecalciferol (vitamin D3) 50,000 unit PO UD 09/22/18 09/22/18 History levalbuterol HCl 1.25 mg INHALATION Q4H PRN 09/22/18 09/22/18 History Patient History Medical History Osteoporosis (Chronic) Anemia (Chronic) Dementia (Chronic) UTI (urinary tract infection) (Resolved) Asthma (Chronic) Bronchitis Surgical History History of tonsillectomy and adenoidectomy (Chronic) Family History Other Unknown family medical history Social History Preferred Language: Portuguese Communication Ability: Unable [employer] Forms Required: No Beliefs That Will Affect Care: None marital status: / Current Living Situation: Other Current Living Situation Comment: caretakers Feels Safe at Home: Yes Smoking Status: Former smoker Review of Systems Review of Systems: Patient denies pain or discomfort, no SOB, N/V Physical Exam Constitutional: + thin and + frail appearing ENMT: external ear and nose normal, oropharynx normal Neck: normal visual inspection Respiratory: normal respiratory effort Cardiovascular: RRR, no murmur, no edema Gastrointestinal (Abdomen): normal bowel sounds, soft, nontender, no hepatosplenomegaly Skin: no rashes, warm and dry Neurologic: moves all extremities and awake Psychiatric: Orientation: alert, oriented to person and oriented to place; + not oriented to time Results & Data Vital Signs (Past 12 Hours) Vital Signs Temp Pulse Pulse Pulse Resp BP BP 09/30/18 10:28 37.1 C 89 16 152/60 H 09/30/18 09:01 85 30 H 09/30/18 09:00 87 24 122/55 L 09/30/18 08:01 99 H 17 09/30/18 08:00 37 C 100 H 27 H 149/79 H 09/30/18 07:17 83 18 09/30/18 07:01 85 30 H 09/30/18 07:00 85 29 H 131/56 L 09/30/18 05:00 92 H 92 H 22 123/56 L 09/30/18 04:00 37.2 C 77 26 H 122/54 L 09/30/18 03:00 37.2 C 83 83 27 H 137/64 09/30/18 02:06 86 16 09/30/18 02:00 37.2 C 82 82 30 H 126/57 L 09/30/18 01:00 37.0 C 79 79 29 H 125/57 L 09/30/18 00:00 84 27 H 133/56 L Pulse Ox 09/30/18 10:28 88 L 09/30/18 09:01 91 09/30/18 09:00 91 09/30/18 08:01 92 09/30/18 08:00 91 09/30/18 07:17 91 09/30/18 07:01 91 09/30/18 07:00 92 09/30/18 05:00 90 09/30/18 04:00 97 09/30/18 03:00 92 09/30/18 02:06 96 09/30/18 02:00 92 09/30/18 01:00 92 09/30/18 00:00 92 Time Spent Midlevel 100 minutes with >50% of time spent at bedside with patient and family discussing condition and GOC. Attending Time spent 30 minutes in addition to the above 100 minutes spent by MYRA Solis for a total of 130 minutes with greater than 50% of the time spent at bedside reviewing patient's current status, prior wishes, both as well as goals of care.
[2018-09-30] MEDS: FAMOTIDINE 20 MG in SYRINGE 3 ML IV SCH (12:20)
[2018-10-01] MEDS: LEVALBUTEROL HCL 1.25 MG/3 ML NEB NEB SCH ×3 (02:13→14:14)
[2018-10-01] MEDS: PIPERACILLIN/TAZOBACTAM 3.375 GM in DEXTROSE 5% 100 ML IV SCH ×2 (03:48→11:54)
[2018-10-01] MEDS: D5W AND 1/2NSS 1,000 ML IV SCH (05:33)
[2018-10-01] MEDS: HEPARIN SOD 5,000 UNIT/0.5 ML VIAL SQ SCH (08:27)
[2018-10-01] MEDS: FLUTICASONE PROP HFA INH 44 MCG INHALER INH SCH (08:27)
[2018-10-01] MEDS: FAMOTIDINE 20 MG in SYRINGE 3 ML IV SCH (11:54)
[2018-10-01] MEDS ORDERED: ACETAMINOPHEN 1,000 MG/100 ML VIAL IV PRN (14:38)
--- NOTE | 2018-10-01 14:59 | Hospitalist Progress Note ---
Date of Service October 01, 2018 Assessment & Plan (1) Weakness: Patient presents with generalized weakness secondary to recurrent urinary tract infection and Pneumonia Generalized weakness Recurrent Urinary Tract Infection of E.coli Pneumonia, bilateral Aspiration Dementia -was initially on Zosyn and Doxycycline from 09/22/18, and then was on Levaquin for treatment of pneumonia and urinary tract infection -09/28/18 was found to be tachycardiac and CXR and CT showed collapsed left lung with a mucous plugs patient underwent bronchoscopy and patient had excessive mucuous in the left mainstem TIA and LLL and all that was toiletted and sent to culture;post procedure CXR showed persistent collapsed LL. Bedside US shows a very small pocket of fluid non tap able without risk. -neurology consult does not suspect identifiable neuromuscular disorder and patient does have history of dementia, ikely the issues of aspiration due to late stage dementia, acetylcholine receptor antibody for completeness of workup -patient was on Zosyn 09/28/18 when aspiration event occurred. Zosyn was continued until 10/01/18 when after discussion with patient and her family members including her son Adelso [phone] they were in favor of instituting comfort care measures -comfort feeding History of asthma -hold oral Singulair -hold inhaled steroids at this time Recent acute maxillary sinusitis in the past Constipation. -hold senokot History of osteoporosis -hold raloxifene. History of sinus pause during last admission about a 6-second sinus pause -no pauses during this hospital admission -on comfort care status as of 10/01/18 and cardiac telemetry to be discontinued Anemia -Hgb stable around 10 as of 09/30/18 Deep venous thrombosis prophylaxis: comfort care Code Status as per Living Will is Do Not Resuscitate and Do Not Intubate Comfort care measures as of 10/01/18 and with plans to transition to hospice tyesha Darden is main medical decision maker tyesha Mckeon [phone] daughter Marlene Marino Had long discussions with patient and her family member tyesha Darden at the bedside [phone] and patient and family members do not want feeding tubes. Patient speaks softly and declined with 1 word answers about goals of the care. Through these discussions, goal is comfort care with transition to hospice. Currently patient is not in acute distress. But she is high risk of choking. Patient family member had given small sip of coffee and immediately patient reported to son discomfort and son thought it went down her lungs. Because goals of care is comfort, patient allowed to eat for comfort feeding. Patient and family agrees to stop IV hydration and IV antibiotics to allow for natural . No further lab draws. Code status remains DNR/DNI Physical Exam Constitutional: + thin (speaks softly and in single words) Eyes: PERRL, conjunctivae normal, anicteric sclerae EOM intact bilaterally ENMT: external ear and nose normal, oropharynx normal Neck: trachea midline, no thyromegaly normal visual inspection Respiratory: normal respiratory effort, lungs clear to auscultation Cardiovascular: Rate/Rhythm: regular rate and regular rhythm Gastrointestinal (Abdomen): normal bowel sounds, soft, nontender, no hepatosplenomegaly Musculoskeletal: legs are contracted in position Neurologic: awake (EOMI, no facial droop) Speech / Cognition: + abnormal speech (speaks softly and in single words) Psychiatric: Orientation: alert and cooperative Results & Data Vital Signs (Past 12 Hours) Vital Signs Temp Pulse Pulse Pulse Resp BP Pulse Ox 10/01/18 14:15 86 16 91 10/01/18 11:28 37.3 C 81 18 138/64 97 10/01/18 07:47 77 10/01/18 07:43 78 18 95 10/01/18 07:41 36.7 C 79 16 149/56 H 97 10/01/18 04:08 36.9 C 87 18 149/69 H 97
--- NOTE | 2018-10-02 09:52 | Hospitalist Progress Note ---
Date of Service October 02, 2018 Assessment & Plan (1) Weakness: Patient presents with generalized weakness secondary to recurrent urinary tract infection and Pneumonia Generalized weakness Recurrent Urinary Tract Infection of E.coli Pneumonia, bilateral Aspiration Dementia -was initially on Zosyn and Doxycycline from 09/22/18, and then was on Levaquin for treatment of pneumonia and urinary tract infection -09/28/18 was found to be tachycardiac and CXR and CT showed collapsed left lung with a mucous plugs patient underwent bronchoscopy and patient had excessive mucuous in the left mainstem TIA and LLL and all that was toiletted and sent to culture;post procedure CXR showed persistent collapsed LL. Bedside US shows a very small pocket of fluid non tap able without risk. -neurology consult does not suspect identifiable neuromuscular disorder and patient does have history of dementia, ikely the issues of aspiration due to late stage dementia, acetylcholine receptor antibody for completeness of workup -patient was on Zosyn 09/28/18 when aspiration event occurred. Zosyn was continued until 10/01/18 when after discussion with patient and her family members including her son Adelso [phone] they were in favor of instituting comfort care measures -comfort feeding History of asthma -hold oral Singulair -hold inhaled steroids at this time Recent acute maxillary sinusitis in the past Constipation. -hold senokot History of osteoporosis -hold raloxifene. History of sinus pause during last admission about a 6-second sinus pause -no pauses during this hospital admission -on comfort care status as of 10/01/18 and cardiac telemetry to be discontinued Anemia -Hgb stable around 10 as of 09/30/18 Deep venous thrombosis prophylaxis: comfort care Code Status as per Living Will is Do Not Resuscitate and Do Not Intubate Comfort care measures as of 10/01/18 and with plans to transition to hospice tyesha Darden is main medical decision maker tyesha Mckeon [phone] daughter Marlene Marino Patient awake and appears to be reading newspaper. She appears more comfortable today. Continues to speak softly. When asked if she feels thirsty, patient appears to be considering the question but does not give an answer. she does not appear to be in acute pain. no respiratory distress heart rate mildly tachycardic. Patient's son Adelso also at bedside Physical Exam Constitutional: + thin (speaks softly and in single words) Eyes: PERRL, conjunctivae normal, anicteric sclerae EOM intact bilaterally ENMT: external ear and nose normal, oropharynx normal Neck: trachea midline, no thyromegaly normal visual inspection Respiratory: normal respiratory effort and + abnormal respiratory pattern Cardiovascular: Rate/Rhythm: regular rhythm and + tachycardic Gastrointestinal (Abdomen): normal bowel sounds, soft, nontender, no hepatosplenomegaly Neurologic: awake (EOMI, no facial droop) Speech / Cognition: + abnormal speech (speaks softly and in single words) patient with legs in contracted position, moves upper extrenities Psychiatric: Orientation: alert and cooperative
[2018-10-03] MEDS ORDERED: MoRPHine SULFATE 5 MG/0.25 ML UDP PO PRN (13:29)
--- NOTE | 2018-10-03 14:11 | Hospitalist Progress Note ---
Date of Service October 03, 2018 Assessment & Plan (1) Weakness: Patient presents with generalized weakness secondary to recurrent urinary tract infection and Pneumonia Generalized weakness Recurrent Urinary Tract Infection of E.coli Pneumonia, bilateral Aspiration Dementia Hypoxia initially on Zosyn and Doxycycline from 09/22/18, and then was on Levaquin for treatment of pneumonia and urinary tract infection -09/28/18 was found to be tachycardiac and CXR and CT showed collapsed left lung with a mucous plugs patient underwent bronchoscopy and patient had excessive mucuous in the left mainstem TIA and LLL and all that was toiletted and sent to culture;post procedure CXR showed persistent collapsed LL. Bedside US shows a very small pocket of fluid non tap able without risk. -neurology consult does not suspect identifiable neuromuscular disorder and patient does have history of dementia, ikely the issues of aspiration due to late stage dementia, acetylcholine receptor antibody for completeness of workup -patient was on Zosyn 09/28/18 when aspiration event occurred. Zosyn was continu ed until 10/01/18 when after discussion with patient and her family members including her son dAelso [phone] they were in favor of instituting comfort care measures -comfort feeding -10/03/18 patient needed to be on nasal cannula oxygen for hypoxia History of asthma -hold oral Singulair -hold inhaled steroids at this time Recent acute maxillary sinusitis in the past Constipation. -hold senokot History of osteoporosis -hold raloxifene. History of sinus pause during last admission about a 6-second sinus pause -no pauses during this hospital admission -on comfort care status as of 10/01/18 and cardiac telemetry to be discontinued Anemia -Hgb stable around 10 as of 09/30/18 Deep venous thrombosis prophylaxis: comfort care Code Status as per Living Will is Do Not Resuscitate and Do Not Intubate Comfort care measures as of 10/01/18 and with plans to transition to hospice son Adelso is main medical decision maker tyesha Mckeon [phone] daughter Marlene Marino speaks very softly like she is mouthing words. legs are in contracted position. on nasal cannula oxygen for high oxygen requirements. this is new. likely patient aspirated when patient was given some oral nuitritrion yesterday by family. patient less energy today. she does not appear to be in distress. she denies of being in pain. Plans for home hospice was being discussed and arrangements being made with patient's son Adelso at the bedside Physical Exam Constitutional: + ill appearing Eyes: PERRL, conjunctivae normal, anicteric sclerae EOM intact bilaterally ENMT: external ear and nose normal, oropharynx normal Neck: trachea midline, no thyromegaly normal visual inspection Respiratory: normal respiratory effort Cardiovascular: Rate/Rhythm: regular rate and regular rhythm Gastrointestinal (Abdomen): normal bowel sounds, soft, nontender, no hepatosplenomegaly Neurologic: speaks very softly like she is mouthing words. legs are in contracted position
--- NOTE | 2018-10-03 17:05 | Discharge Summary ---
Date of Service October 03, 2018 Admission HPI Per Admitting Provider CHIEF COMPLAINT: Altered mental status, generalized weakness. HISTORY OF PRESENT ILLNESS: This is a 78-year-old female with past medical history significant for dementia, asthma, anemia, osteoporosis, who was recently in the hospital on 09/09 and was discharged on 09/15. At that time, she was treated for influenza and UTI and maxillary sinusitis and was discharged home. She lives at home with a 24-hour caregiver and she was brought into the ER again on 09/18 with complaint of lethargy, but all the workup was negative and patient was given fluids and she seemed to have improved and she was sent back home, but again was brought in today because patient has generalized weakness, her voice has become low, did not have any bowel movement since 09/16, has some dry cough. The patient speaks in low voices. lawn care worker at bedside.. The patient generally walks with a walker, but is really not getting up much. Appetite has come down. She is on regular diet and today when her home health nurse came and tried to check her, her pulse was 100,systolic blood pressure was d at 101 when they decided to come to the hospital where again she was found to have UTI and chest x-ray shows bibasilar atelectasis versus pneumonitis. The patient can tell her name, knows that she is in the hospital, knows that it is August and the year is 2018 but could not tell her date of . Denies any headaches, nauseous, but denies any abdominal pain. Denies chest pain or shortness of breath, has some cough. Afebrile. Denies any pain with micturition. No rash, no swelling in the legs. Hemodynamics are stable. ALLERGIES: ALENDRONATE, BONIVA, CEPHALOSPORINS. PAST MEDICAL HISTORY: As mentioned above. PAST SURGICAL HISTORY: Tonsillectomy, adenoidectomy. FAMILY HISTORY: No family history in the file. SOCIAL HISTORY: Currently lives alone at home with 24-hour caregiver. Son lives in [place]. No smoking history. Alcohol rare as per records. REVIEW OF SYSTEMS: As per HPI. Rest of the systems could not be obtained at this time. Admission Exam Per Admitting Provider PHYSICAL EXAMINATION: GENERAL: The patient is alert, awake, oriented to name and place and somewhat to time, although slow to answer. VITAL SIGNS: Temperature 36.7, pulse 66, respiratory rate 22, blood pressure 125/61, oxygen 93% on room air. HEENT: No pallor, no icterus. Pupils equal, round, reactive to light. NECK: No JVD, no neck masses, no carotid bruit. CARDIOVASCULAR: S1, S2 heard, regular rate and rhythm, no murmur, no gallop. RESPIRATORY SYSTEM: Normal AP diameter. No accessory muscle use. Bibasilar crackles present. No wheezing. ABDOMEN: Soft, bowel sounds present. Nontender. No distention. CENTRAL NERVOUS SYSTEM: Cranial nerves II through XII grossly intact, nonfocal. EXTREMITIES: No edema, no erythema Principal Diagnosis Urinary Tract Infection, bilateral pneumonia, dementia without behavioral disturbance, aspiration (aspiration into airways), comfort care measures only status, Hypoxia Discharge Exam Constitutional + ill appearing and + thin (speaks softly and in single words) Eyes PERRL, conjunctivae normal, anicteric sclerae EOM intact bilaterally ENMT external ear and nose normal, oropharynx normal Neck trachea midline, no thyromegaly normal visual inspection Respiratory normal respiratory effort, lungs clear to auscultation normal respiratory effort and + abnormal respiratory pattern Cardiovascular Rate/Rhythm: regular rhythm and + tachycardic Gastrointestinal (Abdomen) normal bowel sounds, soft, nontender, no hepatosplenomegaly Neurologic PERRL, EOMI, accommodation nl, no face palsy, no dysarthria awake (EOMI, no facial droop) Speech / Cognition: + abnormal speech (speaks softly and in single words) Psychiatric Orientation: alert and cooperative Discharge Data Allergies Allergy/AdvReac Type Severity Reaction Status Date / Time alendronate sodium Allergy Unknown Verified 09/22/18 12:12 Cephalosporins Allergy Unknown Verified 09/22/18 12:12 erythromycin base Allergy Unknown Unknown Verified 09/22/18 12:12 ibandronate sodium Allergy Unknown Verified 09/22/18 12:12 [From [facility]] Consultations 09/22/18 14:55 ED Decision to Admit Stat 09/22/18 16:45 Consult Case Management - Discharge Planning Routine 09/28/18 19:56 Consult Electrical Repairer Routine 09/29/18 08:20 Consult Neurology Routine 09/29/18 13:09 Consult Palliative Care Routine Ordered Studies 09/22/18 11:38 CT head/brain wo con Stat 09/22/18 16:45 CT abd pelvis wo con Urgent 09/27/18 15:51 MR brain wo con Routine 09/28/18 19:48 CT chest wo con Stat Hospital Course (1) Weakness: Patient presents with generalized weakness secondary to recurrent urinary tract infection and Pneumonia Generalized weakness Recurrent Urinary Tract Infection of E.coli Pneumonia, bilateral Aspiration Dementia Hypoxia initially on Zosyn and Doxycycline from 09/22/18, and then was on Levaquin for treatment of pneumonia and urinary tract infection -09/28/18 was found to be tachycardiac and CXR and CT showed collapsed left lung with a mucous plugs patient underwent bronchoscopy and patient had excessive mucuous in the left mainstem TIA and LLL and all that was toiletted and sent to culture;post procedure CXR showed persistent collapsed LL. Bedside US shows a very small pocket of fluid non tap able without risk. -neurology consult does not suspect identifiable neuromuscular disorder and patient does have history of dementia, ikely the issues of aspiration due to late stage dementia, acetylcholine receptor antibody for completeness of workup -patient was on Zosyn 09/28/18 when aspiration event occurred. Zosyn was continued until 10/01/18 when after discussion with patient and her family members including her son Adelso [phone] they were in favor of instituting comfort care measures -comfort feeding -10/03/18 patient needed to be on nasal cannula oxygen for hypoxia History of asthma -hold oral Singulair -hold inhaled steroids at this time Recent acute maxillary sinusitis in the past Constipation. -hold senokot History of osteoporosis -hold raloxifene. History of sinus pause during last admission about a 6-second sinus pause -no pauses during this hospital admission -on comfort care status as of 10/01/18 and cardiac telemetry to be discontinued Anemia -Hgb stable around 10 as of 09/30/18 Deep venous thrombosis prophylaxis: comfort care Code Status as per Living Will is Do Not Resuscitate and Do Not Intubate Comfort care measures as of 10/01/18 and with plans to transition to hospice tyesha [phone] is main medical decision maker tyesha Mckeon [phone] daughter Marlene Initial plan was to discharge patient with home hospice by 10/04/18 But patient's family has ancillary needs set up and have transport and wish for discharge home with home hospice on 10/03/18 Patient family have prescription of Roxanol 5 mg every 2 hours as needed for severe shortness of breath or severe pain Patient appears to be more alert and less lethargic with family members around her. she appears at ease Total Time Total Time Spent Total Time Spent (In Minutes): 40 minutes Total Time Includes: Examination of the Patient, Discharge Planning, Medication Reconciliation and Communication With Other Providers Discharge Plan Discharge Items Patient Disposition: Hospice - Home Reason For Visit: ALTERED MENTAL STATUS,WEAKNESS Discharge Diagnosis: Urinary Tract Infection, bilateral pneumonia, dementia without behavioral disturbance, aspiration (aspiration into airways), comfort care measures only status, Hypoxia Condition: Fair Discharge Goals: Decrease discomfort Activity: Resume your previous activity Non-emergency contact: Primary Care Provider Call non-emergency contact if: you have any medication questions Follow-up/Referrals: Domo Huertas [Primary Care Provider] - Diet: Regular Diet Texture: Dental soft (bite-sized) Addtl Provider Instructions: discharge to Home Hospice Patient family to have prescription of Roxanol 5 mg every 2 hours as needed for severe shortness of breath or severe pain Prescriptions: New morphine concentrate 100 mg/5 mL (20 mg/mL) Solution 5 mg PO Q2H PRN (Reason: severe shortness of breath or severe pain) 4 Days Qty: 30 RF: 0 Continued albuterol sulfate [Ventolin HFA] 90 mcg/actuation Hfa Aerosol Inhaler 2 puff INHALATION QID PRN (Reason: breathing) RF: 0 Breo Ellipta 100-25 mcg/dose Blister With Device 1 inh INHALATION QAM RF: 0 acetaminophen [Tylenol] 325 mg Tablet 325 mg PO Q6H PRN (Reason: Pain) RF: 0 levalbuterol HCl 1.25 mg/0.5 mL solution for nebulization 1.25 mg inhalation Q4H PRN (Reason: Shortness Of Breath Or Wheezing) RF: 0 Discontinued sertraline 25 mg Tablet 25 mg PO HS RF: 0 raloxifene 60 mg Tablet 60 mg PO QAM RF: 0 montelukast 10 mg Tablet 10 mg PO HS RF: 0 cholecalciferol (vitamin D3) 50,000 unit capsule 50,000 unit PO UD RF: 0 Stand-Alone Forms: [facility]charge Orders: Discharge Order (Routine); Ordered 10/03/18 Ordered By: Kenrick Ventura Admission Data Admit Date/Time: 09/22/18 15:26 Attending Provider: Kenrick Ventura Admit Provider: Héctor Dunn Primary Care Provider: Dmoo Huertas Other Providers: Héctor Dunn ; Tanner Noguera ; Zulma Witt ; Heike Block Service: Telemetry
== END 2018-10-03 18:50 | disposition hospice, home (50) | DRG 163 ==
LOC: ED 11:24 → SUATTDRO 15:26 → 2N 15:26 → 1E 09-28 19:57 → 2W 09-30 08:12